=== PATIENT | male | born 1935 | race Caucasian/White ===

== ENCOUNTER → 2016-09-05 | Outpatient (REF) | payer MEDICARE, BC ==
[~2016-09-05] MED LIST: DARV100T; PRIN10TA
== END ==
LOC: M LAB REF 12:56
PROVIDERS: ATTEND Internal Medicine Pulmonary Disease
DX: J44.9 Chronic obstructive pulmonary disease, unspecified (principal)

== ENCOUNTER → 2017-01-14 | Outpatient (CLI) | payer MEDICARE, BC ==
--- NOTE | 2017-01-14 09:55 | REP ---
Clinical: Chronic obstructive pulmonary disease. Technique: PA and lateral. Comparison: 09/19/2015. Findings: Advanced COPD and emphysematous changes are again noted and stable. No acute consolidation, effusion, or pneumothorax. Mediastinum and cardiac silhouette are normal. Evidence for left shoulder arthroplasty. Surgical clips in the superior mediastinum are stable. Impression: Advanced COPD and emphysematous changes similar to prior examination. Signed by Samuel Fountain MD 01/14/2017 09:47 A
== END ==
LOC: M RAD 09:20
PROVIDERS: ATTEND Internal Medicine Pulmonary Disease
DX: J44.9 Chronic obstructive pulmonary disease, unspecified (principal)

== ENCOUNTER → 2017-07-11 | Outpatient (CLI) | payer MEDICARE, BC ==
--- NOTE | 2017-07-11 15:00 | REP ---
CT of the chest without IV contrast: Comparisons are the recent plain film study of 06/27/[address] of 01/22/2013. On the recent plain film study. A small nodular densities noted in the right mid lung. On the CT study today there are surgical clips in the right hilus and right paratracheal zone suggesting a right upper lobectomy. There are thickened interstitial markings posterolaterally in the left lower lobe which are confluent and in combination result in the nodular density seen on the plain film study. This could represent interstitial inflammation or scarring. It was not present on the comparison CT. No focal nodule or mass is identified on the superimposition of these coarsened interstitial markings results in a nodular like appearance on plain films. However, there is a spiculated 7 mm nodule laterally left upper lobe on image 41 as an interval change. No other lung nodules or masses are again. I suspect there are numerous tiny bulla throughout the lung delacruz bilaterally. There is no mediastinal adenopathy. No axillary adenopathy. The study is insensitive for hilar adenopathy. There is a left shoulder arthroplasty. There are no pleural effusions. In the upper abdomen there is no adrenal mass. The visualized portions of the liver, pancreas and spleen are unremarkable. Impression: No right lung nodule is identified. I suspect the patient has a right upper lobectomy. There are numerous coarsened interstitial markings in the right lower lobe compatible with fibrosis or inflammation, or combination. Superimposition of these markings results in a nodule like density on plain films. There is a new spiculated 7 mm nodule laterally left upper lobe on image 41. In a high risk patient CT is recommended as 6-12 months and again 18 24 months. Signed by Jaime Haas MD 07/11/2017 02:52 P
== END ==
LOC: M RAD 10:36
PROVIDERS: ATTEND Nurse Practitioner Adult Health
DX: J44.9 Chronic obstructive pulmonary disease, unspecified (principal); R91.1 Solitary pulmonary nodule

== ENCOUNTER → 2017-10-11 | Outpatient (CLI) | payer MEDICARE, BC | LOC: M RAD 12:14 | DX: J44.9 Chronic obstructive pulmonary disease, unspecified (principal) | CPT/HCPCS: 71250 ==

== ENCOUNTER → 2017-10-15 | Outpatient (CLI) | payer MEDICARE, BC | LOC: M PLARAD 12:35 | DX: R91.1 Solitary pulmonary nodule (principal) | CPT/HCPCS: 78815 ==

== ENCOUNTER → 2018-01-14 | Outpatient (CLI) | payer MEDICARE, BC | LOC: M RAD 10:17 | DX: R91.1 Solitary pulmonary nodule (principal); Z90.2 Acquired absence of lung [part of]; Z79.899 Other long term (current) drug therapy | CPT/HCPCS: 71250 ==

== ENCOUNTER → 2018-05-15 | Outpatient (CLI) | payer MEDICARE, BC | LOC: M RAD 11:12 | DX: R91.1 Solitary pulmonary nodule (principal) | CPT/HCPCS: 71250 ==

== ENCOUNTER → 2018-11-19 | Outpatient (CLI) | payer MEDICARE, BC ==
--- NOTE | 2018-11-19 17:07 | REP ---
REASON: Followup pulmonary nodules. COMPARISON: Numerable. All of which have been reviewed and the latest of which is dated 05/15/2018. There is no significant change in the appearance of the mediastinum or pulmonary noe. There is bilateral pulmonary arterial enlargement suggestive of pulmonary hypertension which should be correlated clinically. Numerable nonenlarged lymph nodes are present in the mediastinum and pulmonary noe but difficult to evaluate without intravenous contrast. There are no pleural or pericardial effusions. There is no significant change in the appearance of the imaged upper abdomen. There is no significant change in the appearance of the imaged osseous structures. Evaluation of the lung delacruz shows then to be hyperexpanded with scattered areas of parenchymal scarring seen as curvilinear densities are stable. 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 There are no new abnormal nodules, masses, or opacities. IMPRESSION:Chronic lung field changes as described above. Chronic waxing and waning atelectatic change in the right upper lobe with postoperative right hilar changes status quo. Electronically Signed by Leo Madison DO 11/19/2018 05:40 P
== END ==
LOC: M RAD 10:50
PROVIDERS: ATTEND Internal Medicine Pulmonary Disease
DX: R91.1 Solitary pulmonary nodule (principal); J98.11 Atelectasis

== ENCOUNTER 2019-01-06 14:32 | Inpatient (IN) | payer MEDICARE, BC ==
[~2019-01-06] VITALS: Ht 167.6 cm; Wt 39.3 kg
[2019-01-06] MEDS ORDERED: HYDR-3719 PO (14:51)
[2019-01-06] MEDS ORDERED: PRED10TA2 PO (14:51)
[2019-01-06] MEDS ORDERED: GABA-845 PO (14:51)
[2019-01-06] MEDS ORDERED: dexameTHASONE 20 MG/5 ML VIAL (J1100) IV ONE (15:15)
[2019-01-06] MEDS: IPRATROPIUM 0.5MG/ALBUTEROL 2.5MG INH SOL UD 3ML (DUONEB)(J7620) NEB PRN ×2 (15:30→16:31)
[2019-01-06 15:37] LABS: BASO % 0.1 % (0.0-1.0); EOS % 0.1 % (0.0-3.0); HEMATOCRIT 43.7 % (42.0-52.0); HEMOGLOBIN 13.7 g/dl (13.5-17.5); LYMPH # 0.7 10^3/uL (1.5-4.5); LYMPH % 4.4 % (24.0-44.0); MEAN CORPUSCULAR HEMOGLOBIN 30.5 pg (27.0-33.0); MEAN CORPUSCULAR HGB CONC 31.4 g/dl (32.0-36.5); MEAN CORPUSCULAR VOLUME 97.3 fl (80.0-96.0); MONO # 1.1 10^3/uL (0.0-0.8); MONO % 7.2 % (0.0-5.0); NEUTROPHILS # 13.8 10^3/uL (1.8-7.7); NEUTROPHILS % 87.8 % (36.0-66.0); PLATELET COUNT, AUTOMATED 219 10^3/uL (150-450); RED BLOOD COUNT 4.49 10^6/uL (4.30-6.10); WHITE BLOOD COUNT 15.7 10^3/uL (4.0-10.0)
[2019-01-06 16:11] LABS: ABG BASE EXCESS 1.5 (-2.0-2.0); ABG HCO3 27.1 MEQ/L (22.0-26.0); ABG O2 SATURATION 93.8 % (95.0-99.0); ABG PARTIAL PRESSURE CO2 46.3 mmHg (35.0-45.0); ABG PARTIAL PRESSURE O2 72.8 mmHg (75.0-100.0); ABG STANDARD HCO3 25.7 MEQ/L (22.0-26.0); ABG TOTAL CO2 28.5 MEQ/L (23.0-31.0); ABG pH (ARTERIAL) 7.385 UNITS (7.350-7.450)
[2019-01-06 16:12] LABS: BLOOD UREA NITROGEN 63 MG/DL (7-18); CALCIUM LEVEL 8.8 MG/DL (8.8-10.2); CARBON DIOXIDE LEVEL 31 MEQ/L (21-32); CHLORIDE LEVEL 106 MEQ/L (98-107); CPK CREATINE PHOSPHOKINASE 28 U/L (39-308); CREATININE FOR GFR 1.93 MG/DL (0.70-1.30); GLOMERULAR FILTRATION RATE 35.5 (>35); GLUCOSE, FASTING 104 MG/DL (70-100); MB/CK RELATIVE INDEX 3.93 (< OR =4); NT-PRO BNP 2305 PG/ML (<450); POTASSIUM SERUM 5.5 MEQ/L (3.5-5.1); SODIUM LEVEL 141 MEQ/L (136-145); TROPONIN I < 0.02 NG/ML (< 0.10)
--- NOTE | 2019-01-06 16:16 | REP ---
HISTORY: Dyspnea. Cough. COMPARISON: 06/27/2017. The technique utilized in obtaining the radiograph has magnified the cardiac silhouette and accentuated the interstitial markings. Once again, the lung delacruz are hyperexpanded with fibrotic change particularly in the lung bases, however, a new patchy opacity is suspected in the left lower lobe superimposed upon chronic change. The heart is not enlarged and the osseous structures are stable. IMPRESSION: New abnormal left lower lobe patchy opacity consistent with pneumonia. Electronically Signed by Leo Madison DO 01/06/2019 04:17 P
[2019-01-06] MEDS ORDERED: cefTRIAXone SOD 2 GM in D5W MINI-BAG PLUS 50 ML IV ONE (16:30)
[2019-01-06] MEDS ORDERED: AZITHROMYCIN INJ 500 MG, VIAL MATE ADAPTER 1 EACH in D5W 250 ML IV ONE (16:30)
[2019-01-06] MEDS ORDERED: MILK87.5 PO (16:37)
[2019-01-06] MEDS ORDERED: IPRATROPIUM 0.5MG/ALBUTEROL 2.5MG INH SOL UD 3ML (DUONEB)(J7620) NEB PRN (17:45)
--- NOTE | 2019-01-06 17:54 | HPEPDOC ---
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 Patient stated that he has had increased cough, and sputum production. He had a CT for surveillance of his pulmonary nodule completed through his enrollment manager. It was found that the patient had pneumonia. The patient states that he was placed on antibiotics at that time and prednisone. He noted that he did not feel better after he completed the course of antibiotics. He was placed on additional prednisone. However, he continued to get short of breath with increased cough and shortness of breath. He called his primary care provider who instructed him to come to the ER. The patient presented to the ER with his daughter who stated that the patient has been getting worse over the past two weeks and they had noticed that he was more weak then normal. The patient states that he would not like to stay in the hospital but admits that he is not feeling well. He states that he has had yellow sputum. He denies any fevers or chills. He received a chest x-ray in the ER which demonstrated a left lower lobe infiltrate consistent with pneumonia. Additionally, he had an elevated white blood cell count and tachycardia. The hospitalist service was consulted and the patient was admitted PAST MEDICAL HISTORY: 1. Adenocarcinoma of the lung Stage 1A [id number] 2. Hypertension 3. Chronic Obstructive Pulmonary Disease 4. Tobacco Abuse PAST SURGICAL HISTORY: 1. Multiple shoulder surgeries 2. Right Upper Lobectomy and mediastinal node dissection SOCIAL HISTORY: Patient is a former smoker. He denies Iv drug use. He denies recent sick contacts or travel FAMILY HISTORY: Denies family history of lung cancer or lung disease ALLERGIES: Please see below. REVIEW OF SYSTEMS: CONSTITUTIONAL: Denies fevers, chills, nightsweats, unintentional weightloss or weightgain HEENT: Admits to cough with increased sputum production. Denies dysphagia CARDIOVASCULAR: Denies chest pain, palpitations, or feelings of the heart racing RESPIRATORY: Admits to shortness of breath at rest. Admits to occasional wheezi ng. Denies hemoptysis GASTROINTESTINAL: Admits to constipation. Denies diarrhea. Denies abdominal p ain. Denies nausea or vomiting GENITOURINARY: Denies dysuria or increased frequency SKIN: Denies any rashes or lesions MUSCULOSKELETAL: Admits to chronic left shoulder pain NEUROLOGICAL: Admits to neuropathic pain from shingles PSYCHIATRIC: Denies depression or anxiety ENDOCRINE: Denies heat intolerance or cold intolerance HEMATOLOGIC/LYMPHATIC: Denies easy bruising or bleeding HOME MEDICATIONS: Please see below. PHYSICAL EXAMINATION: VITAL SIGNS: Temperature 99.4, pulse 113, respiratory rate 20, blood pressure 116/68, pulse oximetry 94% on 2L NC GENERAL APPEARANCE: Patient is a frail appearing white male. He is awake, alert, and oriented. He is lying comfortably in bed in no acute distress. HEENT: Atraumatic normocephalic. Sclera are mildly icteric. Trachea is midline. Mucuous membranes are slightly dry. CARDIOVASCULAR: Normal S1, S2. Distant heart sounds. Tachycardic. Regular rhythm. No clicks, rubs, or murmurs LUNGS: Diminished breath sound on the right. Rhoncorous breath sounds throughout. No wheezing. No crackles. ABDOMEN: Soft, nondistended, nontender to palpation in all 4 quadrants. No rebound tenderness or guarding. Positive bowel sounds EXTREMITIES: No edema. Full and equal pulses in bilateral upper and lower extremities NEUROLOGICAL: No focal neurological deficit PSYCHIATRIC: Mood and affect appear appropriate LABORATORY DATA: See below. IMAGING: HISTORY: Dyspnea. Cough. COMPARISON: 06/27/2017. The technique utilized in obtaining the radiograph has magnified the cardiac silhouette and accentuated the interstitial markings. Once again, the lung delacruz are hyperexpanded with fibrotic change particularly in the lung bases, however, a new patchy opacity is suspected in the left lower lobe superimposed upon chronic change. The heart is not enlarged and the osseous structures are stable. IMPRESSION: New abnormal left lower lobe patchy opacity consistent with pneumonia. Electronically Signed by Leo Madison DO 01/06/2019 04:17 P MICROBIOLOGY: Please see below. ASSESSMENT: Patient is an 83 year old male with a past medical history of adenocarcinoma of the lung s/p right upper lobectomy in 2008, COPD, and HTN who presented to the [facility] ER for worsening shortness of breath and cough. Patient was recently diagnosed with CAP two weeks ago and placed on oral antibiotics. He continued to have increased sputum and shortness of breath and subsequently presented to the ER where he was found to be tachycardic with an elevated white blood cell count and evidence of pneumonia on chest x-ray PLAN: 1. Community Acquired Pneumonia w/ underlying COPD -Patient was found to have left lower lobe pneumonia on chest x-ray -He is currently afebrile but has an elevated white blood cell count and is tachycardic. -IV ceftriaxone and Doxycycline -Will start Solumedrol; s/p Dexamethasone in ER -Procalcitonin pending -Duonebs 2. Constipation -Miralax and Colace 3. DVT prophylaxis -Heparin SQ Vital Signs Vital Signs Date Time Temp Pulse Resp B/P (MAP) Pulse Ox O2 Delivery O2 Flow Rate FiO2 01/06/19 16:30 107 22 120/75 (90) 94 Nasal Cannula 2.0 01/06/19 14:33 99.4 Laboratory Data Labs 24H Laboratory Tests 2 01/06/19 15:21: Immature Granulocyte % (Auto) 0.4, White Blood Count 15.7H, Red Blood Count 4.49, Hemoglobin 13.7, Hematocrit 43.7, Mean Corpuscular Volume 97.3H, Mean Corpuscular Hemoglobin 30.5, Mean Corpuscular Hemoglobin Concent 31.4L, Red Cell Distribution Width 15.2H, Platelet Count 219, Neutrophils (%) (Auto) 87.8H, Lymphocytes (%) (Auto) 4.4L, Monocytes (%) (Auto) 7.2H, Eosinophils (%) (Auto) 0.1, Basophils (%) (Auto) 0.1, Neutrophils # (Auto) 13.8H, Lymphocytes # (Auto) 0.7L, Monocytes # (Auto) 1.1H, Eosinophils # (Auto) 0.0, Basophils # (Auto) 0.0, Nucleated Red Blood Cells % (auto) 0.0, Blood Gas Bicarbonate Standard 25.7, Arterial Blood pH 7.385, Arterial Blood Partial Pressure CO2 46.3H, Arterial Blood Partial Pressure O2 72.8L, Arterial Blood Total CO2 28.5, Arterial Blood H CO3 27.1H, Arterial Blood Base Excess 1.5, Arterial Blood Oxygen Saturation 93.8L, Anion Gap 4L, Glomerular Filtration Rate 35.5, Lactic Acid Level 1.9, Blood Urea Nitrogen 63H, Creatinine 1.93H, Sodium Level 141, Potassium Level 5.5H, Chloride Level 106, Carbon Dioxide Level 31, Calcium Level 8.8, Total Creatine Kinase 28L, Creatine Kinase MB 1.0, Creatine Kinase MB Relative Index 3.93, Troponin I < 0.02, FI-Bms-L-Type Natriuretic Peptide 2305H CBC/BMP Laboratory Tests 01/06/19 15:21 Red Blood Count 4.49, Mean Corpuscular Volume 97.3 H, Mean Corpuscular Hemoglobin 30.5, Mean Corpuscular Hemoglobin Concent 31.4 L, Red Cell Distribution Width 15.2 H, Neutrophils (%) (Auto) 87.8 H, Lymphocytes (%) (Auto) 4.4 L, Monocytes (%) (Auto) 7.2 H, Eosinophils (%) (Auto) 0.1, Basophils (%) (Auto) 0.1, Neutrophils # (Auto) 13.8 H, Lymphocytes # (Auto) 0.7 L, Monocytes # (Auto) 1.1 H, Eosinophils # (Auto) 0.0, Basophils # (Auto) 0.0, Calcium Level 8.8, Total Creatine Kinase 28 L Microbiology Microbiology 01/06/19 Blood Culture, Received Pending 01/06/19 Blood Culture, Received Pending Home Medications Scheduled Gabapentin (Gabapentin) 400 Mg Capsule, 400 MG PO TID Hydrocodone/Acetaminophen (Hydrocodone-Acetamin 10-325 mg) 1 Each Tablet, 1 TAB PO Q6H Milk Thistle Seed Extract (Milk Thistle Extract) 87.5 Mg Capsule, 87.5 MG PO MARQUIS LY Prednisone (Prednisone) 10 Mg Tablet, 10 MG PO ASDIRECTED TAPER DOWN FROM 40MG DAILY X 4 DAYS, 30MG X 4 DAYS, 20MG X 4 DAYS, THEN 10MG X 4 DAYS. PATIENT IS UNAWARE IF HE IS CURRENTLY TAKING 20MG DAILY OR 10MG DAILY NOW. Allergies Coded Allergies: No Known Allergies (Unverified , 01/06/19) A-FIB/CHADSVASC A-FIB History Current/History of A-Fib/PAF?: No GME ATTESTATION GME ATTESTATION My faculty preceptor for this patient encounter was physically present during the encounter and was fully available. All aspects of the patient interview, examination, medical decision making process, and medical care plan development were reviewed and approved by the faculty preceptor. The faculty preceptor is aware and concurs with the plan as stated in the body of this note and will attest to such by his/her cosignature. ATTENDING NOTE I, Ana Bond, have both independently examined this patient as well as reviewed the documentation. I have discussed in detail with the resident the findings and plan of treatment as documented by the resident. I agree with their findings and treatment plan. I will continue to follow the patient and offer further guidance to the patients care as necessary during this hospital stay. RAFI TENA DO January 06, 2019 17:54 ANA BOND MD January 06, 2019 18:46
[2019-01-06] MEDS ORDERED: DOXYCYCLINE HYCLATE 100 MG in D5W MINI-BAG PLUS 100 ML IV ONE (18:00)
[2019-01-06] MEDS ORDERED: NS 1,000 ML IV ONE (18:00)
--- NOTE | 2019-01-06 19:47 | ECGEPIP ---
Stationary ECG Study [facility] - ED Test Date: 2019-01-06 Pat Name: ROSALES SARAVIA Department: Room: - Gender: M Heel Compressor: TC : 1935 Requested By: Mekhi Tello Order Number: [id number] Reading MD: Rosales aG Measurements Intervals [place] Rate: 104 P: 84 HI: 136 QRS: 184 QRSD: 122 T: 66 QT: 317 QTc: 418 Interpretive Statements SINUS TACHYCARDIA RIGHT BUNDLE BRANCH BLOCK LEFT POSTERIOR FASCICULAR BLOCK Rate and axis changed from tracing done 01-18-2012 Electronically Signed On 01-06-2019 19:46:49 EDT by Rosales Ga
[2019-01-06] MEDS: IPRATROPIUM 0.5MG/ALBUTEROL 2.5MG INH SOL UD 3ML (DUONEB)(J7620) NEB SCH (21:01)
[2019-01-06] MEDS: MOM 30ML SUSPENSION UDC PO PRN (21:21)
[2019-01-06] MEDS: HEPARIN SOD (PORCINE) 5000 UNITS/ML VIAL SC SCH (21:22)
[2019-01-06] MEDS: SENOKOT S TAB PO SCH (21:22)
[2019-01-06] MEDS: GABAPENTIN 400 MG CAP PO SCH (21:22)
[2019-01-06 22:00] VITALS: BP 131/72
[2019-01-06] MEDS: methylPREDNISolone INJ 40 MG/1 ML VIAL (J2920) IV SCH (23:55)
[2019-01-07] MEDS: IPRATROPIUM 0.5MG/ALBUTEROL 2.5MG INH SOL UD 3ML (DUONEB)(J7620) NEB SCH ×4 (02:58→21:04)
[2019-01-07 06:00] VITALS: BP 141/78
[2019-01-07 06:33] LABS: HEMATOCRIT 38.3 % (42.0-52.0); MEAN CORPUSCULAR HEMOGLOBIN 30.7 pg (27.0-33.0); MEAN CORPUSCULAR HGB CONC 31.3 g/dl (32.0-36.5); PLATELET COUNT, AUTOMATED 191 10^3/uL (150-450); RED BLOOD COUNT 3.91 10^6/uL (4.30-6.10); WHITE BLOOD COUNT 11.6 10^3/uL (4.0-10.0)
[2019-01-07 06:52] LABS: CALCIUM LEVEL 8.8 MG/DL (8.8-10.2); CREATININE FOR GFR 1.41 MG/DL (0.70-1.30); POTASSIUM SERUM 4.6 MEQ/L (3.5-5.1)
[2019-01-07] MEDS: methylPREDNISolone INJ 40 MG/1 ML VIAL (J2920) IV SCH ×2 (08:06→21:09)
[2019-01-07] MEDS: DOXYCYCLINE HYCLATE 100 MG in D5W MINI-BAG PLUS 100 ML IV SCH ×2 (08:06→21:10)
[2019-01-07] MEDS: HEPARIN SOD (PORCINE) 5000 UNITS/ML VIAL SC SCH ×2 (08:06→21:09)
[2019-01-07] MEDS: SENOKOT S TAB PO SCH ×2 (08:07→21:09)
[2019-01-07] MEDS: GABAPENTIN 400 MG CAP PO SCH ×3 (08:07→21:09)
[2019-01-07] MEDS: NORCO, ANEXSIA 5/325MG TABLET (HYDROcodone/ACETAMINOPHEN) PO PRN ×2 (08:08→16:00)
--- NOTE | 2019-01-07 12:33 | IPNPDOC ---
Date Seen The patient was seen on 01/07/19. Progress Note SUBJECTIVE: Patient was seen and examined. He currently complains of constipation. He states that his cough is improving as well as his shortness of breath. No adverse events have been reported overnight OBJECTIVE PHYSICAL EXAMINATION: VITAL SIGNS: Please see below. GENERAL: Awake, alert, and oriented. Appears in no acute distress. Lying comfortably in bed. cachetic appearing HEENT: Atrumatic, normocephalic. Eyes are nonicteric. Trachea is midline. Dentition is fair. Nasal cannula in place CARDIOVASCULAR: Normal S1, S2. Regular rate and rhythm. No clicks, rubs, or murmurs RESPIRATORY: Decreased breath sounds on right. No wheezes or crackles. Scattered rhonci ABDOMINAL: Soft, nondistended, Nontender to palpation of all 4 quadrants. No rebound tenderness or guarding. Positive bowel sounds throughout EXTREMITIES: No edema. Full and equal pulses in bilateral upper and lower extremities NEUROLOGICAL: No focal neurological deficits noted PSYCHOLOGICAL: Mood and affect appear appropriate LABORATORY DATA, IMAGING STUDIES, MICROBIOLOGY: Please see below. DVT prophylaxis ordered?: YES ASSESSMENT AND PLAN: Patient is an 83 year old male with a past medical history of adenocarcinoma of the lung s/p right upper lobectomy in 2008, COPD, and HTN who presented to the [facility] ER for worsening shortness of breath and cough. Patient was recently diagnosed with CAP two weeks ago and placed on oral antibiotics. He continued to have increased sputum and shortness of breath and subsequently presented to the ER where he was found to be tachycardic with an elevated white blood cell count and evidence of pneumonia on chest x-ray PLAN: 1. Community Acquired Pneumonia w/ underlying COPD -Patient was found to have left lower lobe pneumonia on chest x-ray -He has remained afebrile. He is no longer tachycardic after IV hydration. He has had improvement in BUN and Cr -IV ceftriaxone and Doxycycline -Solumedrol tapered down to 40mg Q12H -Procalcitonin pending -Randi 2. Constipation -Miralax and Senna 3. DVT prophylaxis -Heparin SQ DISPOSITION: Likely discharge tomorrow pending PT evaluation A-FIB/CHADSVASC A-FIB History Current/History of A-Fib/PAF?: No VS, I&O, 24H, Fishbone Vital Signs/I&O Vital Signs Date Time Temp Pulse Resp B/P (MAP) Pulse Ox O2 Delivery O2 Flow Rate FiO2 01/07/19 08:38 20 01/07/19 08:00 2.0 01/07/19 06:00 96.3 97 141/78 (99) 95 01/06/19 20:00 Nasal Cannula I&O- Last 24 Hours up to 6 AM0 01/07/19 06:00 Intake Total 1495 ml Output Total 400 ml Balance 1095 ml Laboratory Data 24H LABS Laboratory Tests 2 01/06/19 15:21: Immature Granulocyte % (Auto) 0.4, White Blood Count 15.7H, Red Blood Count 4.49, Hemoglobin 13.7, Hematocrit 43.7, Mean Corpuscular Volume 97.3H, Mean Corpuscular Hemoglobin 30.5, Mean Corpuscular Hemoglobin Concent 31.4L, Red Cell Distribution Width 15.2H, Platelet Count 219, Neutrophils (%) (Auto) 87.8H, Lymphocytes (%) (Auto) 4.4L, Monocytes (%) (Auto) 7.2H, Eosinophils (%) (Auto) 0.1, Basophils (%) (Auto) 0.1, Neutrophils # (Auto) 13.8H, Lymphocytes # (Auto) 0.7L, Monocytes # (Auto) 1.1H, Eosinophils # (Auto) 0.0, Basophils # (Auto) 0.0, Nucleated Red Blood Cells % (auto) 0.0, Blood Gas Bicarbonate Standard 25.7, Arterial Blood pH 7.385, Arterial Blood Partial Pressure CO2 46.3H, Arterial Blood Partial Pressure O2 72.8L, Arterial Blood Total CO2 28.5, Arterial Blood HCO3 27.1H, Arterial Blood Base Excess 1.5, Arterial Blood Oxygen Saturation 93.8L, Anion Gap 4L, Glomerular Filtration Rate 35.5, Lactic Acid Level 1.9, Blood Urea Nitrogen 63H, Creatinine 1.93H, Sodium Level 141, Potassium Level 5.5H, Chloride Level 106, Carbon Dioxide Level 31, Calcium Level 8.8, Total Cr eatine Kinase 28L, Creatine Kinase MB 1.0, Creatine Kinase MB Relative Index 3.93, Troponin I < 0.02, LL-Bqc-H-Type Natriuretic Peptide 2305H 01/07/19 05:38: Nucleated Red Blood Cells % (auto) 0.0, Anion Gap 5L, Glomerular Filtration Rate 51.0, Blood Urea Nitrogen 55H, Creatinine 1.41H, Sodium Level 143, Potassium Level 4.6, Chloride Level 107, Carbon Dioxide Level 31, Calcium Level 8.8 CBC/BMP Laboratory Tests 01/06/19 15:21 Red Blood Count 4.49, Mean Corpuscular Volume 97.3 H, Mean Corpuscular Hemoglobin 30.5, Mean Corpuscular Hemoglobin Concent 31.4 L, Red Cell Distribution Width 15.2 H, Neutrophils (%) (Auto) 87.8 H, Lymphocytes (%) (Auto) 4.4 L, Monocytes (%) (Auto) 7.2 H, Eosinophils (%) (Auto) 0.1, Basophils (%) (Auto) 0.1, Neutrophils # (Auto) 13.8 H, Lymphocytes # (Auto) 0.7 L, Monocytes # (Auto) 1.1 H, Eosinophils # (Auto) 0.0, Basophils # (Auto) 0.0, Calcium Level 8.8, Total Creatine Kinase 28 L 01/07/19 05:38 Red Blood Count 3.91 L, Mean Corpuscular Volume 98.0 H, Mean Corpuscular Hemoglobin 30.7, Mean Corpuscular Hemoglobin Concent 31.3 L, Red Cell Distribution Width 15.2 H, Calcium Level 8.8 Microbiology Microbiology 01/06/19 Blood Culture, Received Pending 01/06/19 Blood Culture, Received Pending GME ATTESTATION GME ATTESTATION My faculty preceptor for this patient encounter was physically present during the encounter and was fully available. All aspects of the patient interview, examination, medical decision making process, and medical care plan development were reviewed and approved by the faculty preceptor. The faculty preceptor is aware and concurs with the plan as stated in the body of this note and will attest to such by his/her cosignature. ATTENDING NOTE I, Ana Bustillos, have both independently examined this patient as well as reviewed the documentation. I have discussed in detail with the resident the findings and plan of treatment as documented by the resident. I agree with their findings and treatment plan. I will continue to follow the patient and offer further guidance to the patients care as necessary during this hospital stay. RAFI TENA DO January 07, 2019 12:33 ANA BUSTILLOS MD January 07, 2019 14:34
[2019-01-07 14:00] VITALS: BP 138/76
[2019-01-07] MEDS: MOM 30ML SUSPENSION UDC PO PRN (15:59)
[2019-01-07] MEDS ORDERED: cefTRIAXone SOD 1 GM in D5W MINI-BAG PLUS 50 ML IV SCH (17:00)
[2019-01-07] MEDS: LACTULOSE 20 GM/30 ML SYRUP UD PO PRN (18:46)
[2019-01-07 22:00] VITALS: BP 132/79
[2019-01-08] MEDS: LACTULOSE 20 GM/30 ML SYRUP UD PO PRN (02:08)
[2019-01-08] MEDS: NORCO, ANEXSIA 5/325MG TABLET (HYDROcodone/ACETAMINOPHEN) PO PRN (02:09)
[2019-01-08] MEDS: IPRATROPIUM 0.5MG/ALBUTEROL 2.5MG INH SOL UD 3ML (DUONEB)(J7620) NEB SCH ×2 (02:28→07:23)
[2019-01-08 06:00] VITALS: BP 136/69
[2019-01-08 06:45] LABS: HEMATOCRIT 36.9 % (42.0-52.0); HEMOGLOBIN 11.7 g/dl (13.5-17.5); MEAN CORPUSCULAR HEMOGLOBIN 30.2 pg (27.0-33.0); MEAN CORPUSCULAR HGB CONC 31.7 g/dl (32.0-36.5); MEAN CORPUSCULAR VOLUME 95.1 fl (80.0-96.0); PLATELET COUNT, AUTOMATED 223 10^3/uL (150-450); RED BLOOD COUNT 3.88 10^6/uL (4.30-6.10); WHITE BLOOD COUNT 18.4 10^3/uL (4.0-10.0)
[2019-01-08 07:12] LABS: CALCIUM LEVEL 9.1 MG/DL (8.8-10.2); CREATININE FOR GFR 1.45 MG/DL (0.70-1.30); GLOMERULAR FILTRATION RATE 49.4 (>35); POTASSIUM SERUM 4.4 MEQ/L (3.5-5.1)
[2019-01-08 08:18] VITALS: BP 134/78
[2019-01-08] MEDS: GABAPENTIN 400 MG CAP PO SCH (09:18)
[2019-01-08] MEDS: HEPARIN SOD (PORCINE) 5000 UNITS/ML VIAL SC SCH (09:18)
[2019-01-08] MEDS: SENOKOT S TAB PO SCH (09:18)
[2019-01-08] MEDS: DOXYCYCLINE HYCLATE 100 MG in D5W MINI-BAG PLUS 100 ML IV SCH (09:19)
[2019-01-08] MEDS: methylPREDNISolone INJ 40 MG/1 ML VIAL (J2920) IV SCH (09:38)
[2019-01-08] MEDS ORDERED: DOXY-350 PO (09:41)
[2019-01-08] MEDS ORDERED: PRED10TA2 PO (09:41)
[2019-01-08] MEDS ORDERED: CEFD300CAP PO (09:41)
--- NOTE | 2019-01-08 17:27 | DS.PDOC ---
Discharge Summary General Date of Admission January 06, 2019 at 17:17 Date of Discharge 01/08/19 Attending Physician: ANA BOND MD Discharge Summary PROCEDURES PERFORMED DURING STAY: [None]. ADMITTING DIAGNOSES: 1. Community Acquired Pneumonia 2. COPD 3. Constipation DISCHARGE DIAGNOSES: 1. Community Acquired Pneumonia 2. COPD 3. Constipation COMPLICATIONS/CHIEF COMPLAINT: LLL Pneumonia. 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 Patient stated that he had increased cough, and sputum production. He had a CT for surveillance of his pulmonary nodule completed through his shipping and receiving clerk. It was found that the patient had pne umonia. The patient was placed on antibiotics at that time and prednisone. He noted that he did not feel better after he completed the course of antibiotics. He was placed on additional prednisone. However, he continued to get short of breath with increased cough and shortness of breath. He called his primary care provider who instructed him to come to the ER. The patient presented to the ER with his daughter who stated that the patient has been getting worse over the past two weeks and they had noticed that he was more weak then normal. The patient stated that he would not like to stay in the hospital but admitted that he was not feeling well. He stated that he has had yellow sputum. He denies any fevers or chills. He received a chest x-ray in the ER which demonstrated a left lower lobe infiltrate consistent with pneumonia. Additionally, he had an elevated white blood cell count and tachycardia. The hospitalist service was consulted and the patient was admitted HOSPITAL COURSE: Once admitted the patient received IV antibiotics and steroids. He continued to improve. He did complain of constipation and was placd on a bowel regimen. The patient had stated he was feeling better and close to his baseline. He was discharged on Cefdinir, Doxycycline, and prednisone and instructed to follow-up with his PCP as well as pulmonary medicine DISCHARGE MEDICATIONS: Please see below. ALLERGIES: Please see below. PHYSICAL EXAMINATION ON DISCHARGE: VITAL SIGNS: Please see below. GENERAL: Awake, alert, and oriented. Appears in no acute distress. Lying comfortably in bed. cachetic appearing HEENT: Atrumatic, normocephalic. Eyes are nonicteric. Trachea is midline. Dentition is fair. Nasal cannula in place CARDIOVASCULAR: Normal S1, S2. Regular rate and rhythm. No clicks, rubs, or m urmurs RESPIRATORY: Decreased breath sounds on right. No wheezes or crackles. Improved aeration from previous exam ABDOMINAL: Soft, nondistended, Nontender to palpation of all 4 quadrants. No rebound tenderness or guarding. Positive bowel sounds throughout EXTREMITIES: No edema. Full and equal pulses in bilateral upper and lower extremities NEUROLOGICAL: No focal neurological deficits noted PSYCHOLOGICAL: Mood and affect appear appropriate LABORATORY DATA: Please see below. IMAGING: HISTORY: Dyspnea. Cough. COMPARISON: 06/27/2017. The technique utilized in obtaining the radiograph has magnified the cardiac silhouette and accentuated the interstitial markings. Once again, the lung delacruz are hyperexpanded with fibrotic change particularly in the lung bases, however, a new patchy opacity is suspected in the left lower lobe superimposed upon chronic change. The heart is not enlarged and the osseous structures are stable. IMPRESSION: New abnormal left lower lobe patchy opacity consistent with pneumonia. Electronically Signed by Leo Madison DO 01/06/2019 04:17 P PROGNOSIS: GOOD ACTIVITY: [As tolerated]. DIET: tolerated DISCHARGE PLAN: Patient is to be discharged home on Cefdinir, Doxycycline, and Prednisone. He is to complete the full course of his antibiotics and steroids. He is to follow-up with his PCP. He is to follow-up with his Orthopedic Cast Specialist for repeat CT imaging of his chest. Remain compliant with treatments plan and medications and return to the ER if you experience any problems. DISPOSITION: 01 Home, Self-Care. DISCHARGE CONDITION: [Stable]. TIME SPENT ON DISCHARGE: Greater than 40 minutes. Vital Signs/I&Os Vital Signs Date Time Temp Pulse Resp B/P (MAP) Pulse Ox O2 Delivery O2 Flow Rate FiO2 01/08/19 11:45 91 01/08/19 09:50 1.0 01/08/19 08:18 97.9 92 14 134/78 (96) 01/06/19 20:00 Nasal Cannula I&O- Last 24 Hours up to 6 AM 01/08/19 06:00 Intake Total 990 ml Output Total 1150 ml Balance -160 ml Laboratory Data Labs 24H Laboratory Tests 2 01/08/19 06:03: Nucleated Red Blood Cells % (auto) 0.0, Anion Gap 6L, Glomerular Filtration Rate 49.4, Blood Urea Nitrogen 60H, Creatinine 1.45H, Sodium Level 144, Potassium Level 4.4, Chloride Level 108H, Carbon Dioxide Level 30, Calcium Level 9.1 CBC/BMP Laboratory Tests 01/08/19 06:03 Red Blood Count 3.88 L, Mean Corpuscular Volume 95.1, Mean Corpuscular Hemoglobin 30.2, Mean Corpuscular Hemoglobin Concent 31.7 L, Red Cell Distribution Width 15.3 H, Calcium Level 9.1 Microbiology Microbiology 01/06/19 Blood Culture - Preliminary, Resulted No Growth after 48 hours. All Specime... 01/06/19 Blood Culture - Preliminary, Resulted No Growth after 48 hours. All Specime... 01/07/19 Gram Stain - Final, Resulted 01/07/19 Sputum Culture, Resulted Pending Discharge Medications Scheduled Cefdinir (Cefdinir) 300 Mg Capsule, 300 MG PO BID Doxycycline Monohydrate (Doxycycline) 100 Mg Capsule, 100 MG PO BID Gabapentin (Gabapentin) 400 Mg Capsule, 400 MG PO TID, (Reported) Hydrocodone/Acetaminophen (Hydrocodone-Acetamin 10-325 mg) 1 Each Tablet, 1 TAB PO Q6H, (Reported) Milk Thistle Seed Extract (Milk Thistle Extract) 87.5 Mg Capsule, 87.5 MG PO D AILY, (Reported) Prednisone (Prednisone) 10 Mg Tablet, 10 MG PO TAPER Take 4 tabs daily x 3 days, then 3 tabs daily x 3 days, then 2 tabs daily x 3 days, then 1 tab daily x 3 days and stop Allergies Coded Allergies: No Known Allergies (Unverified , 01/06/19) GME ATTESTATION GME ATTESTATION My faculty preceptor for this patient encounter was physically present during the encounter and was fully available. All aspects of the patient interview, examination, medical decision making process, and medical care plan development were reviewed and approved by the faculty preceptor. The faculty preceptor is aware and concurs with the plan as stated in the body of this note and will attest to such by his/her cosignature. ATTENDING NOTE I, Ana Bond, have both independently examined this patient as well as reviewed the documentation. I have discussed in detail with the resident the findings and plan of treatment as documented by the resident. I agree with their findings and treatment plan. I will continue to follow the patient and offer further guidance to the patients care as necessary during this hospital stay. RAFI TENA DO January 08, 2019 17:27 ANA BOND MD January 08, 2019 18:12
== END 2019-01-08 12:35 | disposition home or self-care (01) | DRG 195 ==
LOC: M ED 14:32 → M ED INP 17:17 → M MS5PR 20:47
PROVIDERS: ADMIT Internal Medicine; ATTEND Internal Medicine
DX: J18.9 Pneumonia, unspecified organism (principal); J44.9 Chronic obstructive pulmonary disease, unspecified; K59.00 Constipation, unspecified; Z85.118 Personal history of other malignant neoplasm of bronchus and lung; R91.1 Solitary pulmonary nodule; Z79.899 Other long term (current) drug therapy

== ENCOUNTER 2019-01-10 22:24 | Inpatient (IN) | payer MEDICARE, BC ==
[~2019-01-10] VITALS: Ht 167.6 cm; Wt 40.0 kg
[~2019-01-10 22:24] MED LIST changes: +CEFD300CAP PO; +DOXY-350 PO; +GABA-845 PO; +HYDR-3719 PO; +MILK87.5 PO; +PRED10TA2 PO
[2019-01-10 22:52] LABS: BASO % 0.1 % (0.0-1.0); HEMATOCRIT 44.9 % (42.0-52.0); HEMOGLOBIN 14.7 g/dl (13.5-17.5); LYMPH # 0.5 10^3/uL (1.5-4.5); LYMPH % 2.8 % (24.0-44.0); MEAN CORPUSCULAR HEMOGLOBIN 30.9 pg (27.0-33.0); MEAN CORPUSCULAR HGB CONC 32.7 g/dl (32.0-36.5); MEAN CORPUSCULAR VOLUME 94.5 fl (80.0-96.0); MONO # 0.3 10^3/uL (0.0-0.8); MONO % 1.4 % (0.0-5.0); NEUTROPHILS # 17.6 10^3/uL (1.8-7.7); NEUTROPHILS % 95.1 % (36.0-66.0); PLATELET COUNT, AUTOMATED 296 10^3/uL (150-450); RED BLOOD COUNT 4.75 10^6/uL (4.30-6.10); WHITE BLOOD COUNT 18.5 10^3/uL (4.0-10.0)
[2019-01-10 22:59] LABS: VENOUS BASE EXCESS 4.4 (-2.0-2.0); VENOUS HCO3 30.2 MEQ/L (23.0-27.0); VENOUS O2 SATURATION 85.7 % (60.0-80.0); VENOUS PARTIAL PRESSURE CO2 48.9 mmHg (38.0-50.0); VENOUS PARTIAL PRESSURE O2 54.9 mmHg (30.0-50.0); VENOUS PH 7.408 UNITS (7.330-7.430); VENOUS STANDARD HCO3 28.1 MEQ/L; VENOUS TOTAL CO2 31.7 MEQ/L (24.0-28.0)
[2019-01-10] MEDS ORDERED: NS 1,000 ML IV ONE (23:00)
[2019-01-10] MEDS ORDERED: DOXY100T16 PO (23:11)
[2019-01-10] MEDS ORDERED: PRED10TA2 PO (23:11)
[2019-01-10] MEDS ORDERED: CEFD1CAP8 PO (23:11)
[2019-01-10 23:23] LABS: ALBUMIN 2.6 GM/DL (3.2-5.2); ALT/SGPT 27 U/L (12-78); BILIRUBIN,DIRECT 0.4 MG/DL (0.0-0.2); BILIRUBIN,TOTAL 1.1 MG/DL (0.2-1.0); BLOOD UREA NITROGEN 63 MG/DL (7-18); CALCIUM LEVEL 8.5 MG/DL (8.8-10.2); CARBON DIOXIDE LEVEL 30 MEQ/L (21-32); CHLORIDE LEVEL 106 MEQ/L (98-107); CK-MB VALUE MASS < 1.0 NG/ML (<3.6); CPK CREATINE PHOSPHOKINASE 19 U/L (39-308); CREATININE FOR GFR 1.61 MG/DL (0.70-1.30); GLOMERULAR FILTRATION RATE 43.7 (>35); GLUCOSE, FASTING 114 MG/DL (70-100); MB/CK RELATIVE INDEX 5.26 (< OR =4); POTASSIUM SERUM 4.9 MEQ/L (3.5-5.1); SODIUM LEVEL 146 MEQ/L (136-145); TROPONIN I < 0.02 NG/ML (< 0.10)
[2019-01-10 23:24] LABS: FREE THYROXINE INDEX 1.7 % (1.4-3.8); THYROID STIMULATING HORMONE 1.79 uIU/ML (0.358-3.740); THYROXINE (T4) 4.6 UG/DL (4.5-12.0)
[2019-01-11] MEDS ORDERED: NS 500 ML IV ONE (00:15)
[2019-01-11] MEDS ORDERED: ACETAMINOPHEN 500 MG TAB PO ONE (00:30)
[2019-01-11] MEDS ORDERED: MAALOX 30 ML SUSP *UDC PO PRN (00:30)
[2019-01-11] MEDS ORDERED: ACETAMINOPHEN TAB 650MG DOSE (2X325MG) PO PRN (00:30)
[2019-01-11] MEDS ORDERED: D5W/0.45% SODIUM CHLORIDE 1,000 ML IV SCH (01:00)
--- NOTE | 2019-01-11 01:10 | HPEPDOC ---
General Date of Admission Chief Complaint The patient is a 83-year-old male admitted with a reason for visit of AMS. Source: Family, RN/MD, Old records History of Present Illness Mr. Phillips is an 83 years old cachectic man who was recently admitted for pneumonia and discharged home on 01/08 with antibiotic and prednisone. He was brought back to Er for AMS. Pt is unable to provide any info. mentions that pt really did not do well since discharge, but today after getting out of bed, he went to recliner and slept all day; he did not take anything orally except morning meds. She reports sough with clearing sputum; denies SOB, fever or chills. In the ER, pt was somnolent. Vitals and basic labs were unremarkable. BUN and Cr slightly up from a few days ago. Leucocytosis is unchanged 18K- likely due to steroid use. VBG appears fine. CXR shows improving LLL infiltrates. Head CT pending. Home Medications Scheduled Cefdinir (Cefdinir) 300 Mg Capsule, 300 MG PO BID, (Reported) Doxycycline Monohydrate (Doxycycline Monohydrate) 100 Mg Tablet, 100 MG PO BID, (Reported) Gabapentin (Gabapentin) 400 Mg Capsule, 400 MG PO TID, (Reported) Hydrocodone/Acetaminophen (Hydrocodone-Acetamin 10-325 mg) 1 Each Tablet, 1 TAB PO Q6H, (Reported) Milk Thistle Seed Extract (Milk Thistle Extract) 87.5 Mg Capsule, 87.5 MG PO DAILY, (Reported) Prednisone (Prednisone) 10 Mg Tablet, 10 MG PO TAPER, (Reported) STARTED 01/08/19 FOR 12 DAYS. TAKE 10 MG QID X3 DAYS, THEN 10 MG TID X3 DAYS, THEN 10 MG BID X3 DAYS, THEN 10 MG QD X3 DAYS. Allergies Coded Allergies: No Known Allergies (Unverified , 01/06/19) Past Medical History Medical History PAST MEDICAL HISTORY: 1. Adenocarcinoma of the lung Stage 1A T1N0M0 2. Hypertension 3. Chronic Obstructive Pulmonary Disease 4. Tobacco Abuse 5. Chronic dislocated left shoulder 6. Severe Protein-Calorie Malnutrition (Cachexia) PAST SURGICAL HISTORY: 1. Multiple shoulder surgeries 2. Right Upper Lobectomy and mediastinal node dissection SOCIAL HISTORY: Patient is a former smoker. He denies Iv drug use. He denies recent sick contacts or travel FAMILY HISTORY: Denies family history of lung cancer or lung disease A-FIB/CHADSVASC A-FIB History Current/History of A-Fib/PAF?: No Review of Systems Constitutional: Reports: Lethargy; Denies: Chills, Fever Eyes: Denies: Pain ENT: Denies: Head Aches Pulmonary: Reports: Cough Gastrointestinal: Denies: Nausea, Vomiting Musculoskeletal: Reports: Arm Pain (chronic due to shoulder dislocation) Neurological: Reports: Weakness Other systems Pt unable to provide info due to AMS; limited info obtained from . Physical Examination General Exam: Positive: Other (lethargic, arousable; following simple commands; not in distress; cachexia) Eye Exam: Positive: PERRLA ENT Exam: Positive: Atraumatic, Other ENT (mucous membrane dry) Neck Exam: Positive: Supple; Negative: JVD Chest Exam: Positive: Clear to auscultation, Normal air movement Heart Exam: Positive: Rate Normal, Regular Rhythm Abdomen Exam: Positive: Normal bowel sounds, Soft; Negative: Tenderness Extremity Exam: Negative: Edema Skin Exam: Positive: Other skin issue (dry); Negative: Rash Psych Exam: Positive: Other (somnolent) Vital Signs Vital Signs Date Time Temp Pulse Resp B/P (MAP) Pulse Ox O2 Delivery O2 Flow Rate FiO2 01/11/19 00:00 102 20 168/91 (116) 92 Nasal Cannula 2.0 01/10/19 22:45 98.8 Laboratory Data Labs 24H Laboratory Tests 2 01/10/19 22:38: Bedside Glucose (Misc Panel) 113H 01/10/19 22:40: Immature Granulocyte % (Auto) 0.6, White Blood Count 18.5H, Red Blood Count 4.75, Hemoglobin 14.7, Hematocrit 44.9, Mean Corpuscular Volume 94.5, Mean Corpuscular Hemoglobin 30.9, Mean Corpuscular Hemoglobin Concent 32.7, Red Cell Distribution Width 15.1H, Platelet Count 296, Neutrophils (%) (Auto) 95.1H, Lymphocytes (%) (Auto) 2.8L, Monocytes (%) (Auto) 1.4, Eosinophils (%) (Auto) 0.0, Basophils (%) (Auto) 0.1, Neutrophils # (Auto) 17.6H, Lymphocytes # (Auto) 0.5L, Monocytes # (Auto) 0.3, Eosinophils # (Auto) 0.0, Basophils # (Auto) 0.0, Nucleated Red Blood Cells % (auto) 0.0, Blood Gas Bicarbonate Standard 28.1, Venous Blood pH 7.408, Venous Blood Partial Pressure CO2 48.9, Venous Blood Partial Pressure O2 54.9H, Venous Blood Total Carbon Dioxide 31.7H, Venous Blood HCO3 30.2H, Venous Blood Oxygen Saturation 85.7H, Venous Blood Base Excess 4.4H, Anion Gap 10, Glomerular Filtration Rate 43.7, Lactic Acid Level 2.2*H, Calcium Level 8.5L, Aspartate Amino Transf (AST/SGOT) 13, Alanine Aminotransferase (ALT/SGPT) 27, Alkaline Phosphatase 80, Total Bilirubin 1.1H, Direct Bilirubin 0.4H, Total Creatine Kinase 19L, Creatine Kinase MB < 1.0, Creatine Kinase MB Relative Index 5.26H, Troponin I < 0.02, Total Protein 6.0L, Albumin 2.6L, Albumin/Globulin Ratio 0.76L, Thyroid Stimulating Hormone (TSH) 1.790, Free Thyroxine Index 1.7, Thyroxine (T4) 4.6, Triiodothyronine (T3) Uptake 37 CBC/BMP Laboratory Tests 01/10/19 22:40 Red Blood Count 4.75, Mean Corpuscular Volume 94.5, Mean Corpuscular Hemoglobin 30.9, Mean Corpuscular Hemoglobin Concent 32.7, Red Cell Distribution Width 15.1 H, Neutrophils (%) (Auto) 95.1 H, Lymphocytes (%) (Auto) 2.8 L, Monocytes (%) (Auto) 1.4, Eosinophils (%) (Auto) 0.0, Basophils (%) (Auto) 0.1, Neutrophils # (Auto) 17.6 H, Lymphocytes # (Auto) 0.5 L, Monocytes # (Auto) 0.3, Eosinophils # (Auto) 0.0, Basophils # (Auto) 0.0 Microbiology Microbiology 01/10/19 Blood Culture, Received Pending Assessment/Plan Dehydration, Poor Oral Intake, Failure to Thrive, Severe Protein Calorie Malnutrition, Recent admission for Pneumonia - Keep on observation - D5 1/2NS at 100 cc/hr; repeat labs in the morning - D/C antibiotic and steroid for now, for possible source of stress. Pt has taken them for five days already. - Discuss goal of care when pt is more alert - Nutritional supplement and consult prn Plan / VTE VTE Prophylaxis Ordered?: No VTE Exclusion Mechanical Proph: Low Risk for VTE VTE Exclusion Pharmacological: At Low Risk for VTE KARISSA CARLOS MD January 11, 2019 01:10
[2019-01-11 01:30] VITALS: BP 194/88
--- NOTE | 2019-01-11 02:10 | REPVR ---
EXAM: CT Head Without Contrast EXAM DATE/TIME: 01/11/2019 1:21 AM CLINICAL HISTORY: 83 years old, male; Signs and symptoms; Altered mental status/memory loss; Confusion or disorientation; Additional info: AMS TECHNIQUE: Imaging protocol: Axial computed tomography images of the head/brain without contrast. Radiation optimization: All CT scans at this facility use at least one of these dose optimization techniques: automated exposure control; mA and/or kV adjustment per patient size (includes targeted exams where dose is matched to clinical indication); or iterative reconstruction. COMPARISON: No relevant prior studies available. FINDINGS: Brain: No hemorrhage. Mild hypodensities in the periventricular white matter which are consistent with chronic small vessel ischemic disease. No edema. Cortical gary-white matter differentiation is preserved. Ventricles: Normal. No ventriculomegaly. Bones/joints: Unremarkable. No acute fracture. Sinuses: Visualized sinuses are unremarkable. No acute sinusitis. Mastoid air cells: Visualized mastoid air cells are unremarkable. No mastoid effusion. Soft tissues: Unremarkable. Vasculature: There is atherosclerotic calcification of the cerebral arteries. IMPRESSION: 1. No acute findings. 2. Mild hypodensities in the periventricular white matter which are consistent with chronic small vessel ischemic disease. Electronically signed by: Garfield Martinez On 01/11/2019 02:09:43 AM
[2019-01-11 03:40] LABS: ALBUMIN 2.3 GM/DL (3.2-5.2); BILIRUBIN,TOTAL 0.9 MG/DL (0.2-1.0); CREATININE FOR GFR 1.37 MG/DL (0.70-1.30); GLOMERULAR FILTRATION RATE 52.7 (>35); POTASSIUM SERUM 4.7 MEQ/L (3.5-5.1); TOTAL PROTEIN 5.5 GM/DL (6.4-8.2)
[2019-01-11 06:00] VITALS: BP 180/80
--- NOTE | 2019-01-11 08:01 | ECGEPIP ---
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
[2019-01-11] MEDS ORDERED: PILL CRUSHER/CUTTER 1 EACH XX PRN (08:30)
[2019-01-11] MEDS ORDERED: traMADol 50 MG TAB PO SCH (09:00)
[2019-01-11] MEDS: ACETAMINOPHEN 500 MG TAB PO SCH ×3 (09:05→20:05)
[2019-01-11] MEDS: GABAPENTIN 100 MG CAP PO SCH ×3 (09:06→20:06)
[2019-01-11] MEDS: LIDOCAINE 5% (LIDODERM) PATCH TD SCH (09:06)
--- NOTE | 2019-01-11 10:06 | REP ---
Portable chest x-ray: Single view. History: Dyspnea. Comparison study: January 06, 2019. Findings: EKG monitoring electrodes overlie the chest. Heart is not enlarged. The lungs are hyperinflated. Interstitial fibrosis pattern is seen bilaterally. There are surgical clips adjacent the mediastinum post thoracotomy on the right. The infiltrate seen in the left base on January 06, 2019 has improved. No new infiltrate is seen. Electronically Signed by Emir Block MD 01/11/2019 07:48 A
[2019-01-11] MEDS: PERCOCET 5MG/325MG TAB PO PRN (13:48)
[2019-01-11 14:00] VITALS: BP 170/90
--- NOTE | 2019-01-11 14:32 | IPNPDOC ---
Subjective Date Seen The patient was seen on 01/11/19. Subjective Chief Complaint/HPI Complains of severe left shoulder pain this morning. Says does not have any appetite, he does not want to get up says he is very tired and weak. No fever or chills, no cough or SOB , has severe pain in the left shoulder , left arm and left neck. Objective Physical Examination General Exam: Positive: Alert, No Acute Distress, Other (lethargic, arousable; following simple commands; not in distress; cachexia) Eye Exam: Positive: PERRLA ENT Exam: Positive: Atraumatic, Other ENT (mucous membrane dry) Neck Exam: Positive: Supple; Negative: JVD Chest Exam: Positive: Clear to auscultation, Normal air movement Heart Exam: Positive: Rate Normal, Regular Rhythm Abdomen Exam: Positive: Normal bowel sounds, Soft; Negative: Tenderness Extremity Exam: Negative: Edema Skin Exam: Positive: Other skin issue (dry); Negative: Rash Psych Exam: Positive: Other (somnolent) Assessment /Plan Assessment 83 year old male with PMH of Adenocarcinoma of the lung Stage 1A T1N0M0, Hypertension , Chronic Obstructive Pulmonary Disease , Tobacco Abuse Chronic dislocated left shoulder, Severe Protein-Calorie Malnutrition (Cachexia)recently admitted for pneumonia and discharged home on 01/08 with antibiotic and prednisone. He was brought back to ED for AMS. Pt is unable to provide any info. mentions that pt really did not do well since discharge, but today after getting out of bed, he went to recliner and slept all day; he did not take anything orally except morning meds. She reports sough with clearing sputum; denies SOB, fever or chills. He has not been talking much which is unusual. In the ER, pt was somnolent. Vitals and basic labs were unremarkable. BUN and Cr slightly up from a few days ago. Leucocytosis is unchanged 18K- likely due to steroid use. VBG appears fine. CXR shows improving LLL infiltrates. CT head did not show any acute events. Failure to thrive All labs and radiology reviewed. No specific etiology of his lethargy could be found most probably just age and slow recovery from his recent hospitalization will ask PT to evaluate discussed about advance directives with pateint he says "I dont Know" I again discussed this with and daughter. They think he had DNR paperwork and HCP paperwork from before asked to bring them in. If they do not find it we will do a new MOLST form. Severe shoulder pain will give tramadol, tylenol and lidoderm patch COPD will continue with the steroid taper. Hypertension BP uncontrolled probably due to pain will give amlodipine JOCE with hypernatremia due to poor oral intake on IVF overnight . 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 Plan/VTE VTE Prophylaxis Ordered?: Yes VS, I&O, 24H, Fishbone Vital Signs/I&O Vital Signs Date Time Temp Pulse Resp B/P (MAP) Pulse Ox O2 Delivery O2 Flow Rate FiO2 01/11/19 09:06 18 01/11/19 08:00 2.0 01/11/19 06:00 99.3 107 180/80 (113) 90 01/11/19 02:08 Nasal Cannula I&O- Last 24 Hours up to 6 AM 01/11/19 06:00 Intake Total 1000 ml Output Total 240 ml Balance 760 ml Laboratory Data 24H LABS Laboratory Tests 2 01/10/19 22:38: Bedside Glucose (Misc Panel) 113H 01/10/19 22:40: Immature Granulocyte % (Auto) 0.6, White Blood Count 18.5H, Red Blood Count 4.75, Hemoglobin 14.7, Hematocrit 44.9, Mean Corpuscular Volume 94.5, Mean Corpuscular Hemoglobin 30.9, Mean Corpuscular Hemoglobin Concent 32.7, Red Cell Distribution Width 15.1H, Platelet Count 296, Neutrophils (%) (Auto) 95.1H, Lymphocytes (%) (Auto) 2.8L, Monocytes (%) (Auto) 1.4, Eosinophils (%) (Auto) 0.0, Basophils (%) (Auto) 0.1, Neutrophils # (Auto) 17.6H, Lymphocytes # (Auto) 0.5L, Monocytes # (Auto) 0.3, Eosinophils # (Auto) 0.0, Basophils # (Auto) 0.0, Nucleated Red Blood Cells % (auto) 0.0, Blood Gas Bicarbonate Standard 28.1, Venous Blood pH 7.408, Venous Blood Partial Pressure CO2 48.9, Venous Blood Partial Pressure O2 54.9H, Venous Blood Total Carbon Dioxide 31.7H, Venous Blood HCO3 30.2H, Venous Blood Oxygen Saturation 85.7H, Venous Blood Base Excess 4.4H, Anion Gap 10, Glomerular Filtration Rate 43.7, Lactic Acid Level 2.2*H, Calcium Level 8.5L, Aspartate Amino Transf (AST/SGOT) 13, Alanine Aminotransferase (ALT/SGPT) 27, Alkaline Phosphatase 80, Total Bilirubin 1.1H, Direct Bilirubin 0.4H, Total Creatine Kinase 19L, Creatine Kinase MB < 1.0, Creatine Kinase MB Relative Index 5.26H, Troponin I < 0.02, Total Protein 6.0L, Albumin 2.6L, Albumin/Globulin Ratio 0.76L, Thyroid Stimulating Hormone (TSH) 1.790, Free Thy roxine Index 1.7, Thyroxine (T4) 4.6, Triiodothyronine (T3) Uptake 37 01/11/19 03:10: Anion Gap 8, Glomerular Filtration Rate 52.7, Calcium Level 8.0L, Aspartate Amino Transf (AST/SGOT) 16, Alanine Aminotransferase (ALT/SGPT) 26, Alkaline Phosphatase 67, Total Bilirubin 0.9, Total Protein 5.5L, Albumin 2.3L, Albumin/Globulin Ratio 0.72L, Lactic Acid Followup at 4 Hours 2.1*H, Blood Urea Nitrogen 61H, Creatinine 1.37H, Sodium Level 146H, Potassium Level 4.7, Chloride Level 111H, Carbon Dioxide Level 27 CBC/BMP Laboratory Tests 01/10/19 22:40 Red Blood Count 4.75, Mean Corpuscular Volume 94.5, Mean Corpuscular Hemoglobin 30.9, Mean Corpuscular Hemoglobin Concent 32.7, Red Cell Distribution Width 15.1 H, Neutrophils (%) (Auto) 95.1 H, Lymphocytes (%) (Auto) 2.8 L, Monocytes (%) (Auto) 1.4, Eosinophils (%) (Auto) 0.0, Basophils (%) (Auto) 0.1, Neutrophils # (Auto) 17.6 H, Lymphocytes # (Auto) 0.5 L, Monocytes # (Auto) 0.3, Eosinophils # (Auto) 0.0, Basophils # (Auto) 0.0 01/11/19 03:10 Calcium Level 8.0 L, Aspartate Amino Transf (AST/SGOT) 16, Alanine Aminotransferase (ALT/SGPT) 26, Alkaline Phosphatase 67, Total Bilirubin 0.9, Total Protein 5.5 L, Albumin 2.3 L Microbiology Microbiology 01/10/19 Blood Culture, Received Pending EMILY CALIX MD January 11, 2019 13:52
[2019-01-11] MEDS: traMADol 50 MG TAB PO SCH ×2 (15:35→20:05)
[2019-01-11] MEDS: amLODIPine 5 MG TAB PO SCH (15:36)
[2019-01-11] MEDS: predniSONE 20 MG TAB PO SCH (15:36)
[2019-01-11] MEDS: ONDANSETRON 4MG/2ML VIAL (J2405) IV PRN (16:32)
[2019-01-11] MEDS: **NOTE PATIENT COMMENT** MISC XX SCH (20:06)
[2019-01-11 22:00] VITALS: BP 158/82
[2019-01-12 06:00] VITALS: BP 150/80
[2019-01-12 06:51] LABS: BASO % 0.1 % (0.0-1.0); HEMATOCRIT 38.9 % (42.0-52.0); HEMOGLOBIN 12.3 g/dl (13.5-17.5); LYMPH # 0.8 10^3/uL (1.5-4.5); LYMPH % 3.8 % (24.0-44.0); MEAN CORPUSCULAR HEMOGLOBIN 30.7 pg (27.0-33.0); MEAN CORPUSCULAR HGB CONC 31.6 g/dl (32.0-36.5); MONO # 0.5 10^3/uL (0.0-0.8); MONO % 2.6 % (0.0-5.0); NEUTROPHILS # 18.5 10^3/uL (1.8-7.7); NEUTROPHILS % 92.8 % (36.0-66.0); PLATELET COUNT, AUTOMATED 278 10^3/uL (150-450); RED BLOOD COUNT 4.01 10^6/uL (4.30-6.10)
[2019-01-12 06:54] LABS: CALCIUM LEVEL 8.3 MG/DL (8.8-10.2); CREATININE FOR GFR 1.42 MG/DL (0.70-1.30); GLOMERULAR FILTRATION RATE 50.6 (>35); POTASSIUM SERUM 5.2 MEQ/L (3.5-5.1)
[2019-01-12] MEDS: ONDANSETRON 4MG/2ML VIAL (J2405) IV PRN (06:58)
[2019-01-12] MEDS: PERCOCET 5MG/325MG TAB PO PRN (06:58)
[2019-01-12] MEDS: GABAPENTIN 100 MG CAP PO SCH ×6 (08:23→21:21)
[2019-01-12] MEDS: LIDOCAINE 5% (LIDODERM) PATCH TD SCH (08:23)
[2019-01-12] MEDS: amLODIPine 5 MG TAB PO SCH (08:24)
[2019-01-12] MEDS: ACETAMINOPHEN 500 MG TAB PO SCH ×4 (08:24→20:39)
[2019-01-12] MEDS: traMADol 50 MG TAB PO SCH (08:25)
[2019-01-12] MEDS: predniSONE 20 MG TAB PO SCH (08:25)
[2019-01-12] MEDS ORDERED: ONDANSETRON 4 MG ORAL DISINTEGRATING TAB (Q0162 PER 1MG) PO SCH (09:00)
--- NOTE | 2019-01-12 09:41 | IPNPDOC ---
Subjective Date Seen The patient was seen on 01/12/19. Subjective Chief Complaint/HPI Says his shoulder pain is a little better. Says does not have any appetite. He is trying to drink his coffee from the breakfast tray. Having some nausea and has some dry heaves. Says does not have any trouble swallowing. Very poor oral intake. Objective Physical Examination General Exam: Positive: Alert, No Acute Distress, Other (lethargic, arousable; following simple commands; not in distress; cachexia) Eye Exam: Positive: PERRLA ENT Exam: Positive: Atraumatic, Other ENT (mucous membrane dry) Neck Exam: Positive: Supple; Negative: JVD Chest Exam: Positive: Clear to auscultation, Normal air movement Heart Exam: Positive: Rate Normal, Regular Rhythm Abdomen Exam: Positive: Normal bowel sounds, Soft; Negative: Tenderness Extremity Exam: Positive: Tenderness (shoulder); Negative: Edema Skin Exam: Positive: Other skin issue (dry); Negative: Rash Psych Exam: Positive: Other (somnolent) Assessment /Plan Assessment 83 year old male with PMH of Adenocarcinoma of the lung Stage 1A T1N0M0, Hypertension , Chronic Obstructive Pulmonary Disease , Tobacco Abuse Chronic dislocated left shoulder, Severe Protein-Calorie Malnutrition (Cachexia)recently admitted for pneumonia and discharged home on 01/08 with antibiotic and prednisone. He was brought back to ED for AMS. Pt is unable to provide any info. mentions that pt really did not do well since discharge, but today after getting out of bed, he went to recliner and slept all day; he did not take anything orally except morning meds. She reports sough with clearing sputum; denies SOB, fever or chills. He has not been talking much which is unusual. In the ER, pt was somnolent. Vitals and basic labs were unremarkable. BUN and Cr slightly up from a few days ago. Leucocytosis is unchanged 18K- likely due to steroid use. VBG appears fine. CXR shows improving LLL infiltrates. CT head did not show any acute events. Failure to thrive All labs and radiology reviewed. No specific etiology of his lethargy could be found most probably just age and slow recovery from his recent hospitalization Though severe pain can be a major factor causing poor appetite, nausea and poor oral intake. Calorie count. will ask PT to evaluate discussed about advance directives with pateint he says "I dont Know" I again discussed this with and daughter. They think he had DNR paperwork and HCP paperwork from before asked to bring them in. If they do not find it we will do a new MOLST form. Hypernatremia and hyperkalemia will order 200 cc water q6 hours calorie count. due to poor oral intake and dehydration will check BMP in the pm if more hypernatremic will start IVF. Leucocytosis due to demargination probably due to steroids, pain. No signs of infection seen. Blood cultures negative. Severe shoulder pain will give tramadol, tylenol and lidoderm patch, percocet prn will add zofran COPD will continue with the steroid taper. Hypertension BP uncontrolled probably due to pain will give amlodipine JOCE with hypernatremia due to poor oral intake encourage oral intake. 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 Plan/VTE VTE Prophylaxis Ordered?: Yes VS, I&O, 24H, Fishbone Vital Signs/I&O Vital Signs Date Time Temp Pulse Resp B/P (MAP) Pulse Ox O2 Delivery O2 Flow Rate FiO2 01/12/19 08:25 18 01/12/19 08:24 90 150/80 01/12/19 06:00 99.3 97 1.0 01/11/19 02:08 Nasal Cannula I&O- Last 24 Hours up to 6 AM 01/12/19 06:00 Intake Total 540 ml Output Total 400 ml Balance 140 ml Laboratory Data 24H LABS Laboratory Tests 2 01/12/19 06:20: Lactic Acid Level 0.8 01/12/19 06:38: Immature Granulocyte % (Auto) 0.7, White Blood Count 20.0H, Red Blood Count 4.01L, Hemoglobin 12.3#L, Hematocrit 38.9L, Mean Corpuscular Volume 97.0H, Mean Corpuscular Hemoglobin 30.7, Mean Corpuscular Hemoglobin Concent 31.6L, Red Cell Distribution Width 14.9H, Platelet Count 278, Neutrophils (%) (Auto) 92.8H, Lymphocytes (%) (Auto) 3.8L, Monocytes (%) (Auto) 2.6, Eosinophils (%) (Auto) 0.0, Basophils (%) (Auto) 0.1, Neutrophils # (Auto) 18.5H, Lymphocytes # (Auto) 0.8L, Monocytes # (Auto) 0.5, Eosinophils # (Auto) 0.0, Basophils # (Auto) 0.0, Nucleated Red Blood Cells % (auto) 0.0, Anion Gap 7L, Glomerular Filtration Rate 50.6, Blood Urea Nitrogen 62H, Creatinine 1.42H, Sodium Level 149H, Potassium Level 5.2H, Chloride Level 113H, Carbon Dioxide Level 29, Calcium Level 8.3L CBC/BMP Laboratory Tests 01/12/19 06:38 Red Blood Count 4.01 L, Mean Corpuscular Volume 97.0 H, Mean Corpuscular Hemoglobin 30.7, Mean Corpuscular Hemoglobin Concent 31.6 L, Red Cell Distribution Width 14.9 H, Neutrophils (%) (Auto) 92.8 H, Lymphocytes (%) (Auto) 3.8 L, Monocytes (%) (Auto) 2.6, Eosinophils (%) (Auto) 0.0, Basophils (%) (Auto) 0.1, Neutrophils # (Auto) 18.5 H, Lymphocytes # (Auto) 0.8 L, Monocytes # (Auto) 0.5, Eosinophils # (Auto) 0.0, Basophils # (Auto) 0.0, Calcium Level 8.3 L Microbiology Microbiology 01/10/19 Blood Culture - Preliminary, Resulted No growth after 24 hours . All specim... EMILY CALIX MD January 12, 2019 09:41
[2019-01-12] MEDS: ANEXSIA, NORCO 7.5MG/325MG TABLET(HYDROCODONE/APAP) PO SCH ×3 (13:00→20:38)
[2019-01-12 14:00] VITALS: BP 133/78
[2019-01-12] MEDS: ONDANSETRON 4MG/2ML VIAL (J2405) IV SCH ×2 (15:08→20:39)
[2019-01-12 16:20] LABS: CALCIUM LEVEL 8.2 MG/DL (8.8-10.2); CREATININE FOR GFR 1.33 MG/DL (0.70-1.30); GLOMERULAR FILTRATION RATE 54.5 (>35); POTASSIUM SERUM 5.1 MEQ/L (3.5-5.1)
[2019-01-12] MEDS: **NOTE PATIENT COMMENT** MISC XX SCH (21:00)
[2019-01-12 22:00] VITALS: BP 146/80
[2019-01-13] MEDS: ANEXSIA, NORCO 7.5MG/325MG TABLET(HYDROCODONE/APAP) PO SCH ×5 (02:08→22:04)
[2019-01-13] MEDS: ONDANSETRON 4MG/2ML VIAL (J2405) IV SCH ×4 (02:08→21:00)
[2019-01-13 06:00] VITALS: BP 140/80
[2019-01-13 06:15] LABS: BASO % 0.1 % (0.0-1.0); HEMATOCRIT 38.9 % (42.0-52.0); LYMPH # 0.9 10^3/uL (1.5-4.5); LYMPH % 3.9 % (24.0-44.0); MEAN CORPUSCULAR HEMOGLOBIN 30.1 pg (27.0-33.0); MEAN CORPUSCULAR HGB CONC 30.8 g/dl (32.0-36.5); MEAN CORPUSCULAR VOLUME 97.5 fl (80.0-96.0); MONO # 0.7 10^3/uL (0.0-0.8); MONO % 3.2 % (0.0-5.0); NEUTROPHILS # 21.3 10^3/uL (1.8-7.7); NEUTROPHILS % 92.3 % (36.0-66.0); PLATELET COUNT, AUTOMATED 300 10^3/uL (150-450); RED BLOOD COUNT 3.99 10^6/uL (4.30-6.10)
[2019-01-13 06:36] LABS: CALCIUM LEVEL 8.4 MG/DL (8.8-10.2); CREATININE FOR GFR 1.28 MG/DL (0.70-1.30); POTASSIUM SERUM 4.8 MEQ/L (3.5-5.1)
--- NOTE | 2019-01-13 08:04 | IPNPDOC ---
Subjective Date Seen The patient was seen on 01/13/19. Subjective Chief Complaint/HPI Continues to have persistent nausea, poor oral intake. Shoulder pain is better controlled today. Unable to get out of bed. Try to drink some liquids. patient has agreed to feeding tube . Objective Physical Examination General Exam: Positive: Alert, No Acute Distress, Other (lethargic, arousable; following simple commands; not in distress; cachexia) Eye Exam: Positive: PERRLA ENT Exam: Positive: Atraumatic, Other ENT (mucous membrane dry) Neck Exam: Positive: Supple; Negative: JVD Chest Exam: Positive: Clear to auscultation, Normal air movement Heart Exam: Positive: Rate Normal, Regular Rhythm Abdomen Exam: Positive: Normal bowel sounds, Soft; Negative: Tenderness Extremity Exam: Positive: Tenderness (shoulder); Negative: Edema Skin Exam: Positive: Other skin issue (dry); Negative: Rash Psych Exam: Positive: Other (somnolent) Assessment /Plan Assessment 83 year old male with PMH of Adenocarcinoma of the lung Stage 1A T1N0M0, Hypertension , Chronic Obstructive Pulmonary Disease , Tobacco Abuse Chronic dislocated left shoulder, Severe Protein-Calorie Malnutrition (Cachexia)recently admitted for pneumonia and discharged home on 01/08 with antib iotic and prednisone. He was brought back to ED for AMS. Pt is unable to provide any info. mentions that pt really did not do well since discharge, but today after getting out of bed, he went to recliner and slept all day; he did not take anything orally except morning meds. She reports sough with clearing sputum; denies SOB, fever or chills. He has not been talking much which is unusual. In the ER, pt was somnolent. Vitals and basic labs were unremarkable. BUN and Cr slightly up from a few days ago. Leucocytosis is unchanged 18K- likely due to steroid use. VBG appears fine. CXR shows improving LLL infiltrates. CT head did not show any acute events. Persitent nausea will get a CT abdomen pelvis with contrast compazine and zofran. pantoprazole and sucralfate. Failure to thrive due to poor oral intake and possible recurrence of lung cancer. No specific etiology for his new lethargy could be found most probably just age and slow recovery from his recent hospitalization Underlying recurrence of the lung cancer cannot be ruled out. Severe pain can be a major factor causing poor appetite, nausea and poor oral intake. Calorie count. will ask PT to evaluate patient has agreed to a feeding tube. Will consult surgery. discussed about advance directives with patient he says "I dont Know" I again discussed this with and daughter. They think he had DNR paperwork and HCP paperwork from before asked to bring them in. If they do not find it we will do a new MOLST form. Hypernatremia will order 200 cc water q6 hours calorie count. due to poor oral intake and dehydration Leucocytosis persisting. due to demargination probably due to steroids, pain. No signs of infection seen. Blood cultures negative. Severe shoulder pain will give hydrocodone, tylenol and lidoderm patch will add zofran COPD and interstitial fibrosis will continue with the steroid taper. Hypertension BP uncontrolled probably due to pain will give amlodipine JOCE with hypernatremia due to poor oral intake encourage oral intake. 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 had right upper lobe lobectomy in 2008 has spiculated lung nodule on the left upper lobe. PET was negative for any hypermetabolic uptake in october 2017. though it is growing in size so may be malignant however patient did not want any biopsy done. Plan/VTE VTE Prophylaxis Ordered?: Yes VS, I&O, 24H, Fishbone Vital Signs/I&O Vital Signs Date Time Temp Pulse Resp B/P (MAP) Pulse Ox O2 Delivery O2 Flow Rate FiO2 01/13/19 06:00 98.9 102 18 140/80 (100) 91 1.0 01/11/19 02:08 Nasal Cannula I&O- Last 24 Hours up to 6 AM 01/13/19 06:00 Intake Total 410 ml Output Total 825 ml Balance -415 ml Laboratory Data 24H LABS Laboratory Tests 2 01/12/19 15:46: Anion Gap 4L, Glomerular Filtration Rate 54.5, Blood Urea Nitrogen 60H, Creatinine 1.33H, Sodium Level 145, Potassium Level 5.1, Chloride Level 111H, Carbon Dioxide Level 30, Calcium Level 8.2L 01/13/19 05:23: Anion Gap 5L, Glomerular Filtration Rate 57.0, Blood Urea Nitrogen 54H, C reatinine 1.28, Sodium Level 147H, Potassium Level 4.8, Chloride Level 113H, Carbon Dioxide Level 29, Calcium Level 8.4L, Immature Granulocyte % (Auto) 0.5, White Blood Count 23.0H, Red Blood Count 3.99L, Hemoglobin 12.0L, Hematocrit 38.9L, Mean Corpuscular Volume 97.5H, Mean Corpuscular Hemoglobin 30.1, Mean Corpuscular Hemoglobin Concent 30.8L, Red Cell Distribution Width 14.7H, Platelet Count 300, Neutrophils (%) (Auto) 92.3H, Lymphocytes (%) (Auto) 3.9L, Monocytes (%) (Auto) 3.2, Eosinophils (%) (Auto) 0.0, Basophils (%) (Auto) 0.1, Neutrophils # (Auto) 21.3H, Lymphocytes # (Auto) 0.9L, Monocytes # (Auto) 0.7, Eosinophils # (Auto) 0.0, Basophils # (Auto) 0.0, Nucleated Red Blood Cells % (auto) 0.0 CBC/BMP Laboratory Tests 01/12/19 15:46 Calcium Level 8.2 L 01/13/19 05:23 Calcium Level 8.4 L, Red Blood Count 3.99 L, Mean Corpuscular Volume 97.5 H, Mean Corpuscular Hemoglobin 30.1, Mean Corpuscular Hemoglobin Concent 30.8 L, Red Cell Distribution Width 14.7 H, Neutrophils (%) (Auto) 92.3 H, Lymphocytes (%) (Auto) 3.9 L, Monocytes (%) (Auto) 3.2, Eosinophils (%) (Auto) 0.0, Basophils (%) (Auto) 0.1, Neutrophils # (Auto) 21.3 H, Lymphocytes # (Auto) 0.9 L, Monocytes # (Auto) 0.7, Eosinophils # (Auto) 0.0, Basophils # (Auto) 0.0 Microbiology Microbiology 01/10/19 Blood Culture - Preliminary, Resulted No Growth after 48 hours. All Specime... EMILY CALIX MD January 13, 2019 08:04
[2019-01-13] MEDS: GABAPENTIN 100 MG CAP PO SCH ×3 (08:24→21:00)
[2019-01-13] MEDS: amLODIPine 5 MG TAB PO SCH (08:24)
[2019-01-13] MEDS: ACETAMINOPHEN 500 MG TAB PO SCH ×3 (08:24→21:00)
[2019-01-13] MEDS: predniSONE 20 MG TAB PO SCH (08:24)
[2019-01-13] MEDS: LIDOCAINE 5% (LIDODERM) PATCH TD SCH (08:24)
[2019-01-13] MEDS: SUCRALFATE 1 GM TAB PO SCH ×3 (09:00→21:00)
[2019-01-13] MEDS ORDERED: PROCHLORPERAZINE 10 MG/2 ML VIAL (J0780) IV PRN (11:00)
[2019-01-13] MEDS ORDERED: ISOVUE-370 76% 100ML VIAL (Q9967) As Ordered ONE (11:19)
[2019-01-13] MEDS: ONDANSETRON 4MG/2ML VIAL (J2405) IV PRN (13:14)
[2019-01-13] MEDS: PANTOPRAZOLE 40MG INJ (PROTONIX) (C9113) IV SCH (13:15)
[2019-01-13 14:00] VITALS: BP 144/76
--- NOTE | 2019-01-13 16:25 | REP ---
CT abdomen and pelvis with IV but without oral contrast: History: Persistent nausea and vomiting. Abdominal pain. No comparison CT abdomen. Comparison PET-CT imaging October 15, 2017. CT contrast dose: 75 ml of intravenous Isovue 370. Findings: Preliminary digital roller varnisher radiograph shows a normal bowel gas pattern. There is patchy consolidation in the right lower lobe and left lower lobe new from the October 15, 2017 study. There is advanced COPD with emphysematous changes particularly in the right lower lobe. No pleural effusion is seen. No liver mass lesion is observed. No adrenal masses observed on either side. The pancreas is unremarkable. The patient is extremely thin. There is a small quantity of right upper quadrant ascites. The gallbladder is unremarkable however. There is moderate formed stool in the rectum. Small and large bowel loops are normal in caliber. No evidence of free intraperitoneal air. No mass or adenopathy seen in the abdomen. Prostate calcifications are noted. Urinary bladder is intact. No abdominal wall defect is appreciated. Kidneys enhance symmetrically and morphologically intact. Impression: Formed stool mildly dilates the rectum. There is a small quantity of ascites in the right upper quadrant. There is a focal consolidation in the right lower lobe and possibly left lower lobe which may be an area of pneumonia. Otherwise negative abdomen and pelvis. Electronically Signed by Emir Block MD 01/13/2019 05:30 P
[2019-01-13] MEDS: **NOTE PATIENT COMMENT** MISC XX SCH (21:00)
[2019-01-13 22:00] VITALS: BP 140/78
[2019-01-14] MEDS: ONDANSETRON 4MG/2ML VIAL (J2405) IV SCH ×4 (03:00→21:19)
[2019-01-14] MEDS ORDERED: ANEXSIA, NORCO 7.5MG/325MG TABLET(HYDROCODONE/APAP) PO ONE (04:30)
[2019-01-14 06:00] VITALS: BP 138/80
[2019-01-14 06:39] LABS: BASO % 0.1 % (0.0-1.0); EOS % 0.1 % (0.0-3.0); HEMATOCRIT 37.2 % (42.0-52.0); HEMOGLOBIN 11.5 g/dl (13.5-17.5); LYMPH # 0.9 10^3/uL (1.5-4.5); LYMPH % 5.1 % (24.0-44.0); MEAN CORPUSCULAR HEMOGLOBIN 29.8 pg (27.0-33.0); MEAN CORPUSCULAR HGB CONC 30.9 g/dl (32.0-36.5); MEAN CORPUSCULAR VOLUME 96.4 fl (80.0-96.0); MONO # 0.8 10^3/uL (0.0-0.8); MONO % 4.4 % (0.0-5.0); NEUTROPHILS # 15.7 10^3/uL (1.8-7.7); NEUTROPHILS % 89.8 % (36.0-66.0); PLATELET COUNT, AUTOMATED 261 10^3/uL (150-450); RED BLOOD COUNT 3.86 10^6/uL (4.30-6.10); WHITE BLOOD COUNT 17.4 10^3/uL (4.0-10.0)
[2019-01-14 07:07] LABS: CALCIUM LEVEL 8.6 MG/DL (8.8-10.2); CREATININE FOR GFR 1.27 MG/DL (0.70-1.30); GLOMERULAR FILTRATION RATE 57.5 (>35); POTASSIUM SERUM 4.5 MEQ/L (3.5-5.1)
[2019-01-14] MEDS: LIDOCAINE 5% (LIDODERM) PATCH TD SCH (09:00)
[2019-01-14] MEDS: GABAPENTIN 100 MG CAP PO SCH ×3 (09:00→21:19)
[2019-01-14] MEDS: SUCRALFATE 1 GM TAB PO SCH ×3 (09:00→21:19)
[2019-01-14] MEDS: amLODIPine 5 MG TAB PO SCH (09:00)
[2019-01-14] MEDS: ACETAMINOPHEN 500 MG TAB PO SCH ×3 (09:08→21:19)
[2019-01-14] MEDS: ANEXSIA, NORCO 7.5MG/325MG TABLET(HYDROCODONE/APAP) PO SCH (09:09)
[2019-01-14] MEDS: predniSONE 10 MG TAB PO SCH (09:09)
--- NOTE | 2019-01-14 10:56 | IPNPDOC ---
Subjective Date Seen The patient was seen on 01/14/19. Subjective Chief Complaint/HPI Says the nausea is better today. He has been taking some oral fluids and has been asking for it. Though has not wanted any solid food yet. Shoulder pain remains unchanged. Any movement gives severe pain. will consult with ortho to see what could give him some relief. Will try a sling. Planned for Feeding tube placement this week, Seen by gastro. Has not had a bowel movement since coming to the hospital. Objective Physical Examination General Exam: Positive: Alert, Cooperative, Moderate Distress (due to severe shoulder pain), Other (cachexia) Eye Exam: Positive: PERRLA ENT Exam: Positive: Atraumatic, Other ENT (mucous membrane dry) Neck Exam: Positive: Supple; Negative: JVD Chest Exam: Positive: Clear to auscultation, Normal air movement Heart Exam: Positive: Rate Normal, Regular Rhythm Abdomen Exam: Positive: Normal bowel sounds, Soft; Negative: Tenderness Extremity Exam: Positive: Tenderness (shoulder); Negative: Edema Skin Exam: Negative: Rash Psych Exam: Positive: Memory Intact, Oriented x 3 Assessment /Plan Assessment 83 year old male with PMH of Adenocarcinoma of the lung Stage 1A T1N0M0, Hypertension , Chronic Obstructive Pulmonary Disease , Tobacco Abuse Chronic dislocated left shoulder, Severe Protein-Calorie Malnutrition (Cachexi a)recently admitted for pneumonia and discharged home on 01/08 with antibiotic and prednisone. He was brought back to ED for AMS. Pt is unable to provide any info. mentions that pt really did not do well since discharge, but today after getting out of bed, he went to recliner and slept all day; he did not take anything orally except morning meds. She reports sough with clearing sputum; denies SOB, fever or chills. He has not been talking much which is unusual. In the ER, pt was somnolent. Vitals and basic labs were unremarkable. BUN and Cr slightly up from a few days ago. Leucocytosis is unchanged 18K- likely due to steroid use. VBG appears fine. CXR shows improving LLL infiltrates. CT head did not show any acute events. Persistent nausea a little better. CT abdomen pelvis with contrast reviewed. compazine and zofran. pantoprazole and sucralfate. Failure to thrive due to poor oral intake and possible recurrence of lung cancer. No specific etiology for his new lethargy could be found most probably just age and slow recovery from his recent hospitalization Underlying recurrence of the lung cancer cannot be ruled out. Severe pain can be a major factor causing poor appetite, nausea and poor oral intake. Calorie count. will ask PT to evaluate patient has agreed to a feeding tube. Will consult surgery. discussed about advance directives with patient he says "I dont Know" I again discussed this with and daughter. They think he had DNR paperwork and HCP paperwork from before asked to bring them in. If they do not find it we will do a new MOLST form. Hypernatremia 200 cc water q6 hours calorie count. due to poor oral intake and dehydration Leucocytosis improving due to demargination probably due to steroids, pain. No signs of infection seen. Blood cultures negative. Severe shoulder pain will give hydrocodone, tylenol and flector patch consult ortho Advanced COPD with emphysematous changes and interstitial fibrosis continue with the steroid taper. Hypertension BP uncontrolled probably due to pain will give amlodipine JOCE with hypernatremia improving due to poor oral intake encourage oral intake. 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 History of adenocarcinoma of right lung thought to be in remission. had right upper lobe lobectomy in 2009 has spiculated lung nodule on the left upper lobe. PET was negative for any h ypermetabolic uptake in october 2017. though it is growing in size so may be malignant however patient did not want any biopsy done. Plan/VTE VTE Prophylaxis Ordered?: Yes VS, I&O, 24H, Fishbone Vital Signs/I&O Vital Signs Date Time Temp Pulse Resp B/P (MAP) Pulse Ox O2 Delivery O2 Flow Rate FiO2 01/14/19 09:39 18 01/14/19 09:00 98 138/80 01/14/19 07:45 2.0 01/14/19 06:00 98.2 92 01/11/19 02:08 Nasal Cannula I&O- Last 24 Hours up to 6 AM 01/14/19 06:00 Intake Total 370 ml Output Total 700 ml Balance -330 ml Laboratory Data 24H LABS Laboratory Tests 2 01/14/19 05:47: Immature Granulocyte % (Auto) 0.5, White Blood Count 17.4H, Red Blood Count 3.86L, Hemoglobin 11.5L, Hematocrit 37.2L, Mean Corpuscular Volume 96.4H, Mean Corpuscular Hemoglobin 29.8, Mean Corpuscular Hemoglobin Concent 30.9L, Red Cell Distribution Width 14.8H, Platelet Count 261, Neutrophils (%) (Auto) 89.8H, Lymphocytes (%) (Auto) 5.1L, Monocytes (%) (Auto) 4.4, Eosinophils (%) (Auto) 0.1, Basophils (%) (Auto) 0.1, Neutrophils # (Auto) 15.7H, Lymphocytes # (Auto) 0.9L, Monocytes # (Auto) 0.8, Eosinophils # (Auto) 0.0, Basophils # (Auto) 0.0, Nucleated Red Blood Cells % (auto) 0.0, Anion Gap 5L, Glomerular Filtration Rate 57.5, Blood Urea Nitrogen 46H, Creatinine 1.27, Sodium Level 147H, Potassium Level 4.5, Chloride Level 111H, Carbon Dioxide Level 31, Calcium Level 8.6L CBC/BMP Laboratory Tests 01/14/19 05:47 Red Blood Count 3.86 L, Mean Corpuscular Volume 96.4 H, Mean Corpuscular Hemoglobin 29.8, Mean Corpuscular Hemoglobin Concent 30.9 L, Red Cell Distributi on Width 14.8 H, Neutrophils (%) (Auto) 89.8 H, Lymphocytes (%) (Auto) 5.1 L, Monocytes (%) (Auto) 4.4, Eosinophils (%) (Auto) 0.1, Basophils (%) (Auto) 0.1, Neutrophils # (Auto) 15.7 H, Lymphocytes # (Auto) 0.9 L, Monocytes # (Auto) 0.8, Eosinophils # (Auto) 0.0, Basophils # (Auto) 0.0, Calcium Level 8.6 L Microbiology Microbiology 01/10/19 Blood Culture - Preliminary, Resulted No Growth after 72 hours. All specime... EMILY CALIX MD January 14, 2019 10:56
[2019-01-14] MEDS: DICLOFENAC EPOLAMINE 1.3 % PATCH TOP SCH ×2 (12:00→21:19)
[2019-01-14] MEDS: PANTOPRAZOLE 40MG INJ (PROTONIX) (C9113) IV SCH (12:00)
[2019-01-14] MEDS: ANEXSIA, NORCO 7.5MG/325MG TABLET(HYDROCODONE/APAP) PO PRN ×2 (12:01→17:36)
[2019-01-14 14:00] VITALS: BP 138/85
[2019-01-14] MEDS ORDERED: FLEET ENEMA PR ONE (18:00)
[2019-01-14 22:00] VITALS: BP 118/64
[2019-01-15] MEDS: ONDANSETRON 4MG/2ML VIAL (J2405) IV SCH ×4 (02:28→21:32)
[2019-01-15] MEDS: ANEXSIA, NORCO 7.5MG/325MG TABLET(HYDROCODONE/APAP) PO PRN ×3 (02:40→21:32)
[2019-01-15 06:00] VITALS: BP 152/82
[2019-01-15 06:27] LABS: BASO % 0.1 % (0.0-1.0); HEMATOCRIT 36.5 % (42.0-52.0); HEMOGLOBIN 11.3 g/dl (13.5-17.5); LYMPH % 5.3 % (24.0-44.0); MEAN CORPUSCULAR HEMOGLOBIN 30.9 pg (27.0-33.0); MEAN CORPUSCULAR VOLUME 99.7 fl (80.0-96.0); MONO # 0.8 10^3/uL (0.0-0.8); MONO % 4.3 % (0.0-5.0); NEUTROPHILS # 16.6 10^3/uL (1.8-7.7); NEUTROPHILS % 89.8 % (36.0-66.0); PLATELET COUNT, AUTOMATED 256 10^3/uL (150-450); RED BLOOD COUNT 3.66 10^6/uL (4.30-6.10); WHITE BLOOD COUNT 18.5 10^3/uL (4.0-10.0)
[2019-01-15 06:51] LABS: CALCIUM LEVEL 8.4 MG/DL (8.8-10.2); CREATININE FOR GFR 1.56 MG/DL (0.70-1.30); GLOMERULAR FILTRATION RATE 45.4 (>35)
--- NOTE | 2019-01-15 08:08 | IPNPDOC ---
Subjective Date Seen The patient was seen on 01/15/19. Subjective Chief Complaint/HPI continues to be in severe pain in the left shoulder. His nausea has improved. As per daughter at bedside his is drinking for fluids from yesterday and he has ordered a sandwich for breakfast. This is a definite improvement. Has not had any bowel movements yet . will continue with bowel regimen.No fever or chills, no chest pain no increased SOB. He does have some conducted sounds from the throat. Objective Physical Examination General Exam: Positive: Alert, Cooperative, Moderate Distress (due to severe shoulder pain), Other (cachexia) Eye Exam: Positive: PERRLA ENT Exam: Positive: Atraumatic, Other ENT (mucous membrane dry) Neck Exam: Positive: Supple; Negative: JVD Chest Exam: Positive: Clear to auscultation, Normal air movement Heart Exam: Positive: Rate Normal, Regular Rhythm Abdomen Exam: Positive: Normal bowel sounds, Soft; Negative: Tenderness Extremity Exam: Positive: Tenderness (shoulder); Negative: Edema Skin Exam: Negative: Rash Psych Exam: Positive: Memory Intact, Oriented x 3 Assessment /Plan Assessment 83 year old male with PMH of Adenocarcinoma of the lung Stage 1A T1N0M0, Hypertension , Chronic Obstructive Pulmonary Disease , Tobacco Abuse Chronic dislocated left shoulder, Severe Protein-Calorie Malnutrition (Cachexia)recently admitted for pneumonia and discharged home on 01/08 with antibiotic and prednisone. He was brought back to ED for AMS. Pt is unable to provide any info. mentions that pt really did not do well since discharge, but today after getting out of bed, he went to recliner and slept all day; he did not take anything orally except morning meds. She reports sough with clearing sputum; denies SOB, fever or chills. He has not been talking much which is unusual. In the ER, pt was somnolent. Vitals and basic labs were unremarkable. BUN and Cr slightly up from a few days ago. Leucocytosis is unchanged 18K- likely due to steroid use. VBG appears fine. CXR shows improving LLL infiltrates. CT head did not show any acute events. Persistent nausea a little better. CT abdomen pelvis with contrast reviewed. compazine and zofran. pantoprazole and sucralfate. Failure to thrive due to poor oral intake and possible recurrence of lung cancer. No specific etiology for his new lethargy could be found most probably just age and slow recovery from his recent hospitalization Underlying recurrence of the lung cancer cannot be ruled out. Severe pain can be a major factor causing poor appetite, nausea and poor oral intake. Calorie count. will ask PT to evaluate patient has agreed to a feeding tube. Will consult surgery. discussed about advance directives with patient he says "I dont Know" I again discussed this with and daughter. They think he had DNR paperwork and HCP paperwork from before asked to bring them in. If they do not find it we will do a new MOLST form. Hypernatremia 200 cc water q6 hours calorie count. due to poor oral intake and dehydration will start IVF fluid. Leucocytosis improving due to demargination probably due to steroids, pain. No signs of infection seen. Blood cultures negative. 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 continue with the steroid taper. Hypertension BP uncontrolled probably due to pain will give amlodipine JOCE with hypernatremia improving due to poor oral intake encourage oral intake. start IVF. 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 History of adenocarcinoma of right lung thought to be in remission. had right upper lobe lobectomy in 2008 has spiculated lung nodule on the left upper lobe. PET was negative for any hypermetabolic uptake in october 2017. though it is growing in size so may be malignant however patient did not want any biopsy done. Plan/VTE VTE Prophylaxis Ordered?: Yes VS, I&O, 24H, Fishbone Vital Signs/I&O Vital Signs Date Time Temp Pulse Resp B/P (MAP) Pulse Ox O2 Delivery O2 Flow Rate FiO2 01/15/19 06:00 97.9 95 20 152/82 (105) 93 1.0 01/11/19 02:08 Nasal Cannula I&O- Last 24 Hours up to 6 AM 01/15/19 06:00 Intake Total 400 ml Output Total 325 ml Balance 75 ml Laboratory Data 24H LABS Laboratory Tests 2 01/15/19 05:34: Immature Granulocyte % (Auto) 0.5, White Blood Count 18.5H, Red Blood Count 3.66L, Hemoglobin 11.3L, Hematocrit 36.5L, Mean Corpuscular Volume 99.7H, Mean Corpuscular Hemoglobin 30.9, Mean Corpuscular Hemoglobin Concent 31.0L, Red Cell Distribution Width 14.7H, Platelet Count 256, Neutrophils (%) (Auto) 89.8H, Lym phocytes (%) (Auto) 5.3L, Monocytes (%) (Auto) 4.3, Eosinophils (%) (Auto) 0.0, Basophils (%) (Auto) 0.1, Neutrophils # (Auto) 16.6H, Lymphocytes # (Auto) 1.0L, Monocytes # (Auto) 0.8, Eosinophils # (Auto) 0.0, Basophils # (Auto) 0.0, Nucleated Red Blood Cells % (auto) 0.0, Anion Gap 3L, Glomerular Filtration Rate 45.4, Blood Urea Nitrogen 51H, Creatinine 1.56H, Sodium Level 148H, Potassium Level 5.0, Chloride Level 112H, Carbon Dioxide Level 33H, Calcium Level 8.4L CBC/BMP Laboratory Tests 01/15/19 05:34 Red Blood Count 3.66 L, Mean Corpuscular Volume 99.7 H, Mean Corpuscular Hemoglobin 30.9, Mean Corpuscular Hemoglobin Concent 31.0 L, Red Cell Distribution Width 14.7 H, Neutrophils (%) (Auto) 89.8 H, Lymphocytes (%) (Auto) 5.3 L, Monocytes (%) (Auto) 4.3, Eosinophils (%) (Auto) 0.0, Basophils (%) (Auto) 0.1, Neutrophils # (Auto) 16.6 H, Lymphocytes # (Auto) 1.0 L, Monocytes # (Auto) 0.8, Eosinophils # (Auto) 0.0, Basophils # (Auto) 0.0, Calcium Level 8.4 L Microbiology Microbiology 01/10/19 Blood Culture - Preliminary, Resulted No Growth after 72 hours. All specime... EMILY CALIX MD January 15, 2019 08:08
[2019-01-15] MEDS: GABAPENTIN 100 MG CAP PO SCH ×3 (08:48→21:30)
[2019-01-15] MEDS: DICLOFENAC EPOLAMINE 1.3 % PATCH TOP SCH ×2 (08:48→21:32)
[2019-01-15] MEDS: predniSONE 10 MG TAB PO SCH (08:48)
[2019-01-15] MEDS: amLODIPine 5 MG TAB PO SCH (08:48)
[2019-01-15] MEDS: ACETAMINOPHEN 500 MG TAB PO SCH ×3 (08:48→21:31)
[2019-01-15] MEDS: SUCRALFATE 1 GM TAB PO SCH ×3 (08:49→21:30)
[2019-01-15] MEDS: PANTOPRAZOLE 40MG INJ (PROTONIX) (C9113) IV SCH (11:31)
--- NOTE | 2019-01-15 11:33 | REP ---
LEFT SHOULDER, FOUR VIEWS: HISTORY: None provided. The patient is status post left shoulder arthroplasty. There is no acute fracture or dislocation. There is marked narrowing of acromioclavicular joint space with associated osteophyte formation. IMPRESSION: The patient is status post left shoulder arthroplasty. Electronically Signed by Robbin Batista MD 01/15/2019 11:36 A
[2019-01-15 14:00] VITALS: BP 133/71
--- NOTE | 2019-01-15 18:41 | HPE ---
DATE OF ADMISSION: 01/15/2019 CHIEF COMPLAINT: Painful left shoulder. HISTORY OF PRESENT ILLNESS: This is an 83-year-old man who presents to the hospital with lethargy, weakness and failure to thrive. He has also had a recent pneumonia that was treated with antibiotics. Now, he complains about at least a four-year history of left shoulder pain. He is here with his and daughter. They state that he has had at least four shoulder operations. They state that he has had a chronic left shoulder dislocation. He had a shoulder replacement done by Dr. Duran in [place]. This was a number of years ago. Now, he feels like there is pain and weakness of the left shoulder. The pain is diffuse even going so far as to say that there is even pain with light touching of the shoulder and the hand. He feels like the right side is normal. There is no constitutional symptoms or redness or drainage about the shoulder. PAST MEDICAL HISTORY: Includes respiratory distress, hypoxia, left lower lobe pneumonia, prerenal azotemia, and lethargy as well as failure to thrive. MEDICATIONS: Include acetaminophen, Mylanta, amlodipine, diclofenac, gabapentin, [place], milk of magnesia, ondansetron, pantoprazole, prednisone, prochlorperazine, sucralfate. ALLERGIES: No known drug allergies. PAST SURGICAL HISTORY: Biopsy of lung, lobectomy of lung, lymphatic biopsy, mediastinoscopy. SOCIAL HISTORY: He is here with his and daughter. PHYSICAL EXAMINATION: VITAL SIGNS: Blood pressure 133/71, pulse rate 90, respiratory rate 16, 92% on one liter nasal prong. He is alert. He converses appropriately. He is extremely malnourished and cachectic. The muscles around to both his upper extremities and shoulders are extremely wasted away. There is almost no deltoid muscle bulk. Active forward elevation or external rotation of his left shoulder is essentially nil. On the right side, 120 degrees forward elevation, 30 degrees external rotation. There is diffuse tenderness around the left shoulder. There is no obvious redness or warmth. He has normal sensation throughout the hand and a good radial pulse on that side. Radiographs were taken of the left shoulder from today 01/15/2019. There is PA, internal, lateral and external rotation views as well as scapular Y and an attempted axillary lateral view. On these somewhat limited views, there is a reverse total shoulder arthroplasty in situ. The components look in normal position. There is no obvious fracture or loosening. The glenosphere appears normal. On the humeral cup side, this appears normally situated underneath the glenosphere. There is no obvious large amount of notching or polyethylene wear that I can appreciate. The shoulder does look reduced. The muscles of the shoulder on this x-ray are extremely atrophied. ASSESSMENT AND PLAN: This is an 83-year-old man with painful left reverse total shoulder arthroplasty who is extremely cachectic and malnourished. I think the best course of action for him would be to try to treat his pain nonsurgically. This is especially given the fact that he has already had four shoulder operations as well as a reverse total shoulder that looks well-seated. If one were to consider doing a revision, he would have to be much better nourished and a better surgical candidate. The only other investigation to consider would be a CT scan to ensure the components are indeed well-fixed and free of loosening or instability. His priority should be on his medical management and pain management at this point. If they desire outpatient opinion on revision of his reverse total shoulder then I have given them my card and advised them to follow up in the office. Otherwise, I will not follow while in the hospital.
[2019-01-15 22:00] VITALS: BP 137/83
[2019-01-16] VITALS (8 sets, daily range): BP systolic 129–166; BP diastolic 68–84
[2019-01-16] MEDS: ONDANSETRON 4MG/2ML VIAL (J2405) IV SCH ×4 (03:27→20:09)
[2019-01-16 06:31] LABS: BASO % 0.1 % (0.0-1.0); EOS % 0.1 % (0.0-3.0); HEMATOCRIT 38.9 % (42.0-52.0); HEMOGLOBIN 11.8 g/dl (13.5-17.5); LYMPH % 5.5 % (24.0-44.0); MEAN CORPUSCULAR HEMOGLOBIN 30.6 pg (27.0-33.0); MEAN CORPUSCULAR HGB CONC 30.3 g/dl (32.0-36.5); MEAN CORPUSCULAR VOLUME 100.8 fl (80.0-96.0); MONO # 0.7 10^3/uL (0.0-0.8); MONO % 3.7 % (0.0-5.0); NEUTROPHILS # 16.4 10^3/uL (1.8-7.7); PLATELET COUNT, AUTOMATED 271 10^3/uL (150-450); RED BLOOD COUNT 3.86 10^6/uL (4.30-6.10); WHITE BLOOD COUNT 18.3 10^3/uL (4.0-10.0)
[2019-01-16 06:49] LABS: CALCIUM LEVEL 9.2 MG/DL (8.8-10.2); CREATININE FOR GFR 1.34 MG/DL (0.70-1.30); GLOMERULAR FILTRATION RATE 54.1 (>35); POTASSIUM SERUM 4.6 MEQ/L (3.5-5.1)
--- NOTE | 2019-01-16 07:21 | CR.PDOC ---
General Surgery Consultation Date of Consultation 01/15/19 History and Physical CONSULT REPORT FOR: Daniella Patel MD (hospitalist service) REASON FOR CONSULTATION: For feeding gastrostomy tube placement HISTORY OF PRESENT ILLNESS: Patient is an 83-year-old male admitted for failure to thrive, significant weight loss, not being able to tolerate much oral intake for which he is being considered for placement of a gastrostomy feeding tube. He has not been eating well for unknown period of time due to multiple problems including severe dis comfort from his shoulder. He is able to swallow fine and no ducumented episodes of aspiration, coughing with swallowing. Family who is at the bedside with him and reports intermittent episodes of swallowing. He has lost weight secondary to his condition and family is concerned this will continue and cause him to get sicker. He has no previous abdominal surgeries. No reports of previous upper endoscopies or history of peptic ulcer disease. Medical History PAST MEDICAL HISTORY: 1. Adenocarcinoma of the lung Stage 1A T1N0M0 2. Hypertension 3. Chronic Obstructive Pulmonary Disease 4. Tobacco Abuse 5. Chronic dislocated left shoulder 6. Severe Protein-Calorie Malnutrition (Cachexia) PAST SURGICAL HISTORY: 1. Multiple shoulder surgeries 2. Right Upper Lobectomy and mediastinal node dissection SOCIAL HISTORY: Patient is a former smoker. He denies Iv drug use. He denies recent sick contacts or travel FAMILY HISTORY: Denies family history of lung cancer or lung disease ALLERGIES: Please see below. HOME MEDICATIONS: Please see below. REVIEW OF SYSTEMS: Full ROS not able to do, d/t patient cooperation, pain status. PHYSICAL EXAMINATION: VITALS SIGNS: Please see below. GENERAL APPEARANCE:appears chronically ill, emaciated, very thin and gaunt. SKIN: warm and dry. HEENT: dry lips, no deformities, irregularities, pale palpebral conjunctivae. NECK: thin, long neck no obvious masses. LUNGS: Clear to auscultation bilaterally. No wheezing appreciated. HEART: No chest wall abnormalities. Regular rate and rhythm with no murmurs appreciated. ABDOMEN: Abdomen is flat, soft, nondistended. no hernias, nontender on palpation. EXTREMITIES: patient with severe discomfort over left shoulder, not able to move it. no extremity edema ANCILLARIES: LABORATORY DATA: Please see below. IMAGING STUDIES: IMPRESSION AND PLAN: Failure to thrive severe protein calorie malnutrition BMI 14.2 I spoke to patient and family about the request to have a feeding tube placed on him. I spoke to the patient if he is aware of what it does and if he wishes to have on placed and he agreed to it. I explained to them the details of performing this procedure with the aid of upper endoscopy to locate the proper placement of the feeding tube and to look for any obvious contraindication to placing one. I went in details about the risks of the procedure including immediate and delayed bowel (colon) injury, loosing the gastrostomy int he intermediate period, infection around gastrostomy site, leakage. Plan to put gastrostomy feeding tube via endoscopy on 01/16/2019.. Vital Signs Vital Signs Date Time Temp Pulse Resp B/P (MAP) Pulse Ox O2 Delivery O2 Flow Rate FiO2 01/15/19 08:48 95 152/82 01/15/19 08:00 1.0 01/15/19 06:00 97.9 20 93 01/11/19 02:08 Nasal Cannula I&Os I&O- Last 24 Hours up to 6 AM 01/15/19 06:00 Intake Total 400 ml Output Total 325 ml Balance 75 ml Laboratory Data Labs 24H Laboratory Tests 2 01/15/19 05:34: Immature Granulocyte % (Auto) 0.5, White Blood Count 18.5H, Red Blood Count 3.66L, Hemoglobin 11.3L, Hematocrit 36.5L, Mean Corpuscular Volume 99.7H, Mean Corpuscular Hemoglobin 30.9, Mean Corpuscular Hemoglobin Concent 31.0L, Red Cell Distribution Width 14.7H, Platelet Count 256, Neutrophils (%) (Auto) 89.8H, Lymphocytes (%) (Auto) 5.3L, Monocytes (%) (Auto) 4.3, Eosinophils (%) (Auto) 0.0, Basophils (%) (Auto) 0.1, Neutrophils # (Auto) 16.6H, Lymphocytes # (Auto) 1.0L, Monocytes # (Auto) 0.8, Eosinophils # (Auto) 0.0, Basophils # (Auto) 0.0, Nucleated Red Blood Cells % (auto) 0.0, Anion Gap 3L, Glomerular Filtration Rate 45.4, Blood Urea Nitrogen 51H, Creatinine 1.56H, Sodium Level 148H, Potassium Level 5.0, Chloride Level 112H, Carbon Dioxide Level 33H, Calcium Level 8.4L CBC/BMP Laboratory Tests 01/15/19 05:34 Red Blood Count 3.66 L, Mean Corpuscular Volume 99.7 H, Mean Corpuscular Hemoglobin 30.9, Mean Corpuscular Hemoglobin Concent 31.0 L, Red Cell Distribution Width 14.7 H, Neutrophils (%) (Auto) 89.8 H, Lymphocytes (%) (Auto) 5.3 L, Monocytes (%) (Auto) 4.3, Eosinophils (%) (Auto) 0.0, Basophils (%) (Auto) 0.1, Neutrophils # (Auto) 16.6 H, Lymphocytes # (Auto) 1.0 L, Monocytes # (Auto) 0.8, Eosinophils # (Auto) 0.0, Basophils # (Auto) 0.0, Calcium Level 8.4 L Microbiology Microbiology 01/10/19 Blood Culture - Preliminary, Resulted No Growth after 72 hours. All specime... Home Medications Scheduled Cefdinir (Cefdinir) 300 Mg Capsule, 300 MG PO BID, (Reported) Doxycycline Monohydrate (Doxycycline Monohydrate) 100 Mg Tablet, 100 MG PO BID, (Reported) Gabapentin (Gabapentin) 400 Mg Capsule, 400 MG PO TID, (Reported) Hydrocodone/Acetaminophen (Hydrocodone-Acetamin 10-325 mg) 1 Each Tablet, 1 TAB PO Q6H, (Reported) Milk Thistle Seed Extract (Milk Thistle Extract) 87.5 Mg Capsule, 87.5 MG PO DAILY, (Reported) Prednisone (Prednisone) 10 Mg Tablet, 10 MG PO TAPER, (Reported) STARTED 01/08/19 FOR 12 DAYS. TAKE 10 MG QID X3 DAYS, THEN 10 MG TID X3 DAYS, THEN 10 MG BID X3 DAYS, THEN 10 MG QD X3 DAYS. Allergies Coded Allergies: No Known Allergies (Unverified , 01/06/19) MENDOZA KENYON MD January 15, 2019 12:58
[2019-01-16] MEDS: ACETAMINOPHEN 500 MG TAB PO SCH ×3 (08:12→20:10)
[2019-01-16] MEDS: DICLOFENAC EPOLAMINE 1.3 % PATCH TOP SCH ×2 (08:12→20:09)
[2019-01-16] MEDS: predniSONE 10 MG TAB PO SCH (08:12)
[2019-01-16] MEDS: SUCRALFATE 1 GM TAB PO SCH ×3 (08:13→20:09)
[2019-01-16] MEDS: amLODIPine 5 MG TAB PO SCH (08:13)
[2019-01-16] MEDS: GABAPENTIN 100 MG CAP PO SCH ×3 (08:13→20:09)
[2019-01-16] MEDS ORDERED: MIDAZOLAM INJ 2 MG/2 ML VIAL (J2250) As Ordered ONE (08:55)
[2019-01-16] MEDS ORDERED: ROCURONIUM BROMIDE 50 MG/5 ML VIAL As Ordered ONE (08:55)
[2019-01-16] MEDS ORDERED: dexameTHASONE 4 MG/ML 1ML VIAL (J1100) As Ordered ONE (08:55)
[2019-01-16] MEDS ORDERED: ONDANSETRON 4MG/2ML VIAL (J2405) As Ordered ONE (08:55)
[2019-01-16] MEDS ORDERED: NEOSTIGMINE 10 MG/10 ML VIAL (J2710) As Ordered ONE (08:55)
[2019-01-16] MEDS ORDERED: LIDOCAINE 2% INJ 100 MG/5 ML SDV (FOR ANES.) As Ordered ONE (08:55)
[2019-01-16] MEDS ORDERED: fentaNYL 100 MCG/2 ML INJECTION (J3010) As Ordered ONE (08:55)
[2019-01-16] MEDS ORDERED: PROPOFOL 200 MG/20 ML VIAL As Ordered ONE (08:55)
[2019-01-16] MEDS ORDERED: GLYCOPYRROLATE INJ 0.2 MG/ML 2 ML VIAL As Ordered ONE (08:55)
[2019-01-16] MEDS: PANTOPRAZOLE 40MG INJ (PROTONIX) (C9113) IV SCH (11:36)
[2019-01-16] MEDS: D5W/0.9% SODIUM CHLORIDE 1,000 ML IV SCH (12:45)
--- NOTE | 2019-01-16 15:49 | IPNPDOC ---
Subjective Date Seen The patient was seen on 01/16/19. Subjective Chief Complaint/HPI Shoulder pain seems to be better controlled. He is scheduled for a PEG tube today. No nausea or vomiting. Has not had a bowel movement yet. Objective Physical Examination General Exam: Positive: Alert, Cooperative, Moderate Distress (due to severe shoulder pain), Other (cachexia) Eye Exam: Positive: PERRLA ENT Exam: Positive: Atraumatic, Other ENT (mucous membrane dry) Neck Exam: Positive: Supple; Negative: JVD Chest Exam: Positive: Clear to auscultation, Normal air movement Heart Exam: Positive: Rate Normal, Regular Rhythm Abdomen Exam: Positive: Normal bowel sounds, Soft; Negative: Tenderness Extremity Exam: Positive: Tenderness (shoulder); Negative: Edema Skin Exam: Negative: Rash Psych Exam: Positive: Memory Intact, Oriented x 3 Assessment /Plan Assessment 83 year old male with PMH of Adenocarcinoma of the lung Stage 1A T1N0M0, Hypertension , Chronic Obstructive Pulmonary Disease , Tobacco Abuse Chronic dislocated left shoulder, Severe Protein-Calorie Malnutrition (Cachexia)recently admitted for pneumonia and discharged home on 01/08 with a ntibiotic and prednisone. He was brought back to ED for AMS. Pt is unable to provide any info. mentions that pt really did not do well since discharge, but today after getting out of bed, he went to recliner and slept all day; he did not take anything orally except morning meds. She reports sough with clearing sputum; denies SOB, fever or chills. He has not been talking much which is unusual. In the ER, pt was somnolent. Vitals and basic labs were unremarkable. BUN and Cr slightly up from a few days ago. Leucocytosis is unchanged 18K- likely due to steroid use. VBG appears fine. CXR shows improving LLL infiltrates. CT head did not show any acute events. Persistent nausea Now better. CT abdomen pelvis with contrast reviewed. compazine and zofran. pantoprazole and sucralfate. Failure to thrive due to poor oral intake and possible recurrence of lung cancer. No specific etiology for his new lethargy could be found most probably just age and slow recovery from his recent hospitalization Underlying recurrence of the lung cancer cannot be ruled out. Severe pain with chronic use of narcotics can be a major factor causing poor appetite, nausea and poor oral intake. Planned for PEG tube placement Hypernatremia 200 cc water q6 hours calorie count. due to poor oral intake and dehydration will start IVF fluid. Leucocytosis improving due to demargination probably due to steroids, pain. No signs of infection seen. Blood cultures negative. 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 continue with the steroid taper. Hypertension BP uncontrolled probably due to pain will give amlodipine JOCE with hypernatremia improving due to poor oral intake encourage oral intake. start IVF. 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 History of adenocarcinoma of right lung thought to be in remission. had right upper lobe lobectomy in 2008 has spiculated lung nodule on the left upper lobe. PET was negative for any hypermetabolic uptake in october 2017. though it is growing in size so may be malignant however patient did not want any biopsy done. 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 Plan/VTE VTE Prophylaxis Ordered?: Yes VS, I&O, 24H, Fishbone Vital Signs/I&O Vital Signs Date Time Temp Pulse Resp B/P (MAP) Pulse Ox O2 Delivery O2 Flow Rate FiO2 01/16/19 14:45 99.1 98 16 131/68 (89) 90 2.0 01/11/19 02:08 Nasal Cannula I&O- Last 24 Hours up to 6 AM 01/16/19 06:00 Intake Total 600 ml Output Total 650 ml Balance -50 ml Laboratory Data 24H LABS Laboratory Tests 2 01/16/19 05:40: Immature Granulocyte % (Auto) 0.6, White Blood Count 18.3H, Red Blood Count 3.86L, Hemoglobin 11.8L, Hematocrit 38.9L, Mean Corpuscular Volume 100.8H, Mean Corpuscular Hemoglobin 30.6, Mean Corpuscular Hemoglobin Concent 30.3L, Red Cell Distribution Width 14.8H, Platelet Count 271, Neutrophils (%) (Auto) 90.0H, Lymphocytes (%) (Auto) 5.5L, Monocytes (%) (Auto) 3.7, Eosinophils (%) (Auto) 0.1, Basophils (%) (Auto) 0.1, Neutrophils # (Auto) 16.4H, Lymphocytes # (Auto) 1.0L, Monocytes # (Auto) 0.7, Eosinophils # (Auto) 0.0, Basophils # (Auto) 0.0, Nucleated Red Blood Cells % (auto) 0.0, Anion Gap 5L, Glomerular Filtration Rate 54.1, Blood Urea Nitrogen 39H, Creatinine 1.34H, Sodium Level 147H, Potassium Level 4.6, Chloride Level 111H, Carbon Dioxide Level 31, Calcium Level 9.2 CBC/BMP Laboratory Tests 01/16/19 05:40 Red Blood Count 3.86 L, Mean Corpuscular Volume 100.8 H, Mean Corpuscular Hemoglobin 30.6, Mean Corpuscular Hemoglobin Concent 30.3 L, Red Cell Distribut ion Width 14.8 H, Neutrophils (%) (Auto) 90.0 H, Lymphocytes (%) (Auto) 5.5 L, Monocytes (%) (Auto) 3.7, Eosinophils (%) (Auto) 0.1, Basophils (%) (Auto) 0.1, Neutrophils # (Auto) 16.4 H, Lymphocytes # (Auto) 1.0 L, Monocytes # (Auto) 0.7, Eosinophils # (Auto) 0.0, Basophils # (Auto) 0.0, Calcium Level 9.2 Microbiology Microbiology 01/10/19 Blood Culture - Final, Complete NO GROWTH AFTER 5 DAYS EMILY CALIX MD January 16, 2019 15:49
[2019-01-16] MEDS ORDERED: UNASYN 1.5 GM VIAL As Ordered ONE (15:52)
--- NOTE | 2019-01-16 17:08 | ROOR ---
Patient Name: Rosales Phillips Procedure Date: 01/16/2019 4:32 PM Date of : 1935 Age: 83 Room: [facility] Gender: Male Note Status: Finalized Procedure: Upper GI endoscopy Indications: Place PEG because patient is unable to eat, Place PEG to improve nutrition in patient with prolonged severe illness Providers: Flavio Silva MD Referring MD: 2. Inpatient 2. Inpatient Requesting Provider: Medicines: Monitored Anesthesia Care Complications: No immediate complications. Procedure: Pre-Anesthesia Assessment: - Prior to the procedure, a History and Physical was performed, and patient medications and allergies were reviewed. The patient is competent. The risks and benefits of the procedure and the sedation options and risks were discussed with the patient. All questions were answered and informed consent was obtained. Patient identification and proposed procedure were verified by the physician, the nurse and the fuller brush man in the endoscopy suite. Mental Status Examination: alert and oriented. Airway Examination: normal oropharyngeal airway and neck mobility. Respiratory Examination: clear to auscultation. CV Examination: normal. Prophylactic Antibiotics: The patient requires prophylactic antibiotics for planned PEG placement. The patient received antibiotic therapy today, before the procedure started. Prior Anticoagulants: The patient has taken no previous anticoagulant or antiplatelet agents. ASA Grade Assessment: III - A patient with severe systemic disease. After reviewing the risks and benefits, the patient was deemed in satisfactory condition to undergo the procedure. The anesthesia plan was to use monitored anesthesia care (MAC). Immediately prior to administration of medications, the patient was re-assessed for adequacy to receive sedatives. The heart rate, respiratory rate, oxygen saturations, blood pressure, adequacy of pulmonary ventilation, and response to care were monitored throughout the procedure. The physical status of the patient was re-assessed after the procedure. The Endoscope was introduced through the mouth, and advanced to the second part of duodenum. The upper GI endoscopy was accomplished without difficulty. The patient tolerated the procedure well. Findings: The examined esophagus was normal. No gross lesions were noted in the entire examined stomach. Two non-bleeding cratered duodenal ulcers with no stigmata of bleeding were found in the first portion of the duodenum. The largest lesion was 20 mm in largest dimension. The patient was placed in the supine position for PEG placement. The stomach was insufflated to appose gastric and abdominal valente. A site was located in the body of the stomach with excellent transillumination for placement. The abdominal wall was marked and prepped in a sterile manner. The area was anesthetized with 2 mL of 0.5% lidocaine. The trocar needle was introduced through the abdominal wall and into the stomach under direct endoscopic view. A snare was introduced through the endoscope and opened in the gastric lumen. The guide wire was passed through the trocar and into the open snare. The snare was closed around the guide wire. The endoscope and snare were removed, pulling the wire out through the mouth. A skin incision was made at the site of needle insertion. The externally removable 20 Fr [place] gastrostomy tube was lubricated. The G-tube was passed over the guide wire through the mouth, and into the stomach. The trocar needle was removed, and the gastrostomy tube was pulled out from the stomach through the skin. The guide wire was removed, and the external bumper attached to the gastrostomy tube. The feeding tube was then cut to an appropriate length. The final position of the gastrostomy tube was confirmed by relook endoscopy, and skin marking noted to be 2.5 cm at the external bumper. The final tension and compression of the abdominal wall by the PEG tube and external bumper were checked and revealed that the bumper was loose and lightly touching the skin. The feeding tube was capped, and the tube site was cleaned and dressed. Impression: - Normal esophagus. - No gross lesions in the stomach. - Multiple non-bleeding duodenal ulcers with no stigmata of bleeding. - An externally removable PEG placement was successfully completed. - No specimens collected. Recommendation: - Please follow the post-PEG recommendations including: change dressing on top of bumper daily and may use PEG tomorrow for feedings. Flavio Silva MD Flavio Silva MD 01/16/2019 5:07:40 PM Electronically signed by Flavio Silva MD Number of Addenda: 0 Note Initiated On: 01/16/2019 4:32 PM Estimated Blood Loss: Estimated blood loss was minimal.
[2019-01-16] MEDS: ANEXSIA, NORCO 7.5MG/325MG TABLET(HYDROCODONE/APAP) PO PRN (20:10)
[2019-01-17] MEDS: ONDANSETRON 4MG/2ML VIAL (J2405) IV SCH ×2 (03:52→08:09)
[2019-01-17] MEDS: ANEXSIA, NORCO 7.5MG/325MG TABLET(HYDROCODONE/APAP) PO PRN ×3 (03:52→20:04)
[2019-01-17] MEDS: D5W/0.9% SODIUM CHLORIDE 1,000 ML IV SCH (05:11)
[2019-01-17 06:00] VITALS: BP 126/71
[2019-01-17 06:54] LABS: BASO % 0.1 % (0.0-1.0); EOS % 0.2 % (0.0-3.0); HEMATOCRIT 35.6 % (42.0-52.0); HEMOGLOBIN 10.8 g/dl (13.5-17.5); LYMPH # 0.8 10^3/uL (1.5-4.5); LYMPH % 5.4 % (24.0-44.0); MEAN CORPUSCULAR HEMOGLOBIN 30.7 pg (27.0-33.0); MEAN CORPUSCULAR HGB CONC 30.3 g/dl (32.0-36.5); MEAN CORPUSCULAR VOLUME 101.1 fl (80.0-96.0); MONO # 0.7 10^3/uL (0.0-0.8); MONO % 4.5 % (0.0-5.0); NEUTROPHILS # 13.5 10^3/uL (1.8-7.7); NEUTROPHILS % 89.3 % (36.0-66.0); PLATELET COUNT, AUTOMATED 252 10^3/uL (150-450); RED BLOOD COUNT 3.52 10^6/uL (4.30-6.10); WHITE BLOOD COUNT 15.1 10^3/uL (4.0-10.0)
[2019-01-17 07:09] LABS: BLOOD UREA NITROGEN 28 MG/DL (7-18); CALCIUM LEVEL 8.3 MG/DL (8.8-10.2); CARBON DIOXIDE LEVEL 31 MEQ/L (21-32); CHLORIDE LEVEL 115 MEQ/L (98-107); CREATININE FOR GFR 1.12 MG/DL (0.70-1.30); GLOMERULAR FILTRATION RATE > 60.0 (>35); GLUCOSE, FASTING 128 MG/DL (70-100); POTASSIUM SERUM 4.3 MEQ/L (3.5-5.1); SODIUM LEVEL 148 MEQ/L (136-145)
[2019-01-17] MEDS: SUCRALFATE 1 GM TAB PO SCH ×3 (08:10→20:03)
[2019-01-17] MEDS: GABAPENTIN 100 MG CAP PO SCH ×3 (08:10→20:03)
[2019-01-17] MEDS: predniSONE 5 MG TAB PO SCH (08:10)
[2019-01-17] MEDS: ACETAMINOPHEN 500 MG TAB PO SCH ×3 (08:10→20:04)
[2019-01-17] MEDS: amLODIPine 5 MG TAB PO SCH (08:11)
[2019-01-17] MEDS: DICLOFENAC EPOLAMINE 1.3 % PATCH TOP SCH ×2 (08:11→20:03)
[2019-01-17 10:00] VITALS: BP 131/65
--- NOTE | 2019-01-17 10:26 | IPNPDOC ---
Subjective Date Seen The patient was seen on 01/17/19. Subjective Chief Complaint/HPI Seen this am at bedside. He is still somnolent from the sedation last night that he got during the peg tube placement. His pain seems to be better controlled. No fever or chills, no sob , no nausea or vomiting. Will start using the PEG tube today. Objective Physical Examination General Exam: Positive: Alert, Cooperative, Moderate Distress (due to severe shoulder pain), Other (cachexia) Eye Exam: Positive: PERRLA ENT Exam: Positive: Atraumatic, Other ENT (mucous membrane dry) Neck Exam: Positive: Supple; Negative: JVD Chest Exam: Positive: Clear to auscultation, Normal air movement Heart Exam: Positive: Rate Normal, Regular Rhythm Abdomen Exam: Positive: Normal bowel sounds, Soft; Negative: Tenderness Extremity Exam: Positive: Tenderness (shoulder); Negative: Edema Skin Exam: Negative: Rash Psych Exam: Positive: Memory Intact, Oriented x 3 Assessment /Plan Assessment 83 year old male with PMH of 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 He was brought back to ED for AMS. Pt is unable to provide any info. mentions that pt really did not do well since discharge, but today after getting out of bed, he went to recliner and slept all day; he did not take anything orally except morning meds. She reports sough with clearing sputum; denies SOB, fever or chills. He has not been talking much which is unusual. In the ER, pt was somnolent. Vitals and basic labs were unremarkable. BUN and Cr slightly up from a few days ago. Leucocytosis is unchanged 18K- likely due to steroid use. VBG appears fine. CXR shows improving LLL infiltrates. CT head did not show any acute events. Persistent nausea Now better. CT abdomen pelvis with contrast reviewed. compazine and zofran. pantoprazole and sucralfate. Failure to thrive due to poor oral intake and possible recurrence of lung cancer. No specific etiology for his new lethargy could be found most probably just age and slow recovery from his recent hospitalization Underlying recurrence of the lung cancer cannot be ruled out. Severe pain with chronic use of narcotics can be a major factor causing poor appetite, nausea and poor oral intake. PEG tube placed on 01/16/19 Peptic ulcer disease EGD showed Normal esophagus. No gross lesions in the stomach. Multiple non- bleeding duodenal ulcers with no stigmata of bleeding. will continue with pantoprazole and sucralfate. Hypernatremia encourage oral intake. will also start free water through the PEG tube. Leucocytosis improving due to demargination probably due to steroids, pain. No signs of infection seen. Blood cultures negative. 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 continue with the steroid taper. Hypertension BP uncontrolled probably due to pain will give amlodipine JOCE with hypernatremia improved with IVF. due to poor oral intake encourage oral intake. 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 had right upper lobe lobectomy in 2008 has spiculated lung nodule on the left upper lobe. PET was negative for any hypermetabolic uptake in october 2017. though it is growing in size so may be malignant however patient did not want any biopsy done. 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 Plan/VTE VTE Prophylaxis Ordered?: Yes VS, I&O, 24H, Fishbone Vital Signs/I&O Vital Signs Date Time Temp Pulse Resp B/P (MAP) Pulse Ox O2 Delivery O2 Flow Rate FiO2 01/17/19 08:11 68 126/71 01/17/19 06:00 99.1 18 92 2.0 01/11/19 02:08 Nasal Cannula I&O- Last 24 Hours up to 6 AM 01/17/19 06:00 Intake Total 290 ml Output Total 850 ml Balance -560 ml Laboratory Data 24H LABS Laboratory Tests 2 01/17/19 06:10: Immature Granulocyte % (Auto) 0.5, White Blood Count 15.1H, Red Blood Count 3.52L, Hemoglobin 10.8L, Hematocrit 35.6L, Mean Corpuscular Volume 101.1H, Mean Corpuscular Hemoglobin 30.7, Mean Corpuscular Hemoglobin Concent 30.3L, Red Cell Distribution Width 14.8H, Platelet Count 252, Neutrophils (%) (Auto) 89.3H, Lymphocytes (%) (Auto) 5.4L, Monocytes (%) (Auto) 4.5, Eosinophils (%) (Auto) 0.2, Basophils (%) (Auto) 0.1, Neutrophils # (Auto) 13.5H, Lymphocytes # (Auto) 0.8L, Monocytes # (Auto) 0.7, Eosinophils # (Auto) 0.0, Basophils # (Auto) 0.0, Nucleated Red Blood Cells % (auto) 0.0, Anion Gap 2L, Glomerular Filtration Rate > 60.0, Blood Urea Nitrogen 28H, Creatinine 1.12, Sodium Level 148H, Potassium Level 4.3, Chloride Level 115H, Carbon Dioxide Level 31, Calcium Level 8.3L CBC/BMP Laboratory Tests 01/17/19 06:10 Red Blood Count 3.52 L, Mean Corpuscular Volume 101.1 H, Mean Corpuscular Hemoglobin 30.7, Mean Corpuscular Hemoglobin Concent 30.3 L, Red Cell Distribution Width 14.8 H, Neutrophils (%) (Auto) 89.3 H, Lymphocytes (%) (Auto) 5.4 L, Monocytes (%) (Auto) 4.5, Eosinophils (%) (Auto) 0.2, Basophils (%) (Auto) 0.1, Neutrophils # (Auto) 13.5 H, Lymphocytes # (Auto) 0.8 L, Monocytes # (Auto) 0.7, Eosinophils # (Auto) 0.0, Basophils # (Auto) 0.0, Calcium Level 8.3 L Microbiology Microbiology 01/10/19 Blood Culture - Final, Complete NO GROWTH AFTER 5 DAYS EMILY CALIX MD January 17, 2019 10:22
[2019-01-17] MEDS: PANTOPRAZOLE 40MG INJ (PROTONIX) (C9113) IV SCH (11:48)
[2019-01-17] MEDS ORDERED: SODIUM CHLORIDE HYPERTONIC 3% 15ML NEB SOL INH PRN (12:30)
[2019-01-17] MEDS ORDERED: ALBUTEROL SULFATE 2.5 MG/0.5 ML INH NEB SOLN NEB PRN (12:30)
[2019-01-17 14:00] VITALS: BP 115/64
[2019-01-17] MEDS: PANTOPRAZOLE 40MG TAB (PROTONIX) PO SCH ×2 (15:16→20:03)
[2019-01-17 22:00] VITALS: BP 131/77
[2019-01-18] MEDS: ANEXSIA, NORCO 7.5MG/325MG TABLET(HYDROCODONE/APAP) PO PRN ×2 (05:01→13:27)
[2019-01-18 06:00] VITALS: BP 120/72
[2019-01-18 06:15] LABS: BASO % 0.1 % (0.0-1.0); EOS % 0.2 % (0.0-3.0); HEMATOCRIT 38.9 % (42.0-52.0); HEMOGLOBIN 11.8 g/dl (13.5-17.5); LYMPH # 0.9 10^3/uL (1.5-4.5); MEAN CORPUSCULAR HEMOGLOBIN 30.6 pg (27.0-33.0); MEAN CORPUSCULAR HGB CONC 30.3 g/dl (32.0-36.5); MEAN CORPUSCULAR VOLUME 100.8 fl (80.0-96.0); MONO # 0.7 10^3/uL (0.0-0.8); MONO % 4.7 % (0.0-5.0); NEUTROPHILS # 13.9 10^3/uL (1.8-7.7); NEUTROPHILS % 88.6 % (36.0-66.0); PLATELET COUNT, AUTOMATED 233 10^3/uL (150-450); RED BLOOD COUNT 3.86 10^6/uL (4.30-6.10); WHITE BLOOD COUNT 15.7 10^3/uL (4.0-10.0)
[2019-01-18 06:29] LABS: BLOOD UREA NITROGEN 23 MG/DL (7-18); CALCIUM LEVEL 8.4 MG/DL (8.8-10.2); CARBON DIOXIDE LEVEL 30 MEQ/L (21-32); CHLORIDE LEVEL 111 MEQ/L (98-107); CREATININE FOR GFR 0.98 MG/DL (0.70-1.30); GLOMERULAR FILTRATION RATE > 60.0 (>35); GLUCOSE, FASTING 76 MG/DL (70-100); POTASSIUM SERUM 4.3 MEQ/L (3.5-5.1); SODIUM LEVEL 145 MEQ/L (136-145)
[2019-01-18] MEDS: SUCRALFATE 1 GM TAB PO SCH ×3 (08:58→20:49)
[2019-01-18] MEDS: ACETAMINOPHEN 500 MG TAB PO SCH ×3 (08:58→20:50)
[2019-01-18] MEDS: PANTOPRAZOLE 40MG TAB (PROTONIX) PO SCH ×2 (08:58→20:51)
[2019-01-18] MEDS: DICLOFENAC EPOLAMINE 1.3 % PATCH TOP SCH ×2 (08:58→20:49)
[2019-01-18] MEDS: predniSONE 5 MG TAB PO SCH (08:58)
[2019-01-18] MEDS: GABAPENTIN 100 MG CAP PO SCH ×3 (08:58→20:51)
[2019-01-18] MEDS: amLODIPine 5 MG TAB PO SCH (08:59)
[2019-01-18] MEDS ORDERED: FLEET ENEMA PR PRN (09:30)
[2019-01-18] MEDS: MIRALAX *UNIT DOSE* 17GM PACKET PO SCH (09:30)
--- NOTE | 2019-01-18 09:41 | IPNPDOC ---
Subjective Date Seen The patient was seen on 01/18/19. Subjective Chief Complaint/HPI Patient complaining of constipation . Has not had a bowel movement since admission. He is more awake today and trying to eat orally. PEG tube was flushed with water yesterday and is working well. Patient also had some episodes of coughing with production of greenish sputum. Patient remains on oxygen requiring about 1 liter though he is not on oxygen at home. Shoulder pain seems to be a little better controlled. Objective Physical Examination General Exam: Positive: Alert, Cooperative, Moderate Distress (due to severe shoulder pain), Other (cachexia) Eye Exam: Positive: PERRLA ENT Exam: Positive: Atraumatic, Other ENT (mucous membrane dry) Neck Exam: Positive: Supple; Negative: JVD Chest Exam: Positive: Clear to auscultation, Normal air movement Heart Exam: Positive: Rate Normal, Regular Rhythm Abdomen Exam: Positive: Normal bowel sounds, Soft; Negative: Tenderness Extremity Exam: Positive: Tenderness (shoulder); Negative: Edema Skin Exam: Negative: Rash Psych Exam: Positive: Memory Intact, Oriented x 3 Assessment /Plan Assessment 83 year old male with PMH of Adenocarcinoma of the lung Stage 1A T1N0M0, Hypertension , Chronic Obstructive Pulmonary Disease , Tobacco Abuse Chronic dislocated left shoulder, Severe Protein-Calorie Malnutrition (Cachexia)recently admitted for pneumonia and discharged home on 01/08 with antibiotic and prednisone. He was brought back to ED for AMS. Pt is unable to provide any info. mentions that pt really did not do well since discharge, but today after getting out of bed, he went to recliner and slept all day; he did not take anything orally except morning meds. She reports sough with clearing sputum; denies SOB, fever or chills. He has not been talking much which is unusual. In the ER, pt was somnolent. Vitals and basic labs were unremarkable. BUN and Cr slightly up from a few days ago. Leucocytosis is unchanged 18K- likely due to steroid use. VBG appears fine. CXR shows improving LLL infiltrates. CT head did not show any acute events. Persistent nausea Now better. CT abdomen pelvis with contrast reviewed. compazine and zofran. pantoprazole and sucralfate. Failure to thrive Multifactorial due to poor oral intake due to pain , advanced COPD, being and possible recurrence of lung cancer. No specific etiology for his new lethargy could be found most probably just age and slow recovery from his recent hospitalization Underlying recurrence of the lung cancer cannot be ruled out. Severe pain with chronic use of narcotics can be a major factor causing poor appetite, nausea and poor oral intake. PEG tube placed on 01/16/19 Peptic ulcer disease EGD showed Normal esophagus. No gross lesions in the stomach. Multiple non- bleeding duodenal ulcers with no stigmata of bleeding. will continue with pantoprazole and sucralfate. Hypernatremia resolved. Leucocytosis improving due to demargination probably due to steroids, pain. No signs of infection seen. Blood cultures negative. Severe shoulder pain will give hydrocodone, tylenol and flector patch Ortho consult appreciated. 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 will probably need oxygen on discharge. will give albuterol with hypertonic saline nebs. continue with the steroid taper. Hypertension BP uncontrolled probably due to pain will give amlodipine JOCE with hypernatremia improved with IVF. due to poor oral intake encourage oral intake continue PEG tube feeding and free water. 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 will start jevity by continuous pump. PEG tube placed. Will start on Jevity by continuous pump as per Dietary recommendations History of adenocarcinoma of right lung thought to be in remission. had right upper lobe lobectomy in 2008 has spiculated lung nodule on the left upper lobe. PET was negative for any hypermetabolic uptake in october 2017. though it is growing in size so may be malignant however patient did not want any biopsy done. 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 Plan/VTE VTE Prophylaxis Ordered?: Yes VS, I&O, 24H, Fishbone Vital Signs/I&O Vital Signs Date Time Temp Pulse Resp B/P (MAP) Pulse Ox O2 Delivery O2 Flow Rate FiO2 01/18/19 06:00 98.3 92 20 120/72 (88) 92 2.0 I&O- Last 24 Hours up to 6 AM 01/18/19 06:00 Intake Total 280 ml Output Total 425 ml Balance -145 ml Laboratory Data 24H LABS Laboratory Tests 2 01/18/19 06:00: Immature Granulocyte % (Auto) 0.4, White Blood Count 15.7H, Red Blood Count 3.86L, Hemoglobin 11.8L, Hematocrit 38.9L, Mean Corpuscular Volume 100.8H, Mean Corpuscular Hemoglobin 30.6, Mean Corpuscular Hemoglobin Concent 30.3L, Red Cell Distribution Width 14.6H, Platelet Count 233, Neutrophils (%) (Auto) 88.6H, Lymphocytes (%) (Auto) 6.0L, Monocytes (%) (Auto) 4.7, Eosinophils (%) (Auto) 0.2, Basophils (%) (Auto) 0.1, Neutrophils # (Auto) 13.9H, Lymphocytes # (Auto) 0.9L, Monocytes # (Auto) 0.7, Eosinophils # (Auto) 0.0, Basophils # (Auto) 0.0, Nucleated Red Blood Cells % (auto) 0.0, Anion Gap 4L, Glomerular Filtration Rate > 60.0, Blood Urea Nitrogen 23H, Creatinine 0.98, Sodium Level 145, Potassium Level 4.3, Chloride Level 111H, Carbon Dioxide Level 30, Calcium Level 8.4L CBC/BMP Laboratory Tests 01/18/19 06:00 Red Blood Count 3.86 L, Mean Corpuscular Volume 100.8 H, Mean Corpuscular Hemoglobin 30.6, Mean Corpuscular Hemoglobin Concent 30.3 L, Red Cell Distribution Width 14.6 H, Neutrophils (%) (Auto) 88.6 H, Lymphocytes (%) (Auto) 6.0 L, Monocytes (%) (Auto) 4.7, Eosinophils (%) (Auto) 0.2, Basophils (%) (Auto) 0.1, Neutrophils # (Auto) 13.9 H, Lymphocytes # (Auto) 0.9 L, Monocytes # (Auto) 0.7, Eosinophils # (Auto) 0.0, Basophils # (Auto) 0.0, Calcium Level 8.4 L Microbiology Microbiology 01/10/19 Blood Culture - Final, Complete NO GROWTH AFTER 5 DAYS EMILY CALIX MD January 18, 2019 09:41
[2019-01-18 14:00] VITALS: BP 121/71
[2019-01-18] MEDS: SENOKOT S TAB PO SCH (20:49)
[2019-01-18 22:00] VITALS: BP 108/70
[2019-01-19] MEDS: ANEXSIA, NORCO 7.5MG/325MG TABLET(HYDROCODONE/APAP) PO PRN ×3 (01:10→18:59)
[2019-01-19 06:00] VITALS: BP 112/68
[2019-01-19 06:07] LABS: EOS % 0.3 % (0.0-3.0); HEMATOCRIT 34.6 % (42.0-52.0); HEMOGLOBIN 10.7 g/dl (13.5-17.5); LYMPH # 0.9 10^3/uL (1.5-4.5); LYMPH % 6.3 % (24.0-44.0); MEAN CORPUSCULAR HEMOGLOBIN 30.2 pg (27.0-33.0); MEAN CORPUSCULAR HGB CONC 30.9 g/dl (32.0-36.5); MEAN CORPUSCULAR VOLUME 97.7 fl (80.0-96.0); MONO # 0.7 10^3/uL (0.0-0.8); MONO % 4.5 % (0.0-5.0); NEUTROPHILS # 13.2 10^3/uL (1.8-7.7); NEUTROPHILS % 88.4 % (36.0-66.0); PLATELET COUNT, AUTOMATED 291 10^3/uL (150-450); RED BLOOD COUNT 3.54 10^6/uL (4.30-6.10); WHITE BLOOD COUNT 14.9 10^3/uL (4.0-10.0)
[2019-01-19 06:33] LABS: BLOOD UREA NITROGEN 30 MG/DL (7-18); CALCIUM LEVEL 8.3 MG/DL (8.8-10.2); CARBON DIOXIDE LEVEL 28 MEQ/L (21-32); CHLORIDE LEVEL 110 MEQ/L (98-107); CREATININE FOR GFR 1.18 MG/DL (0.70-1.30); GLOMERULAR FILTRATION RATE > 60.0 (>35); GLUCOSE, FASTING 128 MG/DL (70-100); POTASSIUM SERUM 4.4 MEQ/L (3.5-5.1); SODIUM LEVEL 142 MEQ/L (136-145)
[2019-01-19] MEDS: MOM 30ML SUSPENSION UDC PO PRN (08:48)
[2019-01-19] MEDS: PANTOPRAZOLE 40MG TAB (PROTONIX) PO SCH ×2 (08:48→20:43)
[2019-01-19] MEDS: amLODIPine 5 MG TAB PO SCH (08:48)
[2019-01-19] MEDS: MIRALAX *UNIT DOSE* 17GM PACKET PO SCH (08:48)
[2019-01-19] MEDS: GABAPENTIN 100 MG CAP PO SCH ×3 (08:48→20:42)
[2019-01-19] MEDS: SUCRALFATE 1 GM TAB PO SCH ×3 (08:49→20:43)
[2019-01-19] MEDS: ACETAMINOPHEN 500 MG TAB PO SCH ×3 (08:49→20:43)
[2019-01-19] MEDS: predniSONE 5 MG TAB PO SCH (08:49)
[2019-01-19] MEDS: DICLOFENAC EPOLAMINE 1.3 % PATCH TOP SCH ×2 (08:50→20:42)
--- NOTE | 2019-01-19 13:39 | IPNPDOC ---
Date Seen The patient was seen on 01/19/19. Progress Note subjective 83 Y male, has COPD, Lung cancer admitted for altered mental status no events overnight Objective Physical Examination General Exam: with minimal response lying in the bed and complains left shoulder pain, cachexia Eye Exam: Positive: PERRLA ENT Exam: Positive: Atraumatic, Other ENT (mucous membrane dry) Neck Exam: Positive: Supple; Negative: JVD Chest Exam: Positive: Clear to auscultation, Normal air movement Heart Exam: Positive: Rate Normal, Regular Rhythm Abdomen Exam: Positive: Normal bowel sounds, Soft; Negative: Tenderness Extremity Exam: Positive: Tenderness (shoulder); Negative: Edema Skin Exam: Negative: Rash Psych Exam: no acute psychosis Review of systems not available due to Altered mental status Assessment /Plan Assessment 83 year old male with PMH of Adenocarcinoma of the lung Stage 1A T1N0M0, Hypertension , Chronic Obstructive Pulmonary Disease , Tobacco Abuse Chronic dislocated left shoulder, Severe Protein-Calorie Malnutrition (Cachexia)recently admitted for pneumonia and discharged home on 01/08 with antibiotic and prednisone. He was brought back to ED for AMS. Pt is unable to provide any info. mentions that pt really did not do well since discharge, but today after getting out of bed, he went to recliner and slept all day; he did not take anything orally except morning meds. She reports sough with clearing sputum; denies SOB, fever or chills. He has not been talking much which is unusual. In the ER, pt was somnolent. Vitals and basic labs were unremarkable. BUN and Cr slightly up from a few days ago. Leucocytosis is unchanged 18K- likely due to steroid use. VBG appears fine. CXR shows improving LLL infiltrates. CT head did not show any acute events. 1. Failure to thrive, Multifactorial due to poor oral intake due to pain , advanced COPD, being and possible recurrence of lung cancer. now it is on TF via PEG tube 01/16/19 2. severe left shoulder pain, consulted with ortho and recommended pain control 3.otics can be a major factor causing poor appetite, nausea and poor oral intake. 4. Peptic ulcer disease EGD showed Normal esophagus. No gross lesions in the stomach. Multiple non- bleeding duodenal ulcers with no stigmata of bleeding. will continue with pantoprazole and sucralfate. 5. 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 will probably need oxygen on discharge. 6. Severe protein calorie malnutrition, on TF 7. His prognosis is guarded and he is DNR, currently he is medically stable and is planning for discharge either home or longterm. A-FIB/CHADSVASC A-FIB History Current/History of A-Fib/PAF?: No Current Oral Anticoagulant The: No VS, I&O, 24H, Fishbone Vital Signs/I&O Vital Signs Date Time Temp Pulse Resp B/P (MAP) Pulse Ox O2 Delivery O2 Flow Rate FiO2 01/19/19 13:02 18 01/19/19 10:30 86 96 01/19/19 08:48 112/68 01/19/19 07:46 1.0 01/19/19 06:00 98.5 I&O- Last 24 Hours up to 6 AM 01/19/19 06:00 Intake Total 360 ml Output Total 350 ml Balance 10 ml Laboratory Data 24H LABS Laboratory Tests 2 01/19/19 05:29: Immature Granulocyte % (Auto) 0.5, White Blood Count 14.9H, Red Blood Count 3.54L, Hemoglobin 10.7L, Hematocrit 34.6L, Mean Corpuscular Volume 97.7H, Mean Corpuscular Hemoglobin 30.2, Mean Corpuscular Hemoglobin Concent 30.9L, Red Cell Distribution Width 14.7H, Platelet Count 291, Neutrophils (%) (Auto) 88.4H, Lymphocytes (%) (Auto) 6.3L, Monocytes (%) (Auto) 4.5, Eosinophils (%) (Auto) 0.3, Basophils (%) (Auto) 0.0, Neutrophils # (Auto) 13.2H, Lymphocytes # (Auto) 0.9L, Monocytes # (Auto) 0.7, Eosinophils # (Auto) 0.0, Basophils # (Auto) 0.0, Nucleated Red Blood Cells % (auto) 0.0, Anion Gap 4L, Glomerular Filtration Rate > 60.0, Blood Urea Nitrogen 30H, Creatinine 1.18, Sodium Level 142, Potassium Level 4.4, Chloride Level 110H, Carbon Dioxide Level 28, Calcium Level 8.3L CBC/BMP Laboratory Tests 01/19/19 05:29 Red Blood Count 3.54 L, Mean Corpuscular Volume 97.7 H, Mean Corpuscular Hemoglobin 30.2, Mean Corpuscular Hemoglobin Concent 30.9 L, Red Cell Distribution Width 14.7 H, Neutrophils (%) (Auto) 88.4 H, Lymphocytes (%) (Auto) 6.3 L, Monocytes (%) (Auto) 4.5, Eosinophils (%) (Auto) 0.3, Basophils (%) (Auto) 0.0, Neutrophils # (Auto) 13.2 H, Lymphocytes # (Auto) 0.9 L, Monocytes # (Auto) 0.7, Eosinophils # (Auto) 0.0, Basophils # (Auto) 0.0, Calcium Level 8.3 L Microbiology Microbiology 01/10/19 Blood Culture - Final, Complete NO GROWTH AFTER 5 DAYS KATHY BRASWELL MD January 19, 2019 13:39
[2019-01-19 14:00] VITALS: BP 120/80
[2019-01-19] MEDS: SENOKOT S TAB PO SCH (20:43)
[2019-01-19 22:00] VITALS: BP 117/67
[2019-01-20 06:00] VITALS: BP 120/67
[2019-01-20] MEDS: ANEXSIA, NORCO 7.5MG/325MG TABLET(HYDROCODONE/APAP) PO PRN ×3 (07:58→23:59)
[2019-01-20] MEDS: MOM 30ML SUSPENSION UDC PO PRN (07:58)
[2019-01-20] MEDS: predniSONE 5 MG TAB PO SCH (07:59)
[2019-01-20] MEDS: ACETAMINOPHEN 500 MG TAB PO SCH ×3 (07:59→21:04)
[2019-01-20] MEDS: GABAPENTIN 100 MG CAP PO SCH ×3 (07:59→21:04)
[2019-01-20] MEDS: PANTOPRAZOLE 40MG TAB (PROTONIX) PO SCH ×2 (08:00→21:04)
[2019-01-20] MEDS: SUCRALFATE 1 GM TAB PO SCH ×3 (08:00→21:04)
[2019-01-20] MEDS: DICLOFENAC EPOLAMINE 1.3 % PATCH TOP SCH ×2 (08:00→21:03)
[2019-01-20] MEDS: MIRALAX *UNIT DOSE* 17GM PACKET PO SCH (08:00)
[2019-01-20] MEDS: amLODIPine 5 MG TAB PO SCH (08:00)
--- NOTE | 2019-01-20 10:26 | IPNPDOC ---
Date Seen The patient was seen on 01/20/19. Progress Note subjective 83 Y male, has COPD, Lung cancer admitted for altered mental status no events overnight he is more awake this AM Objective Physical Examination General Exam: AA Ox3, cachexia, sitting in the bed and eat his breakfast Eye Exam: Positive: PERRLA ENT Exam: Positive: Atraumatic Neck Exam: Positive: Supple; Negative: JVD Chest Exam: Positive: diminished breath sound Heart Exam: Positive: Rate Normal, Regular Rhythm Abdomen Exam: Positive: Normal bowel sounds, Soft; Negative: Tenderness Extremity Exam: Positive: Tenderness (shoulder); Negative: Edema Skin Exam: Negative: Rash Psych Exam: no acute psychosis Review of systems no fever no chills no chest pain no abdominal pain no diarrhea pain in left shoulder Assessment /Plan Assessment 83 year old male with PMH of Adenocarcinoma of the lung Stage 1A T1N0M0, Hypertension , Chronic Obstructive Pulmonary Disease , Tobacco Abuse Chronic dislocated left shoulder, Severe Protein-Calorie Malnutrition (Cachex ia)recently admitted for pneumonia and discharged home on 01/08 with antibiotic and prednisone. He was brought back to ED for AMS. Pt is unable to provide any info. mentions that pt really did not do well since discharge, but today after getting out of bed, he went to recliner and slept all day; he did not take anything orally except morning meds. She reports sough with clearing sputum; denies SOB, fever or chills. He has not been talking much which is unusual. In the ER, pt was somnolent. Vitals and basic labs were unremarkable. BUN and Cr slightly up from a few days ago. Leucocytosis is unchanged 18K- likely due to steroid use. VBG appears fine. CXR shows improving LLL infiltrates. CT head did not show any acute events. 1. Failure to thrive, Multifactorial due to poor oral intake and advanced COPD, possible recurrence of lung cancer. now it is on TF via PEG tube 01/16/19 2. severe left shoulder pain, consulted with ortho and recommended pain control 3. Peptic ulcer disease EGD showed Normal esophagus. No gross lesions in the stomach. Multiple non- bleeding duodenal ulcers with no stigmata of bleeding. will continue with pantoprazole and sucralfate. 4. 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 will evaluate for home oxygen need on discharge. 5. Severe protein calorie malnutrition, on TF 6. His prognosis is guarded and he is DNR/DNI 7. He requires positioning of body in ways not feasible with ordinary bed in order to alleviate pain and requires the head of bed to be elevated more than 30 degrees most of time due to need for Tube feeding and avoiding aspiration. A-FIB/CHADSVASC A-FIB History Current/History of A-Fib/PAF?: No Current Oral Anticoagulant The: No VS, I&O, 24H, Fishbone Vital Signs/I&O Vital Signs Date Time Temp Pulse Resp B/P (MAP) Pulse Ox O2 Delivery O2 Flow Rate FiO2 01/20/19 08:28 18 01/20/19 08:00 79 120/67 01/20/19 07:49 1.0 01/20/19 06:00 97.6 97 I&O- Last 24 Hours up to 6 AM 01/20/19 06:00 Intake Total 1560 ml Output Total 650 ml Balance 910 ml Laboratory Data Microbiology Microbiology 01/10/19 Blood Culture - Final, Complete NO GROWTH AFTER 5 DAYS KATHY BRASWELL MD January 20, 2019 10:26
[2019-01-20 14:00] VITALS: BP 111/65
[2019-01-20] MEDS: SENOKOT S TAB PO SCH (21:04)
[2019-01-20 22:00] VITALS: BP 106/63
[2019-01-21 06:00] VITALS: BP_SYST 110; BP_DIAS 110; BP_DIAS 63
[2019-01-21] MEDS: ANEXSIA, NORCO 7.5MG/325MG TABLET(HYDROCODONE/APAP) PO PRN ×2 (07:06→14:37)
[2019-01-21] MEDS: SUCRALFATE 1 GM TAB PO SCH (08:57)
[2019-01-21] MEDS: ACETAMINOPHEN 500 MG TAB PO SCH (08:58)
[2019-01-21] MEDS: PANTOPRAZOLE 40MG TAB (PROTONIX) PO SCH (08:59)
[2019-01-21 09:00] VITALS: BP 110/63
[2019-01-21] MEDS: GABAPENTIN 100 MG CAP PO SCH (09:00)
[2019-01-21] MEDS: predniSONE 5 MG TAB PO SCH (09:00)
[2019-01-21] MEDS ORDERED: LACTULOSE 20 GM/30 ML SYRUP UD PO SCH (09:00)
[2019-01-21] MEDS: MIRALAX *UNIT DOSE* 17GM PACKET PO SCH (09:00)
[2019-01-21] MEDS: amLODIPine 5 MG TAB PO SCH (09:00)
[2019-01-21] MEDS: DICLOFENAC EPOLAMINE 1.3 % PATCH TOP SCH (09:01)
--- NOTE | 2019-01-21 10:34 | IPNPDOC ---
Date Seen The patient was seen on 01/21/19. Progress Note subjective 83 Y male, has COPD, Lung cancer admitted for altered mental status no events overnight Physical Examination General Exam: AA Ox3, cachexia Eye Exam: Positive: PERRLA ENT Exam: Positive: Atraumatic Neck Exam: Positive: Supple; Negative: JVD Chest Exam: Positive: diminished breath sound Heart Exam: Positive: Rate Normal, Regular Rhythm Abdomen Exam: Positive: Normal bowel sounds, Soft; Negative: Tenderness Extremity Exam: Positive: Tenderness (shoulder); Negative: Edema Skin Exam: Negative: Rash Psych Exam: no acute psychosis Review of systems no fever no chills no chest pain no abdominal pain no diarrhea pain in left shoulder Assessment /Plan Assessment 83 year old male with PMH of Adenocarcinoma of the lung Stage 1A T1N0M0, Hypertension , Chronic Obstructive Pulmonary Disease , Tobacco Abuse Chronic dislocated left shoulder, Severe Protein-Calorie Malnutrition (Cachexia)recently admitted for pneumonia and discharged home on 01/08 with antibiotic and prednisone. He was brought back to ED for AMS. Pt is unable to provide any info. mentions that pt really did not do well since discharge, but today after getting out of bed, he went to recliner and slept all day; he did not take anything orally except morning meds. She reports sough with clearing sputum; denies SOB, fever or chills. He has not been talking much which is unusual. In the ER, pt was somnolent. Vitals and basic labs were unremarkable. BUN and Cr slightly up from a few days ago. Leucocytosis is unchanged 18K- likely due to steroid use. VBG appears fine. CXR shows improving LLL infiltrates. CT head did not show any acute events. 1. Failure to thrive, Multifactorial due to poor oral intake and advanced COPD, possible recurrence of lung cancer. will continue TF via PEG tube since 01/16/19 2. severe left shoulder pain, consulted with ortho and recommended pain control 3. Peptic ulcer disease EGD showed Normal esophagus. No gross lesions in the stomach. Multiple non- bleeding duodenal ulcers with no stigmata of bleeding. will continue with pantoprazole and sucralfate. 4. 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 will evaluate for home oxygen need on discharge. 5. Severe protein calorie malnutrition, on TF 6. His prognosis is guarded and he is DNR/DNI 7. He needs hospital bed since he requires positioning of his body in ways with ordinary bed in order to alleviate pain and requires the head of bed to be elevated more than 30 degrees most of time due to need for Tube feeding and avoiding aspiration. he requires frequent changes in his body position and or has an immediate need for an chagne in body position. 8. He needs transport chair because a he has a mobility limitation that significantly impairs his ability to participate in one or more mobility- related activities of daily living b his mobility limitation can not be sufficiently resolved by the use of appropriate fitted cane or walker c his home provides adequate access between rooms,maneuvering space and surfaces for use of manual wheelchair that is provided d use of a manual wheelchair will significantly improve his ability to participate in MRADLs and he will use it on regular basis in the home e He has not expressed an unwillingness to use the manual wheelchair that is provided in the home f he has a caregiver who is available , wiling, and able to provide assistance with wheelchair. A-FIB/CHADSVASC A-FIB History Current/History of A-Fib/PAF?: No Current Oral Anticoagulant The: No VS, I&O, 24H, Fishbone Vital Signs/I&O Vital Signs Date Time Temp Pulse Resp B/P (MAP) Pulse Ox O2 Delivery O2 Flow Rate FiO2 01/21/19 09:00 83 110/63 01/21/19 07:59 16 01/21/19 06:00 97.9 93 1.0 I&O- Last 24 Hours up to 6 AM 01/21/19 06:00 Intake Total 1680 ml Output Total 550 ml Balance 1130 ml KATHY BRASWELL MD January 21, 2019 10:34
[2019-01-21] MEDS ORDERED: MOM30SS2 PO (12:24)
[2019-01-21] MEDS ORDERED: SUCR1TA PO (12:24)
[2019-01-21] MEDS ORDERED: PANT40TA3 PO (12:24)
[2019-01-21] MEDS ORDERED: DICL13PA TOP (12:24)
[2019-01-21] MEDS ORDERED: AMLO5TAB6 PO (12:24)
[2019-01-21 14:46] VITALS: BP 110/63
--- NOTE | 2019-01-21 14:56 | DS.PDOC ---
Discharge Summary General Date of Admission January 13, 2019 at 15:02 Date of Discharge January 21, 2019 Primary Care Physician: Jose Schmitz [facility] Attending Physician: KATHY BRASWELL MD Specialist/Consultants Involve: MENDOZA KENYON MD Specialist/Consultants Involve Dr Eleazar Haywood, misael Discharge Summary PROCEDURES PERFORMED DURING STAY: PEG placement 01/16/19 ADMITTING DIAGNOSES: 1. AMS/metabolic encephalopathy 2. COPD 3. Left shoulder pain 4. severe malnutrition DISCHARGE DIAGNOSES: Severe malnutrition, s/p PEG placement for TF severe left shoulder pain Chronic respiratory failure, need home O2@2L COMPLICATIONS/CHIEF COMPLAINT: Lethargy, Failure To Thrive. HISTORY OF PRESENT ILLNESS: Mr. Phillips is an 83 years old cachectic man who was recently admitted for pneumonia and discharged home on 01/08 with antibiotic and prednisone. He was brought back to Er for AMS. Pt is unable to provide any info. mentions that pt really did not do well since discharge, but today after getting out of bed, he went to recliner and slept all day; he did not take anything orally except morning meds. She reports sough with clearing sputum; denies SOB, fever or chills. In the ER, pt was somnolent. Vitals and basic labs were unremarkable. BUN and Cr slightly up from a few days ago. Leucocytosis is unchanged 18K- likely due to steroid use. VBG appears fine. CXR shows improving LLL infiltrates. Head CT not significant. HOSPITAL COURSE: after admission, he was consulted with ortho service for his severe left shoulder pain, and dr Haywood recommended pain management considering his general poor conditions and multiple shoulder surgeries in the past. due to severe malnutrition and not able to tolerate oral diet, GI was consulted and PEG was inserted on 01/16 and TF was started since then. Due to poor prognosis and family decided to take him home. Hospital bed and transport chair was arranged due to his poor mobility. 2L Home O2 was arrange too for his respiratory failure due to COPD. DISCHARGE MEDICATIONS: Please see below. ALLERGIES: Please see below. PHYSICAL EXAMINATION ON DISCHARGE: VITAL SIGNS: Please see below. GENERAL: AA Ox3, cachetic HEENT: atraumatic NECK: no JVD CARDIOVASCULAR EXAMINATION: S1S2 regular RESPIRATORY EXAMINATION: diminished breath sound, no wheezing ABDOMINAL EXAMINATION:soft, BS positive nontender; PEG tube in place EXTREMITIES: no edema SKIN: no rash NEUROLOGICAL EXAMINATION: non focal PSYCHIATRIC EXAMINATION: no acute psychosis LABORATORY DATA: Please see below. PROGNOSIS: Guarded ACTIVITY: as tolerated DIET: TF via PEG DISPOSITION: home ITEMS TO FOLLOWUP ON ON OUTPATIENT: PCP as needed DISCHARGE CONDITION: stable TIME SPENT ON DISCHARGE: Greater than 50 minutes. Vital Signs/I&Os Vital Signs Date Time Temp Pulse Resp B/P (MAP) Pulse Ox O2 Delivery O2 Flow Rate FiO2 01/21/19 14:37 16 01/21/19 11:00 83 01/21/19 09:00 83 110/63 01/21/19 06:00 97.9 1.0 I&O- Last 24 Hours up to 6 AM 01/21/19 06:00 Intake Total 1680 ml Output Total 550 ml Balance 1130 ml Discharge Medications Scheduled Amlodipine Besylate (Amlodipine Besylate) 5 Mg Tablet, 5 MG PO DAILY Diclofenac Epolamine (Flector) 1.3% Patch, 1 PATCH TOP Q12H Gabapentin (Gabapentin) 400 Mg Capsule, 400 MG PO TID, (Reported) Hydrocodone/Acetaminophen (Hydrocodone-Acetamin 10-325 mg) 1 Each Tablet, 1 TAB PO Q6H, (Reported) Milk Thistle Seed Extract (Milk Thistle Extract) 87.5 Mg Capsule, 87.5 MG PO DAILY, (Reported) Pantoprazole Sodium (Pantoprazole Sodium) 40 Mg Tablet.dr, 40 MG PO DAILY Sucralfate (Sucralfate) 1 Gm Tablet, 1 GM PO TID Scheduled PRN Magnesium Hydroxide (Milk of Magnesia) 400 Mg/5 Ml Oral.susp, 30 ML PO DAILY PRN for CONSTIPATION Allergies Coded Allergies: No Known Allergies (Unverified , 01/06/19) KATHY BRASWELL MD January 21, 2019 14:56
== END 2019-01-21 15:15 | disposition home or self-care (01) | DRG 640 ==
LOC: M ED 22:24 → M ED INP 01-11 00:23 → M MS5PR 01-11 02:20 → OBSVTOIN 01-13 15:02 → M MS5PR 01-16 13:55
PROVIDERS: ADMIT Internal Medicine; ATTEND Hospitalist
PROC: 0DH64UZ Insertion of Feeding Device into Stomach, Percutaneous Endoscopic Approach (ICD-10-PCS; principal; 2019-01-16 13:45)
DX: R62.7 Adult failure to thrive (principal); E43 Unspecified severe protein-calorie malnutrition; E87.0 Hyperosmolality and hypernatremia; N17.9 Acute kidney failure, unspecified; J96.10 Chronic respiratory failure, unspecified whether with hypoxia or hypercapnia; E87.2 Acidosis; M25.512 Pain in left shoulder; Z79.899 Other long term (current) drug therapy; Z87.891 Personal history of nicotine dependence; E86.0 Dehydration; I10 Essential (primary) hypertension; Z79.52 Long term (current) use of systemic steroids; Z85.118 Personal history of other malignant neoplasm of bronchus and lung; M24.412 Recurrent dislocation, left shoulder; Z66 Do not resuscitate

== ENCOUNTER → 2019-01-28 | Outpatient (REF) | payer MEDICARE, BC ==
[~2019-01-28] MED LIST changes: +AMLO5TAB6 PO; +CEFD1CAP8 PO; +DICL13PA TD; +DICL13PA TOP; +DOXY100T16 PO; +GABA-845 GT; -GABA-845 PO; +MILKSUS3 GT; +MOM30SS2 PO; +PANT-23 PO; +PANT40TA3 PO; +SUCR1TA PO; +SUCR1TAB56 GT
[2019-01-28 19:06] LABS: BASO % 0.2 % (0.0-1.0); EOS % 0.3 % (0.0-3.0); HEMATOCRIT 31.6 % (42.0-52.0); HEMOGLOBIN 9.7 g/dl (13.5-17.5); LYMPH # 0.8 10^3/uL (1.5-4.5); LYMPH % 7.7 % (24.0-44.0); MEAN CORPUSCULAR HGB CONC 30.7 g/dl (32.0-36.5); MEAN CORPUSCULAR VOLUME 97.8 fl (80.0-96.0); MONO # 0.9 10^3/uL (0.0-0.8); MONO % 7.9 % (0.0-5.0); NEUTROPHILS % 83.7 % (36.0-66.0); PLATELET COUNT, AUTOMATED 467 10^3/uL (150-450); RED BLOOD COUNT 3.23 10^6/uL (4.30-6.10); WHITE BLOOD COUNT 10.8 10^3/uL (4.0-10.0)
[2019-01-28 19:27] LABS: ALBUMIN 1.6 GM/DL (3.2-5.2); ALT/SGPT 16 U/L (12-78); BILIRUBIN,TOTAL 0.2 MG/DL (0.2-1.0); BLOOD UREA NITROGEN 26 MG/DL (7-18); CALCIUM LEVEL 7.6 MG/DL (8.8-10.2); CARBON DIOXIDE LEVEL 39 MEQ/L (21-32); CHLORIDE LEVEL 99 MEQ/L (98-107); CREATININE FOR GFR 0.99 MG/DL (0.70-1.30); GLOMERULAR FILTRATION RATE > 60.0 (>35); GLUCOSE, FASTING 117 MG/DL (70-100); POTASSIUM SERUM 5.3 MEQ/L (3.5-5.1); SODIUM LEVEL 143 MEQ/L (136-145); TOTAL PROTEIN 4.9 GM/DL (6.4-8.2)
== END ==
LOC: M SHH 16:49
PROVIDERS: ATTEND Nurse Practitioner Family
DX: I10 Essential (primary) hypertension (principal)

== ENCOUNTER 2019-02-04 09:19 | Inpatient (IN) | payer MEDICARE, BC ==
[~2019-02-04] VITALS: Ht 172.7 cm; Wt 46.3 kg
[~2019-02-04 09:19] MED LIST changes: -DICL13PA TD; -MILKSUS3 GT; -PANT-23 PO; -SUCR1TAB56 GT
[2019-02-04 10:12] LABS: ABG BASE EXCESS 3.6 (-2.0-2.0); ABG HCO3 27.6 MEQ/L (22.0-26.0); ABG O2 SATURATION 94.9 % (95.0-99.0); ABG PARTIAL PRESSURE CO2 39.3 mmHg (35.0-45.0); ABG PARTIAL PRESSURE O2 73.2 mmHg (75.0-100.0); ABG STANDARD HCO3 27.7 MEQ/L (22.0-26.0); ABG TOTAL CO2 28.8 MEQ/L (23.0-31.0); ABG pH (ARTERIAL) 7.464 UNITS (7.350-7.450)
--- NOTE | 2019-02-04 10:15 | REP ---
Chest one-view HISTORY: Cough Comparison: 01/10/2019 An increase in interstitial markings is present in the lungs consistent with chronic interstitial fibrosis. Patchy density is present in the right upper lobe and bilateral lower lobes consistent with bilateral infiltrates. Small bilateral pleural effusions are present. The heart is normal in size. The pulmonary vasculature is normal in appearance. The patient is status post left shoulder arthroplasty. Impression: 1. Chronic interstitial fibrosis. 2. Right upper lobe and bilateral lower lobe infiltrates. 3. Small bilateral pleural effusions. Electronically Signed by Robbin Batista MD 02/04/2019 10:07 A
[2019-02-04] MEDS ORDERED: cefTRIAXone SOD 2 GM in D5W MINI-BAG PLUS 50 ML IV ONE (10:30)
[2019-02-04] MEDS ORDERED: methylPREDNISolone INJ 125 MG/2 ML VIAL (J2930) IV ONE (10:30)
[2019-02-04 10:47] LABS: BASO % 0.3 % (0.0-1.0); EOS % 0.2 % (0.0-3.0); HEMATOCRIT 33.1 % (42.0-52.0); HEMOGLOBIN 10.4 g/dl (13.5-17.5); LYMPH # 0.6 10^3/uL (1.5-4.5); LYMPH % 4.9 % (24.0-44.0); MEAN CORPUSCULAR HEMOGLOBIN 30.5 pg (27.0-33.0); MEAN CORPUSCULAR HGB CONC 31.4 g/dl (32.0-36.5); MEAN CORPUSCULAR VOLUME 97.1 fl (80.0-96.0); MONO # 1.1 10^3/uL (0.0-0.8); MONO % 8.6 % (0.0-5.0); NEUTROPHILS # 11.1 10^3/uL (1.8-7.7); NEUTROPHILS % 85.4 % (36.0-66.0); PLATELET COUNT, AUTOMATED 447 10^3/uL (150-450); RED BLOOD COUNT 3.41 10^6/uL (4.30-6.10)
[2019-02-04] MEDS: IPRATROPIUM 0.5MG/ALBUTEROL 2.5MG INH SOL UD 3ML (DUONEB)(J7620) NEB SCH ×4 (10:52→21:13)
[2019-02-04 10:53] LABS: INR 0.96; PROTHROMBIN TIME 12.9 SECONDS (12.1-14.4)
[2019-02-04] MEDS ORDERED: SUCR1TAB56 GT (11:04)
[2019-02-04] MEDS ORDERED: DICL13PA TD (11:04)
[2019-02-04] MEDS ORDERED: PANT-23 PO (11:04)
[2019-02-04] MEDS ORDERED: MILKSUS3 GT (11:04)
[2019-02-04 11:20] LABS: ALBUMIN 1.8 GM/DL (3.2-5.2); ALT/SGPT 19 U/L (12-78); BILIRUBIN,DIRECT 0.1 MG/DL (0.0-0.2); BILIRUBIN,TOTAL 0.3 MG/DL (0.2-1.0); BLOOD UREA NITROGEN 20 MG/DL (7-18); CALCIUM LEVEL 8.6 MG/DL (8.8-10.2); CARBON DIOXIDE LEVEL 31 MEQ/L (21-32); CHLORIDE LEVEL 101 MEQ/L (98-107); CPK CREATINE PHOSPHOKINASE 31 U/L (39-308); CREATININE FOR GFR 0.81 MG/DL (0.70-1.30); GLOMERULAR FILTRATION RATE > 60.0 (>35); GLUCOSE, FASTING 93 MG/DL (70-100); MB/CK RELATIVE INDEX 3.87 (< OR =4); NT-PRO BNP 1297 PG/ML (<450); POTASSIUM SERUM 4.5 MEQ/L (3.5-5.1); SODIUM LEVEL 137 MEQ/L (136-145); TOTAL PROTEIN 6.1 GM/DL (6.4-8.2); TROPONIN I < 0.02 NG/ML (< 0.10)
[2019-02-04] MEDS ORDERED: NORCO, ANEXSIA 5/325MG TABLET (HYDROcodone/ACETAMINOPHEN) PO ONE (12:30)
[2019-02-04] MEDS ORDERED: NS 1,000 ML IV ONE (14:45)
[2019-02-04] MEDS ORDERED: DOXYCYCLINE HYCLATE 100 MG in D5W MINI-BAG PLUS 100 ML IV ONE (15:00)
[2019-02-04] MEDS ORDERED: MOM 30ML SUSPENSION UDC PO PRN (15:00)
[2019-02-04] MEDS ORDERED: VANCOMYCIN HCL 1,000 MG, VIAL MATE ADAPTER 1 EACH in D5W 250 ML IV ONE (15:30)
[2019-02-04] MEDS: methylPREDNISolone INJ 125 MG/2 ML VIAL (J2930) IV SCH (17:57)
[2019-02-04] MEDS: PIPERACILLIN/TAZOBACTAM SOD 3.375 GM in D5W MINI-BAG PLUS 50 ML IV SCH ×2 (17:57→22:13)
[2019-02-04 18:50] LABS: APPEARANCE, URINE CLEAR (CLEAR); BACTERIA, URINE AUTO NEGATIVE (NEGATIVE); BILIRUBIN, URINE AUTO NEGATIVE (NEGATIVE); BLOOD, URINE BLOOD NEGATIVE (NEGATIVE); COLOR, URINE YELLOW (YELLOW); GLUCOSE, URINE (UA) AUTO NEGATIVE (NEGATIVE); KETONE, URINE AUTO NEGATIVE (NEGATIVE); LEUKOCYTE ESTERASE, URINE AUTO NEGATIVE (NEGATIVE); NITRITE, URINE AUTO NEGATIVE (NEGATIVE); PROTEIN, URINE AUTO NEGATIVE (NEGATIVE); RBC, URINE AUTO 1 /HPF (0-3); SQUAMOUS EPITHELIAL CELL UR AU 0 /HPF (0-6); UROBILINOGEN, URINE AUTO 0.2 mg/dL (0.0-2.0); WBC, URINE AUTO 1 /HPF (0-3)
[2019-02-04] MEDS: NS 1,000 ML IV SCH (19:25)
--- NOTE | 2019-02-04 20:04 | ECGEPIP ---
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
[2019-02-04] MEDS: DOXYCYCLINE HYCLATE 100 MG in D5W MINI-BAG PLUS 100 ML IV SCH (20:17)
[2019-02-04] MEDS: SYMBICORT 160/4.5MCG INHALER 6GM INH SCH (21:00)
--- NOTE | 2019-02-04 21:33 | HPEPDOC ---
General Date of Admission Feb 04, 2019 at 14:48 Date of Service: Feb 04, 2019 Chief Complaint The patient is a 83-year-old male admitted with a reason for visit of Hypoxia, Pneumoina,Respiratory Distress. History of Present Illness 83 yo M with a past medical history of lung cancer? s/p lung resection in 2008 (not clear what type of lung cancer it was) and L shoulder surgery, presented to the ED for weakness, cough, and shortness of breath. Of note, the patient was hospitalized until recently, and discharged after he was treated for pneumonia. At that point, the patient was found to be extremely malnurished. Therefore, he had the PEG tube placement and enteral feeding was provided. He is still able to swallow food, but the patient completely lost an appetite. He does not want to eat and keeps losing weight. Currently, the patient endorses physical weakness, cough with sputum production. In the ED, the patient had CXR, showing multi- lobar pneumonia. He received ceftriaxone and is admitted for further medical management. Home Medications Scheduled Diclofenac Epolamine (Flector) 1.3% Patch, 1 PATCH TD Q12H, (Reported) APPLIED TO LEFT SHOULDER Pantoprazole Sodium (Pantoprazole Sodium) 40 Mg Tablet.dr, 40 MG PO DAILY, (Reported) Sucralfate (Sucralfate) 1 Gm Tablet, 1 GM GT TID, (Reported) Scheduled PRN Gabapentin (Gabapentin) 400 Mg Capsule, 400 MG GT TID PRN for PAIN, (Reported) Hydrocodone/Acetaminophen (Hydrocodone-Acetamin 10-325 mg) 1 Each Tablet, 1 TAB PO Q6H PRN for PAIN, (Reported) Magnesium Hydroxide (Milk of Magnesia) 400 Mg/5 Ml Oral.susp, 30 ML GT DAILY PRN for CONSTIPATION, (Reported) Allergies Coded Allergies: No Known Allergies (Unverified , 01/06/19) Past Medical History Medical History lung cancer Surgical History Lung cancer surgery, L shoulder surgery Family History Patient is not aware of any family history Social History * Smoker: former Smoker Alcohol: Denies Drugs: denies see above A-FIB/CHADSVASC A-FIB History Current/History of A-Fib/PAF?: No Review of Systems Constitutional: Reports: Malaise, Fatigue, Weight Loss Eyes: Denies: Pain, Vision change, Conjunctivae inflammation, Eyelid inflammation, Redness, Other ENT: Denies: Head Aches, Ear Pain, Dysphagia, Sinus Congestion, Post Nasal Drip, Sore Throat, Epistaxis, Other Symptoms Skin: Denies: Rash, Lesions, Jaundice, Bruising, Itching, Dry, Breakdown, Nail Changes, Other Pulmonary: Reports: Dyspnea, Cough Cardiovascular: Denies: Chest Pain, Palpitations, Orthopnea, Paroxysmal Noc. Dyspnea, Edema, Lt Headedness, Other Symptoms Gastrointestinal: Denies: Nausea, Vomiting, Abdominal Pain, Diarrhea, Constipation, Melena, Hematochezia, Other Symptoms Genitourinary: Denies: Dysuria, Frequency, Incontinence, Hematuria, Retention, Other Symptoms Hematologic: Denies: Bruising, Bleeding Excessively, Petecchia, Purpura, Enlarged Lymph Nodes, Other Hematologic Endocrine: Denies: Polydipsia, Polyphagia, Polyuria, Heat Intolerance, Cold Intolerance, Other Endocrine Sx Musculoskeletal: Reports: Shoulder Pain Neurological: Denies: Weakness, Numbness, Incoordination, Change in speech, Confusion, Seizures, Other Symptoms Psych: Denies: Mood Normal, Anxiety, Depression, Memory Issues, Thoughts of Self Harm, Anger, Thoughts of Harming Other, Other Psych Physical Examination General Exam: Positive: Other (cachectic) Eye Exam: Positive: Conjunctiva & lids normal ENT Exam: Positive: Atraumatic Neck Exam: Positive: Supple Chest Exam: Positive: Other (diffuse crackles) Heart Exam: Positive: Rate Normal Telemetry: Positive: No significant arrhythmia Abdomen Exam: Positive: Normal bowel sounds Extremity Exam: Positive: Other (no edema) Skin Exam: Positive: Nl turgor and temperature Psych Exam: Positive: Mood NL Vital Signs Vital Signs Date Time Temp Pulse Resp B/P (MAP) Pulse Ox O2 Delivery O2 Flow Rate FiO2 02/04/19 18:49 77 96 02/04/19 18:45 113/64 (80) 02/04/19 13:10 20 02/04/19 12:40 10.0 02/04/19 09:46 98.6 02/04/19 09:22 Nasal Cannula Laboratory Data Labs 24H Laboratory Tests 2 02/04/19 09:44: Blood Gas Bicarbonate Standard 27.7H, Arterial Blood pH 7.464H, Arterial Blood Partial Pressure CO2 39.3, Arterial Blood Partial Pressure O2 73.2L, Arterial Blood Total CO2 28.8, Arterial Blood HCO3 27.6H, Arterial Blood Base Excess 3.6H, Arterial Blood Oxygen Saturation 94.9L 02/04/19 10:35: Immature Granulocyte % (Auto) 0.6, White Blood Count 13.0H, Red Blood Count 3.41L, Hemoglobin 10.4L, Hematocrit 33.1L, Mean Corpuscular Volume 97.1H, Mean Corpuscular Hemoglobin 30.5, Mean Corpuscular Hemoglobin Concent 31.4L, Red Cell Distribution Width 14.6H, Platelet Count 447, Neutrophils (%) (Auto) 85.4H, Lymphocytes (%) (Auto) 4.9L, Monocytes (%) (Auto) 8.6H, Eosinophils (%) (Auto) 0.2, Basophils (%) (Auto) 0.3, Neutrophils # (Auto) 11.1H, Lymphocytes # (Auto) 0.6L, Monocytes # (Auto) 1.1H, Eosinophils # (Auto) 0.0, Basophils # (Auto) 0.0, Nucleated Red Blood Cells % (auto) 0.0, Prothrombin Time 12.9, Prothromb Time International Ratio 0.96, Anion Gap 5L, Glomerular Filtration Rate > 60.0, Calcium Level 8.6L, Aspartate Amino Transf (AST/SGOT) 15, Alanine Aminotransferase (ALT/SGPT) 19, Alkaline Phosphatase 74, Total Bilirubin 0.3, Direct Bilirubin 0.1, Total Creatine Kinase 31L, Creatine Kinase MB 1.0, Creatine Kinase MB Relative Index 3.87, Troponin I < 0.02, SP-Rqr-D-Type Natriuretic Peptide 1297H, Total Protein 6.1L, Albumin 1.8L, Albumin/Globulin Ratio 0.42L, Thyroid Stimulating Hormone (TSH) 7.670H 02/04/19 18:29: Urine Appearance CLEAR, Urine Color YELLOW, Urine pH 7.0, Urine Specific [place] 1.010, Urine Protein NEGATIVE, Urine Glucose (UA) NEGATIVE, Urine Ketones NEGATIVE, Urine Urobilinogen 0.2, Urine Bilirubin NEGATIVE, Urine Leukocyte Esterase NEGATIVE, Urine Blood NEGATIVE, Urine Nitrite NEGATIVE, Urine WBC (Auto) 1, Urine RBC (Auto) 1, Urine Hyaline Casts (Auto) 0, Urine Bacteria (Auto) NEGATIVE, Urine Squamous Epithelial Cells 0, Urine Sperm (Auto) CBC/BMP Laboratory Tests 02/04/19 10:35 Red Blood Count 3.41 L, Mean Corpuscular Volume 97.1 H, Mean Corpuscular Hemoglobin 30.5, Mean Corpuscular Hemoglobin Concent 31.4 L, Red Cell Distribution Width 14.6 H, Neutrophils (%) (Auto) 85.4 H, Lymphocytes (%) (Auto) 4.9 L, Monocytes (%) (Auto) 8.6 H, Eosinophils (%) (Auto) 0.2, Basophils (%) (Auto) 0.3, Neutrophils # (Auto) 11.1 H, Lymphocytes # (Auto) 0.6 L, Monocytes # (Auto) 1.1 H, Eosinophils # (Auto) 0.0, Basophils # (Auto) 0.0 Microbiology Microbiology 02/04/19 Blood Culture, Received Pending 02/04/19 Blood Culture, Received Pending 02/04/19 Respiratory Virus Panel (PCR) ([place]) - Final, Complete Problems (1) Pneumonia Status: Acute Problem Text: # Hospital acquired pneumonia and sepsis - The patient had tachycardia, tachypneia, and leukocytosis with CXR evidenced pneumonia. He meets the criteria for sepsis. - She was hospitalized and discharged a few weeks ago, and currently, he has pneumonia. Will treat him for hospital acquired pneumonia with vancomycin and zosyn. - Follow blood culture, urine legionella, urine strep ag, and sputum culture. - Will give a bolus of NS and continue NS hydration. - The patient has had recurrent pneumonia, at least x3 over the last 1 year. After his pneumonia is successfully treated, he will need repeat CT chest to r/o malignancy, given extensive history of smoking. # Cachexia and severe protein calorie malnutrition - The patient is very thin with poor appetite. The etiology for this is not clear. - Follow CT chest after pneumonia is treated as mentioned above. - Continue enteral feeding. - Will send fT4 and am cortisol level to r/o clinical hypothyroidism and adrenal insufficiency. If these are within normal limit, will try megace. - The patient is 83 year old, weak, not clear if he could tolerate c-scope, but this needs to be considered to r/o colon cancer. Will also send PSA. # COPD exacerbation 2/2 pneumonia - Continue symbicort, duoneb ATC, and solumedrol. - Continue O2 support as tolerated. Plan / VTE VTE Prophylaxis Ordered?: Yes (lovenox 30 mg daily) FELICE JACKSON MD Feb 04, 2019 21:33
[2019-02-04] MEDS: PANTOPRAZOLE 40MG INJ (PROTONIX) (C9113) IV SCH (22:13)
[2019-02-05] VITALS (17 sets, daily range): BP systolic 109–127; BP diastolic 56–65; O2SAT 86–98
[2019-02-05] MEDS: methylPREDNISolone INJ 125 MG/2 ML VIAL (J2930) IV SCH ×4 (01:20→23:42)
[2019-02-05] MEDS: IPRATROPIUM 0.5MG/ALBUTEROL 2.5MG INH SOL UD 3ML (DUONEB)(J7620) NEB SCH ×4 (02:20→20:00)
[2019-02-05] MEDS: VANCOMYCIN HCL 750 MG, VIAL MATE ADAPTER 1 EACH in D5W 250 ML IV SCH ×2 (04:16→16:39)
[2019-02-05] MEDS: ACETAMINOPHEN TAB 650MG DOSE (2X325MG) PO PRN ×2 (04:51→10:25)
[2019-02-05 05:18] LABS: HEMATOCRIT 25.5 % (42.0-52.0); MEAN CORPUSCULAR HEMOGLOBIN 29.6 pg (27.0-33.0); MEAN CORPUSCULAR HGB CONC 31.4 g/dl (32.0-36.5); MEAN CORPUSCULAR VOLUME 94.4 fl (80.0-96.0); PLATELET COUNT, AUTOMATED 450 10^3/uL (150-450)
[2019-02-05 05:47] LABS: ALBUMIN 1.5 GM/DL (3.2-5.2); ALT/SGPT 18 U/L (12-78); BILIRUBIN,TOTAL 0.3 MG/DL (0.2-1.0); BLOOD UREA NITROGEN 18 MG/DL (7-18); CALCIUM LEVEL 7.7 MG/DL (8.8-10.2); CARBON DIOXIDE LEVEL 28 MEQ/L (21-32); CHLORIDE LEVEL 105 MEQ/L (98-107); CREATININE FOR GFR 0.77 MG/DL (0.70-1.30); GLOMERULAR FILTRATION RATE > 60.0 (>35); GLUCOSE, FASTING 193 MG/DL (70-100); MAGNESIUM LEVEL 2.4 MG/DL (1.8-2.4); POTASSIUM SERUM 4.3 MEQ/L (3.5-5.1); SODIUM LEVEL 138 MEQ/L (136-145); TOTAL PROTEIN 5.2 GM/DL (6.4-8.2)
[2019-02-05 05:54] LABS: FREE T4 0.96 NG/DL (0.76-1.46); PERCENT SATURATION 12.5 % (19.7-50.0)
[2019-02-05] MEDS: PIPERACILLIN/TAZOBACTAM SOD 3.375 GM in D5W MINI-BAG PLUS 50 ML IV SCH ×4 (06:15→23:42)
[2019-02-05] MEDS ORDERED: DEXTROSE 50% 50 ML SYRINGE IV PRN (07:45)
[2019-02-05] MEDS ORDERED: GLUCOSE 4 GM CHEW TABLET PO PRN (07:45)
[2019-02-05] MEDS ORDERED: GLUCAGON FOR INJ 1 MG VIAL (J1610) SC PRN (07:45)
[2019-02-05] MEDS: SYMBICORT 160/4.5MCG INHALER 6GM INH SCH ×2 (08:06→19:41)
[2019-02-05] MEDS: PANTOPRAZOLE 40MG INJ (PROTONIX) (C9113) IV SCH ×2 (08:36→20:59)
[2019-02-05] MEDS: ENOXAPARIN 30 MG/0.3 ML SYR (J1650) SC SCH (08:37)
[2019-02-05] MEDS: DOXYCYCLINE HYCLATE 100 MG in D5W MINI-BAG PLUS 100 ML IV SCH ×2 (08:37→19:09)
[2019-02-05] MEDS: HumaLOG INSULIN (NovoLOG) PER UNIT SC SCH ×3 (08:37→17:56)
[2019-02-05 09:26] LABS: FOLATE 11.1 NG/ML (>5.4)
[2019-02-05] MEDS: NS 1,000 ML IV SCH ×3 (12:50→23:42)
--- NOTE | 2019-02-05 18:02 | IPNPDOC ---
Subjective Date Seen The patient was seen on 02/05/19. Subjective Chief Complaint/HPI The patient's breathing has improved. He still complaints of L shoulder pain. Denies a fever, chills, nausea, vomiting, or diarrhea. General: Reports: Fatigue, Malaise Constitutional: Denies: Chills, Fever, Malaise, Night Sweats, Weakness, Fatigue, Weight Loss, Lethargy, Other Eyes: Denies: Pain, Vision change, Conjunctivae inflammation, Eyelid inflammation, Redness, Other ENT: Denies: Head Aches, Ear Pain, Dysphagia, Sinus Congestion, Post Nasal Drip, Sore Throat, Epistaxis, Other Symptoms Skin: Denies: Rash, Lesions, Jaundice, Bruising, Itching, Dry, Breakdown, Nail Changes, Other Pulmonary: Reports: Dyspnea Cardiovascular: Denies: Chest Pain, Palpitations, Orthopnea, Paroxysmal Noc. Dyspnea, Edema, Lt Headedness, Other Symptoms Gastrointestinal: Denies: Nausea, Vomiting, Abdominal Pain, Diarrhea, Constipation, Melena, Hematochezia, Other Symptoms Genitourinary: Denies: Dysuria, Frequency, Incontinence, Hematuria, Retention, Other Symptoms Hematologic: Denies: Bruising, Bleeding Excessively, Petecchia, Purpura, Enlarged Lymph Nodes, Other Hematologic Endocrine: Denies: Polydipsia, Polyphagia, Polyuria, Heat Intolerance, Cold Intolerance, Other Endocrine Sx Musculoskeletal: Denies: Neck Pain, Back Pain, Shoulder Pain, Arm Pain, Hand Pain, Leg Pain, Foot Pain, Joint Pain, Muscle Pain, Spasms, Other Symptoms Neurological: Denies: Weakness, Numbness, Incoordination, Change in speech, Confusion, Seizures, Other Symptoms Psych: Denies: Mood Normal, Anxiety, Depression, Memory Issues, Thoughts of Self Harm, Anger, Thoughts of Harming Other, Other Psych Objective Physical Examination General Exam: Positive: Other (cachectic) Eye Exam: Positive: Conjunctiva & lids normal ENT Exam: Positive: Atraumatic Neck Exam: Positive: Supple Chest Exam: Positive: Other (diffuse crackles) Heart Exam: Positive: Rate Normal Telemetry: Positive: No significant arrhythmia Abdomen Exam: Positive: Normal bowel sounds Extremity Exam: Positive: Other (no edema) Skin Exam: Positive: Nl turgor and temperature Psych Exam: Positive: Mood NL Assessment /Plan Problems (1) Pneumonia Status: Acute Problem Text: # Hospital acquired pneumonia and sepsis - Continue vancomycin and zosyn, as well as doxycycline. - Follow blood culture, urine legionella, urine strep ag, and sputum culture. - Continue NS hydration. - The patient has had recurrent pneumonia, at least x3 over the last 1 year. After his pneumonia is successfully treated, he will need repeat CT chest to r/o malignancy, given extensive history of smoking. # Cachexia and severe protein calorie malnutrition - The patient is very thin with poor appetite. The etiology for this is not clear. - Follow CT chest after pneumonia is treated as mentioned above. - Continue enteral feeding. - fT4 and AM cortisol level wnl. - The patient is 83 year old, weak, not clear if he could tolerate c-scope, but this needs to be considered to r/o colon cancer. - PSA is 3, technically within normal limit. Recommend outpatient routine follow up with primary care physician for this. # COPD exacerbation 2/2 pneumonia - Continue symbicort, duoneb ATC, and solumedrol. Will taper down solumedrol. - Continue O2 support as tolerated. # L shoulder pain s/p multiple surgery - Cont. pain medication. Plan/VTE VTE Prophylaxis Ordered?: Yes (lovenox 30 mg daily) VS, I&O, 24H, Fishbone Vital Signs/I&O Vital Signs Date Time Temp Pulse Resp B/P (MAP) Pulse Ox O2 Delivery O2 Flow Rate FiO2 02/05/19 16:10 2.0 02/05/19 16:00 95 Nasal Cannula 02/05/19 16:00 98.8 80 22 113/59 (77) 02/05/19 01:20 28 I&O- Last 24 Hours up to 6 AM 02/05/19 06:00 Intake Total 2955 ml Output Total 560 ml Balance 2395 ml Laboratory Data 24H LABS Laboratory Tests 2 02/04/19 18:29: Urine Appearance CLEAR, Urine Color YELLOW, Urine pH 7.0, Urine Specific [place] 1.010, Urine Protein NEGATIVE, Urine Glucose (UA) NEGATIVE, Urine Ketones NEGATIVE, Urine Urobilinogen 0.2, Urine Bilirubin NEGATIVE, Urine Leukocyte Esterase NEGATIVE, Urine Blood NEGATIVE, Urine Nitrite NEGATIVE, Urine WBC (Auto) 1, Urine RBC (Auto) 1, Urine Hyaline Casts (Auto) 0, Urine Bacteria (Auto) NEGATIVE, Urine Squamous Epithelial Cells 0, Urine Sperm (Auto) 6/5/19 21:21: Lactic Acid Followup at 4 Hours 1.7 02/05/19 04:32: Nucleated Red Blood Cells % (auto) 0.0, Anion Gap 5L, Glomerular Filtration Rate > 60.0, Blood Urea Nitrogen 18, Creatinine 0.77, Sodium Level 138, Potassium Level 4.3, Chloride Level 105, Carbon Dioxide Level 28, Calcium Level 7.7L, Aspartate Amino Transf (AST/SGOT) 17, Alanine Aminotransferase (ALT/SGPT) 18, Alkaline Phosphatase 61, Total Bilirubin 0.3, Total Protein 5.2L, Albumin 1.5L, Magnesium Level 2.4, Iron Level 18L, Total Iron Binding Capacity 144L, Transferrin % Saturation 12.5L, Ferritin 411H, Albumin/Globulin Ratio 0.41L, Prostate Specific Antigen Screen 3.05, Vitamin B12 Level 411, Folate 11.1, Free Thyroxine 0.96, Cortisol AM Sample 37.0H 02/05/19 11:29: Bedside Glucose (Misc Panel) 194H 02/05/19 14:52: Vancomycin Level Trough 16.7 02/05/19 17:22: Bedside Glucose (Misc Panel) 225H CBC/BMP Laboratory Tests 02/05/19 04:32 Red Blood Count 2.70 L, Mean Corpuscular Volume 94.4, Mean Corpuscular Hemoglobin 29.6, Mean Corpuscular Hemoglobin Concent 31.4 L, Red Cell Distribution Width 14.5, Calcium Level 7.7 L, Aspartate Amino Transf (AST/SGOT) 17, Alanine Aminotransferase (ALT/SGPT) 18, Alkaline Phosphatase 61, Total Bilirubin 0.3, Total Protein 5.2 L, Albumin 1.5 L Microbiology Microbiology 02/04/19 Blood Culture - Preliminary, Resulted No growth after 24 hours . All specim... 02/04/19 Blood Culture - Preliminary, Resulted No growth after 24 hours . All specim... 02/05/19 Gram Stain, Received Pending 02/05/19 Sputum Culture, Received Pending 02/05/19 MRSA Screen, Received Pending 02/04/19 Respiratory Virus Panel (PCR) ([place]) - Final, Complete FELICE JACKSON MD Feb 05, 2019 18:02
[2019-02-05] MEDS: NORCO, ANEXSIA 5/325MG TABLET (HYDROcodone/ACETAMINOPHEN) PO PRN (18:34)
[2019-02-06] VITALS (25 sets, daily range): BP systolic 112–139; BP diastolic 59–71; O2SAT 86–95
[2019-02-06] MEDS: IPRATROPIUM 0.5MG/ALBUTEROL 2.5MG INH SOL UD 3ML (DUONEB)(J7620) NEB SCH ×4 (01:01→20:00)
[2019-02-06] MEDS: VANCOMYCIN HCL 750 MG, VIAL MATE ADAPTER 1 EACH in D5W 250 ML IV SCH ×2 (03:46→15:58)
[2019-02-06] MEDS: NORCO, ANEXSIA 5/325MG TABLET (HYDROcodone/ACETAMINOPHEN) PO PRN ×4 (03:47→22:05)
[2019-02-06] MEDS: PIPERACILLIN/TAZOBACTAM SOD 3.375 GM in D5W MINI-BAG PLUS 50 ML IV SCH ×4 (05:22→23:26)
[2019-02-06] MEDS: DOXYCYCLINE HYCLATE 100 MG in D5W MINI-BAG PLUS 100 ML IV SCH ×2 (06:37→18:26)
[2019-02-06] MEDS: SYMBICORT 160/4.5MCG INHALER 6GM INH SCH ×2 (07:44→20:32)
[2019-02-06] MEDS: methylPREDNISolone INJ 125 MG/2 ML VIAL (J2930) IV SCH ×2 (07:50→22:03)
[2019-02-06] MEDS: ENOXAPARIN 30 MG/0.3 ML SYR (J1650) SC SCH (07:50)
[2019-02-06] MEDS: PANTOPRAZOLE 40MG INJ (PROTONIX) (C9113) IV SCH ×2 (07:50→22:03)
[2019-02-06] MEDS: HumaLOG INSULIN (NovoLOG) PER UNIT SC SCH ×3 (07:51→17:02)
[2019-02-06] MEDS: ACETAMINOPHEN TAB 650MG DOSE (2X325MG) PO PRN (07:51)
[2019-02-06] MEDS: NS 1,000 ML IV SCH ×2 (07:52→12:00)
[2019-02-06 08:19] LABS: HEMATOCRIT 26.9 % (42.0-52.0); HEMOGLOBIN 8.9 g/dl (13.5-17.5); MEAN CORPUSCULAR HEMOGLOBIN 31.1 pg (27.0-33.0); MEAN CORPUSCULAR HGB CONC 33.1 g/dl (32.0-36.5); MEAN CORPUSCULAR VOLUME 94.1 fl (80.0-96.0); PLATELET COUNT, AUTOMATED 499 10^3/uL (150-450); RED BLOOD COUNT 2.86 10^6/uL (4.30-6.10); WHITE BLOOD COUNT 14.8 10^3/uL (4.0-10.0)
[2019-02-06 08:49] LABS: ALBUMIN 1.7 GM/DL (3.2-5.2); ALT/SGPT 17 U/L (12-78); BILIRUBIN,TOTAL 0.2 MG/DL (0.2-1.0); BLOOD UREA NITROGEN 22 MG/DL (7-18); CALCIUM LEVEL 7.8 MG/DL (8.8-10.2); CARBON DIOXIDE LEVEL 28 MEQ/L (21-32); CHLORIDE LEVEL 104 MEQ/L (98-107); CREATININE FOR GFR 0.89 MG/DL (0.70-1.30); GLOMERULAR FILTRATION RATE > 60.0 (>35); GLUCOSE, FASTING 231 MG/DL (70-100); POTASSIUM SERUM 3.5 MEQ/L (3.5-5.1); SODIUM LEVEL 139 MEQ/L (136-145); TOTAL PROTEIN 5.4 GM/DL (6.4-8.2)
--- NOTE | 2019-02-06 22:03 | IPNPDOC ---
Subjective Date Seen The patient was seen on 02/06/19. Subjective Chief Complaint/HPI The patient is still very weak physically. He does not have appetite. Breathing slightly improved. No fevers, chills, nausea, vomiting or diarrhea. General: Reports: Fatigue, Malaise Constitutional: Reports: Weakness Eyes: Denies: Pain, Vision change, Conjunctivae inflammation, Eyelid inflammation, Redness, Other ENT: Denies: Head Aches, Ear Pain, Dysphagia, Sinus Congestion, Post Nasal Drip, Sore Throat, Epistaxis, Other Symptoms Skin: Denies: Rash, Lesions, Jaundice, Bruising, Itching, Dry, Breakdown, Nail Changes, Other Pulmonary: Reports: Dyspnea Cardiovascular: Denies: Chest Pain, Palpitations, Orthopnea, Paroxysmal Noc. Dyspnea, Edema, Lt Headedness, Other Symptoms Gastrointestinal: Denies: Nausea, Vomiting, Abdominal Pain, Diarrhea, Constipation, Melena, Hematochezia, Other Symptoms Genitourinary: Denies: Dysuria, Frequency, Incontinence, Hematuria, Retention, Other Symptoms Hematologic: Denies: Bruising, Bleeding Excessively, Petecchia, Purpura, Enlarged Lymph Nodes, Other Hematologic Endocrine: Denies: Polydipsia, Polyphagia, Polyuria, Heat Intolerance, Cold Intolerance, Other Endocrine Sx Musculoskeletal: Reports: Other Symptoms (L shoulder pain) Neurological: Denies: Weakness, Numbness, Incoordination, Change in speech, Confusion, Seizures, Other Symptoms Psych: Denies: Mood Normal, Anxiety, Depression, Memory Issues, Thoughts of Self Harm, Anger, Thoughts of Harming Other, Other Psych Objective Physical Examination General Exam: Positive: Other (cachectic) Eye Exam: Positive: Conjunctiva & lids normal ENT Exam: Positive: Atraumatic Neck Exam: Positive: Supple Chest Exam: Positive: Other (diffuse crackles) Heart Exam: Positive: Rate Normal Telemetry: Positive: No significant arrhythmia Abdomen Exam: Positive: Normal bowel sounds Extremity Exam: Positive: Other (no edema) Skin Exam: Positive: Nl turgor and temperature Psych Exam: Positive: Mood NL Assessment /Plan Problems (1) Pneumonia Status: Acute Problem Text: # Hospital acquired pneumonia and sepsis - Culture shows no growth over 48 hours. Will stop vancomycin. Continue zosyn and doxycycline. - Follow blood culture, urine legionella, urine strep ag. - IV hydration discontinued. - The patient has had recurrent pneumonia, at least x3 over the last 1 year. After his pneumonia is successfully treated, he will need repeat CT chest to r/o malignancy, given extensive history of smoking. # Cachexia and severe protein calorie malnutrition - The patient is very thin with poor appetite. The etiology for this is not clear. - Follow CT chest after pneumonia is treated as mentioned above. - Continue enteral feeding. - fT4 and AM cortisol level wnl. - The patient is 83 year old, weak, not clear if he could tolerate c-scope, but this needs to be considered to r/o colon cancer. - PSA is 3, technically within normal limit. Recommend outpatient routine follow up with primary care physician for this. # COPD exacerbation 2/2 pneumonia - Continue symbicort, duoneb ATC, and solumedrol. Will taper down solumedrol, today 40 BID. - Continue O2 support as tolerated. # L shoulder pain s/p multiple surgery - Cont. pain medication. - Will have shoulder DX to r/o fracture. Plan/VTE VTE Prophylaxis Ordered?: Yes (lovenox 30 mg daily) VS, I&O, [facility]H, [facility] Vital Signs/I&O Vital Signs Date Time Temp Pulse Resp B/P (MAP) Pulse Ox O2 Delivery O2 Flow Rate FiO2 02/06/19 20:00 0.5 02/06/19 20:00 97.6 86 20 132/70 (90) 92 02/06/19 17:00 Nasal Cannula 02/05/19 01:20 28 I&O- Last 24 Hours up to 6 AM 02/06/19 06:00 Intake Total 4040 ml Output Total 400 ml Balance 3640 ml Laboratory Data 24H LABS Laboratory Tests 2 02/06/19 06:51: Bedside Glucose (Misc Panel) 273H 02/06/19 08:05: Nucleated Red Blood Cells % (auto) 0.0, Anion Gap 7L, Glomerular Filtration Rate > 60.0, Blood Urea Nitrogen 22H, Creatinine 0.89, Sodium Level 139, Potassium Level 3.5, Chloride Level 104, Carbon Dioxide Level 28, Calcium Level 7.8L, Aspartate Amino Transf (AST/SGOT) 15, Alanine Aminotransferase (ALT/SGPT) 17, Alkaline Phosphatase 67, Total Bilirubin 0.2, Total Protein 5.4L, Albumin 1.7L, Albumin/Globulin Ratio 0.46L 02/06/19 11:48: Bedside Glucose (Misc Panel) 138H 02/06/19 16:55: Bedside Glucose (Misc Panel) 177H CBC/BMP Laboratory Tests 02/06/19 08:05 Red Blood Count 2.86 L, Mean Corpuscular Volume 94.1, Mean Corpuscular Hemoglobin 31.1, Mean Corpuscular Hemoglobin Concent 33.1, Red Cell Distribution Width 14.6 H, Calcium Level 7.8 L, Aspartate Amino Transf (AST/SGOT) 15, Alanine Aminotransferase (ALT/SGPT) 17, Alkaline Phosphatase 67, Total Bilirubin 0.2, Total Protein 5.4 L, Albumin 1.7 L Microbiology Microbiology 02/04/19 Blood Culture - Preliminary, Resulted No Growth after 48 hours. All Specime... 02/04/19 Blood Culture - Preliminary, Resulted No Growth after 48 hours. All Specime... 02/05/19 Gram Stain - Final, Complete 02/05/19 Sputum Culture - Final, Complete 02/05/19 MRSA Screen - Final, Complete 02/04/19 Respiratory Virus Panel (PCR) ([place]) - Final, Complete FELICE JACKSON MD Feb 06, 2019 22:03
[2019-02-07] VITALS (23 sets, daily range): BP systolic 115–143; BP diastolic 56–75; O2SAT 87–98
[2019-02-07] MEDS: IPRATROPIUM 0.5MG/ALBUTEROL 2.5MG INH SOL UD 3ML (DUONEB)(J7620) NEB SCH ×4 (01:48→20:00)
[2019-02-07] MEDS: PIPERACILLIN/TAZOBACTAM SOD 3.375 GM in D5W MINI-BAG PLUS 50 ML IV SCH ×4 (05:30→22:27)
[2019-02-07] MEDS: NORCO, ANEXSIA 5/325MG TABLET (HYDROcodone/ACETAMINOPHEN) PO PRN ×4 (05:38→22:28)
[2019-02-07 05:47] LABS: HEMATOCRIT 26.6 % (42.0-52.0); HEMOGLOBIN 8.3 g/dl (13.5-17.5); MEAN CORPUSCULAR HEMOGLOBIN 28.7 pg (27.0-33.0); MEAN CORPUSCULAR HGB CONC 31.2 g/dl (32.0-36.5); PLATELET COUNT, AUTOMATED 545 10^3/uL (150-450); RED BLOOD COUNT 2.89 10^6/uL (4.30-6.10)
[2019-02-07 06:11] LABS: ALBUMIN 1.7 GM/DL (3.2-5.2); ALT/SGPT 17 U/L (12-78); BILIRUBIN,TOTAL 0.2 MG/DL (0.2-1.0); BLOOD UREA NITROGEN 23 MG/DL (7-18); CALCIUM LEVEL 7.8 MG/DL (8.8-10.2); CARBON DIOXIDE LEVEL 27 MEQ/L (21-32); CHLORIDE LEVEL 104 MEQ/L (98-107); CREATININE FOR GFR 0.82 MG/DL (0.70-1.30); GLOMERULAR FILTRATION RATE > 60.0 (>35); GLUCOSE, FASTING 157 MG/DL (70-100); POTASSIUM SERUM 3.6 MEQ/L (3.5-5.1); SODIUM LEVEL 139 MEQ/L (136-145); TOTAL PROTEIN 5.4 GM/DL (6.4-8.2)
[2019-02-07] MEDS: DOXYCYCLINE HYCLATE 100 MG in D5W MINI-BAG PLUS 100 ML IV SCH ×2 (06:49→21:00)
--- NOTE | 2019-02-07 07:11 | REP ---
HISTORY: Severe pain. COMPARISON: 01/15/2019 Only a single AP portable view is obtained. The single portable AP view of the shoulder does not show significant change in the appearance of the prosthesis although difficult to evaluate on this single AP portable view. There is no significant change in the appearance of the osseous structures. There is no evidence of an acute fracture. IMPRESSION: Negative limited single portable examination of the left shoulder as described above. Electronically Signed by Leo Madison DO 02/09/2019 12:56 P
[2019-02-07] MEDS: HumaLOG INSULIN (NovoLOG) PER UNIT SC SCH ×3 (07:30→17:30)
[2019-02-07] MEDS: SYMBICORT 160/4.5MCG INHALER 6GM INH SCH ×2 (09:00→20:13)
[2019-02-07] MEDS: LACTOBACILLUS ACIDOPHILUS CAP (BACID) PO SCH ×3 (09:00→22:26)
[2019-02-07] MEDS: PANTOPRAZOLE 40MG INJ (PROTONIX) (C9113) IV SCH ×2 (11:35→22:26)
[2019-02-07] MEDS: methylPREDNISolone INJ 125 MG/2 ML VIAL (J2930) IV SCH ×2 (11:36→22:26)
[2019-02-07] MEDS: ENOXAPARIN 30 MG/0.3 ML SYR (J1650) SC SCH (11:36)
--- NOTE | 2019-02-07 13:12 | IPNPDOC ---
Subjective Date Seen The patient was seen on 02/07/19. Subjective Chief Complaint/HPI The patient feels that breathing is the same today. Feeling tired. Same L shoulder pain. He had two episodes of loose stool. No fevers, chills, nausea, vomiting. General: Reports: Fatigue, Malaise; Denies: ROS Unobtainable, Chills, Night Sweats, Normal Appetite, Other Symptoms Constitutional: Reports: Malaise; Denies: Chills, Fever, Night Sweats, Weakness, Fatigue, Weight Loss, Lethargy, Other Eyes: Denies: Pain, Vision change, Conjunctivae inflammation, Eyelid inflammati on, Redness, Other ENT: Denies: Head Aches, Ear Pain, Dysphagia, Sinus Congestion, Post Nasal Drip, Sore Throat, Epistaxis, Other Symptoms Skin: Denies: Rash, Lesions, Jaundice, Bruising, Itching, Dry, Breakdown, Nail Changes, Other Pulmonary: Reports: Dyspnea Cardiovascular: Denies: Chest Pain, Palpitations, Orthopnea, Paroxysmal Noc. Dyspnea, Edema, Lt Headedness, Other Symptoms Gastrointestinal: Reports: Diarrhea Genitourinary: Denies: Dysuria, Frequency, Incontinence, Hematuria, Retention, Other Symptoms Hematologic: Denies: Bruising, Bleeding Excessively, Petecchia, Purpura, Enlarged Lymph Nodes, Other Hematologic Endocrine: Denies: Polydipsia, Polyphagia, Polyuria, Heat Intolerance, Cold Intolerance, Other Endocrine Sx Musculoskeletal: Denies: Neck Pain, Back Pain, Shoulder Pain, Arm Pain, Hand Pain, Leg Pain, Foot Pain, Joint Pain, Muscle Pain, Spasms, Other Symptoms Neurological: Denies: Weakness, Numbness, Incoordination, Change in speech, Confusion, Seizures, Other Symptoms Psych: Denies: Mood Normal, Anxiety, Depression, Memory Issues, Thoughts of Self Harm, Anger, Thoughts of Harming Other, Other Psych Objective Physical Examination General Exam: Positive: Other (cachectic) Eye Exam: Positive: Conjunctiva & lids normal ENT Exam: Positive: Atraumatic Neck Exam: Positive: Supple Chest Exam: Positive: Other (diffuse crackles) Heart Exam: Positive: Rate Normal Telemetry: Positive: No significant arrhythmia Abdomen Exam: Positive: Normal bowel sounds Extremity Exam: Positive: Other (no edema) Skin Exam: Positive: Nl turgor and temperature Psych Exam: Positive: Mood NL Assessment /Plan Problems (1) Pneumonia Status: Acute Problem Text: # Hospital acquired pneumonia and sepsis - Culture shows no growth over 48 hours. Vancomycin was stopped. Continue zosyn and doxycycline. - Follow blood culture, urine legionella, urine strep ag. - IV hydration discontinued. - The patient has had recurrent pneumonia, at least x3 over the last 1 year. After his pneumonia is successfully treated, he will need repeat CT chest to r/o malignancy, given extensive history of smoking. # Diarrhea - Not concerned for c diff. Closely monitor diarrhea. - Adding probiotics. # Cachexia and severe protein calorie malnutrition - The patient is very thin with poor appetite. The etiology for this is not clear. - Follow CT chest after pneumonia is treated as mentioned above. - Continue enteral feeding. - fT4 and AM cortisol level wnl. - The patient is 83 year old, weak, not clear if he could tolerate c-scope, but this needs to be considered to r/o colon cancer. - PSA is 3, technically within normal limit. Recommend outpatient routine follow up with primary care physician for this. # COPD exacerbation 2/2 pneumonia - Continue symbicort, duoneb ATC, and solumedrol. The patient's breathing is not improving today, will continue 40 BID. - Continue O2 support as tolerated. # L shoulder pain s/p multiple surgery - Cont. pain medication. - Shoulder DX shows no evidence of fracutre or acute pathology. Plan/VTE VTE Prophylaxis Ordered?: Yes (lovenox 30 mg daily) VS, I&O, 24H, Fishbone Vital Signs/I&O Vital Signs Date Time Temp Pulse Resp B/P (MAP) Pulse Ox O2 Delivery O2 Flow Rate FiO2 02/07/19 11:37 96.7 77 18 143/75 (97) 95 2.0 02/07/19 11:37 28 02/07/19 05:00 Nasal Cannula I&O- Last 24 Hours up to 6 AM 02/07/19 06:00 Intake Total 3181 ml Output Total 675 ml Balance 2506 ml Laboratory Data 24H LABS Laboratory Tests 2 02/06/19 16:55: Bedside Glucose (Misc Panel) 177H 02/07/19 05:07: Nucleated Red Blood Cells % (auto) 0.0, Anion Gap 8, Glomerular Filtration Rate > 60.0, Blood Urea Nitrogen 23H, Creatinine 0.82, Sodium Level 139, Potassium Level 3.6, Chloride Level 104, Carbon Dioxide Level 27, Calcium Level 7.8L, Aspartate Amino Transf (AST/SGOT) 12, Alanine Aminotransferase (ALT/SGPT) 17, Alkaline Phosphatase 64, Total Bilirubin 0.2, Total Protein 5.4L, Albumin 1.7L, Albumin/Globulin Ratio 0.46L 02/07/19 12:13: Bedside Glucose (Misc Panel) 139H CBC/BMP Laboratory Tests 02/07/19 05:07 Red Blood Count 2.89 L, Mean Corpuscular Volume 92.0, Mean Corpuscular Hemoglobin 28.7, Mean Corpuscular Hemoglobin Concent 31.2 L, Red Cell Distribution Width 14.5, Calcium Level 7.8 L, Aspartate Amino Transf (AST/SGOT) 12, Alanine Aminotransferase (ALT/SGPT) 17, Alkaline Phosphatase 64, Total Bilirubin 0.2, Total Protein 5.4 L, Albumin 1.7 L Microbiology Microbiology 02/04/19 Blood Culture - Preliminary, Resulted No Growth after 72 hours. All specime... 02/04/19 Blood Culture - Preliminary, Resulted No Growth after 72 hours. All specime... 02/05/19 Gram Stain - Final, Complete 02/05/19 Sputum Culture - Final, Complete 02/05/19 MRSA Screen - Final, Complete 02/04/19 Respiratory Virus Panel (PCR) ([place]) - Final, Complete FELICE JACKSON MD Feb 07, 2019 13:12
[2019-02-07 14:40] LABS: BODY FLUID CULTURE Not Indicated (.); LEGIONELLA ANTIGEN URINE Negative (Negative); ORGANISM ID Not indicated. (.); SPECIMEN SOURCE Urine (.); URINE STREP PNEUMONIAE ANTIGEN Negative (Negative)
[2019-02-07] MEDS: NS 1,000 ML IV SCH (17:17)
[2019-02-08] VITALS (25 sets, daily range): BP systolic 116–150; BP diastolic 59–70; O2SAT 92–98
[2019-02-08] MEDS: IPRATROPIUM 0.5MG/ALBUTEROL 2.5MG INH SOL UD 3ML (DUONEB)(J7620) NEB SCH ×4 (01:33→20:00)
[2019-02-08] MEDS: NORCO, ANEXSIA 5/325MG TABLET (HYDROcodone/ACETAMINOPHEN) PO PRN ×2 (03:09→07:31)
[2019-02-08] MEDS: PIPERACILLIN/TAZOBACTAM SOD 3.375 GM in D5W MINI-BAG PLUS 50 ML IV SCH ×4 (04:58→22:39)
[2019-02-08 05:17] LABS: HEMATOCRIT 27.6 % (42.0-52.0); HEMOGLOBIN 8.8 g/dl (13.5-17.5); MEAN CORPUSCULAR HEMOGLOBIN 29.9 pg (27.0-33.0); MEAN CORPUSCULAR HGB CONC 31.9 g/dl (32.0-36.5); MEAN CORPUSCULAR VOLUME 93.9 fl (80.0-96.0); PLATELET COUNT, AUTOMATED 514 10^3/uL (150-450); RED BLOOD COUNT 2.94 10^6/uL (4.30-6.10); WHITE BLOOD COUNT 13.9 10^3/uL (4.0-10.0)
[2019-02-08 05:40] LABS: ALBUMIN 1.6 GM/DL (3.2-5.2); ALT/SGPT 20 U/L (12-78); BILIRUBIN,TOTAL 0.3 MG/DL (0.2-1.0); BLOOD UREA NITROGEN 25 MG/DL (7-18); CALCIUM LEVEL 7.5 MG/DL (8.8-10.2); CARBON DIOXIDE LEVEL 29 MEQ/L (21-32); CHLORIDE LEVEL 102 MEQ/L (98-107); CREATININE FOR GFR 0.87 MG/DL (0.70-1.30); GLOMERULAR FILTRATION RATE > 60.0 (>35); GLUCOSE, FASTING 135 MG/DL (70-100); POTASSIUM SERUM 3.8 MEQ/L (3.5-5.1); SODIUM LEVEL 139 MEQ/L (136-145)
[2019-02-08] MEDS: DOXYCYCLINE HYCLATE 100 MG in D5W MINI-BAG PLUS 100 ML IV SCH ×2 (06:11→19:57)
[2019-02-08] MEDS ORDERED: ANEXSIA, NORCO 7.5MG/325MG TABLET(HYDROCODONE/APAP) PO PRN (08:00)
[2019-02-08] MEDS ORDERED: oxyCODONE 20 MG CR TAB PO SCH (09:00)
[2019-02-08] MEDS: LACTOBACILLUS ACIDOPHILUS CAP (BACID) PO SCH ×3 (09:05→22:40)
[2019-02-08] MEDS: ENOXAPARIN 30 MG/0.3 ML SYR (J1650) SC SCH (09:05)
[2019-02-08] MEDS: PANTOPRAZOLE 40MG INJ (PROTONIX) (C9113) IV SCH ×2 (09:05→22:40)
[2019-02-08] MEDS: methylPREDNISolone INJ 125 MG/2 ML VIAL (J2930) IV SCH ×2 (09:07→22:39)
[2019-02-08] MEDS: HumaLOG INSULIN (NovoLOG) PER UNIT SC SCH ×3 (09:07→18:18)
[2019-02-08] MEDS: SYMBICORT 160/4.5MCG INHALER 6GM INH SCH ×2 (09:23→20:14)
--- NOTE | 2019-02-08 12:14 | IPNPDOC ---
Subjective Date Seen The patient was seen on 02/08/19. Subjective Chief Complaint/HPI The patient feels weak. His L shoulder pain has worsened. Breathing has improved. He had diarrhea x2 yesterday, but not today. Denies a fever, chills, nausea, vomiting. No cough. General: Reports: Fatigue, Malaise Constitutional: Reports: Malaise Eyes: Denies: Pain, Vision change, Conjunctivae inflammation, Eyelid inflammation, Redness, Other ENT: Denies: Head Aches, Ear Pain, Dysphagia, Sinus Congestion, Post Nasal Drip, Sore Throat, Epistaxis, Other Symptoms Skin: Denies: Rash, Lesions, Jaundice, Bruising, Itching, Dry, Breakdown, Nail Changes, Other Pulmonary: Reports: Dyspnea Cardiovascular: Denies: Chest Pain, Palpitations, Orthopnea, Paroxysmal Noc. Dyspnea, Edema, Lt Headedness, Other Symptoms Gastrointestinal: Reports: Diarrhea Genitourinary: Denies: Dysuria, Frequency, Incontinence, Hematuria, Retention, Other Symptoms Hematologic: Denies: Bruising, Bleeding Excessively, Petecchia, Purpura, Enlarged Lymph Nodes, Other Hematologic Endocrine: Denies: Polydipsia, Polyphagia, Polyuria, Heat Intolerance, Cold Intolerance, Other Endocrine Sx Musculoskeletal: Denies: Neck Pain, Back Pain, Shoulder Pain, Arm Pain, Hand Pain, Leg Pain, Foot Pain, Joint Pain, Muscle Pain, Spasms, Other Symptoms Neurological: Denies: Weakness, Numbness, Incoordination, Change in speech, Confusion, Seizures, Other Symptoms Psych: Denies: Mood Normal, Anxiety, Depression, Memory Issues, Thoughts of Self Harm, Anger, Thoughts of Harming Other, Other Psych Objective Physical Examination General Exam: Positive: Other (cachectic) Eye Exam: Positive: Conjunctiva & lids normal ENT Exam: Positive: Atraumatic Neck Exam: Positive: Supple Chest Exam: Positive: Other (diffuse crackles) Heart Exam: Positive: Rate Normal Telemetry: Positive: No significant arrhythmia Abdomen Exam: Positive: Normal bowel sounds Extremity Exam: Positive: Other (no edema) Skin Exam: Positive: Nl turgor and temperature Psych Exam: Positive: Mood NL Assessment /Plan Problems (1) Pneumonia Status: Acute Problem Text: # Hospital acquired pneumonia and sepsis - Culture shows no growth over 72 hours. Vancomycin was stopped. Continue zosyn and doxycycline. Doxycycline will be continued for 5 days, and today is day 4. - IV hydration discontinued. - The patient has had recurrent pneumonia, at least x3 over the last 1 year. After his pneumonia is successfully treated, he will need repeat CT chest to r/o malignancy, given extensive history of smoking. # Diarrhea - Not concerned for c diff. Closely monitor diarrhea. - Adding probiotics. # Cachexia and severe protein calorie malnutrition - The patient is very thin with poor appetite. The etiology for this is not clear. - Follow CT chest after pneumonia is treated as mentioned above. - Continue enteral feeding. - Once steroid is stopped, he will need repeat cortisol testing. - The patient is 83 year old, weak, not clear if he could tolerate c-scope, but this needs to be considered to r/o colon cancer. - PSA is 3, technically within normal limit. Recommend outpatient routine follow up with primary care physician for this. - Dietary consult. # COPD exacerbation 2/2 pneumonia - Continue symbicort, duoneb ATC, and solumedrol. The patient's breathing is not improving today, will continue 40 BID. - Continue O2 support as tolerated. # L shoulder pain s/p multiple surgery - Cont. pain medication. In the process of optimizing his pain. Will contact orthopedics tomorrow, given worsening shoulder pain. - Shoulder DX shows no evidence of fracture or acute pathology. # Dysphagia? - The patient feels that his "muscle" inside the mouth is getting weaker. Will contact speech pathology. Plan/VTE VTE Prophylaxis Ordered?: Yes (lovenox 30 mg daily) VS, I&O, 24H, Fishbone Vital Signs/I&O Vital Signs Date Time Temp Pulse Resp B/P (MAP) Pulse Ox O2 Delivery O2 Flow Rate FiO2 02/08/19 11:33 97.5 82 18 133/63 (86) 96 1.0 02/08/19 09:06 28 02/08/19 05:00 Nasal Cannula I&O- Last 24 Hours up to 6 AM 02/08/19 06:00 Intake Total 1820 ml Output Total 675 ml Balance 1145 ml Laboratory Data 24H LABS Laboratory Tests 2 02/07/19 12:13: Bedside Glucose (Misc Panel) 139H 02/07/19 18:36: Bedside Glucose (Misc Panel) 124H 02/08/19 04:44: Nucleated Red Blood Cells % (auto) 0.0, Anion Gap 8, Glomerular Filtration Rate > 60.0, Blood Urea Nitrogen 25H, Creatinine 0.87, Sodium Level 139, Potassium Level 3.8, Chloride Level 102, Carbon Dioxide Level 29, Calcium Level 7.5L, Phosphorus Level 3.0, Aspartate Amino Transf (AST/SGOT) 13, Alanine Aminotransferase (ALT/SGPT) 20, Alkaline Phosphatase 59, Total Bilirubin 0.3, Total Protein 5.0L, Albumin 1.6L, Magnesium Level 2.0, Albumin/Globulin Ratio 0.47L CBC/BMP Laboratory Tests 02/08/19 04:44 Red Blood Count 2.94 L, Mean Corpuscular Volume 93.9, Mean Corpuscular Hemoglobin 29.9, Mean Corpuscular Hemoglobin Concent 31.9 L, Red Cell Distribution Width 14.6 H, Calcium Level 7.5 L, Phosphorus Level 3.0, Aspartate Amino Transf (AST/SGOT) 13, Alanine Aminotransferase (ALT/SGPT) 20, Alkaline Phosphatase 59, Total Bilirubin 0.3, Total Protein 5.0 L, Albumin 1.6 L Microbiology Microbiology 02/04/19 Blood Culture - Preliminary, Resulted No Growth after 72 hours. All specime... 02/04/19 Blood Culture - Preliminary, Resulted No Growth after 72 hours. All specime... 02/05/19 Gram Stain - Final, Complete 02/05/19 Sputum Culture - Final, Complete 02/05/19 MRSA Screen - Final, Complete 02/04/19 Respiratory Virus Panel (PCR) ([place]) - Final, Complete FELICE JACKSON MD Feb 08, 2019 12:14
[2019-02-08] MEDS ORDERED: SLF 3 ML SYR IV PRN (12:30)
[2019-02-08] MEDS: SLF 3 ML SYR IV SCH ×2 (14:00→22:40)
[2019-02-08] MEDS ORDERED: ACETAMINOPHEN TAB 650MG DOSE (2X325MG) PEG PRN (18:00)
[2019-02-08] MEDS ORDERED: MOM 30ML SUSPENSION UDC PEG PRN (18:00)
[2019-02-08] MEDS: ANEXSIA, NORCO 7.5MG/325MG TABLET(HYDROCODONE/APAP) PEG PRN (18:19)
[2019-02-08] MEDS: GABAPENTIN 400 MG CAP PEG SCH ×2 (18:20→22:40)
[2019-02-08] MEDS: DICLOFENAC EPOLAMINE 1.3 % PATCH TOP SCH (22:39)
[2019-02-09] VITALS (22 sets, daily range): BP systolic 140–160; BP diastolic 65–73; O2SAT 89–100
[2019-02-09] MEDS: HumaLOG INSULIN (NovoLOG) PER UNIT SC SCH ×4 (00:45→17:14)
[2019-02-09] MEDS: IPRATROPIUM 0.5MG/ALBUTEROL 2.5MG INH SOL UD 3ML (DUONEB)(J7620) NEB SCH ×4 (01:49→20:00)
[2019-02-09] MEDS: ANEXSIA, NORCO 7.5MG/325MG TABLET(HYDROCODONE/APAP) PEG PRN ×3 (04:29→14:42)
[2019-02-09] MEDS: PIPERACILLIN/TAZOBACTAM SOD 3.375 GM in D5W MINI-BAG PLUS 50 ML IV SCH (04:42)
[2019-02-09 05:07] LABS: HEMATOCRIT 28.1 % (42.0-52.0); HEMOGLOBIN 8.9 g/dl (13.5-17.5); MEAN CORPUSCULAR HEMOGLOBIN 29.1 pg (27.0-33.0); MEAN CORPUSCULAR HGB CONC 31.7 g/dl (32.0-36.5); MEAN CORPUSCULAR VOLUME 91.8 fl (80.0-96.0); PLATELET COUNT, AUTOMATED 544 10^3/uL (150-450); RED BLOOD COUNT 3.06 10^6/uL (4.30-6.10); WHITE BLOOD COUNT 14.4 10^3/uL (4.0-10.0)
[2019-02-09 05:34] LABS: ALBUMIN 1.6 GM/DL (3.2-5.2); ALT/SGPT 25 U/L (12-78); BILIRUBIN,TOTAL 0.4 MG/DL (0.2-1.0); BLOOD UREA NITROGEN 24 MG/DL (7-18); CALCIUM LEVEL 7.6 MG/DL (8.8-10.2); CARBON DIOXIDE LEVEL 30 MEQ/L (21-32); CHLORIDE LEVEL 104 MEQ/L (98-107); CREATININE FOR GFR 0.78 MG/DL (0.70-1.30); GLOMERULAR FILTRATION RATE > 60.0 (>35); GLUCOSE, FASTING 127 MG/DL (70-100); POTASSIUM SERUM 3.8 MEQ/L (3.5-5.1); SODIUM LEVEL 142 MEQ/L (136-145)
[2019-02-09] MEDS: DOXYCYCLINE HYCLATE 100 MG in D5W MINI-BAG PLUS 100 ML IV SCH (06:36)
[2019-02-09] MEDS: SLF 3 ML SYR IV SCH ×3 (06:37→20:53)
[2019-02-09] MEDS: SYMBICORT 160/4.5MCG INHALER 6GM INH SCH ×2 (07:35→20:22)
[2019-02-09] MEDS: GABAPENTIN 400 MG CAP PEG SCH ×3 (08:35→20:52)
[2019-02-09] MEDS: LACTOBACILLUS ACIDOPHILUS CAP (BACID) PO SCH ×3 (08:35→20:53)
[2019-02-09] MEDS: PANTOPRAZOLE 40MG INJ (PROTONIX) (C9113) IV SCH ×2 (08:35→20:52)
[2019-02-09] MEDS: LevoFLOXacin 500 MG TABLET PEG SCH (08:36)
[2019-02-09] MEDS: predniSONE 20 MG TAB PEG SCH (08:36)
[2019-02-09] MEDS: DICLOFENAC EPOLAMINE 1.3 % PATCH TOP SCH ×2 (08:36→20:52)
[2019-02-09] MEDS: ENOXAPARIN 30 MG/0.3 ML SYR (J1650) SC SCH (08:37)
--- NOTE | 2019-02-09 11:22 | IPNPDOC ---
Subjective Date Seen The patient was seen on 02/09/19. Subjective Chief Complaint/HPI The patient feels weak, but his breathing has improved. He breathes comfortably on 1 L O2. No diarrhea today. Severe shoulder pain, moderately managed by pain medication. No fevers or chills. General: Reports: Fatigue Constitutional: Reports: Malaise, Weakness Eyes: Denies: Pain, Vision change, Conjunctivae inflammation, Eyelid inflammation, Redness, Other ENT: Denies: Head Aches, Ear Pain, Dysphagia, Sinus Congestion, Post Nasal Drip, Sore Throat, Epistaxis, Other Symptoms Skin: Denies: Rash, Lesions, Jaundice, Bruising, Itching, Dry, Breakdown, Nail Changes, Other Pulmonary: Reports: Dyspnea, Cough Cardiovascular: Denies: Chest Pain, Palpitations, Orthopnea, Paroxysmal Noc. Dyspnea, Edema, Lt Headedness, Other Symptoms Gastrointestinal: Denies: Nausea, Vomiting, Abdominal Pain, Diarrhea, Constipation, Melena, Hematochezia, Other Symptoms Genitourinary: Denies: Dysuria, Frequency, Incontinence, Hematuria, Retention, Other Symptoms Hematologic: Denies: Bruising, Bleeding Excessively, Petecchia, Purpura, Enlarg ed Lymph Nodes, Other Hematologic Endocrine: Denies: Polydipsia, Polyphagia, Polyuria, Heat Intolerance, Cold Intolerance, Other Endocrine Sx Musculoskeletal: Reports: Other Symptoms (L shoulder pain) Neurological: Denies: Weakness, Numbness, Incoordination, Change in speech, Confusion, Seizures, Other Symptoms Psych: Denies: Mood Normal, Anxiety, Depression, Memory Issues, Thoughts of Self Harm, Anger, Thoughts of Harming Other, Other Psych Objective Physical Examination General Exam: Positive: Other (cachectic) Eye Exam: Positive: Conjunctiva & lids normal ENT Exam: Positive: Atraumatic Neck Exam: Positive: Supple Chest Exam: Positive: Other (diffuse crackles) Heart Exam: Positive: Rate Normal Telemetry: Positive: No significant arrhythmia Abdomen Exam: Positive: Normal bowel sounds Extremity Exam: Positive: Other (no edema) Skin Exam: Positive: Nl turgor and temperature Psych Exam: Positive: Mood NL Assessment /Plan Problems (1) Pneumonia Status: Acute Problem Text: # Hospital acquired pneumonia, acute respiratory failure on chronic respiratory failure, and sepsis - No growth on culture. Urine antigen testing all negative. Finished 5 day course of doxycycline. Will convert zosyn to levaquin to finish a 7 day course antibiotics. - He was on 2 L of home O2, but he is currently on 1 L breathing comfortably. - The patient has had recurrent pneumonia, at least x3 over the last 1 year. After his pneumonia is successfully treated, he will need repeat CT chest to r/o malignancy, given extensive history of smoking. # Diarrhea - Not concerned for c diff. Closely monitor diarrhea. - Adding probiotics. # Cachexia and severe protein calorie malnutrition - The patient is very thin with poor appetite. The etiology for this is not clear. - Continue enteral feeding. - Once steroid is stopped, he will need repeat cortisol testing. - The patient is 83 year old, weak, not clear if he could tolerate c-scope, but this needs to be considered to r/o colon cancer. - PSA is 3, technically within normal limit. Recommend outpatient routine follow up with primary care physician for this. - Dietary consult. # COPD exacerbation 2/2 pneumonia - Continue symbicort, duoneb ATC, and solumedrol. The patient's breathing is slowly improving. Will stop solumedrol and start prodnisone today. - Continue O2 support as tolerated. # L shoulder pain s/p multiple surgery - Cont. pain medication. In the process of optimizing his pain. - Orthopedic surgery will come and evaluate the patient today, given worsening shoulder pain. - Shoulder DX shows no evidence of fracture or acute pathology. # Dysphagia? - The patient feels that his "muscle" inside the mouth is getting weaker. - Follow speech pathology's recommendation. Plan/VTE VTE Prophylaxis Ordered?: Yes (lovenox 30 mg daily) VS, I&O, 24H, Fishbone Vital Signs/I&O Vital Signs Date Time Temp Pulse Resp B/P (MAP) Pulse Ox O2 Delivery O2 Flow Rate FiO2 02/09/19 10:00 97 Nasal Cannula 1.0 02/09/19 09:06 20 02/09/19 08:00 99.1 80 141/68 (92) 02/08/19 18:19 28 I&O- Last 24 Hours up to 6 AM 02/09/19 06:00 Intake Total 1900 ml Output Total 700 ml Balance 1200 ml Laboratory Data 24H LABS Laboratory Tests 2 02/08/19 12:54: Bedside Glucose (Misc Panel) 130H 02/08/19 17:56: Bedside Glucose (Misc Panel) 110 02/09/19 00:36: Bedside Glucose (Misc Panel) 134H 02/09/19 04:19: Nucleated Red Blood Cells % (auto) 0.0, Anion Gap 8, Glomerular Filtration Rate > 60.0, Blood Urea Nitrogen 24H, Creatinine 0.78, Sodium Level 142, Potassium Level 3.8, Chloride Level 104, Carbon Dioxide Level 30, Calcium Level 7.6L, Aspartate Amino Transf (AST/SGOT) 19, Alanine Aminotransferase (ALT/SGPT) 25, Alkaline Phosphatase 62, Total Bilirubin 0.4, Total Protein 5.0L, Albumin 1.6L, Albumin/Globulin Ratio 0.47L CBC/BMP Laboratory Tests 02/09/19 04:19 Red Blood Count 3.06 L, Mean Corpuscular Volume 91.8, Mean Corpuscular Hemoglobin 29.1, Mean Corpuscular Hemoglobin Concent 31.7 L, Red Cell Distribution Width 14.7 H, Calcium Level 7.6 L, Aspartate Amino Transf (AST/SGOT) 19, Alanine Aminotransferase (ALT/SGPT) 25, Alkaline Phosphatase 62, Total Bilirubin 0.4, Total Protein 5.0 L, Albumin 1.6 L Microbiology Microbiology 02/04/19 Blood Culture - Final, Complete NO GROWTH AFTER 5 DAYS 02/04/19 Blood Culture - Final, Complete NO GROWTH AFTER 5 DAYS 02/05/19 Gram Stain - Final, Complete 02/05/19 Sputum Culture - Final, Complete 02/05/19 MRSA Screen - Final, Complete 02/04/19 Respiratory Virus Panel (PCR) ([place]) - Final, Complete FELICE JACKSON MD Feb 09, 2019 11:22
[2019-02-10] VITALS (10 sets, daily range): BP systolic 135–162; BP diastolic 68–82; O2SAT 94–97
[2019-02-10] MEDS: ANEXSIA, NORCO 7.5MG/325MG TABLET(HYDROCODONE/APAP) PEG PRN ×3 (00:11→14:57)
[2019-02-10] MEDS: HumaLOG INSULIN (NovoLOG) PER UNIT SC SCH ×4 (00:19→17:46)
[2019-02-10] MEDS: IPRATROPIUM 0.5MG/ALBUTEROL 2.5MG INH SOL UD 3ML (DUONEB)(J7620) NEB SCH ×5 (02:00→20:00)
[2019-02-10] MEDS: SLF 3 ML SYR IV SCH ×3 (05:05→22:06)
[2019-02-10 05:51] LABS: HEMATOCRIT 28.3 % (42.0-52.0); MEAN CORPUSCULAR HEMOGLOBIN 29.4 pg (27.0-33.0); MEAN CORPUSCULAR HGB CONC 31.8 g/dl (32.0-36.5); MEAN CORPUSCULAR VOLUME 92.5 fl (80.0-96.0); PLATELET COUNT, AUTOMATED 527 10^3/uL (150-450); RED BLOOD COUNT 3.06 10^6/uL (4.30-6.10); WHITE BLOOD COUNT 15.1 10^3/uL (4.0-10.0)
[2019-02-10 06:09] LABS: ALBUMIN 1.7 GM/DL (3.2-5.2); ALT/SGPT 27 U/L (12-78); BILIRUBIN,TOTAL 0.3 MG/DL (0.2-1.0); BLOOD UREA NITROGEN 26 MG/DL (7-18); CARBON DIOXIDE LEVEL 35 MEQ/L (21-32); CHLORIDE LEVEL 103 MEQ/L (98-107); CREATININE FOR GFR 0.68 MG/DL (0.70-1.30); GLOMERULAR FILTRATION RATE > 60.0 (>35); GLUCOSE, FASTING 99 MG/DL (70-100); POTASSIUM SERUM 3.8 MEQ/L (3.5-5.1); SODIUM LEVEL 139 MEQ/L (136-145); TOTAL PROTEIN 4.9 GM/DL (6.4-8.2)
[2019-02-10] MEDS: SYMBICORT 160/4.5MCG INHALER 6GM INH SCH ×2 (07:27→19:47)
[2019-02-10 07:41] LABS: C REACTIVE PROTEIN QUANTITATIV 0.44 MG/DL (0.00-0.30)
[2019-02-10 08:09] LABS: ERYTHROCYTE SEDIMENTATION RATE 27 mm/hr (0-20)
[2019-02-10] MEDS: GABAPENTIN 400 MG CAP PEG SCH ×3 (08:23→20:23)
[2019-02-10] MEDS: PANTOPRAZOLE 40MG INJ (PROTONIX) (C9113) IV SCH ×2 (08:23→20:23)
[2019-02-10] MEDS: LACTOBACILLUS ACIDOPHILUS CAP (BACID) PO SCH ×3 (08:23→20:23)
[2019-02-10] MEDS: predniSONE 20 MG TAB PEG SCH (08:23)
[2019-02-10] MEDS: LevoFLOXacin 500 MG TABLET PEG SCH (08:24)
[2019-02-10] MEDS: DICLOFENAC EPOLAMINE 1.3 % PATCH TOP SCH ×2 (08:24→21:53)
[2019-02-10] MEDS: ENOXAPARIN 30 MG/0.3 ML SYR (J1650) SC SCH (08:24)
--- NOTE | 2019-02-10 11:52 | REP ---
TISSUE ULTRASOUND LEFT ELBOW: HISTORY: Left elbow swelling. FINDINGS: Scanning over the dorsal aspect of the elbow around the olecranon fossa shows the olecranon bursal fluid collection which is small measuring 2.3 x 0.3 x 1.7 cm in overall dimension. No other abnormal fluid collection is seen. Soft tissue edema is seen in the dorsal aspect of the proximal forearm soft tissues as well. No other fluid collection. IMPRESSION: Findings consistent with a small olecranon bursal fluid collection. Soft tissue edema. Electronically Signed by Emir Block MD 02/10/2019 09:03 P
[2019-02-10] MEDS ORDERED: OXYMETAZOLINE NASAL SPRAY (AFRIN) PRN (12:00)
--- NOTE | 2019-02-10 14:53 | IPNPDOC ---
Date Seen The patient was seen on 02/10/19. Progress Note SUBJECTIVE: Patient is an 83-year-old male with acute on chronic respiratory failure secondary to pneumonia. Patient is evaluated at bedside this morning. He is accompanied by his and daughter. Family have concerns that patient may be discharged to soon. Patient remains weak. He is not eating that much by mouth and currently has a feeding tube in place. Family are concerned that he is not getting enough nutrition, specifically protein. Upon follow-up questioning, patient cannot recall an inciting event that led him to stop eating. He states that "all I can do is try." He was most recently in [facility] (07/2019) for his son's wedding and just prior to his hospitalization he was driving. Family notes that there has been a steady decline in weight and health over the years. OBJECTIVE PHYSICAL EXAMINATION: VITAL SIGNS: Please see below. GENERAL: Cachetic elderly male, appears to be in quite a bit of discomfort, alert and conversant, answers questions appropriately. HEENT: Atraumatic, normocephalic, PERRL, EOMI, oral mucosa appears pink and moist, nasal septum appears midline, nares are patent, nasal cannula in place. CARDIOVASCULAR: Regular rate and rhythm, normal S1 and S2, no murmur, rub, click. RESPIRATORY: Clear to auscultation bilaterally, no audible wheezes, crackles, or rhonchi. ABDOMINAL: Flat, soft, non-tender, non-distended. EXTREMITIES: +2 pitting edema noted around the ankles bilaterally, edema noted around the left elbow, exquisite pain noted around the left shoulder and left upper extremity. NEUROLOGICAL: CN II-XII grossly intact. PSYCHOLOGICAL: Pained. LABORATORY DATA, IMAGING STUDIES, MICROBIOLOGY: Please see below. DVT prophylaxis ordered?: Lovenox 30mg SQ daily. ASSESSMENT AND PLAN: This is an 83-year-old male with acute on chronic respiratory failure secondary to pneumonia. PROBLEMS: 1. 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 Severe protein-calorie malnutrition Unclear etiology for why patient has poor oral intake Protein level has remained consistently low Speech therapy recommends fiberoptic endoscopic swallow evaluation Dietary recommends Jevity 1.5 @ 55mLs/hr with 150mL free water flushes Q6H; total calories 1980, total protein 84, total free water flushes 1603 Start Megace 400mg PO daily Obtaining hemoglobin A1c 2. Leukocytosis 2/2 to steroid use Continue to monitor VS stable, afebrile 3. Left shoulder pain, left sided olecranon bursal fluid collection Left sided shoulder x-ray, one view on 02/06/2019: Negative limited single portable examination of the left shoulder. Left elbow ultrasound on 02/10/2019: Findings consistent with a small olecranon bursal fluid collection. Soft tissue edema. ESR, CRP are both elevated Pain management consulted C/W Diclofenac patch, [place], Tylenol, Gabapentin Treatment for bursitis is NSAIDs; however, patient has a history of duodenal ulcers 4. History of RUL lung cancer, 2009 Moderately differentiated adenocarcinoma S/P lobectomy No radiation therapy DISPOSITION: Pending clinical improvement. Pain management and orthopedics consulted. I saw and evaluated the patient. I agree with the findings and plan of care as documented in the resident's note VS, I&O, 24H, Fishbone Vital Signs/I&O Vital Signs Date Time Temp Pulse Resp B/P (MAP) Pulse Ox O2 Delivery O2 Flow Rate FiO2 02/10/19 10:53 18 2.0 02/10/19 10:00 98.8 85 135/82 (99) 90 02/10/19 04:00 Nasal Cannula 02/08/19 18:19 28 I&O- Last 24 Hours up to 6 AM 02/10/19 06:00 Intake Total 780 ml Output Total 900 ml Balance -120 ml Laboratory Data 24H LABS Laboratory Tests 2 02/09/19 17:09: Bedside Glucose (Misc Panel) 138H 02/10/19 00:08: Bedside Glucose (Misc Panel) 151H 02/10/19 04:47: Nucleated Red Blood Cells % (auto) 0.0, Erythrocyte Sedimentation Rate 27H, Anion Gap 1L, Glomerular Filtration Rate > 60.0, Blood Urea Nitrogen 26H, Creatinine 0.68L, Sodium Level 139, Potassium Level 3.8, Chloride Level 103, Carbon Dioxide Level 35H, Calcium Level 8.0L, Aspartate Amino Transf (AST/SGOT) 11, Alanine Aminotransferase (ALT/SGPT) 27, Alkaline Phosphatase 59, Total Bilirubin 0.3, Total Protein 4.9L, Albumin 1.7L, C-Reactive Protein, Quantitative 0.44H, Albumin/Globulin Ratio 0.53L 02/10/19 05:31: Bedside Glucose (Misc Panel) 116H 02/10/19 11:46: Bedside Glucose (Misc Panel) 130H CBC/BMP Laboratory Tests 02/10/19 04:47 Red Blood Count 3.06 L, Mean Corpuscular Volume 92.5, Mean Corpuscular Hemoglobin 29.4, Mean Corpuscular Hemoglobin Concent 31.8 L, Red Cell Distribution Width 14.7 H, Calcium Level 8.0 L, Aspartate Amino Transf (AST/SGOT) 11, Alanine Aminotransferase (ALT/SGPT) 27, Alkaline Phosphatase 59, Total Bilirubin 0.3, Total Protein 4.9 L, Albumin 1.7 L Microbiology Microbiology 02/04/19 Blood Culture - Final, Complete NO GROWTH AFTER 5 DAYS 02/04/19 Blood Culture - Final, Complete NO GROWTH AFTER 5 DAYS 02/05/19 Gram Stain - Final, Complete 02/05/19 Sputum Culture - Final, Complete 02/05/19 MRSA Screen - Final, Complete 02/04/19 Respiratory Virus Panel (PCR) ([place]) - Final, Complete SUDHEER WATERS DO Feb 10, 2019 14:53 DMITRY BAÑUELOS MD Feb 14, 2019 16:37
[2019-02-10] MEDS: MEGESTROL SUSP 400 MG/10 ML UDC PO SCH (14:56)
[2019-02-10 17:34] LABS: HEMOGLOBIN A1c 6.5 %
[2019-02-11] MEDS: HumaLOG INSULIN (NovoLOG) PER UNIT SC SCH ×4 (00:33→17:39)
[2019-02-11 02:00] VITALS: BP 134/74
[2019-02-11] MEDS: IPRATROPIUM 0.5MG/ALBUTEROL 2.5MG INH SOL UD 3ML (DUONEB)(J7620) NEB SCH ×5 (02:00→20:00)
[2019-02-11] MEDS: ANEXSIA, NORCO 7.5MG/325MG TABLET(HYDROCODONE/APAP) PEG PRN ×3 (03:36→18:34)
[2019-02-11 06:00] VITALS: BP 140/68
[2019-02-11 06:05] LABS: HEMATOCRIT 30.6 % (42.0-52.0); HEMOGLOBIN 9.8 g/dl (13.5-17.5); MEAN CORPUSCULAR HEMOGLOBIN 30.2 pg (27.0-33.0); MEAN CORPUSCULAR VOLUME 94.4 fl (80.0-96.0); PLATELET COUNT, AUTOMATED 495 10^3/uL (150-450); RED BLOOD COUNT 3.24 10^6/uL (4.30-6.10); WHITE BLOOD COUNT 16.7 10^3/uL (4.0-10.0)
[2019-02-11] MEDS: SLF 3 ML SYR IV SCH ×3 (06:12→22:01)
[2019-02-11 06:35] LABS: BLOOD UREA NITROGEN 24 MG/DL (7-18); CALCIUM LEVEL 7.7 MG/DL (8.8-10.2); CARBON DIOXIDE LEVEL 32 MEQ/L (21-32); CHLORIDE LEVEL 102 MEQ/L (98-107); CREATININE FOR GFR 0.68 MG/DL (0.70-1.30); GLOMERULAR FILTRATION RATE > 60.0 (>35); GLUCOSE, FASTING 121 MG/DL (70-100); SODIUM LEVEL 137 MEQ/L (136-145)
[2019-02-11] MEDS: SYMBICORT 160/4.5MCG INHALER 6GM INH SCH ×2 (07:30→19:40)
--- NOTE | 2019-02-11 09:23 | CR ---
DATE OF CONSULTATION: 02/10/2019 REFERRING PROVIDER: Dr. Brigid Mix. CHIEF COMPLAINT: Left shoulder pain. HISTORY OF PRESENT ILLNESS: 83-year-old male patient with a history of left shoulder pain. Patient is describes the pain as aching, tender with a pain score that ranges from 3 to 7/10 over the left shoulder. Presently, he is using hydrocodone 7.5/325 one to two tablets every 4 hours as needed for pain. Patient says that this regimen of medication is working, although he is interested in any type of intervention that can also help. Patient was hospitalized secondary to a pneumonia. Patient reports that the pain gets worse when he tries to move the arm. He has history of surgeries over the left shoulder. CURRENT MEDICATIONS INCLUDE: - prednisone - Levaquin - insulin - Flector patch - hydrocodone 7.5/325 - magnesium - acetaminophen - gabapentin 400 mg tablet, three tablets per day - Lovenox - glucose - albuterol inhaler PAST MEDICAL HISTORY INCLUDES: Lung carcinoma. History of protein loss cachexia. History of chronic obstructive pulmonary disease (COPD). History of respiratory failure. Pneumonia. Leukocytosis secondary to use of steroids. PAST SURGICAL HISTORY INCLUDES: Left shoulder surgery. Lung cancer surgery. SOCIAL HISTORY: Patient reports being a former smoker. Denies use of alcohol or illegal substances. ALLERGIES: No known drug allergies. REVIEW OF SYSTEMS: CONSTITUTIONAL: Weight loss, fatigue. EYES: Denies vision changes. ENT: Denies ear pain or dysphagia. SKIN: Denies any lesions. PULMONARY: Reports some dyspnea. CARDIOVASCULAR: Denies chest pain. GASTROINTESTINAL: Denies abdominal pain. GENITOURINARY: Denies dysuria or incontinence. HEMATOLOGICAL: Denies easy bruising. MUSCULOSKELETAL: Reports left shoulder pain. PHYSICAL EXAMINATION: Patient is alert. He is seen in his bed. He is cachectic. He has difficulties moving the left upper extremity. Significant loss of adipose tissue. There is hyperpathia over the posterior aspect of the shoulder. The patient has a Flector patch in the infraspinatus muscle and below. There is tenderness in the supraspinatus muscle over the left side. There is presence of trigger points over the left shoulder with bands of tissue. There is restriction of movement. Presently heart rate is 85, blood pressure 135/82, respiratory rate 24, saturation is 90. White blood cell count is 15.1, hemoglobin 9.0, platelet count 527. On 02/04/2019 percent neutrophils were 85. There was a shift to the left. ASSESSMENT: Left shoulder pain. Left shoulder degeneration. Myalgia. Myofascial pain syndrome. Pneumonia. Chronic use of steroids. Increasing white blood cell count. PLAN: I discussed alternatives with Mr. Phillips. He is happy at the moment with the medication that he is using. So we will keep the same medication regimen. The Flector patch, I would advise to put it higher covering the supraspinatus muscle. I discussed this with the nurse in charge on the floor. I may consider doing some trigger point injections on the patient on Saturday. I am not in the hospital tomorrow. I would like to discuss the case with the primary care provider on . Patient is on chronic steroids so if I do the trigger points, I should use a lower dose of steroids or not using steroids at all. Also I want to check his white blood cell count and the possible etiologies of the prior shift to the left and if there is a concern at the moment. Patient may also be a candidate for radiofrequency but this will be in the future, not now. So the patient is going to think about doing these trigger point injection on Saturday. He will discuss it with his family. I will discuss this with the primary care on and if they want to move forward, we will do that on Saturday in which case, the patient needs to be nothing by mouth night. Thank you for the consult. We will follow as indicated above. GRISEL
[2019-02-11 10:00] VITALS: BP 153/81
[2019-02-11] MEDS: MEGESTROL SUSP 400 MG/10 ML UDC PO SCH (10:22)
[2019-02-11] MEDS: PANTOPRAZOLE 40MG INJ (PROTONIX) (C9113) IV SCH ×2 (10:23→22:00)
[2019-02-11] MEDS: predniSONE 20 MG TAB PEG SCH (10:24)
[2019-02-11] MEDS: LACTOBACILLUS ACIDOPHILUS CAP (BACID) PO SCH ×3 (10:24→22:00)
[2019-02-11] MEDS: LevoFLOXacin 500 MG TABLET PEG SCH (10:24)
[2019-02-11] MEDS: GABAPENTIN 400 MG CAP PEG SCH ×3 (10:24→22:00)
[2019-02-11] MEDS: ENOXAPARIN 30 MG/0.3 ML SYR (J1650) SC SCH (10:25)
[2019-02-11] MEDS: DICLOFENAC EPOLAMINE 1.3 % PATCH TOP SCH ×4 (12:42→22:01)
[2019-02-11 14:00] VITALS: BP 117/74
--- NOTE | 2019-02-11 16:18 | IPNPDOC ---
Date Seen The patient was seen on 02/11/19. Progress Note SUBJECTIVE: Patient is an 83-year-old male with acute on chronic respiratory failure secondary to pneumonia. Patient is evaluated at bedside this morning. He is laying in bed reading a book. He continues to admit to shortness of breath and is currently wearing nasal cannula. He does not wear oxygen at home. He remains weak. He denies chest pain, fevers, night sweats, chills. He states that he has an appetite, but has been told that he is not allowed to eat. OBJECTIVE PHYSICAL EXAMINATION: VITAL SIGNS: Please see below. GENERAL: Cachetic elderly male, alert and conversant, answers questions appropriately, no acute distress. HEENT: Atraumatic, normocephalic, PERRL, EOMI, oral mucosa appears pink and moist, dentures appears ill-fitting, nasal septum appears midline, nares are patent, nasal cannula in place. CARDIOVASCULAR: Regular rate and rhythm, normal S1 and S2, no murmur, rub, click. RESPIRATORY: Clear to auscultation bilaterally, no audible wheezes, crackles, or rhonchi. ABDOMINAL: Flat, soft, non-tender, non-distended, feeding tube in place in midl ine abdomen with site that is clean, dry, intact. EXTREMITIES: +2 pitting edema noted around the ankles bilaterally, edema noted around the left elbow, exquisite pain noted around the left shoulder and left upper extremity. NEUROLOGICAL: CN II-XII grossly intact. PSYCHOLOGICAL: Mood and affect appropriate. LABORATORY DATA, IMAGING STUDIES, MICROBIOLOGY: Please see below. DVT prophylaxis ordered?: Lovenox 30mg SQ daily. ASSESSMENT AND PLAN: This is an 83-year-old male with acute on chronic respiratory failure secondary to pneumonia. PROBLEMS: 1. 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 Severe protein-calorie malnutrition Unclear etiology for why patient has poor oral intake Protein level has remained consistently low FEES on 02/10/2019: poor swallow strength, pharyngeal/vellecular/pyriform sinus stasis, significant sticky mucus in the pharynx --> thin liquids, O2 humidity, saline nasal spray, no solids at this time Dietary recommends Jevity 1.5 @ 55mLs/hr with 150mL free water flushes Q6H; total calories 1980, total protein 84, total free water flushes 1603 C/W Megace 400mg PO daily Hemoglobin A1c 6.5% 2. Leukocytosis 2/2 to steroid use Continue to monitor VS stable, afebrile 3. Left shoulder pain, left sided olecranon bursal fluid collection Left sided shoulder x-ray, one view on 02/06/2019: Negative limited single portable examination of the left shoulder. Left elbow ultrasound on 02/10/2019: Findings consistent with a small olecranon bursal fluid collection. Soft tissue edema. ESR, CRP are both elevated Pain management consulted with recommendations: place Diclofenac patch over supraspinatus muscle, trigger point injections, out-patient radiofrequency --> patient will need to be NPO at midnight for trigger point injections on Saturday C/W Diclofenac patch, [place], Tylenol, Gabapentin Treatment for bursitis is NSAIDs; however, patient has a history of duodenal ulcers Start Diclofenac patch to left elbow Ordered procalcitonin 4. History of RUL lung cancer, 2009 Moderately differentiated adenocarcinoma S/P lobectomy No radiation therapy 5. Peripheral edema Unclear etiology at this time Patient has significantly low albumin which can be contributing to third spacing due to low oncotic pressure Obtaining echocardiogram to rule out heart failure Obtaining CXR to evaluate for volume overload Obtaining updated BNP; elevated on 02/04/2019 at 1297 DISPOSITION: Pending clinical improvement. I saw and evaluated the patient. I agree with the findings and plan of care as documented in the resident's note VS, I&O, 24H, Fishbone Vital Signs/I&O Vital Signs Date Time Temp Pulse Resp B/P (MAP) Pulse Ox O2 Delivery O2 Flow Rate FiO2 02/11/19 14:00 98.3 90 17 117/74 (88) 92 2.0 02/10/19 04:00 Nasal Cannula 02/08/19 18:19 28 I&O- Last 24 Hours up to 6 AM 02/11/19 06:00 Intake Total 120 ml Output Total 1050 ml Balance -930 ml Laboratory Data 24H LABS Laboratory Tests 2 02/10/19 17:16: Bedside Glucose (Misc Panel) 129H 02/11/19 00:09: Bedside Glucose (Misc Panel) 148H 02/11/19 05:43: Nucleated Red Blood Cells % (auto) 0.0, Anion Gap 3L, Glomerular Filtration Rate > 60.0, Blood Urea Nitrogen 24H, Creatinine 0.68L, Sodium Level 137, Potassium Level 4.0, Chloride Level 102, Carbon Dioxide Level 32, Calcium Level 7.7L 02/11/19 06:06: Bedside Glucose (Misc Panel) 122H 02/11/19 11:30: Bedside Glucose (Misc Panel) 117H CBC/BMP Laboratory Tests 02/11/19 05:43 Red Blood Count 3.24 L, Mean Corpuscular Volume 94.4, Mean Corpuscular Hemoglobin 30.2, Mean Corpuscular Hemoglobin Concent 32.0, Red Cell Distribution Width 14.9 H, Calcium Level 7.7 L Microbiology Microbiology 02/04/19 Blood Culture - Final, Complete NO GROWTH AFTER 5 DAYS 02/04/19 Blood Culture - Final, Complete NO GROWTH AFTER 5 DAYS 02/05/19 Gram Stain - Final, Complete 02/05/19 Sputum Culture - Final, Complete 02/05/19 MRSA Screen - Final, Complete 02/04/19 Respiratory Virus Panel (PCR) ([place]) - Final, Complete SUDHEER WATERS DO Feb 11, 2019 16:18 DMITRY BAÑUELOS MD Feb 14, 2019 16:41
--- NOTE | 2019-02-11 17:11 | REP ---
Chest one-view HISTORY: Hypoxia Comparison: 02/04/2019 An increase in interstitial markings is present in the lungs consistent with chronic interstitial fibrosis. Patchy density is present in the right upper and bilateral lower lobes consistent with infiltrates that a decreased compared to the previous study. Small bilateral pleural effusions are present unchanged compared to the previous study. The heart is normal in size. The pulmonary vasculature is normal in appearance. Impression: 1. Chronic interstitial fibrosis. 2. Right upper lobe and bilateral lower lobe infiltrates decreased compared to the previous study. 3. Small bilateral pleural effusions unchanged compared to the previous study. Electronically Signed by Robbin Batista MD 02/11/2019 05:03 P
[2019-02-11 18:00] VITALS: BP 173/69
[2019-02-11 22:00] VITALS: BP 130/70
[2019-02-12] MEDS: HumaLOG INSULIN (NovoLOG) PER UNIT SC SCH ×4 (00:26→17:27)
[2019-02-12 02:00] VITALS: BP 120/68
[2019-02-12] MEDS: IPRATROPIUM 0.5MG/ALBUTEROL 2.5MG INH SOL UD 3ML (DUONEB)(J7620) NEB SCH ×4 (02:00→19:45)
[2019-02-12] MEDS: ANEXSIA, NORCO 7.5MG/325MG TABLET(HYDROCODONE/APAP) PEG PRN ×3 (04:23→17:42)
[2019-02-12 06:00] VITALS: BP 139/72
[2019-02-12 06:18] LABS: HEMATOCRIT 30.7 % (42.0-52.0); HEMOGLOBIN 9.7 g/dl (13.5-17.5); MEAN CORPUSCULAR HEMOGLOBIN 29.4 pg (27.0-33.0); MEAN CORPUSCULAR HGB CONC 31.6 g/dl (32.0-36.5); PLATELET COUNT, AUTOMATED 514 10^3/uL (150-450); WHITE BLOOD COUNT 16.5 10^3/uL (4.0-10.0)
[2019-02-12] MEDS: SLF 3 ML SYR IV SCH ×3 (06:34→21:41)
[2019-02-12 06:42] LABS: BLOOD UREA NITROGEN 24 MG/DL (7-18); CALCIUM LEVEL 8.1 MG/DL (8.8-10.2); CARBON DIOXIDE LEVEL 32 MEQ/L (21-32); CHLORIDE LEVEL 101 MEQ/L (98-107); CREATININE FOR GFR 0.86 MG/DL (0.70-1.30); GLOMERULAR FILTRATION RATE > 60.0 (>35); GLUCOSE, FASTING 100 MG/DL (70-100); POTASSIUM SERUM 4.4 MEQ/L (3.5-5.1); SODIUM LEVEL 138 MEQ/L (136-145)
[2019-02-12] MEDS: SYMBICORT 160/4.5MCG INHALER 6GM INH SCH ×2 (07:29→19:46)
[2019-02-12] MEDS: ENOXAPARIN 30 MG/0.3 ML SYR (J1650) SC SCH (07:56)
[2019-02-12] MEDS: PANTOPRAZOLE 40MG INJ (PROTONIX) (C9113) IV SCH ×2 (07:56→21:40)
[2019-02-12] MEDS: GABAPENTIN 400 MG CAP PEG SCH ×3 (07:56→21:40)
[2019-02-12] MEDS: LACTOBACILLUS ACIDOPHILUS CAP (BACID) PO SCH ×3 (07:56→21:38)
[2019-02-12] MEDS: MEGESTROL SUSP 400 MG/10 ML UDC PO SCH (07:56)
[2019-02-12] MEDS: predniSONE 20 MG TAB PEG SCH (07:57)
[2019-02-12] MEDS: LevoFLOXacin 500 MG TABLET PEG SCH (07:57)
[2019-02-12] MEDS: DICLOFENAC EPOLAMINE 1.3 % PATCH TOP SCH ×4 (07:58→21:41)
[2019-02-12 10:00] VITALS: BP 133/78
--- NOTE | 2019-02-12 10:20 | IPNPDOC ---
Date Seen The patient was seen on 02/12/19. Progress Note SUBJECTIVE: Patient is an 83-year-old male with acute on chronic respiratory failure secondary to pneumonia. Patient is evaluated at bedside this morning. He is laying in bed in the recumbent position. He continues to report shortness of breath and left shoulder pain. He is unaware of his left elbow due to shoulder pain overwhelming shoulder pain. He does report an appetite. He denies fevers, night sweats, chills. No chest pain. OBJECTIVE PHYSICAL EXAMINATION: VITAL SIGNS: Please see below. GENERAL: Cachetic elderly male, alert and conversant, answers questions appropriately, no acute distress. HEENT: Atraumatic, normocephalic, PERRL, EOMI, oral mucosa appears pink and moist, dentures appears ill-fitting, nasal septum appears midline, nares are patent, nasal cannula in place. CARDIOVASCULAR: Regular rate and rhythm, normal S1 and S2, no murmur, rub, click . RESPIRATORY: Clear to auscultation bilaterally, no audible wheezes, crackles, or rhonchi. ABDOMINAL: Flat, soft, non-tender, non-distended, feeding tube in place in midline abdomen with site that is clean, dry, intact. EXTREMITIES: +2 pitting edema noted around the ankles bilaterally, edema noted around the left elbow, exquisite pain noted around the left shoulder and left upper extremity. NEUROLOGICAL: CN II-XII grossly intact. PSYCHOLOGICAL: Mood and affect appropriate. LABORATORY DATA, IMAGING STUDIES, MICROBIOLOGY: Please see below. DVT prophylaxis ordered?: Lovenox 30mg SQ daily. ASSESSMENT AND PLAN: This is an 83-year-old male with acute on chronic respiratory failure secondary to pneumonia. PROBLEMS: 1. 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 S/P Ceftriaxone IV x1 dose, Vancomycin IV x3 days, Zosyn IV x5 days, Doxycycline IV x5 days Urine antigen studies have been negative MRSA, sputum gram stain and culture, respiratory panel negative S/P Methylprednisolone IV C/W Levofloxacin 500mg PO daily until 02/16/2019 C/W Duoneb's scheduled, Symbicort C/W Prednisone 30mg PO daily C/W continuous pulse oximetry C/W oxygen therapy orders OT, PT --> rehabilitation only PFS --> once medically cleared, recommend short-term rehabilitation Ordered echocardiogram Incentive spirometry has been ordered 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 Severe protein-calorie malnutrition Unclear etiology for why patient has poor oral intake Protein level has remained consistently low FEES on 02/10/2019: poor swallow strength, pharyngeal/vellecular/pyriform sinus stasis, significant sticky mucus in the pharynx --> thin liquids, O2 humidity, saline nasal spray, no solids at this time Dietary recommends Jevity 1.5 @ 55mLs/hr with 150mL free water flushes Q6H; total calories 1980, total protein 84, total free water flushes 1603 C/W Megace 400mg PO daily Hemoglobin A1c 6.5% 2. Leukocytosis 2/2 to steroid use Continue to monitor, stable for the time-being VS stable, afebrile 3. Left shoulder pain, left sided olecranon bursal fluid collection Left sided shoulder x-ray, one view on 02/06/2019: Negative limited single portable examination of the left shoulder. Left elbow ultrasound on 02/10/2019: Findings consistent with a small olecranon bursal fluid collection. Soft tissue edema. ESR, CRP are both elevated Pain management consulted with recommendations: place Diclofenac patch over supraspinatus muscle, trigger point injections, out-patient radiofrequency --> patient will need to be NPO at midnight for trigger point injections on Saturday C/W Diclofenac patch, [place], Tylenol, Gabapentin Treatment for bursitis is NSAIDs; however, patient has a history of duodenal ulcers Start Diclofenac patch to left elbow Ordered procalcitonin NPO for trigger point injection with pain management on 02/13/2019 4. History of RUL lung cancer, 2009 Moderately differentiated adenocarcinoma S/P lobectomy No radiation therapy 5. Peripheral edema Unclear etiology at this time Patient has significantly low albumin which can be contributing to third spacing due to low oncotic pressure Obtaining echocardiogram to rule out heart failure Obtaining CXR to evaluate for volume overload, appears improved from priors Obtaining updated BNP; elevated on 02/04/2019 at 1297; remains elevated, but improved DISPOSITION: Pending clinical improvement. Trigger point injection tomorrow with pain management. NPO for procedure. I saw and evaluated the patient. I agree with the findings and plan of care as documented in the resident's note VS, I&O, 24H, Fishbone Vital Signs/I&O Vital Signs Date Time Temp Pulse Resp B/P (MAP) Pulse Ox O2 Delivery O2 Flow Rate FiO2 02/12/19 07:58 18 1.0 02/12/19 06:00 98.9 85 139/72 (94) 95 02/10/19 04:00 Nasal Cannula 02/08/19 18:19 28 I&O- Last 24 Hours up to 6 AM 02/12/19 06:00 Intake Total 2060 ml Output Total 1440 ml Balance 620 ml Laboratory Data 24H LABS Laboratory Tests 2 02/11/19 11:30: Bedside Glucose (Misc Panel) 117H 02/11/19 16:51: CB-Low-P-Type Natriuretic Peptide 1033H 02/11/19 17:20: Bedside Glucose (Misc Panel) 153H 02/12/19 00:04: Bedside Glucose (Misc Panel) 166H 02/12/19 05:56: Nucleated Red Blood Cells % (auto) 0.0, Anion Gap 5L, Glomerular Filtration Rate > 60.0, Blood Urea Nitrogen 24H, Creatinine 0.86, Sodium Level 138, Potassium Level 4.4, Chloride Level 101, Carbon Dioxide Level 32, Calcium Level 8.1L 02/12/19 06:11: Bedside Glucose (Misc Panel) 128H CBC/BMP Laboratory Tests 02/12/19 05:56 Red Blood Count 3.30 L, Mean Corpuscular Volume 93.0, Mean Corpuscular Hemoglobin 29.4, Mean Corpuscular Hemoglobin Concent 31.6 L, Red Cell Distribution Width 15.2 H, Calcium Level 8.1 L Microbiology Microbiology 02/04/19 Blood Culture - Final, Complete NO GROWTH AFTER 5 DAYS 02/04/19 Blood Culture - Final, Complete NO GROWTH AFTER 5 DAYS 02/05/19 Gram Stain - Final, Complete 02/05/19 Sputum Culture - Final, Complete 02/05/19 MRSA Screen - Final, Complete 02/04/19 Respiratory Virus Panel (PCR) ([place]) - Final, Complete SUDHEER WATERS DO Feb 12, 2019 10:20 DMITRY BAÑUELOS MD Feb 14, 2019 16:45
[2019-02-12] MEDS ORDERED: FUROSEMIDE 20 MG/2 ML VIAL (J1940) IV ONE (11:30)
[2019-02-12 14:00] VITALS: BP 120/62
[2019-02-12 22:00] VITALS: BP_SYST 119; BP_SYST 135; BP_DIAS 54; BP_DIAS 57
[2019-02-13] MEDS: ANEXSIA, NORCO 7.5MG/325MG TABLET(HYDROCODONE/APAP) PEG PRN ×3 (00:11→23:51)
[2019-02-13] MEDS: IPRATROPIUM 0.5MG/ALBUTEROL 2.5MG INH SOL UD 3ML (DUONEB)(J7620) NEB SCH ×4 (01:44→20:00)
[2019-02-13 02:00] VITALS: BP 115/56
[2019-02-13 06:00] VITALS: BP 112/56
[2019-02-13] MEDS: HumaLOG INSULIN (NovoLOG) PER UNIT SC SCH ×4 (06:00→17:21)
[2019-02-13] MEDS: SLF 3 ML SYR IV SCH ×3 (06:00→21:45)
[2019-02-13 06:01] LABS: HEMATOCRIT 30.3 % (42.0-52.0); HEMOGLOBIN 9.7 g/dl (13.5-17.5); MEAN CORPUSCULAR HEMOGLOBIN 30.6 pg (27.0-33.0); MEAN CORPUSCULAR VOLUME 95.6 fl (80.0-96.0); PLATELET COUNT, AUTOMATED 467 10^3/uL (150-450); RED BLOOD COUNT 3.17 10^6/uL (4.30-6.10); WHITE BLOOD COUNT 15.9 10^3/uL (4.0-10.0)
[2019-02-13 06:27] LABS: BLOOD UREA NITROGEN 25 MG/DL (7-18); CALCIUM LEVEL 8.2 MG/DL (8.8-10.2); CARBON DIOXIDE LEVEL 35 MEQ/L (21-32); CHLORIDE LEVEL 100 MEQ/L (98-107); CREATININE FOR GFR 0.85 MG/DL (0.70-1.30); GLOMERULAR FILTRATION RATE > 60.0 (>35); GLUCOSE, FASTING 86 MG/DL (70-100); SODIUM LEVEL 139 MEQ/L (136-145)
[2019-02-13] MEDS: SYMBICORT 160/4.5MCG INHALER 6GM INH SCH ×2 (07:14→20:14)
[2019-02-13] MEDS: DICLOFENAC EPOLAMINE 1.3 % PATCH TOP SCH ×3 (09:00→21:40)
[2019-02-13] MEDS ORDERED: BUPIVACAINE HCL 0.25% 10 ML VIAL As Ordered ONE (09:56)
[2019-02-13] MEDS ORDERED: TRIAMCINOLONE ACETONIDE SUSP 40 MG/ML VIAL (J3301) As Ordered ONE (09:56)
[2019-02-13] MEDS ORDERED: BUPIVACAINE HCL 0.25% 30 ML VIAL As Ordered ONE (09:56)
[2019-02-13] MEDS: LACTOBACILLUS ACIDOPHILUS CAP (BACID) PO SCH ×3 (11:55→21:44)
[2019-02-13] MEDS: predniSONE 10 MG TAB PEG SCH (11:55)
[2019-02-13] MEDS: GABAPENTIN 400 MG CAP PEG SCH ×3 (11:56→21:44)
[2019-02-13] MEDS: ENOXAPARIN 30 MG/0.3 ML SYR (J1650) SC SCH (11:56)
[2019-02-13] MEDS: MEGESTROL SUSP 400 MG/10 ML UDC PO SCH (11:56)
[2019-02-13] MEDS: LevoFLOXacin 500 MG TABLET PEG SCH (11:56)
[2019-02-13] MEDS: PANTOPRAZOLE 40MG INJ (PROTONIX) (C9113) IV SCH ×2 (11:57→21:41)
[2019-02-13] MEDS ORDERED: VARIBAR NECTAR 40% w/v 240ML SUSP BTL As Ordered ONE (12:05)
[2019-02-13] MEDS ORDERED: E-Z-PAQUE 96% w/w SUSP 176GM BTL As Ordered ONE (12:05)
[2019-02-13] MEDS ORDERED: VARIBAR PUDDING 40% w/v 230ML TUBE As Ordered ONE (12:05)
[2019-02-13 14:00] VITALS: BP 166/90
--- NOTE | 2019-02-13 14:49 | NUR ---
Pt seen this date for Modified Barium Swallow Study to determine safe level of diet consistency. Pt persists with pneumonia. Observed severe pharyngeal phase dysphagia as characterized by: mild aspiration of thin liquids and increase residue of nectar thick liquids. Liquid wash ineffective. Epiglottis did not invert. Did not persist with thicker liquid d/t likely increase build up in the pharynx. Recommend: NPO. Dysphagia therapy to improve lateral pharyngeal wall contraction and hylolaryngeal elevation. Please continue with thorough oral care at minimum 3x a day. Addendum: 02/13/19 at 1452 by MYLENE CALDERÓN MANFRED Amended: Links added.
--- NOTE | 2019-02-13 15:59 | IPNPDOC ---
Date Seen The patient was seen on 02/13/19. Progress Note SUBJECTIVE: Patient is an 83-year-old male with acute on chronic respiratory failure secondary to pneumonia. Patient is evaluated at bedside this afternoon. He has undergone a trigger point injection into his left shoulder this morning with pain management. He says that his shoulder pain is better. Patient then underwent a modified barium cookie swallow. Upon evaluation he is laying in the recumbent position in hospital bed. He feels tired. He continues to admit to shortness of breath without associated chest pain. Denies fever, night sweats, chills. He does not think he has too much swelling on his legs. OBJECTIVE PHYSICAL EXAMINATION: VITAL SIGNS: Please see below. GENERAL: Cachetic elderly male, alert and conversant, answers questions appropriately, no acute distress, but does appear tired. HEENT: Atraumatic, normocephalic, PERRL, EOMI, oral mucosa appears pink and moist, dentures appears ill-fitting, nasal septum appears midline, nares are patent, nasal cannula in place, full nicholas. CARDIOVASCULAR: Regular rate and rhythm, normal S1 and S2, no murmur, rub, click. RESPIRATORY: Clear to auscultation bilaterally, no audible wheezes, crackles, or rhonchi. ABDOMINAL: Flat, soft, non-tender, non-distended, feeding tube in place in midline abdomen with site that is clean, dry, intact. EXTREMITIES: +2 pitting edema noted around the ankles bilaterally, edema noted around the left elbow, no clubbing, no cyanosis. NEUROLOGICAL: CN II-XII grossly intact. PSYCHOLOGICAL: Mood and affect appropriate, appears tired. LABORATORY DATA, IMAGING STUDIES, MICROBIOLOGY: Please see below. DVT prophylaxis ordered?: Lovenox 30mg SQ daily. ASSESSMENT AND PLAN: This is an 83-year-old male with acute on chronic respiratory failure secondary to pneumonia. PROBLEMS: 1. 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 S/P Ceftriaxone IV x1 dose, Vancomycin IV x3 days, Zosyn IV x5 days, Doxycycline IV x5 days Urine antigen studies have been negative MRSA, sputum gram stain and culture, respiratory panel negative S/P Methylprednisolone IV C/W Levofloxacin 500mg PO daily until 02/16/2019 C/W Duoneb's scheduled, Symbicort C/W Prednisone 30mg PO daily C/W continuous pulse oximetry C/W oxygen therapy orders; remains on nasal cannula; remains hypoxic; is not oxygen dependent at home OT, PT --> rehabilitation only PFS --> once medically cleared, recommend short-term rehabilitation Echocardiogram completed; gave patient Lasix 20mg IV x1 dose; urine output on 02/12/2019 was 1.525L Incentive spirometry has been ordered 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 Severe protein-calorie malnutrition Unclear etiology for why patient has poor oral intake Protein level has remained consistently low FEES on 02/10/2019: poor swallow strength, pharyngeal/vellecular/pyriform sinus stasis, significant sticky mucus in the pharynx --> thin liquids, O2 humidity, saline nasal spray, no solids at this time Dietary recommends Jevity 1.5 @ 55mLs/hr with 150mL free water flushes Q6H; total calories 1980, total protein 84, total free water flushes 1603 SSI Q6H with adjustment to scale made due to hypoglycemia; FSBS Q6H D/C'd Megace Modified barium cookie swallow on 02/13/2019; speech therapy recommends strict NPO Hemoglobin A1c 6.5% 2. Leukocytosis 2/2 to steroid use Improving Continue to monitor, stable for the time-being VS stable, afebrile 3. Left shoulder pain, left sided olecranon bursal fluid collection Left sided shoulder x-ray, one view on 02/06/2019: Negative limited single portable examination of the left shoulder. Left elbow ultrasound on 02/10/2019: Findings consistent with a small olecranon bursal fluid collection. Soft tissue edema. ESR, CRP are both elevated Pain management consulted with recommendations: place Diclofenac patch over supraspinatus muscle, trigger point injections, out-patient radiofrequency --> patient will need to be NPO at midnight for trigger point injections on Saturday C/W Diclofenac patch, [place], Tylenol, Gabapentin Treatment for bursitis is NSAIDs; however, patient has a history of duodenal ulcers C/W Diclofenac patch to left elbow Ordered procalcitonin which is unremarkable S/P trigger point injection into left shoulder with pain management 4. History of RUL lung cancer, 2009 Moderately differentiated adenocarcinoma S/P lobectomy No radiation therapy 5. Peripheral edema Unclear etiology at this time Patient has significantly low albumin which can be contributing to third spacing due to low oncotic pressure Obtaining echocardiogram to rule out heart failure Obtaining CXR to evaluate for volume overload, appears improved from priors Obtaining updated BNP; elevated on 02/04/2019 at 1297; remains elevated, but improved DISPOSITION: Pending clinical improvement. I saw and evaluated the patient. I agree with the findings and plan of care as documented in the resident's note VS, I&O, 24H, Fishbone Vital Signs/I&O Vital Signs Date Time Temp Pulse Resp B/P (MAP) Pulse Ox O2 Delivery O2 Flow Rate FiO2 02/13/19 14:00 97.9 88 19 166/90 (115) 95 4.0 02/10/19 04:00 Nasal Cannula 02/08/19 18:19 28 I&O- Last 24 Hours up to 6 AM 02/13/19 05:59 Intake Total 2450 ml Output Total 1500 ml Balance 950 ml Laboratory Data 24H LABS Laboratory Tests 2 02/12/19 17:11: Bedside Glucose (Misc Panel) 146H 02/12/19 23:53: Bedside Glucose (Misc Panel) 148H 02/13/19 05:42: Nucleated Red Blood Cells % (auto) 0.0, Anion Gap 4L, Glomerular Filtration Rate > 60.0, Blood Urea Nitrogen 25H, Creatinine 0.85, Sodium Level 139, Potassium [place] 4.0, Chloride Level 100, Carbon Dioxide Level 35H, Calcium Level 8.2L 02/13/19 11:22: Bedside Glucose (Misc Panel) 59L CBC/BMP Laboratory Tests 02/13/19 05:42 Red Blood Count 3.17 L, Mean Corpuscular Volume 95.6, Mean Corpuscular Hemoglobin 30.6, Mean Corpuscular Hemoglobin Concent 32.0, Red Cell Distribution Width 15.5 H, Calcium Level 8.2 L Microbiology Microbiology 02/04/19 Blood Culture - Final, Complete NO GROWTH AFTER 5 DAYS 02/04/19 Blood Culture - Final, Complete NO GROWTH AFTER 5 DAYS 02/05/19 Gram Stain - Final, Complete 02/05/19 Sputum Culture - Final, Complete 02/05/19 MRSA Screen - Final, Complete 02/04/19 Respiratory Virus Panel (PCR) ([place]) - Final, Complete SUDHEER WATERS DO Feb 13, 2019 15:59 DMITRY BAÑUELOS MD Feb 14, 2019 16:49
--- NOTE | 2019-02-13 19:28 | REP ---
COOKIE SWALLOW The procedure was performed under the direct supervision of Dr. Harris. The procedure was performed with Diane Kaba from speech pathology present. 5 ml aliquots of nectar and thin consistency barium was administered. With thin consistency barium there is aspiration. The epiglottis does not appear to invert during the swallowing function. The detailed report of this examination will be provided by speech pathology. 0.6 minutes of fluoroscopy time was utilized for this procedure. Reviewed by ELLY Pryor 02/13/2019 03:49 P Electronically Signed by Jaime Harris MD 02/13/2019 07:19 P
[2019-02-13 22:00] VITALS: BP 137/73
[2019-02-14] MEDS: HumaLOG INSULIN (NovoLOG) PER UNIT SC SCH ×5 (00:08→23:50)
[2019-02-14] MEDS: IPRATROPIUM 0.5MG/ALBUTEROL 2.5MG INH SOL UD 3ML (DUONEB)(J7620) NEB SCH ×4 (02:00→20:00)
[2019-02-14 06:03] LABS: HEMATOCRIT 28.2 % (42.0-52.0); MEAN CORPUSCULAR HEMOGLOBIN 29.4 pg (27.0-33.0); MEAN CORPUSCULAR HGB CONC 31.9 g/dl (32.0-36.5); MEAN CORPUSCULAR VOLUME 92.2 fl (80.0-96.0); PLATELET COUNT, AUTOMATED 470 10^3/uL (150-450); RED BLOOD COUNT 3.06 10^6/uL (4.30-6.10); WHITE BLOOD COUNT 14.4 10^3/uL (4.0-10.0)
[2019-02-14] MEDS: ANEXSIA, NORCO 7.5MG/325MG TABLET(HYDROCODONE/APAP) PEG PRN ×3 (06:23→23:14)
[2019-02-14] MEDS: SLF 3 ML SYR IV SCH ×3 (06:24→20:49)
[2019-02-14 06:36] LABS: BLOOD UREA NITROGEN 27 MG/DL (7-18); CALCIUM LEVEL 7.7 MG/DL (8.8-10.2); CARBON DIOXIDE LEVEL 35 MEQ/L (21-32); CHLORIDE LEVEL 101 MEQ/L (98-107); GLOMERULAR FILTRATION RATE > 60.0 (>35); GLUCOSE, FASTING 117 MG/DL (70-100); POTASSIUM SERUM 4.5 MEQ/L (3.5-5.1); SODIUM LEVEL 138 MEQ/L (136-145)
--- NOTE | 2019-02-14 06:44 | ECHO ---
DATE OF SERVICE: 02/11/2019 AGE: 83 REFERRING PROVIDER: Dr. Brigid Mix PATIENT LOCATION: Room 4214 REASON FOR THE ECHOCARDIOGRAM: Shortness of breath. 2D MEASUREMENTS: IVS: 0.7 cm LV: 3.8 cm LVPW: 0.7 cm and 1 cm DOPPLER MEASUREMENTS: Peak velocity across the aortic valve: 1.1 m/s Peak velocity across the LVOT: 0.44 m/s Mitral E: 0.50 Mitral A: 0.59 with a ratio of 0.9 Maximum tricuspid valve velocity: 3.5 m.s 2D COMMENTS: 1. Normal left ventricular size, wall thickness, and normal global left ventricular systolic function. The estimated left ventricular systolic ejection fraction is 60-65%. 2. The left atrium and the right atrium appeared to be normal in size. Normal right ventricle. 3. The atrial septum appeared to be normal without evidence of defect or shunt. 4. Normal aortic root. 5. No pericardial effusion seen. 6. Mildly calcified aortic valve with normal leaflet excursion. No mitral valve, tricuspid valve. The pulmonic valve and proximal pulmonary artery branches were not well visualized. 7. The inferior vena cava was not visualized. Doppler, it detects trace mitral regurgitation and moderate tricuspid regurgitation. The calculated pulmonary artery systolic pressure varies between 40-50 mmHg. Abnormal relaxation pattern was noted across the mitral valve leaflets as well as the mitral valve annulus consistent with features of grade 1 left ventricular diastolic dysfunction. IMPRESSION: 1. Normal global left ventricular systolic function. There are some features of left ventricular diastolic dysfunction, abnormal relaxation. 2. Aortic valve sclerosis without stenosis or aortic radiation. 3. Isolated trace mitral regurgitation. 4. Moderate tricuspid regurgitation with moderate pulmonary hypertension.
[2019-02-14] MEDS: SYMBICORT 160/4.5MCG INHALER 6GM INH SCH ×2 (07:13→20:24)
[2019-02-14 09:00] VITALS: O2SAT 97
[2019-02-14] MEDS ORDERED: MIRALAX *UNIT DOSE* 17GM PACKET PO SCH (09:00)
[2019-02-14] MEDS: ENOXAPARIN 30 MG/0.3 ML SYR (J1650) SC SCH (09:34)
[2019-02-14] MEDS: PANTOPRAZOLE 40MG INJ (PROTONIX) (C9113) IV SCH ×2 (09:34→20:49)
[2019-02-14] MEDS: predniSONE 10 MG TAB PEG SCH (09:35)
[2019-02-14] MEDS: LACTOBACILLUS ACIDOPHILUS CAP (BACID) PO SCH ×3 (09:35→20:49)
[2019-02-14] MEDS: DICLOFENAC EPOLAMINE 1.3 % PATCH TOP SCH ×3 (09:35→20:54)
[2019-02-14] MEDS: GABAPENTIN 400 MG CAP PEG SCH ×3 (09:35→20:49)
[2019-02-14] MEDS: LevoFLOXacin 500 MG TABLET PEG SCH (09:35)
--- NOTE | 2019-02-14 11:42 | IPNPDOC ---
Date Seen The patient was seen on 02/14/19. Progress Note SUBJECTIVE: Patient is an 83-year-old male with acute on chronic respiratory failure. Patient is evaluated at bedside this morning. He is sitting up in a chair at bedside. He continues to express shortness of breath. He feels as though it is difficult to get air in. He is only minimally coughing and it is not productive. He denies fevers, night sweats, chills. His shoulder pain is still present, but better. He states that the pain he feels the most is down his left arm. He continues to feel weak, but is making efforts to get out of bed to chair and following the instructions left by PT and OT. OBJECTIVE PHYSICAL EXAMINATION: VITAL SIGNS: Please see below. GENERAL: Cachetic elderly male, alert and conversant, answers questions appropriately, sitting up in a chair at bedside, no acute distress. HEENT: Atraumatic, normocephalic, PERRL, EOMI, oral mucosa appears pink and moist, dentures appears ill-fitting, nasal septum appears midline, nares are patent, nasal cannula in place, full nicholas. CARDIOVASCULAR: Regular rate and rhythm, normal S1 and S2, no murmur, rub, click. RESPIRATORY: Clear to auscultation bilaterally, diminished breath sounds throughout, no audible wheezes, crackles, or rhonchi, speech is unlabored, breathing appears unlabored, speaks in full sentences. ABDOMINAL: Flat, soft, non-tender, non-distended, feeding tube in place in midl ine abdomen with site that is clean, dry, intact. EXTREMITIES: +3 pitting edema noted around the ankles bilaterally, edema noted around the left elbow, no clubbing, no cyanosis. NEUROLOGICAL: CN II-XII grossly intact. PSYCHOLOGICAL: Mood and affect appropriate, appears tired. LABORATORY DATA, IMAGING STUDIES, MICROBIOLOGY: Please see below. ECHOCARDIOGRAM: Normal global left ventricular systolic function. There are some features of left ventricular diastolic dysfunction (grade I), abnormal relaxation. Aortic valve sclerosis without stenosis or aortic radiation. Isolated trace mitral regurgitation. Moderate tricuspid regurgitation with moderate pulmonary hypertension. LVEF 60-65% DVT prophylaxis ordered?: Lovenox 30mg SQ daily. ASSESSMENT AND PLAN: This is an 83-year-old male with acute on chronic respiratory failure. PROBLEMS: 1. Acute on chronic respiratory failure, multifactorial Remains on oxygen; not home O2 dependent Differential: pneumonia, CHF (with pleural effusions), atelectasis, hypoalbuminemia (resulting in low oncotic pressure and third-spacing) S/P Ceftriaxone IV x1 dose, Vancomycin IV x3 days, Zosyn IV x5 days, Doxycycline IV x5 days; Methylprednisolone ABG on 02/04/2019: respiratory alkalosis with non-gapped metabolic acidosis C/W Levofloxacin 500mg PO daily until 02/16/2019 Urine antigen studies have been negative MRSA, sputum gram stain and culture, respiratory panel negative C/W Duoneb's scheduled, Symbicort C/W Prednisone 30mg PO daily C/W continuous pulse oximetry OT, PT --> rehabilitation only PFS --> once medically cleared, recommend short-term rehabilitation Echocardiogram as resulted above Trial of Furosemide 20mg IV BIB; augmented by Albumin infusion in order to facilitate diuresis and improve oncotic pressure Incentive spirometry has been ordered and has been encouraged 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 Recommend: NPO; dysphagia therapy to improve lateral pharyngeal wall contraction and hylolaryngeal elevation; continue with thorough oral care at minimum 3x a day 2. Severe protein-calorie malnutrition Unclear etiology for why patient has poor oral intake Protein level has remained consistently low; Albumin transfusion ordered FEES on 02/10/2019: poor swallow strength, pharyngeal/vellecular/pyriform sinus stasis, significant sticky mucus in the pharynx --> thin liquids, O2 humidity, saline nasal spray, no solids at this time Dietary recommends Jevity 1.5 @ 55mLs/hr with 150mL free water flushes Q6H; total calories 1980, total protein 84, total free water flushes 1603 SSI Q6H with adjustment to scale made due to hypoglycemia; FSBS Q6H D/C'd Megace Modified barium cookie swallow on 02/13/2019; speech therapy recommends strict NPO; please see recommendations in #1 Hemoglobin A1c 6.5% Started Colace, MiraLax for constipation 2. Leukocytosis 2/2 to steroid use Improving Continue to monitor, stable for the time-being VS stable, afebrile 3. Left shoulder pain, left sided olecranon bursal fluid collection S/P left shoulder trigger point injection Left sided shoulder x-ray, one view on 02/06/2019: Negative limited single portable examination of the left shoulder. Left elbow ultrasound on 02/10/2019: Findings consistent with a small olecranon bursal fluid collection. Soft tissue edema. ESR, CRP are both elevated Pain management consulted with recommendations: place Diclofenac patch over supraspinatus muscle, trigger point injections, out-patient radiofrequency C/W Diclofenac patch (left shoulder, left elbow), [place], Tylenol, Gabapentin Treatment for bursitis is NSAIDs; however, patient has a history of duodenal ulcers Ordered procalcitonin which is unremarkable 4. History of RUL lung cancer, 2009 Moderately differentiated adenocarcinoma S/P lobectomy No radiation therapy 5. Peripheral edema, weakness Unclear etiology at this time Patient has significantly low albumin which can be contributing to third spacing due to low oncotic pressure; ordered Albumin infusion Echocardiogram as resulted above; repeat BNP remains elevated, but improved; starting Furosemide 20mg IV BID CXR reveals improving pneumonia, chronic interstitial fibrosis Encourage OOB with meals, OOB to chair BID DISPOSITION: Pending clinical improvement. I saw and evaluated the patient. I agree with the findings and plan of care as documented in the resident's note VS, I&O, 24H, Fishbone Vital Signs/I&O Vital Signs Date Time Temp Pulse Resp B/P (MAP) Pulse Ox O2 Delivery O2 Flow Rate FiO2 02/14/19 09:00 97 Nasal Cannula 2.0 02/14/19 06:53 18 02/14/19 06:00 98.5 85 02/13/19 22:00 137/73 (94) 02/08/19 18:19 28 I&O- Last 24 Hours up to 6 AM 02/14/19 06:00 Intake Total 600 ml Output Total 1025 ml Balance -425 ml Laboratory Data 24H LABS Laboratory Tests 2 02/13/19 11:22: Bedside Glucose (Misc Panel) 59L 02/13/19 17:00: Bedside Glucose (Misc Panel) 132H 02/14/19 00:02: Bedside Glucose (Misc Panel) 171H 02/14/19 05:32: Nucleated Red Blood Cells % (auto) 0.0, Anion Gap 2L, Glomerular Filtration Rate > 60.0, Blood Urea Nitrogen 27H, Creatinine 0.70, Sodium Level 138, Potassium Level 4.5, Chloride Level 101, Carbon Dioxide Level 35H, Calcium Level 7.7L 02/14/19 06:09: Bedside Glucose (Misc Panel) 140H CBC/BMP Laboratory Tests 02/14/19 05:32 Red Blood Count 3.06 L, Mean Corpuscular Volume 92.2, Mean Corpuscular Hemoglobin 29.4, Mean Corpuscular Hemoglobin Concent 31.9 L, Red Cell Distribution Width 15.9 H, Calcium Level 7.7 L Microbiology Microbiology 02/04/19 Blood Culture - Final, Complete NO GROWTH AFTER 5 DAYS 02/04/19 Blood Culture - Final, Complete NO GROWTH AFTER 5 DAYS 02/05/19 Gram Stain - Final, Complete 02/05/19 Sputum Culture - Final, Complete 02/05/19 MRSA Screen - Final, Complete 02/04/19 Respiratory Virus Panel (PCR) ([place]) - Final, Complete SUDHEER WATERS DO Feb 14, 2019 11:42 DMITRY BAÑUELOS MD Feb 14, 2019 16:56
[2019-02-14 14:00] VITALS: BP 125/59
[2019-02-14] MEDS ORDERED: MIRALAX *UNIT DOSE* 17GM PACKET PO PRN (15:15)
[2019-02-14] MEDS: FUROSEMIDE 20 MG/2 ML VIAL (J1940) IV SCH (18:52)
[2019-02-14] MEDS ORDERED: DOCUSATE SODIUM 100 MG CAP PO SCH (21:00)
[2019-02-14 22:00] VITALS: BP 138/66; O2SAT 97
[2019-02-15] MEDS: IPRATROPIUM 0.5MG/ALBUTEROL 2.5MG INH SOL UD 3ML (DUONEB)(J7620) NEB SCH ×4 (02:00→19:49)
[2019-02-15] MEDS: ANEXSIA, NORCO 7.5MG/325MG TABLET(HYDROCODONE/APAP) PEG PRN ×3 (03:37→16:00)
[2019-02-15 06:00] VITALS: BP 136/66
[2019-02-15 06:37] LABS: HEMATOCRIT 30.7 % (42.0-52.0); HEMOGLOBIN 9.6 g/dl (13.5-17.5); MEAN CORPUSCULAR HEMOGLOBIN 30.5 pg (27.0-33.0); MEAN CORPUSCULAR HGB CONC 31.3 g/dl (32.0-36.5); MEAN CORPUSCULAR VOLUME 97.5 fl (80.0-96.0); PLATELET COUNT, AUTOMATED 434 10^3/uL (150-450); RED BLOOD COUNT 3.15 10^6/uL (4.30-6.10); WHITE BLOOD COUNT 17.4 10^3/uL (4.0-10.0)
[2019-02-15] MEDS: SLF 3 ML SYR IV SCH ×3 (06:44→20:17)
[2019-02-15] MEDS: HumaLOG INSULIN (NovoLOG) PER UNIT SC SCH ×3 (06:44→17:12)
[2019-02-15 06:56] LABS: BLOOD UREA NITROGEN 26 MG/DL (7-18); CALCIUM LEVEL 8.3 MG/DL (8.8-10.2); CARBON DIOXIDE LEVEL 38 MEQ/L (21-32); CHLORIDE LEVEL 99 MEQ/L (98-107); CREATININE FOR GFR 0.79 MG/DL (0.70-1.30); GLOMERULAR FILTRATION RATE > 60.0 (>35); GLUCOSE, FASTING 142 MG/DL (70-100); POTASSIUM SERUM 3.9 MEQ/L (3.5-5.1); SODIUM LEVEL 139 MEQ/L (136-145)
[2019-02-15] MEDS: SYMBICORT 160/4.5MCG INHALER 6GM INH SCH ×2 (07:29→19:48)
[2019-02-15 09:00] VITALS: O2SAT 97
[2019-02-15] MEDS: LevoFLOXacin 500 MG TABLET PEG SCH (09:11)
[2019-02-15] MEDS: ENOXAPARIN 30 MG/0.3 ML SYR (J1650) SC SCH (09:11)
[2019-02-15] MEDS: GABAPENTIN 400 MG CAP PEG SCH ×3 (09:11→20:16)
[2019-02-15] MEDS: LACTOBACILLUS ACIDOPHILUS CAP (BACID) PO SCH ×3 (09:11→20:16)
[2019-02-15] MEDS: DICLOFENAC EPOLAMINE 1.3 % PATCH TOP SCH ×4 (09:12→20:17)
[2019-02-15] MEDS: FUROSEMIDE 20 MG/2 ML VIAL (J1940) IV SCH ×2 (09:12→15:59)
[2019-02-15] MEDS: PANTOPRAZOLE 40MG INJ (PROTONIX) (C9113) IV SCH ×2 (09:12→20:16)
[2019-02-15] MEDS: predniSONE 10 MG TAB PEG SCH (09:13)
[2019-02-15 14:00] VITALS: BP 135/69
--- NOTE | 2019-02-15 16:09 | IPNPDOC ---
Date Seen The patient was seen on 02/15/19. Progress Note SUBJECTIVE: Patient told me that he feels about the same. He notices that he is urinating quite a bit, he still feels weak especially in his legs shoulder pain has improved since his injection in the pain clinic otherwise patient denies chest pain, nausea, vomiting, fevers, chills OBJECTIVE PHYSICAL EXAMINATION: VITAL SIGNS: Please see below. GENERAL: Pleasant cachectic frail elderly man sitting up in bed awake alert oriented speaking in complete sentences no acute distress accompanied by his HEENT: Moist mucous membranes no elevation in CVP CARDIOVASCULAR: S1 S2 regular no additional heart sounds appreciated. RESPIRATORY: Clear to auscultation bilaterally. Diminished effort ABDOMINAL: Bowel sounds present abdomen scaphoid with feeding tube in place EXTREMITIES: No clubbing cyanosis or edema, cachectic and wasted NEUROLOGICAL: Spontaneously moves all 4 extremities cranial 2 through 12 grossly intact no gross focal deficits appreciated PSYCHOLOGICAL: Appropriate LABORATORY DATA, MICROBIOLOGY: Please see below. IMAGING STUDIES: 02/11 chest x-ray:1. Chronic interstitial fibrosis. 2. Right upper lobe and bilateral lower lobe infiltrates decreased compared to the previous study. 3. Small bilateral pleural effusions unchanged compared to the previous study. ASSESSMENT AND PLAN: This is a 83-year-old man with resolving aspiration pneumonia. PROBLEMS: 1. Resolving aspiration pneumonia: As per patient's therapy he is to be nothing by mouth for the time being he does have right upper lobe and bilateral lower lobe infiltrates. He has severe Protein calorie malnutrition and is continued on tube feeds. He is continued on levofloxacin I suspect that his respiratory infection is resolving at this time we'll continue to wean his oxygen as tolerated he did present with acute hypoxic respiratory failure. There may be an element of congestive heart failure atelectasis and low albumin contributing to his persistent hypoxia. We'll attempt to wean his O2 has been treated aggressively with diuresis albumin transfusions encourage incentive spirometry and continue with steroids and antibiotics given his history of obstructive disease. We have encouraged him to be out of bed as much as possible. Given his history of lobectomy for lung cancer as well as weakness he has very little reserve. He is continued on DuoNeb and Symbicort 2. Severe protein calorie malnutrition: He is currently unable to eat as he has been aspirating I suspect this may be why he is had severe weight loss. Cer tainly could also be secondary to chronic pain as she was fixated on his left shoulder pain pain clinic, greatly appreciated he does appear to be improved at this time. Continue with tube feeds. 3. Leukocytosis: Possibly reactive, possibly secondary to his resolving infection. 4. Constipation: Secondary to narcotics use history provided with a bowel regimen. 5. Shoulder pain: Continue with diclofenac patch as well as O'Brien pain consult help greatly appreciated, he appears more comfortable following an ejection DVT prophylaxis: Lovenox DISPOSITION: Rehabilitation placement. VS, I&O, 24H, Fishbone Vital Signs/I&O Vital Signs Date Time Temp Pulse Resp B/P (MAP) Pulse Ox O2 Delivery O2 Flow Rate FiO2 02/15/19 16:00 18 02/15/19 09:00 97 Nasal Cannula 2.0 02/15/19 06:00 97.2 83 136/66 (89) I&O- Last 24 Hours up to 6 AM 02/15/19 06:00 Intake Total 780 ml Output Total 2175 ml Balance -1395 ml Laboratory Data 24H LABS Laboratory Tests 2 02/14/19 16:44: Bedside Glucose (Misc Panel) 156H 02/14/19 23:40: Bedside Glucose (Misc Panel) 162H 02/15/19 06:06: Nucleated Red Blood Cells % (auto) 0.0, Anion Gap 2L, Glomerular Filtration Rate > 60.0, Blood Urea Nitrogen 26H, Creatinine 0.79, Sodium Level 139, Potassium Level 3.9, Chloride Level 99, Carbon Dioxide Level 38H, Calcium Level 8.3L 02/15/19 06:09: Bedside Glucose (Misc Panel) 148H 02/15/19 11:53: Bedside Glucose (Misc Panel) 139H CBC/BMP Laboratory Tests 02/15/19 06:06 Red Blood Count 3.15 L, Mean Corpuscular Volume 97.5 H, Mean Corpuscular Hemoglobin 30.5, Mean Corpuscular Hemoglobin Concent 31.3 L, Red Cell Distribution Width 16.3 H, Calcium Level 8.3 L Microbiology Microbiology 02/05/19 Gram Stain - Final, Complete 02/05/19 Sputum Culture - Final, Complete 02/05/19 MRSA Screen - Final, Complete DMITRY BAÑUELOS MD Feb 15, 2019 16:09
[2019-02-15 22:00] VITALS: BP 147/75
[2019-02-16] MEDS: HumaLOG INSULIN (NovoLOG) PER UNIT SC SCH ×3 (00:58→12:32)
[2019-02-16] MEDS: ANEXSIA, NORCO 7.5MG/325MG TABLET(HYDROCODONE/APAP) PEG PRN ×2 (01:11→12:33)
[2019-02-16] MEDS: IPRATROPIUM 0.5MG/ALBUTEROL 2.5MG INH SOL UD 3ML (DUONEB)(J7620) NEB SCH ×3 (02:02→13:53)
[2019-02-16] MEDS: SLF 3 ML SYR IV SCH ×2 (05:25→12:32)
[2019-02-16 06:00] VITALS: BP 145/71
[2019-02-16 06:24] LABS: HEMATOCRIT 32.6 % (42.0-52.0); HEMOGLOBIN 10.1 g/dl (13.5-17.5); MEAN CORPUSCULAR HEMOGLOBIN 30.1 pg (27.0-33.0); PLATELET COUNT, AUTOMATED 396 10^3/uL (150-450); RED BLOOD COUNT 3.36 10^6/uL (4.30-6.10); WHITE BLOOD COUNT 15.6 10^3/uL (4.0-10.0)
[2019-02-16 06:40] LABS: BLOOD UREA NITROGEN 27 MG/DL (7-18); CALCIUM LEVEL 8.3 MG/DL (8.8-10.2); CARBON DIOXIDE LEVEL 37 MEQ/L (21-32); CHLORIDE LEVEL 97 MEQ/L (98-107); CREATININE FOR GFR 0.88 MG/DL (0.70-1.30); GLOMERULAR FILTRATION RATE > 60.0 (>35); GLUCOSE, FASTING 125 MG/DL (70-100); POTASSIUM SERUM 3.5 MEQ/L (3.5-5.1); SODIUM LEVEL 138 MEQ/L (136-145)
[2019-02-16] MEDS: LACTOBACILLUS ACIDOPHILUS CAP (BACID) PO SCH (08:04)
[2019-02-16] MEDS: GABAPENTIN 400 MG CAP PEG SCH (08:04)
[2019-02-16] MEDS: PANTOPRAZOLE 40MG INJ (PROTONIX) (C9113) IV SCH (08:05)
[2019-02-16] MEDS: DICLOFENAC EPOLAMINE 1.3 % PATCH TOP SCH ×2 (08:05→08:07)
[2019-02-16] MEDS: ENOXAPARIN 30 MG/0.3 ML SYR (J1650) SC SCH (08:05)
[2019-02-16] MEDS: FUROSEMIDE 20 MG/2 ML VIAL (J1940) IV SCH (08:05)
[2019-02-16] MEDS: SYMBICORT 160/4.5MCG INHALER 6GM INH SCH (08:15)
[2019-02-16 09:00] VITALS: O2SAT 96
[2019-02-16] MEDS ORDERED: predniSONE 10 MG TAB PEG SCH (09:00)
[2019-02-16] MEDS ORDERED: GLUC4GMTAB PO (12:57)
[2019-02-16] MEDS ORDERED: ACET1TAB55 PEG (12:57)
[2019-02-16] MEDS ORDERED: MOM30SS2 PEG (12:57)
[2019-02-16] MEDS ORDERED: DICL13PA TOP (12:57)
[2019-02-16] MEDS ORDERED: IPRA0.00 NEB (12:57)
[2019-02-16] MEDS ORDERED: PRED10TA2 PEG (12:57)
[2019-02-16] MEDS ORDERED: INSUHUMDS SC (12:57)
[2019-02-16] MEDS ORDERED: SLF3ML IV ×2 (12:57)
[2019-02-16] MEDS ORDERED: HYDR-4514 PEG (12:57)
[2019-02-16] MEDS ORDERED: GABA-845 PEG (12:57)
[2019-02-16] MEDS ORDERED: LOVE1INJ2 SC (12:57)
[2019-02-16] MEDS ORDERED: [UNRECOGNIZED DRUG - OTHER] IV (12:57)
[2019-02-16] MEDS ORDERED: GLUC1INJ21 SC (12:57)
[2019-02-16] MEDS ORDERED: PROT40IN4 IV (12:57)
[2019-02-16] MEDS ORDERED: RISATAB3 PO (12:57)
[2019-02-16] MEDS ORDERED: PEG1POW PO (12:57)
[2019-02-16] MEDS ORDERED: SYMB16INH INH (12:57)
--- NOTE | 2019-02-16 19:20 | DS.PDOC ---
Discharge Summary General Date of Admission Feb 04, 2019 at 14:48 Date of Discharge 02/16/2019 Attending Physician: DMITRY BAÑUELOS MD Specialist/Consultants Involve: Jonny Cartwright MD Specialist/Consultants Involve Primary care provider: [facility] Discharge Summary PROCEDURES PERFORMED DURING STAY: 1. Trigger point injection, left shoulder 2. Echocardiogram - Normal global left ventricular systolic function. There are some features of left ventricular diastolic dysfunction, abnormal relaxation. Aortic valve sclerosis without stenosis or aortic radiation. Isolated trace mitral regurgitation. Moderate tricuspid regurgitation with moderate pulmonary hypertension. ADMITTING DIAGNOSES: 1. Hospital acquired pneumonia and sepsis 2. Cachexia and severe protein calorie malnutrition 3. COPD exacerbation secondary to pneumonia DISCHARGE DIAGNOSES: 1. Aspiration pneumonia 2. Severe protein-calorie malnutrition 3. Neutrophilic leukocytosis 4. Left shoulder pain 5. History of lung adenocarcinoma s/p lobectomy 6. Peripheral edema COMPLICATIONS/CHIEF COMPLAINT: Hypoxia, Pneumoina,Respiratory Distress. HISTORY OF PRESENT ILLNESS: Mr. Phillips is an 83-year-old male with a past medical history of lung cancer? s/p lung resection in 2008 (not clear what type of lung cancer it was) and L shoulder surgery, presented to the ED for weakness, cough, and shortness of breath. Of note, the patient was hospitalized until recently, and discharged after he was treated for pneumonia. At that point, the patient was found to be extremely malnurished. Therefore, he had the PEG tube placement and enteral feeding was provided. He is still able to swallow food, but the patient completely lost an appetite. He does not want to eat and keeps losing weight. Currently, the patient endorses physical weakness, cough with sputum production. In the ED, the patient had CXR, showing multi-lobar pneumonia. He received ceftriaxone and is admitted for further medical management. HOSPITAL COURSE: Patient was admitted for further medical management. He was started on Vancomycin and Zosyn for underlying pneumonia. Doxycycline was also started. Transitioned to oral Levaquin and completed course during hospitalization. No antibiotics at time of discharge. Blood cultures, urine legionella, urine strep antigen, and sputum cultures were obtained which all resulted as negative. Patient was provided with NS for hydration which was eventually discontinued. Imaging was obtained as resulted below. For patient's cachexia and protein-calorie malnutrition his tube feedings were continued. Dietary consult was also ordered and changes to tube feeds made based on recommendations. Megace was started to stimulate appetite; however, due to patient's NPO status based on FEES and barium swallow evaluation it was discontinued. A free T4 and cortisol level were obtained and were within normal limits. PT and OT were ordered and both recommended continued rehabilitation upon discharge. Supportive treatments were continued for underlying COPD, including SoluMedrol which was tapered and transitioned to oral Prednisone. Patient is to complete course Prednisone at the senior care. Patient admitted to left shoulder pain and was evaluated by pain management who performed a left shoulder trigger point injection. This improved patient's pain. Continued with Diclofenac patches to the left shoulder and left elbow. No oral NSAIDs were given due to history of duodenal ulcers. Developed diarrhea, so probiotics were started. Speech therapy was ordered due to dysphagia. Extensive work-up ensued, including swallow evaluation and FEES test. Aspiration noted Recommendations included NPO and continued speech therapy. It is strongly advised that patient continue speech therapy training upon discharge. Patient demonstrated significant peripheral edema and in conjunction with respiratory failure, an echocardiogram was obtained as resulted above. A trial of IV Lasix was ordered as well as two infusions of Albumin given that patient's albumin level was significantly low in order to facilitate possible excessive fluid removal in the hopes to aid improvement in respiratory status. Incentive spirometry was also added. Patient's respiratory status improved and oxygen was weaned to 0.5L at time of discharge to senior care. Lower extremities remained edematous. Lasix was discontinued at time of discharge. Patient did appear clinically improve throughout hospitalization and was stable at time of discharge to senior care for further rehabilitative services. DISCHARGE MEDICATIONS: Please see below. ALLERGIES: Please see below. PHYSICAL EXAMINATION ON DISCHARGE: VITAL SIGNS: Please see below. GENERAL: Cachetic elderly male, alert and conversant, answers questions appropriately, sitting up in hospital bed, no acute distress. HEENT: Atraumatic, normocephalic, PERRL, EOMI, oral mucosa appears pink and moist, dentures appears ill-fitting, nasal septum appears midline, nares are patent, nasal cannula in place, full nicholas. CARDIOVASCULAR: Regular rate and rhythm, normal S1 and S2, no murmur, rub, click. RESPIRATORY: Clear to auscultation bilaterally, diminished breath sounds throughout, coarse breath sounds throughout, no audible wheezes, crackles, or rhonchi, speech is unlabored, breathing appears unlabored, speaks in full sentences. ABDOMINAL: Flat, soft, non-tender, non-distended, feeding tube in place in midline abdomen with site that is clean, dry, intact. EXTREMITIES: +3 pitting edema noted around the ankles bilaterally, edema noted around the left elbow, Diclofenac patches noted on left elbow and left shoulder, no clubbing, no cyanosis, multiple ecchymoses noted on upper extremities, limbs are thin appearing and cachetic NEUROLOGICAL: CN II-XII grossly intact. PSYCHOLOGICAL: Mood and affect appropriate, appears tired. LABORATORY DATA: Please see below. IMAGIN. Portable chest x-ray - Chronic interstitial fibrosis. Right upper lobe and bilateral lower lobe infiltrates. Small bilateral pleural effusions. 2. Left shoulder x-ray, 1 view - Negative limited single portable examination of the left shoulder as described above. 3. Tissue ultrasound, left elbow - Findings consistent with a small olecranon bursal fluid collection. Soft tissue edema. 4. Portable chest x-ray - Chronic interstitial fibrosis. Right upper lobe and bilateral lower lobe infiltrates decreased compared to the previous study. Small bilateral pleural effusions unchanged compared to the previous study. 5. Cookie swallow - 5 ml aliquots of nectar and thin consistency barium was administered. With thin consistency barium there is aspiration. The epiglottis does not appear to invert during the swallowing function. PROGNOSIS: Stable. ACTIVITY: As tolerated; PT/OT/ST. DIET: Tube feeding; NPO DISCHARGE PLAN: Problem: Managing health at home Goal: Improve health & wellness Instructions: Follow DC Instruction DISPOSITION: [facility], [facility] Keep Home. DISCHARGE INSTRUCTIONS: 1. [facility] in 7-10 days 2. Take all medications as prescribed 3. Continue with PT/OT/ST 4. Please continue ST's recommendations - dysphagia therapy to improve lateral pharyngeal wall contraction and hylolaryngeal elevation. Please continue with thorough oral care at minimum 3x a day 5. Return to the nearest Emergency Department should your symptoms worsen or persist ITEMS TO FOLLOWUP ON ON OUTPATIENT: 1. Pneumonia 2. Cachexia and severe protein-calorie malnutrition 3. Respiratory status DISCHARGE CONDITION: Stable. TIME SPENT ON DISCHARGE: Greater than 30 minutes. Vital Signs/I&Os Vital Signs Date Time Temp Pulse Resp B/P (MAP) Pulse Ox O2 Delivery O2 Flow Rate FiO2 02/16/19 13:03 17 96 0.5 02/16/19 09:00 Nasal Cannula 02/16/19 06:00 96.0 86 145/71 (95) I&O- Last 24 Hours up to 6 AM 02/16/19 06:00 Intake Total 2000 ml Output Total 1200 ml Balance 800 ml Laboratory Data Labs 24H Laboratory Tests 2 02/15/19 23:45: Bedside Glucose (Misc Panel) 152H 02/16/19 05:30: Bedside Glucose (Misc Panel) 120H 02/16/19 05:48: Nucleated Red Blood Cells % (auto) 0.0, Anion Gap 4L, Glomerular Filtration Rate > 60.0, Blood Urea Nitrogen 27H, Creatinine 0.88, Sodium Level 138, Potassium Level 3.5, Chloride Level 97L, Carbon Dioxide Level 37H, Calcium Level 8.3L 02/16/19 12:01: Bedside Glucose (Misc Panel) 133H CBC/BMP Laboratory Tests 02/16/19 05:48 Red Blood Count 3.36 L, Mean Corpuscular Volume 97.0 H, Mean Corpuscular Hemoglobin 30.1, Mean Corpuscular Hemoglobin Concent 31.0 L, Red Cell Distribution Width 16.5 H, Calcium Level 8.3 L FSBS Laboratory Tests Test 02/15/19 23:45 02/16/19 05:30 02/16/19 12:01 Range/Units Bedside Glucose (Misc Panel) 152 120 133 83-110 MG/DL Discharge Medications Scheduled Budesonide/Formoterol (Symbicort 160-4.5 Mcg Inhaler) 6 Gm Hfa.aer.ad, 2 PUFF INH BID Diclofenac Epolamine (Flector) 1.3% Patch, 1 PATCH TOP Q12H Diclofenac Epolamine (Flector) 1.3% Patch, 1 PATCH TOP Q12H Enoxaparin Sodium (Lovenox) 30 Mg/0.3 Ml Syringe, 30 MG SC DAILY Gabapentin (Gabapentin) 400 Mg Capsule, 400 MG PEG TID Insulin Human Lispro (Humalog) 100 Unit/1 Ml Vial, 0 UNITS SC Q6H Ipratropium/Albuterol Sulfate (Iprat-Albut 0.5-3(2.5) mg/3 ml) 3 Ml Ampul.neb, 3 ML NEB RQ6H L.acidoph/L.bulg/B.bif/S.therm (Angie-Bid Caplet) 1 Each Tablet, 1 EA PO TID Pantoprazole Sodium (Protonix IV) 40 Mg Vial, 40 MG IV BID Prednisone (Prednisone) 10 Mg Tablet, 10 MG PEG DAILY Saline Lock Flush (Normal Saline Flush) 3 Ml Syringe, 2 ML IV SLF Scheduled PRN Acetaminophen (Acetaminophen) 325 Mg Tablet, 650 MG PEG Q4HP PRN for PAIN OR FEVER Dextrose (Dextrose 50%-Water Syringe) 50 Ml Syringe, 25 ML IV ASDIRECTED PRN for SEE LABEL COMMENTS Dextrose (Glucose) 4 Gm Tab.chew, 0 GM PO ASDIRECTED PRN for SEE LABEL COMMENTS Glucagon,Human Recombinant (Glucagen) 1 Mg/1 Ml Vial, 1 MG SC ASDIRECTED PRN for SEE LABEL COMMENTS Hydrocodone/Acetaminophen (Hydrocodone-Acetamin 7.5-325) 1 Each Tablet, 2 TAB PEG Q4HP PRN for MODERATE/SEVERE PAIN (PS 5-10) Magnesium Hydroxide (Milk of Magnesia) 400 Mg/5 Ml Oral.susp, 30 ML PEG DAILYPRN PRN for CONSTIPATION Polyethylene Glycol 3350 (Polyethylene Glycol 3350) 17 Gm Powd.pack, 1 PKT PO DAILYPRN PRN for CONSTIPATION Saline Lock Flush (Normal Saline Flush) 3 Ml Syringe, 2 ML IV ASDIRECTED PRN for SEE LABEL COMMENTS Allergies Coded Allergies: No Known Allergies (Unverified , 01/06/19) SUDHEER WATERS DO Feb 16, 2019 19:20
== END 2019-02-16 14:30 | DRG 871 ==
LOC: M ED 09:19 → EDBD 09:19 → M ED INP 14:48 → M PCU 02-05 00:32 → M MSPAV 02-10 06:01 → UNDODISIN 02-10 11:55
PROVIDERS: ADMIT Internal Medicine; ATTEND Internal Medicine
DX: A41.9 Sepsis, unspecified organism (principal); J69.0 Pneumonitis due to inhalation of food and vomit; E43 Unspecified severe protein-calorie malnutrition; J96.20 Acute and chronic respiratory failure, unspecified whether with hypoxia or hypercapnia; R64 Cachexia; J44.1 Chronic obstructive pulmonary disease with (acute) exacerbation; I27.20 Pulmonary hypertension, unspecified; I08.3 Combined rheumatic disorders of mitral, aortic and tricuspid valves; Z85.118 Personal history of other malignant neoplasm of bronchus and lung; Z79.899 Other long term (current) drug therapy; Z79.4 Long term (current) use of insulin; D53.9 Nutritional anemia, unspecified; R19.7 Diarrhea, unspecified; M70.22 Olecranon bursitis, left elbow; Z87.891 Personal history of nicotine dependence; M79.10 Myalgia, unspecified site; Z79.52 Long term (current) use of systemic steroids

== ENCOUNTER → 2019-02-13 | Outpatient (CLI) | payer MEDICARE, BC ==
[~2019-02-13] MED LIST changes: +ACET1TAB55 PEG; +APAP325T4 GT; +CEFD250S26 GT; +DICL13PA TD; +DULC10SU2 PR; +ENEMENE PR; +GABA-845 PEG; +GLUC1CHW GT; +GLUC1INJ21 SC; +GLUC1KIT IM; +GLUC4GMTAB PO; +HYDR-4514 GT; +HYDR-4514 PEG; +INSUHUMDS SC; +IPRA0.00 INH; +IPRA0.00 NEB; +LIDO5TD TD; +LOVE1INJ2 SC; +MILKSUS3 GT; +MIRA3350 GT; +MOM30SS GT; +MOM30SS2 PEG; +MORP1SOL3 PEG; +PANT-23 PO; +PEG1POW PO; +PNEU0.5I2 INJ; +PRED10TA2 GT; +PRED10TA2 PEG; +PROT1TAB2 GT; +PROT40IN4 IV; +RISATAB3 GT; +RISATAB3 PO; +SLF3ML IV; +SUCR1TAB56 GT; +SYMB16INH INH; +TUBE5INJ ID; +[UNRECOGNIZED DRUG - OTHER] IV
--- NOTE | 2019-02-21 23:02 | ECWPNPC ---
PATIENT NAME: DILIP SARAVIA : 1935 GENDER: MALE VISIT DATE: 02/13/2019 DISCHARGE DATE: 1935 VISIT LOCKED DATE TIME: PHYSICIAN: EUGENIO ORTIZ MD RESOURCE: EUGENIO ORTIZ MD REASON FOR APPOINTMENT 1. INPATIENT ALLERGIES NO[ALLERGIES VERIFIED] ASSESSMENTS MYALGIA, OTHER SITE - M79.18 (PRIMARY) PROCEDURES PN TRIGGER POINT INJECTION WITH STEROIDS PRE PROCEDURE DIAGNOSIS 1. MYALGIA 2. PAIN AT LEFT SHOULDER AREA POST PROCEDURE DIAGNOSIS 1. MYALGIA 2. PAIN AT LEFT SHOULDER AREA PROCEDURE TRIGGER POINT INJECTION AT LEFT SHOULDER AREA SURGEON DR. EUGENIO ORTIZ DISTRICT SALES COORDINATOR NONE ANESTHESIA LOCAL PRE PROCEDURE NOTE THE PATIENT HAS A HISTORY OF CHRONIC PAIN AT THE LEFT SHOULDER AREA. I EVALUATE THE PATIENT AND REVIEWED THE CHART. THERE IS EVIDENCE OF BANDS OF TISSUE WITH RESTRICTION OF MOVEMENT AND PRESENCE OF TRIGGER POINT AT THE AFFECTED AREA. I WENT OVER THE RISKS, ALTERNATIVES, AND BENEFITS ASSOCIATED WITH THIS PROCEDURE. THE PATIENT WOULD LIKE TO PROCEED AND GIVE CONSENT TO PERFORMED THE PROCEDURE. THE PATIENT DENIES UNEXPLAINABLE WEIGHT LOSS, FEVER, CHILLS, OR NEW CHANGES IN URINARY OR BOWEL CONTROL DESCRIPTION OF PROCEDURE THE PATIENT WAS BROUGHT TO THE PROCEDURE ROOM AND PLACED IN THE SITTING POSITION. THE AREA WAS CLEANED WITH ALCOHOL. THE PROCEDURE WAS DONE USING ASEPTIC STERILE TECHNIQUE. I CHECKED LATERALITY AND THE LEVEL WHERE THE PROCEDURE WAS GOING TO BE PERFORMED WITH THE PATIENT AND THE SUPPORTING STAFF AT THE MOMENT OF THE TIME OUT IN THE PROCEDURE ROOM. USING A 25-GAUGE NEEDLE, TRIGGER POINTS WERE INJECTED AT THE LEFT SHOULDER AREA WITH A TOTAL OF 40 ML OF BUPIVACAINE 0.25% AND KENALOG 20 MG. THERE WAS NO EVIDENCE OF BLOOD, PARESTHESIA OR CEREBROSPINAL FLUID DURING THE PROCEDURE. THE PATIENT WAS SENT TO THE RECOVERY ROOM. THE PATIENT WAS MOVING THE EXTREMITIES AND DOING WELL. THERE WAS NO COMPLICATION DURING THE PROCEDURE POST PROCEDURE NOTE THE PATIENT WILL BE SEEN IN A FOLLOW UP IN THE NEXT FEW WEEKS. INSTRUCTIONS WERE GIVEN, QUESTIONS WERE ANSWERED, AND THE PATIENT EXPRESSED UNDERSTANDING AND AGREES WITH THE PLAN. I, FOX POLO, DOCUMENTED THE ABOVE INFORMATION ACTING A SCRIBE FOR DR. ORTIZ. I HAVE REVIEWED THE ABOVE DOCUMENT, WRITTEN BY FOX CHACONIBBrent AND I VERIFY THAT IT IS ACCURATE. PROCEDURE CODES 45441 INJ TRIGGER POINT 09/03 [facility] [place] DISPOSITION & COMMUNICATION FOLLOW UP 3 WEEKS ELECTRONICALLY SIGNED BY EUGENIO ORTIZ MD, MD ON 02/21/2019 AT 06:52 PM EDT DISCLAIMER : THIS IS A VISIT SUMMARY EXTRACTED FROM THE [employer] CHART. IT IS NOT A COPY OF THE [employer] PROGRESS NOTE. GRISEL
== END ==
LOC: M PAIN 09:00
PROVIDERS: ATTEND Anesthesiology
DX: M79.18 Myalgia, other site (principal)

== ENCOUNTER → 2019-02-17 | Outpatient (REF) ==
[~2019-02-17] MED LIST changes: -CEFD250S26 GT; -LIDO5TD TD; -MORP1SOL3 PEG
[2019-02-17 16:04] LABS: HEMATOCRIT 31.7 % (42.0-52.0); MEAN CORPUSCULAR HEMOGLOBIN 30.5 pg (27.0-33.0); MEAN CORPUSCULAR HGB CONC 31.5 g/dl (32.0-36.5); MEAN CORPUSCULAR VOLUME 96.6 fl (80.0-96.0); PLATELET COUNT, AUTOMATED 371 10^3/uL (150-450); RED BLOOD COUNT 3.28 10^6/uL (4.30-6.10); WHITE BLOOD COUNT 20.5 10^3/uL (4.0-10.0)
[2019-02-17 17:48] LABS: ERYTHROCYTE SEDIMENTATION RATE 28 mm/hr (0-20)
--- NOTE | 2019-02-17 18:14 | REP ---
Right wrist series: Four views. History: Wrist drop. Findings: Four views of the right wrist demonstrate severe osteoarthritis at the first carpal metacarpal articulation. Bones, joints and soft tissues are otherwise unremarkable. No bony destructive lesion is seen. 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 Electronically Signed by Emir Block MD 02/18/2019 07:56 A
== END ==
LOC: SKLAB2 14:37
PROVIDERS: ATTEND Internal Medicine
DX: M21.339 Wrist drop, unspecified wrist (principal)

== ENCOUNTER 2019-02-18 14:08 | Inpatient (IN) | payer MEDICARE, BC ==
[~2019-02-18] VITALS: Ht 165.1 cm; Wt 36.8 kg
[~2019-02-18 14:08] MED LIST changes: -APAP325T4 GT; -DULC10SU2 PR; -ENEMENE PR; -GLUC1CHW GT; -GLUC1KIT IM; -HYDR-4514 GT; -IPRA0.00 INH; -MIRA3350 GT; -MOM30SS GT; -PNEU0.5I2 INJ; -PRED10TA2 GT; -PROT1TAB2 GT; -RISATAB3 GT; -TUBE5INJ ID
[2019-02-18] MEDS ORDERED: PNEU0.5I2 INJ (14:30)
[2019-02-18] MEDS ORDERED: TUBE5INJ ID (14:30)
[2019-02-18] MEDS ORDERED: APAP325T4 GT (14:30)
[2019-02-18] MEDS ORDERED: IPRA0.00 INH (14:30)
[2019-02-18] MEDS ORDERED: MOM30SS GT (14:38)
[2019-02-18] MEDS ORDERED: DULC10SU2 PR (14:38)
[2019-02-18] MEDS ORDERED: GABA-845 GT (14:39)
[2019-02-18] MEDS ORDERED: HYDR-4514 GT (14:39)
[2019-02-18] MEDS ORDERED: GLUC1KIT IM (14:39)
[2019-02-18] MEDS ORDERED: PROT1TAB2 GT (14:39)
[2019-02-18] MEDS ORDERED: RISATAB3 GT (14:39)
[2019-02-18] MEDS ORDERED: DICL13PA TD (14:39)
[2019-02-18] MEDS ORDERED: SYMB16INH INH (14:39)
[2019-02-18] MEDS ORDERED: MIRA3350 GT (14:39)
[2019-02-18] MEDS ORDERED: PRED10TA2 GT (14:39)
[2019-02-18] MEDS ORDERED: GLUC1CHW GT (14:39)
[2019-02-18] MEDS ORDERED: ENEMENE PR (14:39)
[2019-02-18] MEDS ORDERED: NS 500 ML IV ONE (15:15)
[2019-02-18 15:23] LABS: BASO % 0.1 % (0.0-1.0); HEMATOCRIT 30.6 % (42.0-52.0); HEMOGLOBIN 9.6 g/dl (13.5-17.5); LYMPH # 0.5 10^3/uL (1.5-4.5); LYMPH % 2.4 % (24.0-44.0); MEAN CORPUSCULAR HEMOGLOBIN 29.7 pg (27.0-33.0); MEAN CORPUSCULAR HGB CONC 31.4 g/dl (32.0-36.5); MEAN CORPUSCULAR VOLUME 94.7 fl (80.0-96.0); MONO # 0.4 10^3/uL (0.0-0.8); MONO % 1.7 % (0.0-5.0); NEUTROPHILS % 94.8 % (36.0-66.0); PLATELET COUNT, AUTOMATED 357 10^3/uL (150-450); RED BLOOD COUNT 3.23 10^6/uL (4.30-6.10); WHITE BLOOD COUNT 22.2 10^3/uL (4.0-10.0)
[2019-02-18 15:33] LABS: VENOUS BASE EXCESS 4.9 (-2.0-2.0); VENOUS HCO3 30.9 MEQ/L (23.0-27.0); VENOUS O2 SATURATION 85.4 % (60.0-80.0); VENOUS PARTIAL PRESSURE CO2 52.4 mmHg (38.0-50.0); VENOUS PARTIAL PRESSURE O2 53.1 mmHg (30.0-50.0); VENOUS PH 7.388 UNITS (7.330-7.430); VENOUS STANDARD HCO3 28.7 MEQ/L; VENOUS TOTAL CO2 32.5 MEQ/L (24.0-28.0)
[2019-02-18 15:44] LABS: ALBUMIN 2.4 GM/DL (3.2-5.2); ALT/SGPT 31 U/L (12-78); BILIRUBIN,DIRECT 0.2 MG/DL (0.0-0.2); BILIRUBIN,TOTAL 0.6 MG/DL (0.2-1.0); BLOOD UREA NITROGEN 27 MG/DL (7-18); CALCIUM LEVEL 8.4 MG/DL (8.8-10.2); CARBON DIOXIDE LEVEL 33 MEQ/L (21-32); CHLORIDE LEVEL 101 MEQ/L (98-107); CK-MB VALUE MASS < 1.0 NG/ML (<3.6); CPK CREATINE PHOSPHOKINASE 36 U/L (39-308); CREATININE FOR GFR 0.77 MG/DL (0.70-1.30); GLOMERULAR FILTRATION RATE > 60.0 (>35); GLUCOSE, FASTING 107 MG/DL (70-100); MB/CK RELATIVE INDEX 2.78 (< OR =4); NT-PRO BNP 645 PG/ML (<450); POTASSIUM SERUM 4.5 MEQ/L (3.5-5.1); SODIUM LEVEL 139 MEQ/L (136-145); TOTAL PROTEIN 5.6 GM/DL (6.4-8.2); TROPONIN I 0.02 NG/ML (< 0.10)
[2019-02-18] MEDS ORDERED: PIPERACILLIN/TAZOBACTAM SOD 3.375 GM in D5W MINI-BAG PLUS 50 ML IV ONE (16:30)
--- NOTE | 2019-02-18 18:26 | REP ---
Chest x-ray: Single view. Obtained portably at 03:19 p.m. History: Dyspnea and cough. Comparison chest x-ray: February 18, 2019 at 12:07 p.m.. Findings: There is mild blunting of the left lateral pleural angle again noted unchanged from the film done earlier today. There is an area of pleural thickening and/or infiltrate in the right mid lung zone unchanged. These findings are improved compared to the February 11, 2019 exam. The patient is status post cervical spine fusion plating. There is a feeding tube in the left upper quadrant. Impression: Residual pleuroparenchymal opacity right mid lung zone and slight blunting of the left lateral pleural angle unchanged from the film done earlier today. Electronically Signed by Emir Block MD 02/19/2019 10:04 A
--- NOTE | 2019-02-18 19:36 | ECGEPIP ---
[facility] - ED Test Date: 2019-02-18 Pat Name: DILIP SARAVIA Department: Room: - Gender: Male [employer] Room Supervisor: JOz : [id number] Requested By: DILIP Betancourt Order Number: [id number] Reading MD: Darcie Lee Measurements Intervals [place] Rate: 94 P: 79 SC: 147 QRS: 124 QRSD: 106 T: 62 QT: 329 QTc: 413 Interpretive Statements SINUS RHYTHM MARKED RIGHT AXIS DEVIATION RIGHT BUNDLE BRANCH BLOCK SEPTAL MYOCARDIAL INFARCTION, PROBABLY OLD SIMILAR 02/04/19 Electronically Signed on 02-18-2019 19:36:50 EDT by Darcie Lee
[2019-02-18] MEDS: IPRATROPIUM 0.5MG/ALBUTEROL 2.5MG INH SOL UD 3ML (DUONEB)(J7620) INH SCH (20:00)
[2019-02-18] MEDS ORDERED: NORCO, ANEXSIA 5/325MG TABLET (HYDROcodone/ACETAMINOPHEN) PEG ONE (20:15)
[2019-02-18] MEDS: GABAPENTIN 400 MG CAP GT SCH (21:00)
[2019-02-18] MEDS: DICLOFENAC EPOLAMINE 1.3 % PATCH TD SCH (21:00)
[2019-02-18] MEDS ORDERED: MOM 30ML SUSPENSION UDC PO PRN (21:15)
[2019-02-18] MEDS ORDERED: ONDANSETRON 4MG/2ML VIAL (J2405) IV PRN (21:30)
[2019-02-18 21:35] LABS: PHOSPHORUS LEVEL 3.6 MG/DL (2.5-4.9)
[2019-02-18] MEDS ORDERED: MORPHINE SULFATE ORAL SOLN 10 MG/5 ML UD PO SCH (21:45)
--- NOTE | 2019-02-18 23:24 | HPEPDOC ---
General Date of Admission 02/18/19 Date of Service: Feb 18, 2019 Chief Complaint The patient is a 83-year-old male admitted with a reason for visit of SOB. 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 Duran and also a c-spine surgery in the past was discharged from hospital on 02/16/19 after treatment for aspiration pneumonia. He went to rehab at [facility] there he was noted to have persistently elevated WBCs. Cxr was done which was suggestive of new infiltrates so he was sent t the ED for evaluation. Patient denied any fever or any new cough. He says he has chronic seveer pain in his left shoulder. It is constantly present dull aching 10/10 in intensity most of the time . Sometimes it is sharp and burning in nature. Any movement of the left arm causes severe pain in the shoulder. CXR in the ED was again suggestive of pneumonia. He is being admited for possible aspiration pneumonia. Home Medications Scheduled Budesonide/Formoterol (Symbicort 160-4.5 Mcg Inhaler) 6 Gm Hfa.aer.ad, 2 PUFF IN H BID, (Reported) Diclofenac Epolamine (Flector) 1.3% Patch, 2 PATCH TD Q12H, (Reported) APPLY TO LEFT ELBOW AND LEFT SHOULDER Gabapentin (Gabapentin) 400 Mg Capsule, 400 MG GT TID, (Reported) Ipratropium/Albuterol Sulfate (Iprat-Albut 0.5-3(2.5) mg/3 ml) 3 Ml Ampul.neb, 1 IGGY INH Q6H, (Reported) L.acidoph/L.bulg/B.bif/S.therm (Angie-Bid Caplet) 1 Each Tablet, 1 TAB GT BID, (Reported) Pantoprazole Sodium (Protonix) 40 Mg Tablet.dr, 40 MG GT DAILY, (Reported) Pneumococcal 23-Delilah P-Sac Vac (Pneumovax 23) 25 Mcg/0.5 Ml Vial, 25 MCG INJ ASDIRECTED, (Reported) DUE TO RECEIVE 02/19/19 Prednisone (Prednisone) 10 Mg Tablet, 10 MG GT DAILY, (Reported) FOR 2 DAYS - STOP AFTER 02/18/19 Tuberculin,Purif.prot.deriv. (Tubersol) 5 Tub Unit/0.1 Ml Vial, 5 UNIT ID ASDIRECTED, (Reported) DUE TO RECEIVE AGAIN 03/03/19 Scheduled PRN Acetaminophen (Acetaminophen) 325 Mg Tablet, 650 MG GT Q4H PRN for PAIN, (Reported) Bisacodyl (Dulcolax) 10 Mg Supp.rect, 10 MG OK DAILY PRN for CONSTIPATION, (Reported) Dextrose (Glucose) 4 Gm Tab.chew, 1 CHW GT PRN PRN for LOW BLOOD SUGAR, (Reported) Glucagon,Human Recombinant (Glucagon Emergency Kit) 1 Mg Vial, 1 MG IM PRN PRN for LOW BLOOD SUGAR, (Reported) Hydrocodone/Acetaminophen (Hydrocodone-Acetamin 7.5-325) 1 Each Tablet, 1 TAB GT Q4H PRN for MODERATE/SEVERE PAIN (PS 5-10), (Reported) Milk Of Magnesia (Milk of Magnesia) 2,400 Mg/10 Ml Oral.susp, 10 ML GT DAILY PRN for CONSTIPATION, (Reported) Polyethylene Glycol 3350 (Miralax) 119 Gm Powder, 17 GM GT DAILY PRN for CONSTIPATION, (Reported) Sodium Phosphate,Harvey-Dibasic (Enema) 133 Ml Enema, 1 SOURAV OK DAILY PRN for CONSTIPATION, (Reported) Allergies Coded Allergies: No Known Allergies (Unverified , 01/06/19) Past Medical History Medical History Severe protein calorie malnutrition, Oropharyngeal dysphagia, percutaneous endoscopic gastrostomy tube fed, Failure to thrive has PEG tube, Adenocarcinoma of the lung Stage 1A T1N0M0 s/p Lobectomy, Spiculated lung nodule MARJAN, Bronchiectasis in CT chest, 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 Hypertensive heart disease without CHF, History of shoulder shingles, Chronic left shoulder pain s/p Left shoulder surgery with Dr. Duran and also a c-spine surgery in the past. Surgical History Trigger point injection of left shoulder PEG tube placement in december 2018 right upper lobe Lobectomy 2009 2 Shoulder surgeries Cervical spine surgery Family History Denies family history of lung cancer or lung disease Social History * Smoker: former Smoker Alcohol: Denies Drugs: denies A-FIB/CHADSVASC A-FIB History Current/History of A-Fib/PAF?: No Review of Systems Constitutional: Reports: Weakness, Fatigue; Denies: Chills, Fever Eyes: Denies: Pain, Vision change ENT: Denies: Head Aches, Ear Pain, Dysphagia Skin: Denies: Rash, Lesions, Breakdown Pulmonary: Denies: Dyspnea, Cough Cardiovascular: Denies: Chest Pain, Palpitations, Orthopnea, Paroxysmal Noc. Dyspnea Gastrointestinal: Denies: Nausea, Vomiting, Abdominal Pain, Diarrhea Musculoskeletal: Reports: Neck Pain, Back Pain, Shoulder Pain, Joint Pain Neurological: Reports: Weakness; Denies: Numbness, Change in speech, Confusion Physical Examination General Exam: Positive: Alert, Cooperative, Moderate Distress Eye Exam: Positive: PERRLA, Conjunctiva & lids normal, EOMI; Negative: Sclera icteric ENT Exam: Positive: Atraumatic, Pharynx Normal Neck Exam: Positive: Supple; Negative: JVD, thyromegaly Chest Exam: Positive: Clear to auscultation, Diminished Heart Exam: Positive: Rate Normal, Regular Rhythm, Normal S1, Normal S2; Negative: Murmurs, Rubs Abdomen Exam: Positive: Normal bowel sounds, Soft; Negative: Tenderness, Hepatospenomegaly Extremity Exam: Positive: Edema, Tenderness (left shoulder); Negative: Clubbing, Cyanosis Psych Exam: Positive: Mental status NL, Memory Intact, Oriented x 3 Vital Signs Vital Signs Date Time Temp Pulse Resp B/P (MAP) Pulse Ox O2 Delivery O2 Flow Rate FiO2 02/18/19 20:07 84 20 158/83 (108) 95 Nasal Cannula 2.0 02/18/19 14:23 97.8 Laboratory Data Labs 24H Laboratory Tests 2 02/18/19 15:03: Immature Granulocyte % (Auto) 1.0, White Blood Count 22.2H, Red Blood Count 3.23L, Hemoglobin 9.6L, Hematocrit 30.6L, Mean Corpuscular Volume 94.7, Mean Corpuscular Hemoglobin 29.7, Mean Corpuscular Hemoglobin Concent 31.4L, Red Cell Distribution Width 17.3H, Platelet Count 357, Neutrophils (%) (Auto) 94.8H, Lymphocytes (%) (Auto) 2.4L, Monocytes (%) (Auto) 1.7, Eosinophils (%) (Auto) 0.0, Basophils (%) (Auto) 0.1, Neutrophils # (Auto) 21.0H, Lymphocytes # (Auto) 0.5L, Monocytes # (Auto) 0.4, Eosinophils # (Auto) 0.0, Basophils # (Auto) 0.0, Nucleated Red Blood Cells % (auto) 0.0, Blood Gas Bicarbonate Standard 28.7, Venous Blood pH 7.388, Venous Blood Partial Pressure CO2 52.4H, Venous Blood Partial Pressure O2 53.1H, Venous Blood Total Carbon Dioxide 32.5H, Venous Blood HCO3 30.9H, Venous Blood Oxygen Saturation 85.4H, Venous Blood Base Excess 4.9H, Anion Gap 5L, Glomerular Filtration Rate > 60.0, Lactic Acid Level 1.9, Calcium Level 8.4L, Aspartate Amino Transf (AST/SGOT) 18, Alanine Aminotransferase (ALT/SGPT) 31, Alkaline Phosphatase 58, Total Bilirubin 0.6, Direct Bilirubin 0.2, Total Creatine Kinase 36L, Creatine Kinase MB < 1.0, Creatine Kinase MB Relative Index 2.78, Troponin I 0.02, EQ-Lca-R-Type Natriuretic Peptide 645H, Total Protein 5.6L, Albumin 2.4L, Albumin/Globulin Ratio 0.75L, Thyroid Stimulating Hormone (TSH) 1.440 CBC/BMP Laboratory Tests 02/18/19 15:03 Red Blood Count 3.23 L, Mean Corpuscular Volume 94.7, Mean Corpuscular Hemoglobin 29.7, Mean Corpuscular Hemoglobin Concent 31.4 L, Red Cell Distribution Width 17.3 H, Neutrophils (%) (Auto) 94.8 H, Lymphocytes (%) (Auto) 2.4 L, Monocytes (%) (Auto) 1.7, Eosinophils (%) (Auto) 0.0, Basophils (%) (Auto) 0.1, Neutrophils # (Auto) 21.0 H, Lymphocytes # (Auto) 0.5 L, Monocytes # (Auto) 0.4, Eosinophils # (Auto) 0.0, Basophils # (Auto) 0.0 Microbiology Microbiology 02/18/19 Blood Culture, Received Pending 02/18/19 Blood Culture, Received Pending Assessment/Plan 83 year old male from [place] where he was getting rehab after 2 hospitalizations in the last 2 months with PM of recurrent pneumonias possibly aspiration, Severe protein calorie malnutrition, Oropharyngeal dysphagia, percutaneous endoscopic gastrostomy tube fed, Failure to thrive has PEG tube, Adenocarcinoma of the lung Stage 1A T1N0M0 s/p Lobectomy, Spiculated lung nodule MARJAN, Bronchiectasis in CT chest, 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 Duran and also a c-spine surgery in the past was discharged from hospital on 02/16/19 after treatment for aspiration pneumoni a. He went to rehab at [facility] there he was noted to have persistently elevated WBCs. Cxr was done which was suggestive of new infiltrates so he was sent t the ED for evaluation. Patient denied any fever or any new cough. He says he has chronic severe pain in his left shoulder. It is constantly present dull aching 10/10 in intensity most of the time . Sometimes it is sharp and burning in nature. Any movement of the left arm causes severe pain in the shoulder. CXR in the ED was again suggestive of pneumonia. He is being admitted for possible aspiration pneumonia. Possible recurrent aspiration pneumonia Vs chronic changes in the lung Bronchiectasis, emphysema, interstitial fibrosis will check procalcitonin for any infection zosyn for now cultures ordered. Leucocytosis check procalcitonin if not suggestive of infection will need to evaluate for other causes. May be reactive to chronic steroids and chronic severe pain however if no infection may need a hematology evaluation Patient does not have any CBC between 2011 to 2018 COPD with emphysema and chronic respiratory failure with hypoxia continue symbicort, duonebs and oxygen supplementation. Right upper lobe lung resection for cancer in 2009 has traction bronchiectasis in CT chest. New MARJAN spiculated lung nodule patient does not want it worked up. Chronic shoulder Pain will give morphine tid and norco prn gabapentin severe protein calorie malnutrition with failure to thrive continue tube feeds hypertension with hypertensive heart disease amlodipine Peptic ulcer disease lansoprazole DNR and DNI Plan / VTE VTE Prophylaxis Ordered?: Yes EMILY CALIX MD Feb 18, 2019 20:42
--- NOTE | 2019-02-18 23:38 | REPVR ---
EXAM: CT Chest Without Contrast EXAM DATE/TIME: 02/18/2019 9:30 PM CLINICAL HISTORY: 83 years old, male; Shortness of breath; Prior surgery; Additional info: Pneumonia TECHNIQUE: Imaging protocol: Axial computed tomography images of the chest without intravenous contrast. Coronal and sagittal reformatted images were created and reviewed. 3D rendering: MIP reconstructed images were created and reviewed. Radiation optimization: All CT scans at this facility use at least one of these dose optimization techniques: automated exposure control; mA and/or kV adjustment per patient size (includes targeted exams where dose is matched to clinical indication); or iterative reconstruction. COMPARISON: CT Chest without contrast 11/19/2018 11:14 AM FINDINGS: Lungs: Consolidation in the peripheral right upper lobe with areas of air space opacities and bibasilar consolidations. Hyperinflated lungs. Scattered areas of parenchymal scarring seen as curvilinear densities are stable. There is bronchiectasis of the traction type, right greater than left more prominent than prior study. Secretions versus mass within the right main stem bronchus. These are new from prior study. Pleural space: Moderate left and small right pleural effusion. Heart: Coronary calcifications. Mediastinum: Surgical casey in the right mediastinum. Pulmonary arteries: Bilateral pulmonary arterial enlargement suggestive of pulmonary hypertension Aorta: Unremarkable. No aortic aneurysm. Lymph nodes: Few prominent mediastinal lymph nodes. Bones/joints: Diffuse demineralization of the bones with degenerative changes. Diffuse demineralization of the bones with degenerative changes. Left shoulder arthroplasty. Levoscoliosis of the lumbar spine. Soft tissues: Unremarkable. Stomach and bowel: PEG tube in place. Moderate fecal loading of the visualized colon. Other findings: Atherosclerosis. IMPRESSION: Consolidation in the peripheral right upper lobe with areas of air space opacities and bibasilar consolidations. Hyperinflated lungs. Scattered areas of parenchymal scarring seen as curvilinear densities are stable. There is bronchiectasis of the traction type, right greater than left more prominent than prior study. Secretions versus mass within the right main stem bronchus. These are new from prior study. Findings may represent multilobar pneumonia, Followup after treatment is recommended to rule out underlying mass. Moderate left and small right pleural effusion. Electronically signed by: Renée Townsend On 02/18/2019 23:38:16 PM
[2019-02-18] MEDS: PIPERACILLIN/TAZOBACTAM SOD 3.375 GM in D5W MINI-BAG PLUS 50 ML IV SCH (23:45)
[2019-02-19 00:15] VITALS: BP 161/76
[2019-02-19] MEDS: SYMBICORT 160/4.5MCG INHALER 6GM INH SCH ×4 (00:33→19:41)
[2019-02-19] MEDS: IPRATROPIUM 0.5MG/ALBUTEROL 2.5MG INH SOL UD 3ML (DUONEB)(J7620) INH SCH ×4 (03:47→19:41)
[2019-02-19 06:00] VITALS: BP 125/61
[2019-02-19] MEDS: PIPERACILLIN/TAZOBACTAM SOD 3.375 GM in D5W MINI-BAG PLUS 50 ML IV SCH ×3 (06:18→17:13)
[2019-02-19 06:47] LABS: BASO % 0.1 % (0.0-1.0); EOS % 0.1 % (0.0-3.0); HEMOGLOBIN 9.3 g/dl (13.5-17.5); LYMPH # 0.9 10^3/uL (1.5-4.5); LYMPH % 5.4 % (24.0-44.0); MEAN CORPUSCULAR HEMOGLOBIN 31.1 pg (27.0-33.0); MEAN CORPUSCULAR HGB CONC 32.1 g/dl (32.0-36.5); MONO # 0.8 10^3/uL (0.0-0.8); MONO % 4.5 % (0.0-5.0); NEUTROPHILS # 15.3 10^3/uL (1.8-7.7); NEUTROPHILS % 89.2 % (36.0-66.0); PLATELET COUNT, AUTOMATED 293 10^3/uL (150-450); RED BLOOD COUNT 2.99 10^6/uL (4.30-6.10); WHITE BLOOD COUNT 17.1 10^3/uL (4.0-10.0)
[2019-02-19] MEDS: ANEXSIA, NORCO 7.5MG/325MG TABLET(HYDROCODONE/APAP) GT PRN ×2 (06:51→14:18)
[2019-02-19 07:11] LABS: BLOOD UREA NITROGEN 25 MG/DL (7-18); CARBON DIOXIDE LEVEL 29 MEQ/L (21-32); CHLORIDE LEVEL 103 MEQ/L (98-107); CREATININE FOR GFR 0.79 MG/DL (0.70-1.30); GLOMERULAR FILTRATION RATE > 60.0 (>35); GLUCOSE, FASTING 100 MG/DL (70-100); MAGNESIUM LEVEL 2.1 MG/DL (1.8-2.4); PHOSPHORUS LEVEL 3.6 MG/DL (2.5-4.9); SODIUM LEVEL 138 MEQ/L (136-145)
[2019-02-19] MEDS ORDERED: MORPHINE 15 MG SA TAB XX SCH (09:00)
[2019-02-19] MEDS: ENOXAPARIN 30 MG/0.3 ML SYR (J1650) SC SCH (09:53)
[2019-02-19] MEDS: GABAPENTIN 400 MG CAP GT SCH ×3 (09:54→20:46)
[2019-02-19] MEDS: LANSOPRAZOLE SUSPENSION 30 MG/10 ML ORAL SYRINGE (FIRST-LANSOPRAZOLE) GT SCH (09:55)
[2019-02-19] MEDS: predniSONE 10 MG TAB GT SCH (09:55)
[2019-02-19] MEDS: MORPHINE SULFATE ORAL SOLN 10 MG/5 ML UD PEG SCH ×3 (09:55→20:47)
[2019-02-19] MEDS: amLODIPine 5 MG TAB PO SCH (09:56)
[2019-02-19] MEDS: DICLOFENAC EPOLAMINE 1.3 % PATCH TD SCH ×2 (09:56→20:48)
[2019-02-19 14:00] VITALS: BP 116/73
--- NOTE | 2019-02-19 15:41 | IPNPDOC ---
Text Note Date of Service The patient was seen on 02/19/19. NOTE Patient has been seen and examined. Chart, records and images reviewed. Case discussed with pulmonary service who will come and see the patient tomorrow. Otherwise, continue current management. VS,Fishbone, I+O VS, Fishbone, I+O Laboratory Tests 02/19/19 06:33 Red Blood Count 2.99 L, Mean Corpuscular Volume 97.0 H, Mean Corpuscular Hemoglobin 31.1, Mean Corpuscular Hemoglobin Concent 32.1, Red Cell Distribution Width 17.1 H, Neutrophils (%) (Auto) 89.2 H, Lymphocytes (%) (Auto) 5.4 L, Monocytes (%) (Auto) 4.5, Eosinophils (%) (Auto) 0.1, Basophils (%) (Auto) 0.1, Neutrophils # (Auto) 15.3 H, Lymphocytes # (Auto) 0.9 L, Monocytes # (Auto) 0.8, Eosinophils # (Auto) 0.0, Basophils # (Auto) 0.0, Calcium Level 8.0 L Vital Signs Date Time Temp Pulse Resp B/P (MAP) Pulse Ox O2 Delivery O2 Flow Rate FiO2 02/19/19 14:18 18 2.0 02/19/19 09:56 88 120/63 02/19/19 06:51 2 02/19/19 06:00 97.0 02/18/19 23:56 Nasal Cannula I&O- Last 24 Hours up to 6 AM 02/19/19 06:00 Intake Total 800 ml Output Total 800 ml Balance 0 ml JENNIFER LANDAVERDE MD Feb 19, 2019 15:41
[2019-02-19] MEDS ORDERED: DICLOFENAC EPOLAMINE 1.3 % PATCH TOP SCH (19:00)
[2019-02-19] MEDS: LIDOCAINE 5% (LIDODERM) PATCH TD SCH (20:49)
[2019-02-19 22:00] VITALS: BP 122/65
[2019-02-20] MEDS: PIPERACILLIN/TAZOBACTAM SOD 3.375 GM in D5W MINI-BAG PLUS 50 ML IV SCH ×4 (00:10→16:52)
[2019-02-20] MEDS: ANEXSIA, NORCO 7.5MG/325MG TABLET(HYDROCODONE/APAP) GT PRN ×2 (00:52→07:17)
[2019-02-20] MEDS: IPRATROPIUM 0.5MG/ALBUTEROL 2.5MG INH SOL UD 3ML (DUONEB)(J7620) INH SCH ×4 (00:55→20:00)
[2019-02-20] MEDS ORDERED: FUROSEMIDE 40 MG/4 ML VIAL (J1940) IV ONE (04:30)
[2019-02-20 06:00] VITALS: BP 121/64
[2019-02-20 06:26] LABS: BASO % 0.1 % (0.0-1.0); EOS % 0.1 % (0.0-3.0); HEMOGLOBIN 9.5 g/dl (13.5-17.5); LYMPH % 6.2 % (24.0-44.0); MEAN CORPUSCULAR HEMOGLOBIN 30.6 pg (27.0-33.0); MEAN CORPUSCULAR HGB CONC 31.7 g/dl (32.0-36.5); MEAN CORPUSCULAR VOLUME 96.8 fl (80.0-96.0); MONO # 0.8 10^3/uL (0.0-0.8); MONO % 4.7 % (0.0-5.0); NEUTROPHILS # 14.4 10^3/uL (1.8-7.7); NEUTROPHILS % 88.3 % (36.0-66.0); PLATELET COUNT, AUTOMATED 291 10^3/uL (150-450); WHITE BLOOD COUNT 16.3 10^3/uL (4.0-10.0)
[2019-02-20 06:46] LABS: BLOOD UREA NITROGEN 29 MG/DL (7-18); CALCIUM LEVEL 8.3 MG/DL (8.8-10.2); CARBON DIOXIDE LEVEL 29 MEQ/L (21-32); CHLORIDE LEVEL 101 MEQ/L (98-107); CREATININE FOR GFR 0.78 MG/DL (0.70-1.30); GLOMERULAR FILTRATION RATE > 60.0 (>35); GLUCOSE, FASTING 114 MG/DL (70-100); MAGNESIUM LEVEL 2.3 MG/DL (1.8-2.4); POTASSIUM SERUM 3.9 MEQ/L (3.5-5.1); SODIUM LEVEL 137 MEQ/L (136-145)
[2019-02-20] MEDS: SYMBICORT 160/4.5MCG INHALER 6GM INH SCH ×2 (07:24→20:00)
[2019-02-20] MEDS: MORPHINE SULFATE ORAL SOLN 10 MG/5 ML UD PEG SCH ×3 (09:44→21:18)
[2019-02-20] MEDS: ENOXAPARIN 30 MG/0.3 ML SYR (J1650) SC SCH (09:44)
[2019-02-20] MEDS: LANSOPRAZOLE SUSPENSION 30 MG/10 ML ORAL SYRINGE (FIRST-LANSOPRAZOLE) GT SCH (09:44)
[2019-02-20] MEDS: DICLOFENAC EPOLAMINE 1.3 % PATCH TD SCH ×2 (09:45→21:18)
[2019-02-20] MEDS: **NOTE PATIENT COMMENT** MISC XX SCH (09:45)
[2019-02-20] MEDS: GABAPENTIN 400 MG CAP GT SCH ×3 (09:45→21:17)
[2019-02-20] MEDS: predniSONE 10 MG TAB GT SCH (09:45)
[2019-02-20] MEDS: amLODIPine 5 MG TAB PO SCH (09:45)
[2019-02-20 14:00] VITALS: BP 132/63
--- NOTE | 2019-02-20 15:52 | IPNPDOC ---
Text Note Date of Service The patient was seen on 02/20/19. NOTE SUBJECTIVE: Mr. Phillips is doing well today. He continues to tolerate his tube feeds. I have had discussion with family at bedside regarding the severity of his aspiration. Patient has what can be described as recurrent pneumonia due to aspiration. I have explained that although he has a G-tube it does not eliminate his risk. OBJECTIVE: Physical examination: Gen.: Awake, alert, cooperative, no distress. ENT: Neck is supple, No adenopathy or thyromegaly, Oral mucosa is tacky, Mild scleral injection Chest: Mild bilateral coarseness to auscultation, wet voice, faint, ineffective cough. Heart: Regular rate and rhythm, no murmur. Abdomen: Soft, flat, G-tube site is intact, positive bowel tones, nondistended. Extremities: Patient has considerable muscle atrophy to his extremities and has overall cachexia, has some leg and foot edema due to malnutrition/hypoprotein emia/hypoalbuminemia ASSESSMENT/PLAN: 1. Probable recurrent aspiration pneumonia. The patient showed remarkable aspiration based on extensive swallow eval's. Patient consequently has a G-tube placed. He continues to have episodes of respiratory distress and pneumonia. Current CT shows findings not only of consolidation consistent with pneumonia but also findings of his other underlying chronic disease such as emphysema, bronchiectasis and pulmonary fibrosis. There is also finding of secretions within his right mainstem bronchus. Patient continues on empiric antibiotics and respiratory care in cluding Symbicort, DuoNeb's and oxygen supplementation. Additionally, there is spiculated nodule to the left upper lobe that the patient has been made aware of; he does not want further evaluation. 2. Protein calorie malnutrition. Patient has had failure to thrive for quite some time. He is also found to have remarkable aspiration. He is fed primarily by G-tube. Physically, he has remarkable cachexia and muscle atrophy. He continues on his current tube feeds/hydration regimen. 3. Leukocytosis. This is partly due to infection and partly due to due to the patient being on steroid therapy. However, the patient is on only 10 mg of prednisone per day. Patient also does exhibit left shift. We will continue with antibiotics for now as he is improving. We will continue to monitor cultures. Please note, patient does not produce much sputum. VS,Fishbone, I+O VS, Fishbone, I+O Laboratory Tests 02/20/19 05:37 Red Blood Count 3.10 L, Mean Corpuscular Volume 96.8 H, Mean Corpuscular Hemoglobin 30.6, Mean Corpuscular Hemoglobin Concent 31.7 L, Red Cell Distribution Width 17.2 H, Neutrophils (%) (Auto) 88.3 H, Lymphocytes (%) (Auto) 6.2 L, Monocytes (%) (Auto) 4.7, Eosinophils (%) (Auto) 0.1, Basophils (%) (Auto) 0.1, Neutrophils # (Auto) 14.4 H, Lymphocytes # (Auto) 1.0 L, Monocytes # (Auto) 0.8, Eosinophils # (Auto) 0.0, Basophils # (Auto) 0.0, Calcium Level 8.3 L Vital Signs Date Time Temp Pulse Resp B/P (MAP) Pulse Ox O2 Delivery O2 Flow Rate FiO2 02/20/19 14:00 98.3 90 18 132/63 (86) 95 2.0 02/18/19 23:56 Nasal Cannula I&O- Last 24 Hours up to 6 AM 02/20/19 06:00 Intake Total 1240 ml Output Total 2850 ml Balance -1610 ml JENNIFER LANDAVERDE MD Feb 20, 2019 15:52
[2019-02-20] MEDS: LIDOCAINE 5% (LIDODERM) PATCH TD SCH (21:18)
[2019-02-20 22:00] VITALS: BP 87/53
[2019-02-20 22:25] VITALS: BP 109/57
[2019-02-21] MEDS: PIPERACILLIN/TAZOBACTAM SOD 3.375 GM in D5W MINI-BAG PLUS 50 ML IV SCH ×5 (00:01→22:57)
[2019-02-21] MEDS: IPRATROPIUM 0.5MG/ALBUTEROL 2.5MG INH SOL UD 3ML (DUONEB)(J7620) INH SCH ×4 (01:38→20:00)
[2019-02-21] MEDS: ANEXSIA, NORCO 7.5MG/325MG TABLET(HYDROCODONE/APAP) GT PRN ×2 (05:52→21:22)
[2019-02-21 06:00] VITALS: BP 106/62
[2019-02-21 06:20] LABS: BASO % 0.1 % (0.0-1.0); EOS % 0.2 % (0.0-3.0); HEMATOCRIT 27.8 % (42.0-52.0); HEMOGLOBIN 8.8 g/dl (13.5-17.5); LYMPH # 1.3 10^3/uL (1.5-4.5); LYMPH % 9.1 % (24.0-44.0); MEAN CORPUSCULAR HEMOGLOBIN 29.8 pg (27.0-33.0); MEAN CORPUSCULAR HGB CONC 31.7 g/dl (32.0-36.5); MEAN CORPUSCULAR VOLUME 94.2 fl (80.0-96.0); MONO # 0.8 10^3/uL (0.0-0.8); MONO % 5.6 % (0.0-5.0); NEUTROPHILS # 11.7 10^3/uL (1.8-7.7); NEUTROPHILS % 84.4 % (36.0-66.0); PLATELET COUNT, AUTOMATED 279 10^3/uL (150-450); RED BLOOD COUNT 2.95 10^6/uL (4.30-6.10); WHITE BLOOD COUNT 13.8 10^3/uL (4.0-10.0)
[2019-02-21 06:30] LABS: BLOOD UREA NITROGEN 34 MG/DL (7-18); CALCIUM LEVEL 8.1 MG/DL (8.8-10.2); CARBON DIOXIDE LEVEL 31 MEQ/L (21-32); CHLORIDE LEVEL 101 MEQ/L (98-107); CREATININE FOR GFR 1.05 MG/DL (0.70-1.30); GLOMERULAR FILTRATION RATE > 60.0 (>35); GLUCOSE, FASTING 77 MG/DL (70-100); MAGNESIUM LEVEL 2.6 MG/DL (1.8-2.4); POTASSIUM SERUM 4.1 MEQ/L (3.5-5.1); SODIUM LEVEL 139 MEQ/L (136-145)
[2019-02-21] MEDS: SYMBICORT 160/4.5MCG INHALER 6GM INH SCH ×2 (08:35→20:43)
--- NOTE | 2019-02-21 08:38 | CR ---
DATE OF CONSULTATION: 02/20/2019 PULMONARY CONSULTATION: ATTENDING PHYSICIAN: Dr. 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 Patient was recently discharged from the hospital on 02/16/2019 to [facility] after being treated for aspiration pneumonia. The [facility] was [facility] to the [facility]. While at the [facility], patient was found to have an elevated white count. A chest x-ray was performed demonstrating a new possible lobar infiltrate. As such, the patient was sent back to the emergency room and admitted for further management. Per medical record, the patient denied any fever, chills, cough, shortness of breath at the time of his readmission. He was seemingly also complaining of 10/10 left shoulder pain. This has been an ongoing and chronic issue for him for a number of months. He has had a number of surgical revisions of a left shoulder prosthetic without much improvement. Patient follows with Dr. Ferrer of [facility] and, as such, the hospitalist team consulted pulmonary to review current pneumonia care plan in light of the patient's complicated pulmonary history. PAST MEDICAL HISTORY: Cachectic malnutrition. Oropharyngeal dysphagia. PEG tube feedings. Failure to thrive. Adenocarcinoma of lung stage IA, status post lobectomy. Spiculated left upper lobe nodule, not pursuing treatment. Advanced COPD and emphysematous change. Moderate pulmonary hypertension. Hypertension. Right shoulder pain. PAST SURGICAL HISTORY: Patient has had left shoulder trigger point injection. PEG tube placement. Right upper lobe lobectomy in 2008. Left shoulder surgery. Cervical (C) spine surgery. FAMILY HISTORY: Patient denies any family history of lung cancer or lung disease. Other history noncontributory given patient's advanced age. SOCIAL HISTORY: The patient is a former smoker but has not smoked in a number of years. He denies any alcohol use, and he denies any recurrent or regular drug use, IV or otherwise. ALLERGIES: No known allergies. Patient is currently receiving: - Zosyn - Percocet, morphine, diclofenac, Lidoderm patches, gabapentin - Symbicort, prednisone 10 mg daily - amlodipine - Lovenox for prophylaxis REVIEW OF SYSTEMS: General: Patient denies any subjective fevers or chills. He does report a decreased appetite. Patient remains cachectic without any notable changes in weight. He is still frail and denies any night sweats. HEENT: Patient declines any vision loss. He does have a history of difficulty swallowing but is not taking anything by mouth. He has not noticed any changes in his hearing or memory. Respiratory: Patient reports being at his (cut off). He denies any coughing. He denies any pleurisy. No wheezing. He does admit to some orthopnea requiring 3+ pillows. Cardiac: Patient denies any current chest pain or pressure. Denies any tachycardia or palpitations. Gastrointestinal (GI): Patient is moving his bowels. Does report episodic bouts of diarrhea. Denies any reflux, abdominal pain. No episodes of vomiting. Genitourinary (): Patient denies any difficulty with urination. Neurologic: Patient denies any numbness or tingling, memory deficits. Hematologic: Patient denies any easy bruising or bleeding. Skin: Patient denies any rashes or changing skin lesions. PHYSICAL EXAMINATION: Vital Signs: Temperature is 98.3, pulse is 90, respiratory rate is 18, blood pressure 132/63 with a mean arterial pressure (MAP) of 86, pulse oximetry is 95% on 2 liters via nasal cannula. General: The patient is interviewed and examined in his hospital room. He is found to be seated upright in his hospital bed, conversing with his without any difficulty. He appears older than his stated age. He is in no acute distress. He is able to answer questions appropriately and actively participate in his care. HEENT: Normocephalic, atraumatic. Extraocular muscles are noted to be intact. Pupils are equal, round, reactive to light and accommodation. Sclerae are nonicteric. Mucous membranes are moist, and he does have fair oral hygiene. Neck: No cervical lymphadenopathy appreciated. His trachea is midline. Cardiac: Patient has a regular rate and rhythm with a normal S1 and S2. No murmurs were appreciated. Pulmonary: Patient demonstrates very faint expiratory wheezes bilaterally; otherwise, clear to auscultation. No accessory muscle use noted. Extremities: Trace edema bilaterally in patient's dorsal foot. No calf tenderness noted bilaterally. Musculoskeletal (MSK): No joint effusions. Patient was witnessed standing from a seated position without any difficulty. Significant amount of muscle atrophy related to patient's cachexia noted. Neurologic: No focal neurologic deficits; patient is awake, alert, and oriented times three. No signs of aphasia or facial droop. Psychiatric: Mood and affect are appropriate given patient's current condition. LABORATORY STUDIES: Hematology: White count of 16.3, down from 17.1 yesterday. Hemoglobin and hematocrit of 9.5/30. Chemistries this morning: Sodium is 137, potassium is 3.9, chloride is 101, carbon dioxide is 29, BUN/creatinine of 29/0.78. Procalcitonin measured on the day of admission to be 0.25. Venous blood gas drawn on the date of admission: pH of 7.38, pCO2 of 52.4, pO2 of 53.1, and a bicarbonate of 30.9. Microbiology: Blood cultures are pending and are negative after 24 hours of growth. IMAGING STUDIES: Patient had a chest x-ray performed on admission, which was read as having residual pleuroparenchymal opacity in the right mid lung zones with slight blunting of left lateral pleural angles, unchanged from prior films. Chest CT was also performed, indicated no evidence of pulmonary fibrosis. An infiltrate noted in the right upper lobe and the right middle lobe. There is peribronchial cuffing but no bronchiectasis, and aforementioned lesion was also noted in the left lower lobe, which is no longer being pursued for therapy per patient and family. ASSESSMENT AND PLAN: Patient is an 83-year-old male, past medical history significant for a number of pulmonary diseases, including chronic obstructive pulmonary disease with emphysema, status post lobectomy, spiculated lung nodule in left upper lobe, pulmonary hypertension, and a recent history of recurrent aspiration pneumonia, presents to the hospital for further evaluation and management. 1. Aspiration pneumonitis versus pneumonia. We agree with the current treatment plan. Continue Zosyn. 2. Emphysema. Continue patient on current treatment plan, including oxygen. 3. Cachexia. Continue patient with tube feedings and encourage to eat upright to prevent aspiration from recurring. 4. We are going to likely sign off on this patient as it seems that his primary problem is being adequately controlled by the primary team. We will be here for further consultation should that be desired. Edited: [facility] 02/25/2019 0729 ADDENDUM: REASON FOR CONSULTATION: Aspiration pneumonitis. Mr. Phillips is a known cachectic 83-year-old male with emphysema with recurrent aspiration pneumonitis despite nonoral feeding. He had a newer infiltrate on chest imaging and was sent to the hospital for presumed aspiration pneumonia. He states he is feeling better. He is on antibiotic therapy. I have reviewed the history and physical as outlined by the resident. I agree with his assessment and plan. The patient is on inhaled therapy, antibiotic therapy, which should be continued. Unfortunately, I believe the patient continues to have a high risk of aspiration. I would make sure that he is sitting upright for all meals, even feeds through the gastrostomy (G) tube. Although there are abnormalities on chest imaging, those can be followed as an outpatient and they likely represent inflammation and areas of aspiration. I do not see a tumor-like mass currently; however, I cannot exclude minor abnormalities at this point in time that could progress over time. Unfortunately, the patient is severely cachectic, malnourished. Nutrition and preventing aspiration should be the mirza to his recovery. Addendum dictated: JACKLYN 02/20/2019 1421 Addendum transcribed: david 02/20/2019 1435
[2019-02-21] MEDS: amLODIPine 5 MG TAB PO SCH (09:00)
[2019-02-21 09:42] VITALS: BP 101/57
[2019-02-21] MEDS: GABAPENTIN 400 MG CAP GT SCH ×3 (09:50→21:21)
[2019-02-21] MEDS: ENOXAPARIN 30 MG/0.3 ML SYR (J1650) SC SCH (09:50)
[2019-02-21] MEDS: predniSONE 10 MG TAB GT SCH (09:50)
[2019-02-21] MEDS: DICLOFENAC EPOLAMINE 1.3 % PATCH TD SCH ×2 (09:51→21:21)
[2019-02-21] MEDS: **NOTE PATIENT COMMENT** MISC XX SCH (09:51)
[2019-02-21] MEDS: LANSOPRAZOLE SUSPENSION 30 MG/10 ML ORAL SYRINGE (FIRST-LANSOPRAZOLE) GT SCH (09:51)
[2019-02-21] MEDS: MORPHINE SULFATE ORAL SOLN 10 MG/5 ML UD PEG SCH ×3 (09:52→22:57)
[2019-02-21 14:00] VITALS: BP 115/59
--- NOTE | 2019-02-21 16:24 | IPNPDOC ---
Date Seen The patient was seen on 02/21/19. Progress Note SUBJECTIVE: Mr. Phillips is an 83-year-old male with unremarkable dysphagia. He is fed primarily by PEG tube. He is readmitted with recurrent aspiration pneumonia/pneumonitis. He had been off of his tube feeds for a bit. We plan to restart them OBJECTIVE PHYSICAL EXAMINATION: VITAL SIGNS: Please see below. Gen.: Awake, alert, cooperative, no distress. ENT: Neck is supple, No adenopathy or thyromegaly, Oral mucosa is tacky, Mild scleral injection Chest: Mild bilateral coarseness to auscultation, wet voice, faint, ineffective cough. Heart: Regular rate and rhythm, no murmur. Abdomen: Soft, flat, G-tube site is intact, positive bowel tones, nondistended. Extremities: Patient has considerable muscle atrophy to his extremities and has overall cachexia, has some leg and foot edema due to malnutrition/hypoproteinemia/hypoalbuminem LABORATORY DATA, IMAGING STUDIES, MICROBIOLOGY: Please see below. Echocardiogram: [N]. DVT prophylaxis ordered?: [Y] ASSESSMENT/PLAN: 1. Recurrent aspiration pneumonia. The patient has remarkable dysphagia with aspiration and consequently has a G- tube placed. He continues to have episodes of respiratory distress and pneumonia. Patient continues on empiric antibiotics and respiratory care including Symbicort, DuoNeb's and oxygen supplementation. We appreciate the input from pulmonary services. The patient has underlying oxygen-dependent acute on chronic hypoxic respiratory failure. 2. Protein calorie malnutrition. Patient has had failure to thrive for quite some time. He is also found to have remarkable aspiration. He is fed primarily by G-tube. Physically, he has remarkable cachexia and muscle atrophy. We are making some adjustment to the timing of his tube feeds so that he may have a break during the day. Recently we're attempting to keep the patient upright 60-90 when his tube feeds are running. We are encouraging the patient to spend more time up in a chair. This may help with reducing the frequency of his aspiration. 3. Leukocytosis. This is partly due to infection and partly due to due to the patient being on steroid therapy. However, the patient is on only 10 mg of prednisone per day. Patient also does exhibit left shift. We will continue with antibiotics for now as he is improving. We will continue to monitor cultures. Please note, patient does not produce much sputum. DISPOSITION: . VS, I&O, 24H, [facility] Vital Signs/I&O Vital Signs Date Time Temp Pulse Resp B/P (MAP) Pulse Ox O2 Delivery O2 Flow Rate FiO2 02/21/19 14:00 97.6 90 18 115/59 (77) 100 02/21/19 10:22 2.0 02/18/19 23:56 Nasal Cannula I&O- Last 24 Hours up to 6 AM 02/21/19 06:00 Intake Total 1015 ml Output Total 2000 ml Balance -985 ml Laboratory Data 24H LABS Laboratory Tests 2 02/21/19 06:03: Immature Granulocyte % (Auto) 0.6, White Blood Count 13.8H, Red Blood Count 2.95L, Hemoglobin 8.8L, Hematocrit 27.8L, Mean Corpuscular Volume 94.2, Mean Corpuscular Hemoglobin 29.8, Mean Corpuscular Hemoglobin Concent 31.7L, Red Cell Distribution Width 17.2H, Platelet Count 279, Neutrophils (%) (Auto) 84.4H, Lymphocytes (%) (Auto) 9.1L, Monocytes (%) (Auto) 5.6H, Eosinophils (%) (Auto) 0.2, Basophils (%) (Auto) 0.1, Neutrophils # (Auto) 11.7H, Lymphocytes # (Auto) 1.3L, Monocytes # (Auto) 0.8, Eosinophils # (Auto) 0.0, Basophils # (Auto) 0.0, Nucleated Red Blood Cells % (auto) 0.0, Anion Gap 7L, Glomerular Filtration Rate > 60.0, Blood Urea Nitrogen 34H, Creatinine 1.05, Sodium Level 139, Potassium Level 4.1, Chloride Level 101, Carbon Dioxide Level 31, Calcium Level 8.1L, Magnesium Level 2.6H CBC/BMP Laboratory Tests 02/21/19 06:03 Red Blood Count 2.95 L, Mean Corpuscular Volume 94.2, Mean Corpuscular H emoglobin 29.8, Mean Corpuscular Hemoglobin Concent 31.7 L, Red Cell Distribution Width 17.2 H, Neutrophils (%) (Auto) 84.4 H, Lymphocytes (%) (Auto) 9.1 L, Monocytes (%) (Auto) 5.6 H, Eosinophils (%) (Auto) 0.2, Basophils (%) (Auto) 0.1, Neutrophils # (Auto) 11.7 H, Lymphocytes # (Auto) 1.3 L, Monocytes # (Auto) 0.8, Eosinophils # (Auto) 0.0, Basophils # (Auto) 0.0, Calcium Level 8.1 L Microbiology Microbiology 02/18/19 Blood Culture - Preliminary, Resulted No Growth after 72 hours. All specime... 02/18/19 Blood Culture - Preliminary, Resulted No Growth after 72 hours. All specime... JENNIFER LANDAVERDE MD Feb 21, 2019 16:24
[2019-02-21] MEDS: LIDOCAINE 5% (LIDODERM) PATCH TD SCH (21:21)
[2019-02-21 22:00] VITALS: BP 98/55
[2019-02-22] MEDS: IPRATROPIUM 0.5MG/ALBUTEROL 2.5MG INH SOL UD 3ML (DUONEB)(J7620) INH SCH ×4 (02:00→20:00)
[2019-02-22] MEDS: PIPERACILLIN/TAZOBACTAM SOD 3.375 GM in D5W MINI-BAG PLUS 50 ML IV SCH ×4 (05:03→23:16)
[2019-02-22] MEDS: ANEXSIA, NORCO 7.5MG/325MG TABLET(HYDROCODONE/APAP) GT PRN ×3 (05:03→20:46)
[2019-02-22 06:00] VITALS: BP 117/58
[2019-02-22 06:46] LABS: EOS % 0.3 % (0.0-3.0); HEMATOCRIT 25.3 % (42.0-52.0); LYMPH # 1.1 10^3/uL (1.5-4.5); LYMPH % 9.5 % (24.0-44.0); MEAN CORPUSCULAR HEMOGLOBIN 29.6 pg (27.0-33.0); MEAN CORPUSCULAR HGB CONC 31.6 g/dl (32.0-36.5); MEAN CORPUSCULAR VOLUME 93.7 fl (80.0-96.0); MONO # 0.7 10^3/uL (0.0-0.8); MONO % 5.6 % (0.0-5.0); NEUTROPHILS # 9.8 10^3/uL (1.8-7.7); NEUTROPHILS % 84.1 % (36.0-66.0); PLATELET COUNT, AUTOMATED 255 10^3/uL (150-450); WHITE BLOOD COUNT 11.7 10^3/uL (4.0-10.0)
[2019-02-22 07:07] LABS: BLOOD UREA NITROGEN 29 MG/DL (7-18); CALCIUM LEVEL 7.9 MG/DL (8.8-10.2); CARBON DIOXIDE LEVEL 29 MEQ/L (21-32); CHLORIDE LEVEL 101 MEQ/L (98-107); CREATININE FOR GFR 0.97 MG/DL (0.70-1.30); GLOMERULAR FILTRATION RATE > 60.0 (>35); GLUCOSE, FASTING 100 MG/DL (70-100); MAGNESIUM LEVEL 2.5 MG/DL (1.8-2.4); SODIUM LEVEL 136 MEQ/L (136-145)
[2019-02-22] MEDS: SYMBICORT 160/4.5MCG INHALER 6GM INH SCH ×2 (07:41→20:00)
[2019-02-22] MEDS: GABAPENTIN 400 MG CAP GT SCH ×3 (10:34→20:43)
[2019-02-22] MEDS: predniSONE 10 MG TAB GT SCH (10:34)
[2019-02-22] MEDS: MORPHINE SULFATE ORAL SOLN 10 MG/5 ML UD PEG SCH ×3 (10:35→23:17)
[2019-02-22] MEDS: ENOXAPARIN 30 MG/0.3 ML SYR (J1650) SC SCH (10:37)
[2019-02-22] MEDS: amLODIPine 5 MG TAB PO SCH (10:37)
[2019-02-22] MEDS: LANSOPRAZOLE SUSPENSION 30 MG/10 ML ORAL SYRINGE (FIRST-LANSOPRAZOLE) GT SCH (10:37)
[2019-02-22] MEDS: DICLOFENAC EPOLAMINE 1.3 % PATCH TD SCH ×2 (10:38→20:45)
[2019-02-22] MEDS: **NOTE PATIENT COMMENT** MISC XX SCH (10:38)
[2019-02-22 14:00] VITALS: BP 114/59
--- NOTE | 2019-02-22 14:04 | IPNPDOC ---
Date Seen The patient was seen on 02/22/19. Progress Note SUBJECTIVE: Mr. Phillips is an 84-year-old male with dysphagia and chronic aspiration. He was admitted with recurrent aspiration pneumonia. He is primarily tube fed. We have rearranged the scheduling of his tube feeds with aggressive positioning to try to reduce the severity of his aspiration. He appears to be tolerating this fairly well. OBJECTIVE PHYSICAL EXAMINATION: VITAL SIGNS: Please see below. Physical examination: Gen.: Awake, alert, cooperative, no distress. ENT: Neck is supple, No adenopathy or thyromegaly, Oral mucosa is tacky, Mild scleral injection Chest: Decreased mild bilateral coarseness to auscultation, voice quality is much improved, rare but ineffective cough. Heart: Regular rate and rhythm, no murmur. Abdomen: Soft, flat, G-tube site is intact, positive bowel tones, nondistended. Extremities: Patient has considerable muscle atrophy to his extremities and has overall cachexia, has some leg and foot edema due to malnutrition/hypoproteinemia/hypoalbuminemia LABORATORY DATA, IMAGING STUDIES, MICROBIOLOGY: Please see below. Echocardiogram: . DVT prophylaxis ordered?: Lovenox ASSESSMENT/PLAN: 1. Recurrent aspiration pneumonia. The patient has remarkable dysphagia with aspiration and consequently has a G- tube placed. He continues to have episodes of respiratory distress and pneumonia. Patient continues on empiric antibiotics and respiratory care including Symbicort, DuoNeb's and oxygen supplementation. We appreciate the input from pulmonary services. The patient has underlying oxygen-dependent acute on chronic hypoxic respiratory failure. 2. Protein calorie malnutrition. Patient has had failure to thrive for quite some time. He is also found to have remarkable aspiration. He is fed primarily by G-tube. Physically, he has remarkable cachexia and muscle atrophy. We have made some adjustment to the timing of his tube feeds so that he may have a break during the day. Recently we're attempting to keep the patient upright 60-90 when his tube feeds are running. We are encouraging the patient to spend more time up in a chair. This may help with reducing the frequency of his aspiration. 3. Leukocytosis. This is partly due to infection and partly due to due to the patient being on steroid therapy. However, the patient is on only 10 mg of prednisone per day. Patient also does exhibit left shift. We will continue with antibiotics for now as he is improving. Blood cultures are negative to date. Please note, patient do es not produce much sputum. DISPOSITION: . VS, I&O, 24H, [facility] Vital Signs/I&O Vital Signs Date Time Temp Pulse Resp B/P (MAP) Pulse Ox O2 Delivery O2 Flow Rate FiO2 02/22/19 12:38 16 2.0 02/22/19 10:37 96 119/61 02/22/19 06:00 98.3 97 02/18/19 23:56 Nasal Cannula I&O- Last 24 Hours up to 6 AM 02/22/19 06:00 Intake Total 990 ml Output Total 925 ml Balance 65 ml Laboratory Data 24H LABS Laboratory Tests 2 02/22/19 06:21: Immature Granulocyte % (Auto) 0.5, White Blood Count 11.7H, Red Blood Count 2.70L, Hemoglobin 8.0L, Hematocrit 25.3L, Mean Corpuscular Volume 93.7, Mean Corpuscular Hemoglobin 29.6, Mean Corpuscular Hemoglobin Concent 31.6L, Red Cell Distribution Width 17.1H, Platelet Count 255, Neutrophils (%) (Auto) 84.1H, Lymphocytes (%) (Auto) 9.5L, Monocytes (%) (Auto) 5.6H, Eosinophils (%) (Auto) 0.3, Basophils (%) (Auto) 0.0, Neutrophils # (Auto) 9.8H, Lymphocytes # (Auto) 1.1L, Monocytes # (Auto) 0.7, Eosinophils # (Auto) 0.0, Basophils # (Auto) 0.0, Nucleated Red Blood Cells % (auto) 0.0, Anion Gap 6L, Glomerular Filtration Rate > 60.0, Blood Urea Nitrogen 29H, Creatinine 0.97, Sodium Level 136, Potassium Level 4.0, Chloride Level 101, Carbon Dioxide Level 29, Calcium Level 7.9L, Magnesium Level 2.5H CBC/BMP Laboratory Tests 02/22/19 06:21 Red Blood Count 2.70 L, Mean Corpuscular Volume 93.7, Mean Corpuscular Hemoglobin 29.6, Mean Corpuscular Hemoglobin Concent 31.6 L, Red Cell Distribution Width 17.1 H, Neutrophils (%) (Auto) 84.1 H, Lymphocytes (%) (Auto) 9.5 L, Monocytes (%) (Auto) 5.6 H, Eosinophils (%) (Auto) 0.3, Basophils (%) (Auto) 0.0, Neutrophils # (Auto) 9.8 H, Lymphocytes # (Auto) 1.1 L, Monocytes # (Auto) 0.7, Eosinophils # (Auto) 0.0, Basophils # (Auto) 0.0, Calcium Level 7.9 L Microbiology Microbiology 02/18/19 Blood Culture - Preliminary, Resulted No Growth after 72 hours. All specime... 02/18/19 Blood Culture - Preliminary, Resulted No Growth after 72 hours. All specime... JENNIFER LANDAVERDE MD Feb 22, 2019 14:04
[2019-02-22] MEDS: LIDOCAINE 5% (LIDODERM) PATCH TD SCH (20:45)
[2019-02-22 22:00] VITALS: BP 122/59
[2019-02-23] MEDS: IPRATROPIUM 0.5MG/ALBUTEROL 2.5MG INH SOL UD 3ML (DUONEB)(J7620) INH SCH ×4 (02:12→19:41)
[2019-02-23] MEDS: PIPERACILLIN/TAZOBACTAM SOD 3.375 GM in D5W MINI-BAG PLUS 50 ML IV SCH ×3 (05:07→18:17)
[2019-02-23] MEDS: ANEXSIA, NORCO 7.5MG/325MG TABLET(HYDROCODONE/APAP) GT PRN ×2 (05:07→12:29)
[2019-02-23 06:00] VITALS: BP 123/59
[2019-02-23 06:42] LABS: BASO % 0.2 % (0.0-1.0); EOS % 0.1 % (0.0-3.0); HEMATOCRIT 23.9 % (42.0-52.0); HEMOGLOBIN 7.5 g/dl (13.5-17.5); LYMPH # 1.1 10^3/uL (1.5-4.5); LYMPH % 10.8 % (24.0-44.0); MEAN CORPUSCULAR HEMOGLOBIN 29.5 pg (27.0-33.0); MEAN CORPUSCULAR HGB CONC 31.4 g/dl (32.0-36.5); MEAN CORPUSCULAR VOLUME 94.1 fl (80.0-96.0); MONO # 0.6 10^3/uL (0.0-0.8); MONO % 5.9 % (0.0-5.0); NEUTROPHILS # 8.5 10^3/uL (1.8-7.7); NEUTROPHILS % 82.3 % (36.0-66.0); PLATELET COUNT, AUTOMATED 231 10^3/uL (150-450); RED BLOOD COUNT 2.54 10^6/uL (4.30-6.10); WHITE BLOOD COUNT 10.3 10^3/uL (4.0-10.0)
[2019-02-23 07:03] LABS: BLOOD UREA NITROGEN 23 MG/DL (7-18); CALCIUM LEVEL 7.8 MG/DL (8.8-10.2); CARBON DIOXIDE LEVEL 30 MEQ/L (21-32); CHLORIDE LEVEL 101 MEQ/L (98-107); CREATININE FOR GFR 0.91 MG/DL (0.70-1.30); GLOMERULAR FILTRATION RATE > 60.0 (>35); GLUCOSE, FASTING 103 MG/DL (70-100); MAGNESIUM LEVEL 2.3 MG/DL (1.8-2.4); POTASSIUM SERUM 4.2 MEQ/L (3.5-5.1); SODIUM LEVEL 137 MEQ/L (136-145)
[2019-02-23] MEDS: SYMBICORT 160/4.5MCG INHALER 6GM INH SCH ×2 (07:22→19:41)
[2019-02-23] MEDS: amLODIPine 5 MG TAB PO SCH (09:00)
[2019-02-23] MEDS: DICLOFENAC EPOLAMINE 1.3 % PATCH TD SCH ×2 (09:58→21:19)
[2019-02-23] MEDS: LANSOPRAZOLE SUSPENSION 30 MG/10 ML ORAL SYRINGE (FIRST-LANSOPRAZOLE) GT SCH (09:58)
[2019-02-23] MEDS: **NOTE PATIENT COMMENT** MISC XX SCH (09:58)
[2019-02-23] MEDS: GABAPENTIN 400 MG CAP GT SCH ×3 (09:58→21:18)
[2019-02-23] MEDS: predniSONE 10 MG TAB GT SCH (09:58)
[2019-02-23] MEDS: ENOXAPARIN 30 MG/0.3 ML SYR (J1650) SC SCH (09:58)
[2019-02-23] MEDS: MORPHINE SULFATE ORAL SOLN 10 MG/5 ML UD PEG SCH ×3 (10:05→21:18)
[2019-02-23] MEDS ORDERED: CEFD250S26 GT (11:47)
[2019-02-23] MEDS ORDERED: MORP1SOL3 PEG (11:47)
[2019-02-23] MEDS ORDERED: LIDO5TD TD (11:47)
[2019-02-23] MEDS: NS 1,000 ML IV SCH (13:32)
[2019-02-23 14:00] VITALS: BP 113/59
--- NOTE | 2019-02-23 16:25 | IPNPDOC ---
Date Seen The patient was seen on 02/23/19. Progress Note SUBJECTIVE: This is an 84-year-old male with known dysphagia and chronic aspiration. He has been readmitted with recurrent aspiration pneumonia/pneumonitis. He has done well after adjustment of his feeding schedule and positioning. He is fed by G-tube. OBJECTIVE PHYSICAL EXAMINATION: VITAL SIGNS: Please see below. GENERAL: The patient is much more animated and in good spirits Gen.: Awake, alert, cooperative, no distress. ENT: Neck is supple, No adenopathy or thyromegaly, Oral mucosa is tacky, Mild scleral injection Chest: Decreased mild bilateral coarseness to auscultation, voice quality is much improved, rare but ineffective cough. Heart: Regular rate and rhythm, no murmur. Abdomen: Soft, flat, G-tube site is intact, positive bowel tones, nondistended. Extremities: Patient has considerable muscle atrophy to his extremities and has overall cachexia, has some leg and foot edema due to malnutrition/hypoproteinemia/hypoalbuminemia He is constitutionally weak and not at all ambulatory LABORATORY DATA, IMAGING STUDIES, MICROBIOLOGY: Please see below. Echocardiogram: . DVT prophylaxis ordered?: Lovenox ASSESSMENT/PLAN: 1. Recurrent aspiration pneumonia. The patient has remarkable dysphagia with aspiration and consequently has a G- tube placed. He continues to have episodes of respiratory distress and pneumonia. Patient has been transitioned to antibiotics through his G-tube. He continues with respiratory care including Symbicort, DuoNeb's and oxygen supplementation. We appreciate the input from pulmonary services. The patient has underlying oxygen-dependent acute on chronic hypoxic respiratory failure. He has had substantial clinical improvement. 2. Protein calorie malnutrition. Patient has had failure to thrive for quite some time. He is also found to have remarkable aspiration. He is fed primarily by G-tube. Physically, he has remarkable cachexia and muscle atrophy. We have made some adjustment to the timing of his tube feeds so that he may have a break during the day. Recently we're attempting to keep the patient upright 60-90 when his tube feeds are running. We are encouraging the patient to spend more time up in a chair. This may help with reducing the frequency of his aspiration. 3. Leukocytosis. This is partly due to infection and partly due to due to the patient being on steroid therapy. However, the patient is on only 10 mg of prednisone per day. The patient's white cell count has normalized for the first time in weeks. We will continue with antibiotics for now as he is improving. Blood cultures are negative to date. 4. Anemia of chronic disease--the patient has anemia of chronic disease. Hemoglobin today was 7.5. Plans are to transfuse with 1 unit of packed red blood cells to maintain oxygenation. DISPOSITION: Patient is anticipated for transfer/discharge to [facility] tomorrow. Orders are already in place.. VS, I&O, 24H, Fishbone Vital Signs/I&O Vital Signs Date Time Temp Pulse Resp B/P (MAP) Pulse Ox O2 Delivery O2 Flow Rate FiO2 02/23/19 14:00 98.2 85 17 113/59 (77) 99 02/23/19 09:00 2.0 02/18/19 23:56 Nasal Cannula I&O- Last 24 Hours up to 6 AM 02/23/19 06:00 Intake Total 1530 ml Output Total 1125 ml Balance 405 ml Laboratory Data 24H LABS Laboratory Tests 2 02/23/19 06:02: Immature Granulocyte % (Auto) 0.7, White Blood Count 10.3H, Red Blood Count 2.54L, Hemoglobin 7.5L, Hematocrit 23.9L, Mean Corpuscular Volume 94.1, Mean Corpuscular Hemoglobin 29.5, Mean Corpuscular Hemoglobin Concent 31.4L, Red Cell Distribution Width 16.9H, Platelet Count 231, Neutrophils (%) (Auto) 82.3H, Lymphocytes (%) (Auto) 10.8L, Monocytes (%) (Auto) 5.9H, Eosinophils (%) (Auto) 0.1, Basophils (%) (Auto) 0.2, Neutrophils # (Auto) 8.5H, Lymphocytes # (Auto) 1.1L, Monocytes # (Auto) 0.6, Eosinophils # (Auto) 0.0, Basophils # (Auto) 0.0, Nucleated Red Blood Cells % (auto) 0.0, Anion Gap 6L, Glomerular Filtration Rate > 60.0, Blood Urea Nitrogen 23H, Creatinine 0.91, Sodium Level 137, Potassium Level 4.2, Chloride Level 101, Carbon Dioxide Level 30, Calcium Level 7.8L, Magnesium Level 2.3 CBC/BMP Laboratory Tests 02/23/19 06:02 Red Blood Count 2.54 L, Mean Corpuscular Volume 94.1, Mean Corpuscular Hemoglobin 29.5, Mean Corpuscular Hemoglobin Concent 31.4 L, Red Cell Distribution Width 16.9 H, Neutrophils (%) (Auto) 82.3 H, Lymphocytes (%) (Auto) 10.8 L, Monocytes (%) (Auto) 5.9 H, Eosinophils (%) (Auto) 0.1, Basophils (%) (Auto) 0.2, Neutrophils # (Auto) 8.5 H, Lymphocytes # (Auto) 1.1 L, Monocytes # (Auto) 0.6, Eosinophils # (Auto) 0.0, Basophils # (Auto) 0.0, Calcium Level 7.8 L Microbiology Microbiology 02/18/19 Blood Culture - Final, Complete NO GROWTH AFTER 5 DAYS 02/18/19 Blood Culture - Final, Complete NO GROWTH AFTER 5 DAYS JENNIFER LANDAVERDE MD Feb 23, 2019 16:25
[2019-02-23] MEDS: LIDOCAINE 5% (LIDODERM) PATCH TD SCH (21:19)
[2019-02-23 22:00] VITALS: BP 110/55
[2019-02-24] MEDS: IPRATROPIUM 0.5MG/ALBUTEROL 2.5MG INH SOL UD 3ML (DUONEB)(J7620) INH SCH ×2 (00:13→07:22)
[2019-02-24] MEDS: PIPERACILLIN/TAZOBACTAM SOD 3.375 GM in D5W MINI-BAG PLUS 50 ML IV SCH ×3 (00:23→11:58)
[2019-02-24] MEDS: ANEXSIA, NORCO 7.5MG/325MG TABLET(HYDROCODONE/APAP) GT PRN ×2 (00:29→12:22)
[2019-02-24 06:00] VITALS: BP 147/69
[2019-02-24 06:33] LABS: BASO % 0.2 % (0.0-1.0); EOS % 0.3 % (0.0-3.0); LYMPH # 1.1 10^3/uL (1.5-4.5); LYMPH % 10.8 % (24.0-44.0); MEAN CORPUSCULAR HEMOGLOBIN 30.7 pg (27.0-33.0); MEAN CORPUSCULAR HGB CONC 31.9 g/dl (32.0-36.5); MEAN CORPUSCULAR VOLUME 96.3 fl (80.0-96.0); MONO # 0.6 10^3/uL (0.0-0.8); MONO % 6.2 % (0.0-5.0); NEUTROPHILS # 8.5 10^3/uL (1.8-7.7); NEUTROPHILS % 82.1 % (36.0-66.0); PLATELET COUNT, AUTOMATED 212 10^3/uL (150-450); RED BLOOD COUNT 3.22 10^6/uL (4.30-6.10); WHITE BLOOD COUNT 10.3 10^3/uL (4.0-10.0)
[2019-02-24 06:54] LABS: HEMOGLOBIN 9.9 g/dl (13.5-17.5)
[2019-02-24 06:56] LABS: BLOOD UREA NITROGEN 23 MG/DL (7-18); CALCIUM LEVEL 8.3 MG/DL (8.8-10.2); CARBON DIOXIDE LEVEL 31 MEQ/L (21-32); CHLORIDE LEVEL 103 MEQ/L (98-107); CREATININE FOR GFR 0.77 MG/DL (0.70-1.30); GLOMERULAR FILTRATION RATE > 60.0 (>35); GLUCOSE, FASTING 103 MG/DL (70-100); MAGNESIUM LEVEL 2.5 MG/DL (1.8-2.4); POTASSIUM SERUM 4.1 MEQ/L (3.5-5.1); SODIUM LEVEL 140 MEQ/L (136-145)
[2019-02-24] MEDS: SYMBICORT 160/4.5MCG INHALER 6GM INH SCH (07:22)
[2019-02-24] MEDS: LANSOPRAZOLE SUSPENSION 30 MG/10 ML ORAL SYRINGE (FIRST-LANSOPRAZOLE) GT SCH (08:23)
[2019-02-24] MEDS: ENOXAPARIN 30 MG/0.3 ML SYR (J1650) SC SCH (08:24)
[2019-02-24] MEDS: predniSONE 10 MG TAB GT SCH (08:24)
[2019-02-24] MEDS: MORPHINE SULFATE ORAL SOLN 10 MG/5 ML UD PEG SCH (08:24)
[2019-02-24 08:25] VITALS: BP 116/58
[2019-02-24] MEDS: DICLOFENAC EPOLAMINE 1.3 % PATCH TD SCH (08:25)
[2019-02-24] MEDS: **NOTE PATIENT COMMENT** MISC XX SCH (08:25)
[2019-02-24] MEDS: GABAPENTIN 400 MG CAP GT SCH (08:25)
[2019-02-24] MEDS: amLODIPine 5 MG TAB PO SCH (08:25)
[2019-02-24] MEDS: NS 1,000 ML IV SCH (12:07)
--- NOTE | 2019-02-25 07:09 | CR ---
DATE OF CONSULTATION: 02/20/2019 REASON FOR CONSULTATION: Aspiration pneumonitis. ADDENDUM: Mr. Phillips is a known cachectic 83-year-old male with emphysema with recurrent aspiration pneumonitis despite non oral feeding. He had a newer infiltrate on chest imaging and was sent to the hospital for presumed aspiration pneumonia. He states he is feeling better. He is on antibiotic therapy. I have reviewed the history and physical as outlined by the resident. I agree with his this assessment and plan. The patient is on inhaled therapy, antibiotic therapy, which should be continued. Unfortunately, I believe the patient continues to have a high risk of aspiration. I would make sure that he is sitting upright for all meals, even feeds through the G tube. Although there are abnormalities on chest imaging, those can be followed as an outpatient and they likely represent inflammation and areas of aspiration. I do not see a tumor like mass currently, however, I cannot exclude minor abnormalities at this point in time that could progress over time. Unfortunately, the patient is severely cachectic, malnourished. Nutrition and preventing aspiration should be the mirza to his recovery. Addendum dictated: Alen Mann DO 02/20/2019 1421 Addendum transcribed: david 02/20/2019 1435
== END 2019-02-24 13:24 | DRG 177 ==
LOC: EDBD 14:08 → M ED 14:08 → M ED INP 21:10 → M MSPAV 02-19 00:20
PROVIDERS: ADMIT Internal Medicine Nephrology; ATTEND Hospitalist
DX: J69.0 Pneumonitis due to inhalation of food and vomit (principal); E43 Unspecified severe protein-calorie malnutrition; J96.11 Chronic respiratory failure with hypoxia; R64 Cachexia; J43.9 Emphysema, unspecified; D72.829 Elevated white blood cell count, unspecified; Z85.118 Personal history of other malignant neoplasm of bronchus and lung; J84.10 Pulmonary fibrosis, unspecified; Z93.1 Gastrostomy status; R13.10 Dysphagia, unspecified; I11.9 Hypertensive heart disease without heart failure; Z66 Do not resuscitate; K27.9 Peptic ulcer, site unspecified, unspecified as acute or chronic, without hemorrhage or perforation; R91.1 Solitary pulmonary nodule; I27.20 Pulmonary hypertension, unspecified; Z87.891 Personal history of nicotine dependence; D63.8 Anemia in other chronic diseases classified elsewhere

== ENCOUNTER → 2019-02-18 | Outpatient (REF) ==
[2019-02-18 10:32] LABS: BASO % 0.1 % (0.0-1.0); HEMATOCRIT 29.8 % (42.0-52.0); HEMOGLOBIN 9.6 g/dl (13.5-17.5); LYMPH # 0.7 10^3/uL (1.5-4.5); LYMPH % 2.6 % (24.0-44.0); MEAN CORPUSCULAR HEMOGLOBIN 31.3 pg (27.0-33.0); MEAN CORPUSCULAR HGB CONC 32.2 g/dl (32.0-36.5); MEAN CORPUSCULAR VOLUME 97.1 fl (80.0-96.0); MONO # 0.9 10^3/uL (0.0-0.8); MONO % 3.4 % (0.0-5.0); NEUTROPHILS # 23.7 10^3/uL (1.8-7.7); PLATELET COUNT, AUTOMATED 348 10^3/uL (150-450); RED BLOOD COUNT 3.07 10^6/uL (4.30-6.10); WHITE BLOOD COUNT 25.5 10^3/uL (4.0-10.0)
--- NOTE | 2019-02-18 12:33 | REP ---
PA and lateral chest three views: Comparison is 02/11/2019. There are two PA and single lateral projections. There are bilateral pleural effusions, not significantly changed. The previous bilateral lower lobe infiltrates have slightly improved. The right upper lobe infiltrate is unchanged. Cardiac size is normal and unchanged. There are multiple mediastinal surgical clips, unchanged. There is a cervical spine stabilization plate, unchanged. There is a left shoulder arthroplasty, unchanged. Tubing is superimposed over the mid upper abdomen, possibly a G tube. Impression: The bilateral pleural effusions are unchanged. The bibasilar infiltrates have slightly improved. The right upper lobe infiltrate is unchanged. Electronically Signed by Jaime Haas MD 02/18/2019 12:24 P
== END ==
LOC: SKLAB2 09:48
PROVIDERS: ATTEND Internal Medicine
DX: D72.829 Elevated white blood cell count, unspecified (principal)

== ENCOUNTER → 2019-03-02 | Outpatient (REF) ==
[~2019-03-02] MED LIST changes: +APAP325T4 GT; +CEFD250S26 GT; +DULC10SU2 PR; +ENEMENE PR; +GLUC1CHW GT; +GLUC1KIT IM; +HYDR-4514 GT; +IPRA0.00 INH; +LIDO5TD TD; +MIRA3350 GT; +MOM30SS GT; +MORP1SOL3 PEG; +PNEU0.5I2 INJ; +PRED10TA2 GT; +PROT1TAB2 GT; +RISATAB3 GT; +TUBE5INJ ID
[2019-03-02 07:02] LABS: HEMATOCRIT 32.3 % (42.0-52.0); HEMOGLOBIN 10.3 g/dl (13.5-17.5); MEAN CORPUSCULAR HEMOGLOBIN 31.3 pg (27.0-33.0); MEAN CORPUSCULAR HGB CONC 31.9 g/dl (32.0-36.5); MEAN CORPUSCULAR VOLUME 98.2 fl (80.0-96.0); PLATELET COUNT, AUTOMATED 255 10^3/uL (150-450); RED BLOOD COUNT 3.29 10^6/uL (4.30-6.10); WHITE BLOOD COUNT 9.2 10^3/uL (4.0-10.0)
[2019-03-02 07:23] LABS: ALBUMIN 2.4 GM/DL (3.2-5.2); ALT/SGPT 36 U/L (12-78); BILIRUBIN,TOTAL 0.5 MG/DL (0.2-1.0); BLOOD UREA NITROGEN 27 MG/DL (7-18); CALCIUM LEVEL 8.5 MG/DL (8.8-10.2); CARBON DIOXIDE LEVEL 29 MEQ/L (21-32); CHLORIDE LEVEL 103 MEQ/L (98-107); CREATININE FOR GFR 0.68 MG/DL (0.70-1.30); GLOMERULAR FILTRATION RATE > 60.0 (>35); GLUCOSE, FASTING 143 MG/DL (70-100); POTASSIUM SERUM 4.7 MEQ/L (3.5-5.1); SODIUM LEVEL 137 MEQ/L (136-145); TOTAL PROTEIN 5.9 GM/DL (6.4-8.2)
== END ==
LOC: SKLAB2 07:00
PROVIDERS: ATTEND Internal Medicine
DX: D64.9 Anemia, unspecified (principal)

== ENCOUNTER 2019-03-06 15:45 | Inpatient (IN) | payer MEDICARE, BC ==
[~2019-03-06] VITALS: Ht 165.1 cm; Wt 37.9 kg
[~2019-03-06 15:45] MED LIST changes: -DOXY100T16 PO; +DOXY100T27 PO; -GLUC1CHW GT; +GLUC1CHW PEG
[2019-03-06 16:12] LABS: ABG BASE EXCESS 4.9 (-2.0-2.0); ABG O2 SATURATION 86.7 % (95.0-99.0); ABG PARTIAL PRESSURE CO2 46.4 mmHg (35.0-45.0); ABG PARTIAL PRESSURE O2 54.5 mmHg (75.0-100.0); ABG STANDARD HCO3 28.7 MEQ/L (22.0-26.0); ABG TOTAL CO2 31.4 MEQ/L (23.0-31.0); ABG pH (ARTERIAL) 7.428 UNITS (7.350-7.450)
[2019-03-06 16:26] LABS: BASO % 0.3 % (0.0-1.0); EOS # 0.1 10^3/uL (0.0-0.50); EOS % 1.5 % (0.0-3.0); HEMATOCRIT 36.3 % (42.0-52.0); HEMOGLOBIN 11.4 g/dl (13.5-17.5); LYMPH # 0.8 10^3/uL (1.5-4.5); LYMPH % 9.3 % (24.0-44.0); MEAN CORPUSCULAR HEMOGLOBIN 31.1 pg (27.0-33.0); MEAN CORPUSCULAR HGB CONC 31.4 g/dl (32.0-36.5); MEAN CORPUSCULAR VOLUME 98.9 fl (80.0-96.0); MONO # 0.6 10^3/uL (0.0-0.8); MONO % 6.9 % (0.0-5.0); NEUTROPHILS # 7.1 10^3/uL (1.8-7.7); NEUTROPHILS % 81.8 % (36.0-66.0); PLATELET COUNT, AUTOMATED 350 10^3/uL (150-450); RED BLOOD COUNT 3.67 10^6/uL (4.30-6.10); WHITE BLOOD COUNT 8.7 10^3/uL (4.0-10.0)
[2019-03-06] MEDS ORDERED: IPRATROPIUM 0.5MG/ALBUTEROL 2.5MG INH SOL UD 3ML (DUONEB)(J7620) NEB ONE (16:30)
[2019-03-06] MEDS ORDERED: methylPREDNISolone INJ 125 MG/2 ML VIAL (J2930) IV ONE (16:30)
--- NOTE | 2019-03-06 16:39 | REP ---
Clinical: Cough and dyspnea. Technique: Portable semiupright AP views of the chest. Comparison: 02/18/2019. Findings: Mediastinum and cardiac silhouette are stable. Lung delacruz demonstrate diffuse chronic interstitial changes. Superimposed left lower lobe infiltrate is suspected. No definite effusion. No pneumothorax. Skeletal structures stable. Impression: Diffuse chronic interstitial changes/fibrosis. Subtle superimposed left lower lobe infiltrate suspected. Electronically Signed by Samuel Fountain MD 03/06/2019 04:31 P
[2019-03-06] MEDS ORDERED: cefTRIAXone SOD 2 GM in D5W MINI-BAG PLUS 50 ML IV ONE (16:45)
[2019-03-06] MEDS ORDERED: NORC1TAB7 PEG (16:57)
[2019-03-06] MEDS ORDERED: ACETAMINOPHEN 650 MG SUPP PR ONE (17:00)
[2019-03-06 17:01] LABS: ALT/SGPT 42 U/L (12-78); BILIRUBIN,DIRECT 0.3 MG/DL (0.0-0.2); BILIRUBIN,TOTAL 0.8 MG/DL (0.2-1.0); BLOOD UREA NITROGEN 28 MG/DL (7-18); CALCIUM LEVEL 8.9 MG/DL (8.8-10.2); CARBON DIOXIDE LEVEL 30 MEQ/L (21-32); CHLORIDE LEVEL 101 MEQ/L (98-107); CK-MB VALUE MASS 1.3 NG/ML (<3.6); CPK CREATINE PHOSPHOKINASE 53 U/L (39-308); CREATININE FOR GFR 0.76 MG/DL (0.70-1.30); GLOMERULAR FILTRATION RATE > 60.0 (>35); GLUCOSE, FASTING 81 MG/DL (70-100); MB/CK RELATIVE INDEX 2.45 (< OR =4); NT-PRO BNP 963 PG/ML (<450); POTASSIUM SERUM 4.8 MEQ/L (3.5-5.1); SODIUM LEVEL 137 MEQ/L (136-145); TOTAL PROTEIN 6.4 GM/DL (6.4-8.2); TROPONIN I < 0.02 NG/ML (< 0.10)
[2019-03-06] MEDS ORDERED: NS 1,250 ML in IV 1 EA IV ONE (17:15)
[2019-03-06] MEDS ORDERED: MOM30SS PEG (17:30)
[2019-03-06] MEDS ORDERED: INSUDET SC (17:30)
[2019-03-06] MEDS ORDERED: FINA5TAB2 PO (17:30)
[2019-03-06] MEDS ORDERED: LASI20TA3 PO (17:30)
[2019-03-06] MEDS ORDERED: BISO5TAB14 PEG (17:30)
[2019-03-06] MEDS ORDERED: ELIQ5TAB PEG (17:30)
[2019-03-06] MEDS ORDERED: FLOM0.4C39 PEG (17:30)
[2019-03-06] MEDS ORDERED: ATIV1TAB10 PEG ×2 (17:30)
[2019-03-06] MEDS ORDERED: FISH1000 PO (17:30)
[2019-03-06] MEDS ORDERED: ACET-908 PEG (17:30)
[2019-03-06] MEDS ORDERED: ENEMENE PR ×2 (17:30→18:12)
[2019-03-06] MEDS ORDERED: IPRA0.00 INH ×2 (17:30→18:12)
[2019-03-06] MEDS ORDERED: SENN8.6T17 PEG (17:30)
[2019-03-06] MEDS ORDERED: PEPC1TAB5 PO (17:30)
[2019-03-06] MEDS ORDERED: INCR1INH INH (17:30)
[2019-03-06] MEDS ORDERED: SERT-141 PEG (17:30)
[2019-03-06] MEDS ORDERED: TRAZ1TAB12 PEG (17:30)
[2019-03-06] MEDS ORDERED: ADV500INH INH (17:30)
[2019-03-06] MEDS ORDERED: ASPI81CH33 PEG (17:30)
[2019-03-06] MEDS ORDERED: IRON65TA2 PO (17:30)
[2019-03-06] MEDS ORDERED: XALA0.007 OU (17:30)
[2019-03-06] MEDS ORDERED: FENO160T10 PO (17:30)
[2019-03-06] MEDS ORDERED: DULC10SU2 PR ×2 (17:30→18:12)
[2019-03-06] MEDS ORDERED: MULTCAP PEG (17:30)
[2019-03-06] MEDS ORDERED: APAP500T10 PO (17:30)
[2019-03-06] MEDS ORDERED: ACETAMINOPHEN TAB 650MG DOSE (2X325MG) PO PRN (18:00)
[2019-03-06] MEDS ORDERED: AZITHROMYCIN INJ 500 MG, VIAL MATE ADAPTER 1 EACH in D5W 250 ML IV SCH (18:00)
[2019-03-06] MEDS ORDERED: RISATAB3 EN (18:12)
[2019-03-06] MEDS ORDERED: PANT40TA3 EN (18:12)
[2019-03-06] MEDS ORDERED: DICL13PA TD (18:12)
[2019-03-06] MEDS ORDERED: MOM30SS EN (18:12)
[2019-03-06] MEDS ORDERED: NORC1TAB8 EN (18:12)
[2019-03-06] MEDS ORDERED: SYMB16INH INH (18:12)
[2019-03-06] MEDS ORDERED: MIRA3350 EN (18:12)
[2019-03-06] MEDS ORDERED: ACET-907 EN (18:12)
[2019-03-06] MEDS ORDERED: GABA-845 EN (18:12)
--- NOTE | 2019-03-06 18:25 | HPEPDOC ---
[facility] Medical History & Physical Date of Admission Mar 06, 2019 Date of Service: Mar 06, 2019 History and Physical CHIEF COMPLAINT: Hypoxia HISTORY OF PRESENT ILLNESS: Patient is an 84-year-old male with extensive pulmonary disease including COPD, interstitial fibrosis, lung cancer status post right upper lobe lobectomy, p ulmonary hypertension, recurrent aspiration pneumonia despite having a feeding tube and ?DM brought in from correction for reported fevers, cough and hypoxia. Symptoms all started today per family at bedside, most history were obtained from family as patient was minimally alert. In ER, patient was found to be hypoxic with pO2 on ABG in 50s with NRB not adequately support patient's O2 requiring utilization of high flow oxygen. Saturation remained stable in mid 90s on high flow oxygen. No other symptoms were reported prior to today. Normally follows with Dr. Ferrer as outpatient. PAST MEDICAL HISTORY: Refer to [facility] PAST SURGICAL HISTORY: Left shoulder injection PEG tube placement Right upper lobe lobectomy Shoulder surgeries SOCIAL HISTORY: Denies tobacco, alcohol or illicit drug use. FAMILY HISTORY: Children with Crohn's and MS ALLERGIES: Please see below. REVIEW OF SYSTEMS: 10 point review of system negative except as stated in [facility] HOME MEDICATIONS: Please see below. PHYSICAL EXAMINATION: General: Lethargic, minimally responsive with verbal stimuli, severely malnourished/cachectic/frail Eyes: Normal sclera HENT: Atraumatic, neck supple, moist mucous membranes Cardiovascular: Tachycardic Pulmonary: Clear to auscultation b/l, no wheezing GI: Soft, nondistended Skin: Warm and dry Neuro: Not fully alert, unable to assess neurological status. LABORATORY DATA: See below. IMAGING: CXR- Impression: Diffuse chronic interstitial changes/fibrosis. Subtle superimposed left lower lobe infiltrate suspected. MICROBIOLOGY: Please see below. ASSESSMENT AND PLAN: 1. LLL PNA with hypoxia - in setting of recurrent aspiration PNA, suspect recurrent event. - Febrile but otherwise no leukocytosis and normal lactic acid. Does NOT appear to have evidence of sepsis at this time. - Will treat with Zosyn at this time. Consider expanding spectrum if clinically does not improve. - Will try to ge sputum culture but will be difficult as patient will not be alert enough to provide. - c/w High flow oxygen now. Titrate down to NRB and NC if possible, to maintain sat >92%. - Will consult Pulm/Dr. Ferrer if hypoxia persistent. 2. COPD/Pulmonary fibrosis - Not likely in exacerbation. - Will give short course of prednisone as it may help with oxygenation in setting of pulmonary fibrosis. - duonebs PRN, resume home inhaler and meds. - Follows with Dr. Ferrer. 3. ?DM - was at insulin at some point but denies having DM. - BS normal. Will just monitor for now. if high, will add sliding scale. 4. Hx lung cancer - s/p RUL lobectomy. DVT ppx: Lovenox and SCD Code status: DNR/DNI Vital Signs Vital Signs Date Time Temp Pulse Resp B/P (MAP) Pulse Ox O2 Delivery O2 Flow Rate FiO2 03/06/19 17:01 94 Nasal Cannula 35.0 60 03/06/19 16:31 180/114 (136) 03/06/19 16:30 127 03/06/19 16:15 101.2 22 Laboratory Data Labs 24H Laboratory Tests 2 03/06/19 16:00: Blood Gas Bicarbonate Standard 28.7H, Arterial Blood pH 7.428, Arterial Blood Partial Pressure CO2 46.4H, Arterial Blood Partial Pressure O2 54.5L, Arterial Blood Total CO2 31.4H, Arterial Blood HCO3 30.0H, Arterial Blood Base Excess 4.9H, Arterial Blood Oxygen Saturation 86.7L 03/06/19 16:10: Immature Granulocyte % (Auto) 0.2, White Blood Count 8.7, Red Blood Count 3.67L, Hemoglobin 11.4L, Hematocrit 36.3L, Mean Corpuscular Volume 98.9H, Mean C orpuscular Hemoglobin 31.1, Mean Corpuscular Hemoglobin Concent 31.4L, Red Cell Distribution Width 15.5H, Platelet Count 350, Neutrophils (%) (Auto) 81.8H, Lymphocytes (%) (Auto) 9.3L, Monocytes (%) (Auto) 6.9H, Eosinophils (%) (Auto) 1.5, Basophils (%) (Auto) 0.3, Neutrophils # (Auto) 7.1, Lymphocytes # (Auto) 0.8L, Monocytes # (Auto) 0.6, Eosinophils # (Auto) 0.1, Basophils # (Auto) 0.0, Nucleated Red Blood Cells % (auto) 0.0, Anion Gap 6L, Glomerular Filtration Rate > 60.0, Lactic Acid Level 1.3, Calcium Level 8.9, Aspartate Amino Transf (AST/SGOT) 28, Alanine Aminotransferase (ALT/SGPT) 42, Alkaline Phosphatase 86, Total Bilirubin 0.8, Direct Bilirubin 0.3H, Total Creatine Kinase 53, Creatine Kinase MB 1.3, Creatine Kinase MB Relative Index 2.45, Troponin I < 0.02, UK-Nlc-B-Type Natriuretic Peptide 963H, Total Protein 6.4, Albumin 3.0L, Albumin/Globulin Ratio 0.88L CBC/BMP Laboratory Tests 03/06/19 16:10 Red Blood Count 3.67 L, Mean Corpuscular Volume 98.9 H, Mean Corpuscular Hemoglobin 31.1, Mean Corpuscular Hemoglobin Concent 31.4 L, Red Cell Distribution Width 15.5 H, Neutrophils (%) (Auto) 81.8 H, Lymphocytes (%) (Auto) 9.3 L, Monocytes (%) (Auto) 6.9 H, Eosinophils (%) (Auto) 1.5, Basophils (%) (Auto) 0.3, Neutrophils # (Auto) 7.1, Lymphocytes # (Auto) 0.8 L, Monocytes # (Auto) 0.6, Eosinophils # (Auto) 0.1, Basophils # (Auto) 0.0 Microbiology Microbiology 03/06/19 Blood Culture, Received Pending 03/06/19 Blood Culture, Received Pending 03/06/19 Gram Stain, Received Pending 03/06/19 Sputum Culture, Received Pending Allergies Coded Allergies: No Known Allergies (Unverified , 01/06/19) A-FIB/CHADSVASC A-FIB History Current/History of A-Fib/PAF?: No MICHAEL MA MD Mar 06, 2019 18:25
[2019-03-06] MEDS ORDERED: MOM 30ML SUSPENSION UDC GT PRN (18:30)
[2019-03-06] MEDS ORDERED: BISACODYL 10 MG SUPP PR PRN (18:30)
[2019-03-06] MEDS ORDERED: MIRALAX *UNIT DOSE* 17GM PACKET GT PRN (18:30)
[2019-03-06] MEDS ORDERED: PIPERACILLIN/TAZOBACTAM SOD 3.375 GM in D5W MINI-BAG PLUS 50 ML IV SCH (20:00)
[2019-03-06 20:30] VITALS: BP 102/56
[2019-03-06 21:00] VITALS: O2SAT 90
[2019-03-06] MEDS ORDERED: SYMBICORT 160/4.5MCG INHALER 6GM INH SCH (21:00)
[2019-03-06 22:00] VITALS: O2SAT 94
[2019-03-06 22:01] VITALS: O2SAT 92
[2019-03-06] MEDS: ANEXSIA, NORCO 7.5MG/325MG TABLET(HYDROCODONE/APAP) GT PRN (22:47)
[2019-03-06] MEDS: DICLOFENAC EPOLAMINE 1.3 % PATCH TD SCH (22:48)
[2019-03-06] MEDS: GABAPENTIN 400 MG CAP GT SCH (22:48)
[2019-03-06 23:00] VITALS: O2SAT 93
[2019-03-07] VITALS (23 sets, daily range): BP systolic 92–118; BP diastolic 50–60; O2SAT 90–96
[2019-03-07 03:41] LABS: ABG BASE EXCESS 0.6 (-2.0-2.0); ABG HCO3 25.1 MEQ/L (22.0-26.0); ABG O2 SATURATION 98.7 % (95.0-99.0); ABG PARTIAL PRESSURE CO2 39.8 mmHg (35.0-45.0); ABG PARTIAL PRESSURE O2 118.1 mmHg (75.0-100.0); ABG STANDARD HCO3 25.1 MEQ/L (22.0-26.0); ABG TOTAL CO2 26.3 MEQ/L (23.0-31.0); ABG pH (ARTERIAL) 7.418 UNITS (7.350-7.450)
[2019-03-07 05:50] LABS: HEMATOCRIT 30.4 % (42.0-52.0); HEMOGLOBIN 9.6 g/dl (13.5-17.5); MEAN CORPUSCULAR HEMOGLOBIN 30.9 pg (27.0-33.0); MEAN CORPUSCULAR HGB CONC 31.6 g/dl (32.0-36.5); MEAN CORPUSCULAR VOLUME 97.7 fl (80.0-96.0); PLATELET COUNT, AUTOMATED 348 10^3/uL (150-450); RED BLOOD COUNT 3.11 10^6/uL (4.30-6.10); WHITE BLOOD COUNT 17.5 10^3/uL (4.0-10.0)
[2019-03-07] MEDS: HumaLOG INSULIN (NovoLOG) PER UNIT SC SCH ×3 (06:00→17:02)
[2019-03-07] MEDS: PIPERACILLIN/TAZOBACTAM SOD 3.375 GM in D5W MINI-BAG PLUS 50 ML IV SCH ×3 (06:03→18:36)
[2019-03-07 06:10] LABS: BLOOD UREA NITROGEN 34 MG/DL (7-18); CALCIUM LEVEL 8.2 MG/DL (8.8-10.2); CARBON DIOXIDE LEVEL 27 MEQ/L (21-32); CHLORIDE LEVEL 101 MEQ/L (98-107); CREATININE FOR GFR 0.93 MG/DL (0.70-1.30); GLOMERULAR FILTRATION RATE > 60.0 (>35); GLUCOSE, FASTING 273 MG/DL (70-100); POTASSIUM SERUM 4.7 MEQ/L (3.5-5.1); SODIUM LEVEL 135 MEQ/L (136-145)
[2019-03-07] MEDS: FORMOTEROL FUMARATE 20 MCG/2 ML INHALATION SOLUTION (PERFOROMIST) INH SCH ×2 (07:26→20:34)
[2019-03-07] MEDS: BUDESONIDE 0.5 MG/2 ML INHALATION SUSPENSION INH SCH ×2 (07:27→20:34)
[2019-03-07] MEDS ORDERED: GLUCOSE 4 GM CHEW TABLET PO PRN (08:30)
[2019-03-07] MEDS ORDERED: GLUCAGON FOR INJ 1 MG VIAL (J1610) SC PRN (08:30)
[2019-03-07] MEDS ORDERED: DEXTROSE 50% 50 ML SYRINGE IV PRN (08:30)
[2019-03-07] MEDS ORDERED: cefTRIAXone SOD 1 GM in D5W MINI-BAG PLUS 50 ML IV SCH (09:00)
[2019-03-07] MEDS ORDERED: predniSONE 20 MG TAB PO SCH (09:00)
[2019-03-07] MEDS ORDERED: SLF 3 ML SYR IV PRN (09:45)
[2019-03-07] MEDS: GABAPENTIN 400 MG CAP GT SCH ×3 (09:47→20:17)
[2019-03-07] MEDS: ENOXAPARIN 30 MG/0.3 ML SYR (J1650) SC SCH (09:47)
[2019-03-07] MEDS: DICLOFENAC EPOLAMINE 1.3 % PATCH TD SCH ×2 (09:48→20:17)
[2019-03-07] MEDS ORDERED: VANCOMYCIN HCL 1,000 MG, VIAL MATE ADAPTER 1 EACH in D5W 250 ML IV ONE (10:00)
--- NOTE | 2019-03-07 10:44 | IPNPDOC ---
Date Seen The patient was seen on 03/07/19. Progress Note SUBJECTIVE: No acute events reported overnight. Patient appears much more alert and comfortable this morning. Oxygen FiO2 50->40% and 35->30L/min. He reports having some SOB but not significant. WBC increased to 17 from 8 but did get high dose solumedrol yesterday. OBJECTIVE PHYSICAL EXAMINATION: VITAL SIGNS: Please see below. General: Lethargic, minimally responsive with verbal stimuli, severely malnourished/cachectic/frail Eyes: Normal sclera HENT: Atraumatic, neck supple, moist mucous membranes Cardiovascular: Tachycardic Pulmonary: Clear to auscultation b/l, no wheezing GI: Soft, nondistended Skin: Warm and dry Neuro: Not fully alert, unable to assess neurological status. LABORATORY DATA, IMAGING STUDIES, MICROBIOLOGY: Please see below. ASSESSMENT AND PLAN: 1. LLL PNA with hypoxia - in setting of recurrent aspiration PNA, suspect recurrent event. - Febrile but otherwise no leukocytosis and normal lactic acid. Does NOT appear to have evidence of sepsis at this time. - c/w Zosyn, Vancomycin added given high O2 requirement and inc leukocytosis. Although could be from steroids. MRSA screen, d/c if negative. - Will try to ge sputum culture but will be difficult. - c/w High flow oxygen now. Titrate down to NRB and NC if possible, to maintain sat >92%. - Will consult Pulm/Dr. Ferrer if hypoxia persistent. 2. COPD/Pulmonary fibrosis - Not likely in exacerbation. - Will give short course of prednisone as it may help with oxygenation in setting of pulmonary fibrosis. - duonebs PRN, resume home inhaler and meds. - Follows with Dr. Ferrer. 3. Suspected steroid induced hyperglycemia vs DM - was at insulin at some point but denies having DM. - BS elevated this morning, liklely 2/2 steroids rather than diabetes. - Obtain HbA1c 4. Hx lung cancer - s/p RUL lobectomy. DVT ppx: Lovenox and SCD Code status: DNR/DNI VS, I&O, 24H, Fishbone Vital Signs/I&O Vital Signs Date Time Temp Pulse Resp B/P (MAP) Pulse Ox O2 Delivery O2 Flow Rate FiO2 03/07/19 08:00 98.4 92 18 95 30.0 40 03/07/19 04:00 92/52 (65) 03/06/19 22:01 Nasal Cannula I&O- Last 24 Hours up to 6 AM 03/07/19 06:00 Intake Total 1380 ml Output Total 100 ml Balance 1280 ml Laboratory Data 24H LABS Laboratory Tests 2 03/06/19 16:00: Blood Gas Bicarbonate Standard 28.7H, Arterial Blood pH 7.428, Arterial Blood Partial Pressure CO2 46.4H, Arterial Blood Partial Pressure O2 54.5L, Arterial Blood Total CO2 31.4H, Arterial Blood HCO3 30.0H, Arterial Blood Base Excess 4.9H, Arterial Blood Oxygen Saturation 86.7L 03/06/19 16:10: Immature Granulocyte % (Auto) 0.2, White Blood Count 8.7, Red Blood Count 3.67L, Hemoglobin 11.4L, Hematocrit 36.3L, Mean Corpuscular Volume 98.9H, Mean Corpuscular Hemoglobin 31.1, Mean Corpuscular Hemoglobin Concent 31.4L, Red Cell Distribution Width 15.5H, Platelet Count 350, Neutrophils (%) (Auto) 81.8H, Lymphocytes (%) (Auto) 9.3L, Monocytes (%) (Auto) 6.9H, Eosinophils (%) (Auto) 1.5, Basophils (%) (Auto) 0.3, Neutrophils # (Auto) 7.1, Lymphocytes # (Auto) 0.8L, Monocytes # (Auto) 0.6, Eosinophils # (Auto) 0.1, Basophils # (Auto) 0.0, Nucleated Red Blood Cells % (auto) 0.0, Anion Gap 6L, Glomerular Filtration Rate > 60.0, Lactic Acid Level 1.3, Calcium Level 8.9, Aspartate Amino Transf (AST/SGOT) 28, Alanine Aminotransferase (ALT/SGPT) 42, Alkaline Phosphatase 86, Total Bilirubin 0.8, Direct Bilirubin 0.3H, Total Creatine Kinase 53, Creatine Kinase MB 1.3, Creatine Kinase MB Relative Index 2.45, Troponin I < 0.02, SC-Bxd-E-Type Natriuretic Peptide 963H, Total Protein 6.4, Albumin 3.0L, Albumin/Globulin Ratio 0.88L 03/07/19 03:20: Blood Gas Bicarbonate Standard 25.1, Arterial Blood pH 7.418, Arterial Blood Partial Pressure CO2 39.8, Arterial Blood Partial Pressure O2 118.1H, Arterial Blood Total CO2 26.3, Arterial Blood HCO3 25.1, Arterial Blood Base Excess 0.6, Arterial Blood Oxygen Saturation 98.7 03/07/19 05:26: Nucleated Red Blood Cells % (auto) 0.0, Anion Gap 7L, Glomerular Filtration Rate > 60.0, Calcium Level 8.2L, Blood Urea Nitrogen 34H, Creatinine 0.93, Sodium Level 135L, Potassium Level 4.7, Chloride Level 101, Carbon Dioxide Level 27 CBC/BMP Laboratory Tests 03/06/19 16:10 Red Blood Count 3.67 L, Mean Corpuscular Volume 98.9 H, Mean Corpuscular Hemoglobin 31.1, Mean Corpuscular Hemoglobin Concent 31.4 L, Red Cell Di stribution Width 15.5 H, Neutrophils (%) (Auto) 81.8 H, Lymphocytes (%) (Auto) 9.3 L, Monocytes (%) (Auto) 6.9 H, Eosinophils (%) (Auto) 1.5, Basophils (%) (Auto) 0.3, Neutrophils # (Auto) 7.1, Lymphocytes # (Auto) 0.8 L, Monocytes # (Auto) 0.6, Eosinophils # (Auto) 0.1, Basophils # (Auto) 0.0 03/07/19 05:26 Red Blood Count 3.11 L, Mean Corpuscular Volume 97.7 H, Mean Corpuscular Hemoglobin 30.9, Mean Corpuscular Hemoglobin Concent 31.6 L, Red Cell Distribution Width 15.7 H, Calcium Level 8.2 L Microbiology Microbiology 03/06/19 Blood Culture, Received Pending 03/06/19 Blood Culture, Received Pending 03/06/19 Gram Stain - Final, Resulted 03/06/19 Sputum Culture - Preliminary, Resulted Staphylococcus Aureus MICHAEL MA MD Mar 07, 2019 10:43
--- NOTE | 2019-03-07 11:13 | ECGEPIP ---
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
[2019-03-07 12:05] LABS: HEMOGLOBIN A1c 5.6 %
[2019-03-07] MEDS: predniSONE 20 MG TAB PEG SCH (13:21)
--- NOTE | 2019-03-07 14:02 | PHACANCOPD ---
PHARMACY VANCOMYCIN DOSING Pt Demographics Demographics Patient Age:84 , Weight:41.600 , Gender: male Adjusted Body Weight Date: 03/07/19, Adjusted Body Weight: Kg Events Past 24 Hours Events Past 24 Hours: YES: Elevation in WBC; NO: Dialysis, Diuretic Therapy, Change in CrCl, Fever Vancomycin Vancomycin indication: Respiratory Infection Vancomycin Target Ranges: 15-20 mcg/ml Vancomycin Load Y/N: Yes Load Dose Date Time Vancomycin Load Dose: 1000mg Date: 03/07 Time: 1000 Vancomycin Dose Date: 03/07/19. Current Vancomycin Dose: [750mg iv q12h@22] Intermittent Dosing?: No Labs Labs Item Value Date Time White Blood Count 8.7 10^3/uL 03/06/19 1610 White Blood Count 17.5 10^3/uL H 03/07/19 0526 Creatinine 0.93 MG/DL 03/07/19 0526 Lactic Acid Level 1.3 MMOL/L 03/06/19 1610 Vital Signs Label Value Date Time Patient Temperature 99.3 degrees F 03/07/19 1200 Temperature Source Temporal 03/07/19 1200 Patient Temperature 98.4 degrees F 03/07/19 0800 Temperature Source Temporal 03/07/19 0800 Micro Microbiology 03/06/19 Blood Culture, Received Pending 03/06/19 Blood Culture, Received Pending 03/06/19 Gram Stain - Final, Resulted 03/06/19 Sputum Culture - Preliminary, Resulted Staphylococcus Aureus Creatinine Clearance Date:03/07/19. Creatinine Clearance: . Assessment and Plan Maintaining Current Dose?: Yes Reason for dose change: No Dose Change Pharmacist Note Pharmacist Note Date: 03/07/19. Pharmacist note: Patient is being empirically started on Vancomycin for a respiratory infection. He is currently being treated with Zosy n for aspiration pneumonia and Vancomycin was added due to increase in WBC and increase O2 needs. Leukocytosis could be secondary to steroid use. A MRSA screen has been ordered, we will follow up with physician if negative. Patient was loaded on Vancomycin 1gm and continued on 750mg IV q12h per previous consult. We will continue to follow and make adjustments as necessary. EILE[facility] Mar 07, 2019 14:02
[2019-03-07] MEDS: SLF 3 ML SYR IV SCH ×2 (14:50→22:04)
[2019-03-07] MEDS: VANCOMYCIN HCL 750 MG, VIAL MATE ADAPTER 1 EACH in D5W 250 ML IV SCH (22:04)
[2019-03-08] VITALS (27 sets, daily range): BP systolic 95–124; BP diastolic 53–68; O2SAT 88–98
[2019-03-08] MEDS: PIPERACILLIN/TAZOBACTAM SOD 3.375 GM in D5W MINI-BAG PLUS 50 ML IV SCH ×5 (00:23→23:38)
[2019-03-08] MEDS: HumaLOG INSULIN (NovoLOG) PER UNIT SC SCH ×5 (00:23→23:39)
[2019-03-08 05:11] LABS: HEMATOCRIT 28.8 % (42.0-52.0); HEMOGLOBIN 9.2 g/dl (13.5-17.5); MEAN CORPUSCULAR HEMOGLOBIN 30.9 pg (27.0-33.0); MEAN CORPUSCULAR HGB CONC 31.9 g/dl (32.0-36.5); MEAN CORPUSCULAR VOLUME 96.6 fl (80.0-96.0); PLATELET COUNT, AUTOMATED 328 10^3/uL (150-450); RED BLOOD COUNT 2.98 10^6/uL (4.30-6.10); WHITE BLOOD COUNT 17.9 10^3/uL (4.0-10.0)
[2019-03-08 05:30] LABS: BLOOD UREA NITROGEN 34 MG/DL (7-18); CALCIUM LEVEL 8.1 MG/DL (8.8-10.2); CARBON DIOXIDE LEVEL 27 MEQ/L (21-32); CHLORIDE LEVEL 100 MEQ/L (98-107); CREATININE FOR GFR 0.77 MG/DL (0.70-1.30); GLOMERULAR FILTRATION RATE > 60.0 (>35); GLUCOSE, FASTING 199 MG/DL (70-100); POTASSIUM SERUM 4.2 MEQ/L (3.5-5.1); SODIUM LEVEL 134 MEQ/L (136-145)
[2019-03-08] MEDS: SLF 3 ML SYR IV SCH ×3 (05:53→21:53)
[2019-03-08] MEDS: ANEXSIA, NORCO 7.5MG/325MG TABLET(HYDROCODONE/APAP) GT PRN ×4 (06:01→22:48)
[2019-03-08] MEDS: BUDESONIDE 0.5 MG/2 ML INHALATION SUSPENSION INH SCH ×2 (08:41→20:06)
[2019-03-08] MEDS: FORMOTEROL FUMARATE 20 MCG/2 ML INHALATION SOLUTION (PERFOROMIST) INH SCH ×2 (08:41→20:06)
[2019-03-08] MEDS: GABAPENTIN 400 MG CAP GT SCH ×3 (09:15→21:53)
[2019-03-08] MEDS: ENOXAPARIN 30 MG/0.3 ML SYR (J1650) SC SCH (09:15)
[2019-03-08] MEDS: predniSONE 20 MG TAB PEG SCH (09:15)
[2019-03-08] MEDS: DICLOFENAC EPOLAMINE 1.3 % PATCH TD SCH ×2 (09:16→21:53)
[2019-03-08] MEDS: VANCOMYCIN HCL 750 MG, VIAL MATE ADAPTER 1 EACH in D5W 250 ML IV SCH ×2 (10:43→21:54)
--- NOTE | 2019-03-08 11:16 | IPNPDOC ---
Date Seen The patient was seen on 03/08/19. Progress Note SUBJECTIVE: No acute events reported overnight. Patient reported feeling well and appear very comfortable. On High flow still weaned down to 35% Fio2 and 20L this AM. To try to wean to NC today. Sputum culture + MRSA OBJECTIVE PHYSICAL EXAMINATION: VITAL SIGNS: Please see below. General: Alert and talkative, severely malnourished/cachectic/frail Eyes: Normal sclera HENT: Atraumatic, neck supple, moist mucous membranes Cardiovascular: Normal rate Pulmonary: Clear to auscultation b/l, no wheezing GI: Soft, nondistended Skin: Warm and dry Neuro: Not fully alert, unable to assess neurological status. LABORATORY DATA, IMAGING STUDIES, MICROBIOLOGY: Please see below. ASSESSMENT AND PLAN: 1. LLL PNA with hypoxia - in setting of recurrent aspiration PNA, suspect recurrent event. - Febrile but otherwise no leukocytosis and normal lactic acid. Does NOT appear to have evidence of sepsis at this time. - Sputum culture + MRSA. On Zosyn and Vanco. - c/w High flow oxygen now. Titrate to NC if possible, to maintain sat >92%. - Will consult Pulm/Dr. Ferrer if hypoxia persistent. 2. COPD/Pulmonary fibrosis - Not likely in exacerbation. - Will give short course of prednisone as it may help with oxygenation in setting of pulmonary fibrosis. - duonebs PRN, resume home inhaler and meds. - Follows with Dr. Ferrer. 3. Likely steroid induced hyperglycemia rather than DM - was at insulin at some point but denies having DM. HbA1c 5.6. - ISS as needed. 4. Hx lung cancer - s/p RUL lobectomy. DVT ppx: Lovenox and SCD Code status: DNR/DNI VS, I&O, 24H, [facility] Vital Signs/I&O Vital Signs Date Time Temp Pulse Resp B/P (MAP) Pulse Ox O2 Delivery O2 Flow Rate FiO2 03/08/19 09:00 98 25.0 35 03/08/19 08:00 98.1 75 18 113/61 (78) 03/06/19 22:01 Nasal Cannula I&O- Last 24 Hours up to 6 AM 03/08/19 06:00 Intake Total 1720 ml Output Total 400 ml Balance 1320 ml Laboratory Data 24H LABS Laboratory Tests 2 03/07/19 11:50: Bedside Glucose (Misc Panel) 244H 03/07/19 16:51: Bedside Glucose (Misc Panel) 52L 03/07/19 18:01: Bedside Glucose (Misc Panel) 123H 03/08/19 00:22: Bedside Glucose (Misc Panel) 243H 03/08/19 03:31: Bedside Glucose (Misc Panel) 254H 03/08/19 04:37: Nucleated Red Blood Cells % (auto) 0.0, Anion Gap 7L, Glomerular Filtration Rate > 60.0, Blood Urea Nitrogen 34H, Creatinine 0.77, Sodium Level 134L, Potassium Level 4.2, Chloride Level 100, Carbon Dioxide Level 27, Calcium Level 8.1L 03/08/19 05:48: Bedside Glucose (Misc Panel) 149H CBC/BMP Laboratory Tests 03/08/19 04:37 Red Blood Count 2.98 L, Mean Corpuscular Volume 96.6 H, Mean Corpuscular Hemoglobin 30.9, Mean Corpuscular Hemoglobin Concent 31.9 L, Red Cell Distribut ion Width 15.6 H, Calcium Level 8.1 L Microbiology Microbiology 03/06/19 Blood Culture - Preliminary, Resulted No growth after 24 hours . All specim... 03/06/19 Blood Culture - Preliminary, Resulted No growth after 24 hours . All specim... 03/07/19 MRSA Screen, Received Pending 03/06/19 Gram Stain - Final, Complete 03/06/19 Sputum Culture - Final, Complete Staph.aureus Methicillin Resis MICHAEL MA MD Mar 08, 2019 11:16
--- NOTE | 2019-03-08 21:19 | PHACANCOPD ---
PHARMACY VANCOMYCIN DOSING Pt Demographics Demographics Patient Age:84 , Weight:39.200 , Gender: male Adjusted Body Weight Date: 03/07/19, Adjusted Body Weight: Kg Events Past 24 Hours Events Past 24 Hours: NO: Dialysis, Diuretic Therapy, Change in CrCl, Fever, Elevation in WBC, Pending Diagnostics, Pending Procedures, Other Vancomycin Vancomycin indication: Respiratory Infection Vancomycin Target Ranges: 15-20 mcg/ml Vancomycin Load Y/N: Yes Load Dose Date Time Vancomycin Load Dose: 1000mg Date: 03/07 Time: 1000 Vancomycin Dose Date: 03/08/19. Current Vancomycin Dose: [750mg iv q12h@22] Intermittent Dosing?: No Labs Labs Item Value Date Time White Blood Count 17.9 10^3/uL H 03/08/19436 Glomerular Filtration Rate > 60.0 03/08/19436 Creatinine 0.77 MG/DL 03/08/19436 Blood Urea Nitrogen 34 MG/DL H 03/08/19436 Vancomycin Level Trough 19.0 UG/ML 03/08/192045 Vital Signs Label Value Date Time Patient Temperature 98.2 degrees F 03/08/191999 Temperature Source Temporal 03/08/191999 Micro Microbiology 03/06/19 Blood Culture - Preliminary, Resulted No Growth after 48 hours. All Specime... 03/06/19 Blood Culture - Preliminary, Resulted No Growth after 48 hours. All Specime... 03/07/19 MRSA Screen, Received Pending 03/06/19 Gram Stain - Final, Complete 03/06/19 Sputum Culture - Final, Complete Staph.aureus Methicillin Resis Creatinine Clearance Date:03/08/19. Creatinine Clearance: [~60]. Assessment and Plan Maintaining Current Dose?: Yes Reason for dose change: No Dose Change Pharmacist Note Pharmacist Note Date: 03/08/19. Pharmacist note: Trough of 19 is within target range. Will continue current dosing. Will continue to monitor and make adjustments as needed. [facility] Mar 08, 2019 21:19
[2019-03-09] VITALS (23 sets, daily range): BP systolic 118–147; BP diastolic 58–72; O2SAT 84–99
[2019-03-09] MEDS: HumaLOG INSULIN (NovoLOG) PER UNIT SC SCH ×4 (06:00→23:52)
[2019-03-09] MEDS: SLF 3 ML SYR IV SCH ×3 (06:08→21:38)
[2019-03-09] MEDS: PIPERACILLIN/TAZOBACTAM SOD 3.375 GM in D5W MINI-BAG PLUS 50 ML IV SCH (06:08)
[2019-03-09 06:19] LABS: HEMATOCRIT 29.2 % (42.0-52.0); HEMOGLOBIN 9.3 g/dl (13.5-17.5); MEAN CORPUSCULAR HEMOGLOBIN 30.1 pg (27.0-33.0); MEAN CORPUSCULAR HGB CONC 31.8 g/dl (32.0-36.5); MEAN CORPUSCULAR VOLUME 94.5 fl (80.0-96.0); PLATELET COUNT, AUTOMATED 335 10^3/uL (150-450); RED BLOOD COUNT 3.09 10^6/uL (4.30-6.10); WHITE BLOOD COUNT 16.6 10^3/uL (4.0-10.0)
[2019-03-09 06:33] LABS: BLOOD UREA NITROGEN 35 MG/DL (7-18); CALCIUM LEVEL 8.7 MG/DL (8.8-10.2); CARBON DIOXIDE LEVEL 32 MEQ/L (21-32); CHLORIDE LEVEL 96 MEQ/L (98-107); CREATININE FOR GFR 0.76 MG/DL (0.70-1.30); GLOMERULAR FILTRATION RATE > 60.0 (>35); GLUCOSE, FASTING 112 MG/DL (70-100); SODIUM LEVEL 133 MEQ/L (136-145)
[2019-03-09] MEDS: BUDESONIDE 0.5 MG/2 ML INHALATION SUSPENSION INH SCH ×2 (07:39→19:33)
[2019-03-09] MEDS: FORMOTEROL FUMARATE 20 MCG/2 ML INHALATION SOLUTION (PERFOROMIST) INH SCH ×2 (07:39→19:32)
[2019-03-09] MEDS: DICLOFENAC EPOLAMINE 1.3 % PATCH TD SCH ×2 (09:31→21:38)
[2019-03-09] MEDS: VANCOMYCIN HCL 750 MG, VIAL MATE ADAPTER 1 EACH in D5W 250 ML IV SCH (09:32)
[2019-03-09] MEDS: ENOXAPARIN 30 MG/0.3 ML SYR (J1650) SC SCH (09:32)
[2019-03-09] MEDS: predniSONE 20 MG TAB PEG SCH (09:32)
[2019-03-09] MEDS: GABAPENTIN 400 MG CAP GT SCH ×3 (09:33→21:38)
--- NOTE | 2019-03-09 10:19 | IPNPDOC ---
Date Seen The patient was seen on 03/09/19. Progress Note SUBJECTIVE: Patient states that he feels well, breathing well. Last night reportedly was SOB and felt he did not have enough oxygen, but better today. Had been weaned off high flow oxygen and currently on 2L O2. OBJECTIVE PHYSICAL EXAMINATION: VITAL SIGNS: Please see below. General: Alert and talkative, severely malnourished/cachectic/frail Eyes: Normal sclera HENT: Atraumatic, neck supple, moist mucous membranes Cardiovascular: Normal rate Pulmonary: Clear to auscultation b/l, no wheezing GI: Soft, nondistended Skin: Warm and dry Neuro: Not fully alert, unable to assess neurological status. LABORATORY DATA, IMAGING STUDIES, MICROBIOLOGY: Please see below. ASSESSMENT AND PLAN: 1. LLL PNA with hypoxia - in setting of recurrent aspiration PNA, suspect recurrent event. - Sputum culture + MRSA. On Zosyn and Vanco. will d/c Zosyn. - c/w O2 support to maintain sat >92%. - Leukocytosis but in setting of steroid use. 2. COPD/Pulmonary fibrosis - Not likely in exacerbation. - Will give short course of prednisone as it may help with oxygenation in s etting of pulmonary fibrosis. - duonebs PRN, resume home inhaler and meds. - Follows with Dr. Ferrer. 3. Likely steroid induced hyperglycemia rather than DM - was at insulin at some point but denies having DM. HbA1c 5.6. - ISS as needed. 4. Hx lung cancer - s/p RUL lobectomy. DVT ppx: Lovenox and SCD Code status: DNR/DNI VS, I&O, 24H, [facility] Vital Signs/I&O Vital Signs Date Time Temp Pulse Resp B/P (MAP) Pulse Ox O2 Delivery O2 Flow Rate FiO2 03/09/19 10:00 89 Nasal Cannula 2.0 03/09/19 08:00 98.0 74 20 134/65 (88) 03/08/19 16:00 35 I&O- Last 24 Hours up to 6 AM 03/09/19 06:00 Intake Total 2560 ml Output Total 1375 ml Balance 1185 ml Laboratory Data 24H LABS Laboratory Tests 2 03/08/19 11:52: Bedside Glucose (Misc Panel) 275H 03/08/19 15:19: Bedside Glucose (Misc Panel) 266H 03/08/19 16:28: Bedside Glucose (Misc Panel) 227H 03/08/19 20:46: Vancomycin Level Trough 19.0 03/08/19 23:28: Bedside Glucose (Misc Panel) 231H 03/09/19 05:36: Nucleated Red Blood Cells % (auto) 0.0, Anion Gap 5L, Glomerular Filtration Rate > 60.0, Blood Urea Nitrogen 35H, Creatinine 0.76, Sodium Level 133L, Potassium Level 4.0, Chloride Level 96L, Carbon Dioxide Level 32, Calcium Level 8.7L 03/09/19 06:00: Bedside Glucose (Misc Panel) 100 CBC/BMP Laboratory Tests 03/09/19 05:36 Red Blood Count 3.09 L, Mean Corpuscular Volume 94.5, Mean Corpuscular Hemoglobin 30.1, Mean Corpuscular Hemoglobin Concent 31.8 L, Red Cell Distribution Width 15.3 H, Calcium Level 8.7 L Microbiology Microbiology 03/06/19 Blood Culture - Preliminary, Resulted No Growth after 48 hours. All Specime... 03/06/19 Blood Culture - Preliminary, Resulted No Growth after 48 hours. All Specime... 03/07/19 MRSA Screen - Final, Complete Staph.aureus Methicillin Resis 03/06/19 Gram Stain - Final, Complete 03/06/19 Sputum Culture - Final, Complete Staph.aureus Methicillin Resis MICHAEL MA MD Mar 09, 2019 10:19
[2019-03-09] MEDS: ANEXSIA, NORCO 7.5MG/325MG TABLET(HYDROCODONE/APAP) GT PRN ×2 (14:55→21:54)
[2019-03-10] VITALS (26 sets, daily range): BP systolic 127–148; BP diastolic 60–89; O2SAT 89–99
[2019-03-10] MEDS: ANEXSIA, NORCO 7.5MG/325MG TABLET(HYDROCODONE/APAP) GT PRN ×3 (02:14→15:21)
--- NOTE | 2019-03-10 04:04 | PHACANCOPD ---
PHARMACY VANCOMYCIN DOSING Pt Demographics Demographics Patient Age:84 , Weight:39.900 , Gender: male Adjusted Body Weight Date: 03/07/19, Adjusted Body Weight: Kg Vancomycin Vancomycin indication: Respiratory Infection Vancomycin Target Ranges: 15-20 mcg/ml Vancomycin Load Y/N: Yes Load Dose Date Time Vancomycin Load Dose: 1000mg Date: 03/07 Time: 1000 Vancomycin Dose Date: 03/08/19. Current Vancomycin Dose: [750mg iv q12h@22] Intermittent Dosing?: No Labs Labs Laboratory Tests 03/09/19 05:36 Red Blood Count 3.09 L, Mean Corpuscular Volume 94.5, Mean Corpuscular Hemoglobin 30.1, Mean Corpuscular Hemoglobin Concent 31.8 L, Red Cell Di stribution Width 15.3 H, Calcium Level 8.7 L Micro Microbiology 03/06/19 Blood Culture - Preliminary, Resulted No Growth after 72 hours. All specime... 03/06/19 Blood Culture - Preliminary, Resulted No Growth after 72 hours. All specime... 03/07/19 MRSA Screen - Final, Complete Staph.aureus Methicillin Resis 03/06/19 Gram Stain - Final, Complete 03/06/19 Sputum Culture - Final, Complete Staph.aureus Methicillin Resis Creatinine Clearance Date:03/08/19. Creatinine Clearance: [~60]. Assessment and Plan Maintaining Current Dose?: No Reason for dose change: Trough too high Pharmacist Note Pharmacist Note Date: 03/10/19. Pharmacist note:Vancomycin trough drawn this evening@20:56 reported as 22.4 (trough goal= 15-20)Will hold 2200 dose d/t accumulation and adjust Vancomycin to 1 gram IV [id number] to begin 03/10@0600.Next trough is scheduled for 03/11@0500-will continue to follow labs Date: 03/08/19. Pharmacist note: Trough of 19 is within target range. Will continue current dosing. Will continue to monitor and make adjustments as needed. [facility] Mar 10, 2019 04:04
[2019-03-10 05:21] LABS: HEMATOCRIT 33.7 % (42.0-52.0); HEMOGLOBIN 10.5 g/dl (13.5-17.5); MEAN CORPUSCULAR HEMOGLOBIN 29.6 pg (27.0-33.0); MEAN CORPUSCULAR HGB CONC 31.2 g/dl (32.0-36.5); MEAN CORPUSCULAR VOLUME 94.9 fl (80.0-96.0); PLATELET COUNT, AUTOMATED 406 10^3/uL (150-450); RED BLOOD COUNT 3.55 10^6/uL (4.30-6.10); WHITE BLOOD COUNT 18.1 10^3/uL (4.0-10.0)
[2019-03-10 05:40] LABS: BLOOD UREA NITROGEN 32 MG/DL (7-18); CALCIUM LEVEL 8.5 MG/DL (8.8-10.2); CARBON DIOXIDE LEVEL 30 MEQ/L (21-32); CHLORIDE LEVEL 97 MEQ/L (98-107); CREATININE FOR GFR 0.64 MG/DL (0.70-1.30); GLOMERULAR FILTRATION RATE > 60.0 (>35); GLUCOSE, FASTING 102 MG/DL (70-100); POTASSIUM SERUM 3.8 MEQ/L (3.5-5.1); SODIUM LEVEL 134 MEQ/L (136-145)
[2019-03-10] MEDS: VANCOMYCIN HCL 1,000 MG, VIAL MATE ADAPTER 1 EACH in D5W 250 ML IV SCH (05:55)
[2019-03-10] MEDS: SLF 3 ML SYR IV SCH ×3 (05:55→21:00)
[2019-03-10] MEDS: HumaLOG INSULIN (NovoLOG) PER UNIT SC SCH ×3 (05:55→17:33)
[2019-03-10] MEDS: FORMOTEROL FUMARATE 20 MCG/2 ML INHALATION SOLUTION (PERFOROMIST) INH SCH ×2 (07:16→20:05)
[2019-03-10] MEDS: BUDESONIDE 0.5 MG/2 ML INHALATION SUSPENSION INH SCH ×2 (07:16→20:05)
[2019-03-10] MEDS: GABAPENTIN 400 MG CAP GT SCH ×3 (09:08→21:00)
[2019-03-10] MEDS: predniSONE 20 MG TAB PEG SCH (09:08)
[2019-03-10] MEDS: ENOXAPARIN 30 MG/0.3 ML SYR (J1650) SC SCH (09:09)
[2019-03-10] MEDS: DICLOFENAC EPOLAMINE 1.3 % PATCH TD SCH ×2 (09:10→21:00)
--- NOTE | 2019-03-10 18:43 | IPNPDOC ---
Date Seen The patient was seen on 03/10/19. Progress Note SUBJECTIVE: Pt is off vapotherm, still c/o sob but o2 sat stable on nasal cannula. cough productive of white sputum. no chest pain, pressure, or tightness. no fever or chills overnight. OBJECTIVE PHYSICAL EXAMINATION: VITAL SIGNS: Please see below. General: no conversational dyspnea or use of accessory respiratory mm. Eyes: Normal sclera HENT: Atraumatic, neck supple, moist mucous membranes Cardiovascular: Normal rate Pulmonary: Clear to auscultation b/l, no wheezing GI: Soft, nondistended Skin: Warm and dry Neuro: Not fully alert, unable to assess neurological status. LABORATORY DATA, IMAGING STUDIES, MICROBIOLOGY: Please see below. ASSESSMENT AND PLAN: LLL PNA with hypoxia - in setting of recurrent aspiration PNA, suspect recurrent event. - Sputum culture + MRSA. On Zosyn and Vanco. will d/c Zosyn. - c/w O2 support to maintain sat >92%. - Leukocytosis but in setting of steroid use. COPD/Pulmonary fibrosis - Not likely in exacerbation. - Will give short course of prednisone as it may help with oxygenation in setting of pulmonary fibrosis. - duonebs PRN, resume home inhaler and meds. - Follows with Dr. Ferrer. Likely steroid induced hyperglycemia rather than DM - was at insulin at some point but denies having DM. HbA1c 5.6. - ISS as needed. Hx lung cancer - s/p RUL lobectomy. DVT ppx: Lovenox and SCD Code status: DNR/DNI VS, I&O, 24H, [facility] Vital Signs/I&O Vital Signs Date Time Temp Pulse Resp B/P (MAP) Pulse Ox O2 Delivery O2 Flow Rate FiO2 03/10/19 16:00 98.7 84 18 127/69 (88) 99 3.0 03/10/19 15:01 Nasal Cannula 03/08/19 16:00 35 I&O- Last 24 Hours up to 6 AM 03/10/19 06:00 Intake Total 2490 ml Output Total 1575 ml Balance 915 ml Laboratory Data 24H LABS Laboratory Tests 2 03/09/19 20:54: Vancomycin Level Trough 22.4H 03/09/19 23:40: Bedside Glucose (Misc Panel) 140H 03/10/19 04:49: Nucleated Red Blood Cells % (auto) 0.0, Anion Gap 7L, Glomerular Filtration Rate > 60.0, Blood Urea Nitrogen 32H, Creatinine 0.64L, Sodium Level 134L, Potassium Level 3.8, Chloride Level 97L, Carbon Dioxide Level 30, Calcium Level 8.5L 03/10/19 11:33: Bedside Glucose (Misc Panel) 152H 03/10/19 17:20: Bedside Glucose (Misc Panel) 218H CBC/BMP Laboratory Tests 03/10/19 04:49 Red Blood Count 3.55 L, Mean Corpuscular Volume 94.9, Mean Corpuscular Hemoglobin 29.6, Mean Corpuscular Hemoglobin Concent 31.2 L, Red Cell Distribution Width 15.3 H, Calcium Level 8.5 L Microbiology Microbiology 03/06/19 Blood Culture - Preliminary, Resulted No Growth after 72 hours. All specime... 03/06/19 Blood Culture - Preliminary, Resulted No Growth after 72 hours. All specime... 03/07/19 MRSA Screen - Final, Complete Staph.aureus Methicillin Resis 03/06/19 Gram Stain - Final, Complete 03/06/19 Sputum Culture - Final, Complete Staph.aureus Methicillin Resis KHALIF ANDERSON MD Mar 10, 2019 18:43
[2019-03-11] VITALS (19 sets, daily range): BP systolic 122–160; BP diastolic 66–87; O2SAT 90–99
[2019-03-11] MEDS: HumaLOG INSULIN (NovoLOG) PER UNIT SC SCH ×4 (00:08→17:48)
[2019-03-11] MEDS: ANEXSIA, NORCO 7.5MG/325MG TABLET(HYDROCODONE/APAP) GT PRN ×5 (00:09→20:08)
[2019-03-11 05:56] LABS: HEMATOCRIT 34.5 % (42.0-52.0); HEMOGLOBIN 10.7 g/dl (13.5-17.5); MEAN CORPUSCULAR HEMOGLOBIN 29.5 pg (27.0-33.0); PLATELET COUNT, AUTOMATED 431 10^3/uL (150-450); RED BLOOD COUNT 3.63 10^6/uL (4.30-6.10); WHITE BLOOD COUNT 16.7 10^3/uL (4.0-10.0)
[2019-03-11 06:14] LABS: BLOOD UREA NITROGEN 28 MG/DL (7-18); CALCIUM LEVEL 8.7 MG/DL (8.8-10.2); CARBON DIOXIDE LEVEL 34 MEQ/L (21-32); CHLORIDE LEVEL 99 MEQ/L (98-107); CREATININE FOR GFR 0.62 MG/DL (0.70-1.30); GLOMERULAR FILTRATION RATE > 60.0 (>35); GLUCOSE, FASTING 89 MG/DL (70-100); POTASSIUM SERUM 4.5 MEQ/L (3.5-5.1); SODIUM LEVEL 138 MEQ/L (136-145)
[2019-03-11] MEDS: SLF 3 ML SYR IV SCH ×3 (06:23→20:09)
[2019-03-11] MEDS: VANCOMYCIN HCL 1,000 MG, VIAL MATE ADAPTER 1 EACH in D5W 250 ML IV SCH (06:35)
--- NOTE | 2019-03-11 06:39 | PHACANCOPD ---
PHARMACY VANCOMYCIN DOSING Pt Demographics Demographics Patient Age:84 , Weight:40.600 , Gender: male Adjusted Body Weight Date: 03/07/19, Adjusted Body Weight: Kg Vancomycin Vancomycin indication: Respiratory Infection Vancomycin Target Ranges: 15-20 mcg/ml Vancomycin Load Y/N: Yes Load Dose Date Time Vancomycin Load Dose: 1000mg Date: 03/07 Time: 1000 Vancomycin Dose Date: 03/08/19. Current Vancomycin Dose: [750mg iv q12h@22] Intermittent Dosing?: No Labs Micro Microbiology 03/06/19 Blood Culture - Preliminary, Resulted No Growth after 72 hours. All specime... 03/06/19 Blood Culture - Preliminary, Resulted No Growth after 72 hours. All specime... 03/07/19 MRSA Screen - Final, Complete Staph.aureus Methicillin Resis 03/06/19 Gram Stain - Final, Complete 03/06/19 Sputum Culture - Final, Complete Staph.aureus Methicillin Resis Creatinine Clearance Date:03/08/19. Creatinine Clearance: [~60]. Assessment and Plan Maintaining Current Dose?: Yes Reason for dose change: No Dose Change Pharmacist Note Pharmacist Note Date: 03/11/19. Pharmacist note:Vancomycin trough drawn this morning@5:09 reported as 19.8,scr=no significant change. Will continue with current regimen( Vancomycin 1 gm IV Q24H)-will continue to follow labs and adjust dose as needed Date: 03/10/19. Pharmacist note:Vancomycin trough drawn this evening@20:56 reported as 22.4 (trough goal= 15-20)Will hold 2200 dose d/t accumulation and adjust Vancomycin to 1 gram IV [id number] to begin 03/10@0600.Next trough is scheduled for 03/11@0500-will continue to follow labs Date: 03/08/19. Pharmacist note: Trough of 19 is within target range. Will continue current dosing. Will continue to monitor and make adjustments as needed. [facility] Mar 11, 2019 06:39
[2019-03-11] MEDS: FORMOTEROL FUMARATE 20 MCG/2 ML INHALATION SOLUTION (PERFOROMIST) INH SCH ×2 (07:13→19:45)
[2019-03-11] MEDS: BUDESONIDE 0.5 MG/2 ML INHALATION SUSPENSION INH SCH ×2 (07:13→19:45)
[2019-03-11] MEDS: GABAPENTIN 400 MG CAP GT SCH ×3 (09:09→20:09)
[2019-03-11] MEDS: DICLOFENAC EPOLAMINE 1.3 % PATCH TD SCH ×2 (09:09→20:08)
[2019-03-11] MEDS: ENOXAPARIN 30 MG/0.3 ML SYR (J1650) SC SCH (09:13)
[2019-03-11 09:15] LABS: PREALBUMIN 19.3 MG/DL (20.0-40.0)
--- NOTE | 2019-03-11 15:12 | IPNPDOC ---
Date Seen The patient was seen on 03/11/19. Progress Note SUBJECTIVE: Daughter at the bedside is concerned about recurrence of aspiration, and asking for protective measures to prevent future recurrence. Still with BETTS, and c/o hypoglycemia yesterday with glucose in the 50's. Pt is off vapotherm, still c/o sob but o2 sat stable on nasal cannula. cough productive of white sputum. no chest pain, pressure, or tightness. no fever or chills overnight. Pt has not been out of bed due to fatigue, loss of energy, and BETTS. Commercial Correspondent consulted with recommendations to increase jevity to 75ml/hr x 18hrs. OBJECTIVE PHYSICAL EXAMINATION: VITAL SIGNS: Please see below. General: no conversational dyspnea or use of accessory respiratory mm. cachectic appearing with some temporal wasting. disheveled. no tripod positioning. answering questions appropriately. Eyes: Normal sclera anicteric HENT: Atraumatic, neck supple, moist mucous membranes Cardiovascular: S1S2 RRR Pulmonary: Clear to auscultation b/l, no wheezing GI: Soft, nondistended (+) bs no rebound guarding feeding tube Skin: Warm and dry LABORATORY DATA, IMAGING STUDIES, MICROBIOLOGY: Please see below. ASSESSMENT AND PLAN: Patient is an 84-year-old male with extensive pulmonary disease including COPD, interstitial fibrosis, lung cancer status post right upper lobe lobectomy, pulmonary hypertension, recurrent aspiration pneumonia despite having a feeding tube and ?DM brought in from correction for reported fevers, cough and hypoxia. Symptoms all started today per family at bedside, most history were obtained from family as patient was minimally alert. In ER, patient was found to be hypoxic with pO2 on ABG in 50s with NRB not adequately support patient's O2 requiring utilization of high flow oxygen. Saturation remained stable in mid 90s on high flow oxygen. No other symptoms were reported prior to today. Normally follows with Dr. Ferrer as outpatient. LLL PNA with hypoxia - in setting of recurrent aspiration PNA, suspect recurrent event. - Sputum culture + MRSA. - s/p Zosyn -on IV vanco for MRSA pneumonia from admission x 7 days, renally dosed by pharmacist. - c/w O2 support to maintain sat >92%. s/p vapotherm - Leukocytosis but in setting of steroid use. Acute on Chronic Hypoxic Respiratory Failure -15liters o2 90% on ED arrival , required vapotherm which has been weaned off -secondary to LLL MRSA pneumonia in the setting of copd and chronic pulmonary fibrosis -currently stable at 3liters nasal cannula -initially received vanco and zosyn, but sputum cx: MRSA . thus, zosyn discontinued COPD/Pulmonary fibrosis - Not likely in exacerbation. - on a short course of prednisone as it may help with oxygenation in setting of pulmonary fibrosis. - duonebs PRN, resumed home inhaler and meds. - Follows with Dr. Ferrer. Pulmonary Cachexia -optimized nutirition via tube feedings -Commercial Correspondent recommends jevity 75ml/hr x 18hrs Protein Calorie Malnutrition BMI 14.9 -optimized nutirition via tube feedings -Commercial Correspondent recommends jevity 75ml/hr x 18hrs -complicating care Failure to Thrive -optimized nutirition via tube feedings -Commercial Correspondent recommends jevity 75ml/hr x 18hrs -complicating care Likely steroid induced hyperglycemia rather than DM - was at insulin at some point but denies having DM. HbA1c 5.6. - ISS as needed. Hx lung cancer - s/p RUL lobectomy. -on chronic o2 supplementation Recurrent Aspiration -HOB>45degrees at all times -frequent suctioning if increased secretions Debility -due to malnutrition, chronic hypoxia, pulmonary cachexia -PT consulted. DVT ppx: Lovenox and SCD Code status: DNR/DNI VS, I&O, 24H, [facility] Vital Signs/I&O Vital Signs Date Time Temp Pulse Resp B/P (MAP) Pulse Ox O2 Delivery O2 Flow Rate FiO2 03/11/19 12:00 3.0 03/11/19 12:00 93 Nasal Cannula 03/11/19 12:00 97.5 85 18 157/72 (100) 03/08/19 16:00 35 I&O- Last 24 Hours up to 6 AM 03/11/19 06:00 Intake Total 1484 ml Output Total 1015 ml Balance 469 ml Laboratory Data 24H LABS Laboratory Tests 2 03/10/19 17:20: Bedside Glucose (Misc Panel) 218H 03/11/19 00:03: Bedside Glucose (Misc Panel) 162H 03/11/19 05:09: Nucleated Red Blood Cells % (auto) 0.0, Anion Gap 5L, Glomerular Filtration Rate > 60.0, Blood Urea Nitrogen 28H, Creatinine 0.62L, Sodium Level 138, Potassium Level 4.5, Chloride Level 99, Carbon Dioxide Level 34H, Calcium Level 8.7L, Prealbumin 19.3L, Vancomycin Level Trough 19.8 03/11/19 11:58: Bedside Glucose (Misc Panel) 141H CBC/BMP Laboratory Tests 03/11/19 05:09 Red Blood Count 3.63 L, Mean Corpuscular Volume 95.0, Mean Corpuscular Hemoglobin 29.5, Mean Corpuscular Hemoglobin Concent 31.0 L, Red Cell Distribu tion Width 15.2 H, Calcium Level 8.7 L Microbiology Microbiology 03/06/19 Blood Culture - Preliminary, Resulted No Growth after 72 hours. All specime... 03/06/19 Blood Culture - Preliminary, Resulted No Growth after 72 hours. All specime... 03/07/19 MRSA Screen - Final, Complete Staph.aureus Methicillin Resis 03/06/19 Gram Stain - Final, Complete 03/06/19 Sputum Culture - Final, Complete Staph.aureus Methicillin Resis KHALIF ANDERSON MD Mar 11, 2019 14:54
[2019-03-11] MEDS ORDERED: ONDANSETRON 4MG/2ML VIAL (J2405) IV ONE (19:00)
--- NOTE | 2019-03-11 20:04 | REP ---
KUB abdomen and pelvis: KUB film of abdomen and pelvis is performed. No dilated bowel loops are seen. There is no evidence of small bowel obstruction. Scattered vascular calcifications are present. G tube is seen overlying the left upper quadrant. There are degenerative changes of the spine. Electronically Signed by Jaime Harris MD 03/13/2019 12:48 P
[2019-03-11] MEDS ORDERED: ONDANSETRON 4MG/2ML VIAL (J2405) IV PRN (23:00)
[2019-03-12] VITALS (19 sets, daily range): BP systolic 115–164; BP diastolic 50–78; O2SAT 87–99
[2019-03-12] MEDS: ANEXSIA, NORCO 7.5MG/325MG TABLET(HYDROCODONE/APAP) GT PRN ×3 (04:50→15:49)
[2019-03-12] MEDS: VANCOMYCIN HCL 1,000 MG, VIAL MATE ADAPTER 1 EACH in D5W 250 ML IV SCH (05:12)
[2019-03-12] MEDS: HumaLOG INSULIN (NovoLOG) PER UNIT SC SCH ×4 (05:13→18:00)
[2019-03-12] MEDS: SLF 3 ML SYR IV SCH ×2 (05:13→14:52)
[2019-03-12 05:42] LABS: HEMATOCRIT 39.3 % (42.0-52.0); HEMOGLOBIN 12.1 g/dl (13.5-17.5); MEAN CORPUSCULAR HGB CONC 30.8 g/dl (32.0-36.5); MEAN CORPUSCULAR VOLUME 97.5 fl (80.0-96.0); PLATELET COUNT, AUTOMATED 432 10^3/uL (150-450); RED BLOOD COUNT 4.03 10^6/uL (4.30-6.10); WHITE BLOOD COUNT 16.4 10^3/uL (4.0-10.0)
[2019-03-12 05:56] LABS: BLOOD UREA NITROGEN 30 MG/DL (7-18); CALCIUM LEVEL 8.6 MG/DL (8.8-10.2); CARBON DIOXIDE LEVEL 35 MEQ/L (21-32); CHLORIDE LEVEL 98 MEQ/L (98-107); CREATININE FOR GFR 0.72 MG/DL (0.70-1.30); GLOMERULAR FILTRATION RATE > 60.0 (>35); GLUCOSE, FASTING 127 MG/DL (70-100); POTASSIUM SERUM 4.8 MEQ/L (3.5-5.1); SODIUM LEVEL 137 MEQ/L (136-145)
--- NOTE | 2019-03-12 07:49 | IPNPDOC ---
Date Seen The patient was seen on 03/12/19. Progress Note SUBJECTIVE: No other issues overnight. Tele unremarkable overnight. Pt is off vapotherm, still c/o sob but o2 sat stable on nasal cannula. cough productive of white sputum. no chest pain, pressure, or tightness. no fever or chills overnight. Pt has not been out of bed due to fatigue, loss of energy, and BETTS. Product Controller consulted with recommendations to increase jevity to 75ml/hr x 18hrs. OBJECTIVE PHYSICAL EXAMINATION: VITAL SIGNS: Please see below. General: no conversational dyspnea or use of accessory respiratory mm. cachectic appearing with some temporal wasting. disheveled. no tripod positioning. answering questions appropriately. Eyes: Normal sclera anicteric HENT: Atraumatic, neck supple, moist mucous membranes Cardiovascular: S1S2 RRR Pulmonary: Clear to auscultation b/l, no wheezing GI: Soft, nondistended (+) bs no rebound guarding feeding tube Skin: Warm and dry LABORATORY DATA, IMAGING STUDIES, MICROBIOLOGY: Please see below. ASSESSMENT AND PLAN: Patient is an 84-year-old male with extensive pulmonary disease including COPD, interstitial fibrosis, lung cancer status post right upper lobe lobectomy, pulmonary hypertension, recurrent aspiration pneumonia despite having a feeding tube and ?DM brought in from senior care for reported fevers, cough and hypoxia. Symptoms all started today per family at bedside, most history were o btained from family as patient was minimally alert. In ER, patient was found to be hypoxic with pO2 on ABG in 50s with NRB not adequately support patient's O2 requiring utilization of high flow oxygen. Saturation remained stable in mid 90s on high flow oxygen. No other symptoms were reported prior to today. Normally follows with Dr. Ferrer as outpatient. LLL PNA with hypoxia - in setting of recurrent aspiration PNA, suspect recurrent event. - Sputum culture + MRSA. - s/p Zosyn -on IV vanco for MRSA pneumonia from admission x 7 days, renally dosed by pharmacist. - c/w O2 support to maintain sat >92%. s/p vapotherm - Leukocytosis but in setting of steroid use. Acute on Chronic Hypoxic Respiratory Failure -15liters o2 90% on ED arrival , required vapotherm which has been weaned off -secondary to LLL MRSA pneumonia in the setting of copd and chronic pulmonary fibrosis -currently stable at 3liters nasal cannula -initially received vanco and zosyn, but sputum cx: MRSA . thus, zosyn discontinued COPD/Pulmonary fibrosis - Not likely in exacerbation. - on a short course of prednisone as it may help with oxygenation in setting of pulmonary fibrosis. - duonebs PRN, resumed home inhaler and meds. - Follows with Dr. Ferrer. Pulmonary Cachexia -optimized nutirition via tube feedings -Product Controller recommends jevity 75ml/hr x 18hrs Protein Calorie Malnutrition BMI 14.9 -optimized nutirition via tube feedings -Product Controller recommends jevity 75ml/hr x 18hrs -complicating care Failure to Thrive -optimized nutirition via tube feedings -Product Controller recommends jevity 75ml/hr x 18hrs -complicating care Likely steroid induced hyperglycemia rather than DM - was at insulin at some point but denies having DM. HbA1c 5.6. - ISS as needed. Hx lung cancer - s/p RUL lobectomy. -on chronic o2 supplementation Recurrent Aspiration -HOB>45degrees at all times -frequent suctioning if increased secretions Debility -due to malnutrition, chronic hypoxia, pulmonary cachexia -PT consulted. DVT ppx: Lovenox and SCD Code status: DNR/DNI VS, I&O, 24H, [facility] VS, I&O, 24H, [facility] Vital Signs/I&O Vital Signs Date Time Temp Pulse Resp B/P (MAP) Pulse Ox O2 Delivery O2 Flow Rate FiO2 03/12/19 05:20 18 03/12/19 04:00 98.7 105 133/66 (88) 92 3.0 03/11/19 19:46 Nasal Cannula 03/08/19 16:00 35 I&O- Last 24 Hours up to 6 AM 03/12/19 06:00 Intake Total 1070 ml Output Total 1200 ml Balance -130 ml Laboratory Data 24H LABS Laboratory Tests 2 03/11/19 11:58: Bedside Glucose (Misc Panel) 141H 03/11/19 17:46: Bedside Glucose (Misc Panel) 110 03/11/19 20:10: Bedside Glucose (Misc Panel) 130H 03/12/19 05:21: Nucleated Red Blood Cells % (auto) 0.0, Anion Gap 4L, Glomerular Filtration Rate > 60.0, Blood Urea Nitrogen 30H, Creatinine 0.72, Sodium Level 137, Potassium Level 4.8, Chloride Level 98, Carbon Dioxide Level 35H, Calcium Level 8.6L 03/12/19 05:24: Bedside Glucose (Misc Panel) 145H CBC/BMP Laboratory Tests 03/12/19 05:21 Red Blood Count 4.03 L, Mean Corpuscular Volume 97.5 H, Mean Corpuscular Hemoglobin 30.0, Mean Corpuscular Hemoglobin Concent 30.8 L, Red Cell Distribution Width 15.3 H, Calcium Level 8.6 L Microbiology Microbiology 03/06/19 Blood Culture - Final, Complete NO GROWTH AFTER 5 DAYS 03/06/19 Blood Culture - Final, Complete NO GROWTH AFTER 5 DAYS 03/07/19 MRSA Screen - Final, Complete Staph.aureus Methicillin Resis 03/06/19 Gram Stain - Final, Complete 03/06/19 Sputum Culture - Final, Complete Staph.aureus Methicillin Resis KHALIF ANDERSON MD Mar 12, 2019 07:49
[2019-03-12] MEDS: FORMOTEROL FUMARATE 20 MCG/2 ML INHALATION SOLUTION (PERFOROMIST) INH SCH ×2 (08:00→20:27)
[2019-03-12] MEDS: BUDESONIDE 0.5 MG/2 ML INHALATION SUSPENSION INH SCH ×2 (08:11→20:27)
[2019-03-12] MEDS: GABAPENTIN 400 MG CAP GT SCH ×3 (08:51→21:26)
[2019-03-12] MEDS: ENOXAPARIN 30 MG/0.3 ML SYR (J1650) SC SCH (08:52)
[2019-03-12] MEDS: DICLOFENAC EPOLAMINE 1.3 % PATCH TD SCH ×2 (08:52→21:27)
--- NOTE | 2019-03-12 09:28 | REP ---
CHEST, TWO VIEWS: Two views of the chest performed and compared to prior study, most recently 03/06/2019. There is increased right pleural effusion, which is moderate in size. There is adjacent patchy atelectasis/infiltrate. There is a small left effusion with mild patchy left basilar atelectasis/infiltrate. The heart does not appear to be significantly enlarged. There is calcification and tortuosity of the thoracic aorta. Multiple metallic clips are seen over the superior mediastinum. There is a metallic left shoulder prosthesis and metallic hardware is seen in the lower cervical spine. IMPRESSION: Bibasilar infiltrates and effusions right greater than left. Electronically Signed by Jaime Harris MD 03/13/2019 12:59 P
[2019-03-12] MEDS ORDERED: FUROSEMIDE 40 MG/4 ML VIAL (J1940) IV ONE ×2 (16:00→21:00)
[2019-03-13] VITALS (22 sets, daily range): BP systolic 110–140; BP diastolic 50–67; O2SAT 93–100
[2019-03-13] MEDS: ANEXSIA, NORCO 7.5MG/325MG TABLET(HYDROCODONE/APAP) GT PRN ×4 (04:25→20:48)
[2019-03-13] MEDS: HumaLOG INSULIN (NovoLOG) PER UNIT SC SCH ×4 (06:00→17:07)
[2019-03-13] MEDS: VANCOMYCIN HCL 1,000 MG, VIAL MATE ADAPTER 1 EACH in D5W 250 ML IV SCH (06:00)
[2019-03-13] MEDS: SLF 3 ML SYR IV SCH ×4 (06:01→22:00)
[2019-03-13] MEDS: FORMOTEROL FUMARATE 20 MCG/2 ML INHALATION SOLUTION (PERFOROMIST) INH SCH ×2 (07:14→20:45)
[2019-03-13] MEDS: BUDESONIDE 0.5 MG/2 ML INHALATION SUSPENSION INH SCH ×2 (07:14→20:45)
[2019-03-13 07:29] LABS: HEMATOCRIT 30.7 % (42.0-52.0); MEAN CORPUSCULAR HEMOGLOBIN 29.8 pg (27.0-33.0); MEAN CORPUSCULAR HGB CONC 31.3 g/dl (32.0-36.5); MEAN CORPUSCULAR VOLUME 95.3 fl (80.0-96.0); PLATELET COUNT, AUTOMATED 413 10^3/uL (150-450); RED BLOOD COUNT 3.22 10^6/uL (4.30-6.10)
[2019-03-13 07:37] LABS: HEMOGLOBIN 9.6 g/dl (13.5-17.5)
[2019-03-13 08:26] LABS: BLOOD UREA NITROGEN 35 MG/DL (7-18); CALCIUM LEVEL 8.4 MG/DL (8.8-10.2); CARBON DIOXIDE LEVEL 37 MEQ/L (21-32); CHLORIDE LEVEL 92 MEQ/L (98-107); CREATININE FOR GFR 0.65 MG/DL (0.70-1.30); GLOMERULAR FILTRATION RATE > 60.0 (>35); GLUCOSE, FASTING 129 MG/DL (70-100); POTASSIUM SERUM 4.3 MEQ/L (3.5-5.1); SODIUM LEVEL 134 MEQ/L (136-145)
[2019-03-13 08:29] LABS: VANCOMYCIN LEVEL TROUGH 60.8 UG/ML (10.0-20.0)
[2019-03-13] MEDS: ENOXAPARIN 30 MG/0.3 ML SYR (J1650) SC SCH (09:18)
[2019-03-13] MEDS: GABAPENTIN 400 MG CAP GT SCH ×3 (09:19→20:47)
[2019-03-13] MEDS: DICLOFENAC EPOLAMINE 1.3 % PATCH TD SCH ×2 (09:20→20:48)
[2019-03-13] MEDS ORDERED: SALIVA SUBSTITUTE(MOUTHKOTE) BTL MT PRN (14:45)
--- NOTE | 2019-03-13 15:20 | PHACANCOPD ---
PHARMACY VANCOMYCIN DOSING Pt Demographics Demographics Patient Age:84 , Weight:38.600 , Gender: male Adjusted Body Weight Date: 03/07/19, Adjusted Body Weight: Kg Events Past 24 Hours Events Past 24 Hours: YES: Elevation in WBC; NO: Dialysis, Diuretic Therapy, Change in CrCl, Fever, Pending Diagnostics, Pending Procedures, Other Vancomycin Vancomycin indication: Respiratory Infection Vancomycin Target Ranges: 15-20 mcg/ml Vancomycin Load Y/N: Yes Load Dose Date Time Vancomycin Load Dose: 1000mg Date: 03/07 Time: 1000 Vancomycin Dose Date 03/13/19: Current Vancomycin Dose: [1 gram iv q24h@0600] Date: 03/08/19. Current Vancomycin Dose: [750mg iv q12h@22] Intermittent Dosing?: No Labs Labs Item Value Date Time White Blood Count 22.0 10^3/uL H 03/13/19 0702 White Blood Count 16.4 10^3/uL H 03/12/19 0521 White Blood Count 16.7 10^3/uL H 03/11/19 0509 White Blood Count 18.1 10^3/uL H 03/10/19 0449 White Blood Count 16.6 10^3/uL H 03/09/19 0536 Creatinine 0.65 MG/DL L 03/13/19 0702 Creatinine 0.72 MG/DL 03/12/19 0521 Creatinine 0.62 MG/DL L 03/11/19 0509 Creatinine 0.64 MG/DL L 03/10/19 0449 Glomerular Filtration Rate > 60.0 03/13/19 0702 Glomerular Filtration Rate > 60.0 03/12/19 0521 Glomerular Filtration Rate > 60.0 03/11/19 0509 Glomerular Filtration Rate > 60.0 03/10/19 0449 Vancomycin Level Trough 60.8 UG/ML *H 03/13/19 0702 Vancomycin Level Trough 19.8 UG/ML 03/11/19 0509 Vancomycin Level Trough 22.4 UG/ML H 03/09/19 2054 Vancomycin Level Trough 19.0 UG/ML 03/08/19 204 Micro Microbiology 03/06/19 Blood Culture - Final, Complete NO GROWTH AFTER 5 DAYS 03/06/19 Blood Culture - Final, Complete NO GROWTH AFTER 5 DAYS 03/07/19 MRSA Screen - Final, Complete Staph.aureus Methicillin Resis 03/06/19 Gram Stain - Final, Complete 03/06/19 Sputum Culture - Final, Complete Staph.aureus Methicillin Resis Creatinine Clearance Date:03/13/19. Creatinine Clearance: [-60]. Date:03/08/19. Creatinine Clearance: [~60]. Assessment and Plan Maintaining Current Dose?: No Reason for dose change: Trough too high, Other Pharmacist Note Pharmacist Note 03/13/19: Vancomycin trough drawn this morning @0702 after a dose was administered @0600 and resulted in a supratherapeutic level of 60.8. Vancomycin was placed on hold for today until the ordered random for 03/14/19 can be reviewed. The patient continues to have an elevated WBC count but is afebrile. Date: 03/11/19. Pharmacist note:Vancomycin trough drawn this morning@5:09 re ported as 19.8,scr=no significant change. Will continue with current regimen( Vancomycin 1 gm IV Q24H)-will continue to follow labs and adjust dose as needed Date: 03/10/19. Pharmacist note:Vancomycin trough drawn this evening@20:56 reported as 22.4 (trough goal= 15-20)Will hold 2200 dose d/t accumulation and adjust Vancomycin to 1 gram IV [id number] to begin 03/10@0600.Next trough is sc heduled for 03/11@0500-will continue to follow labs Date: 03/08/19. Pharmacist note: Trough of 19 is within target range. Will con tinue current dosing. Will continue to monitor and make adjustments as needed. [facility] Mar 13, 2019 15:20
[2019-03-13] MEDS ORDERED: SALIVA SUBSTITUTE(MOUTHKOTE) BTL MT ONE (15:30)
--- NOTE | 2019-03-13 15:49 | REP ---
CT study of the chest without contrast: History: Leukocytosis on vancomycin for a MRSA pneumonia. Rule out parapneumonic effusion. Comparison chest CT study is from February 18, 2019. CT findings: There are small bilateral pleural effusions. However, these are not felt to have changed in the interval since the February 18, 2019 prior study. There is however much more extensive pulmonary parenchymal consolidation in the right upper lung and right lower lung zones than was present on February 18, 2019 consistent with progressive consolidation from pneumonia. The air column for the right mainstem bronchus abruptly terminates at the right hilar level where there is soft tissue fullness. This raises question of mucus plugging versus central mass lesion. The patient is status post right thoracotomy and partial pneumonectomy. The central bronchial airways are occluded on the right. This is a new finding when compared to the prior study. The left lower lobe consolidation is essentially unchanged. Impression: Status post a partial pneumonectomy on the right. Progressive consolidation associated with pneumonia in the right lung. Small stable bilateral pleural effusions. Right hilar fullness with bronchial secretions or extrinsic mass effect obliterating the bronchial air columns in the right hilar region. Electronically Signed by Emir Block MD 03/13/2019 08:20 P
--- NOTE | 2019-03-13 17:01 | IPNPDOC ---
Date Seen The patient was seen on 03/13/19. Progress Note SUBJECTIVE: Pt had worsening white count, but breathing is better with lasix x2 doses. OBJECTIVE PHYSICAL EXAMINATION: VITAL SIGNS: Please see below. General: no conversational dyspnea or use of accessory respiratory mm. cachectic appearing with some temporal wasting. disheveled. no tripod positioning. answering questions appropriately. Eyes: Normal sclera anicteric HENT: Atraumatic, neck supple, moist mucous membranes Cardiovascular: S1S2 RRR Pulmonary: diminished. bibasilar crackles, faint b/l wheezing GI: Soft, nondistended (+) bs no rebound guarding feeding tube Skin: Warm and dry LABORATORY DATA, IMAGING STUDIES, MICROBIOLOGY: Please see below. ASSESSMENT AND PLAN: Patient is an 84-year-old male with extensive pulmonary disease including COPD, interstitial fibrosis, lung cancer status post right upper lobe lobectomy, pulmonary hypertension, recurrent aspiration pneumonia despite having a feeding tube and ?DM brought in from shelter for reported fevers, cough and hypoxia. Symptoms all started today per family at bedside, most history were obtained from family as patient was minimally alert. In ER, patient was found to be hypoxic with pO2 on ABG in 50s with NRB not adequately support patient's O2 requiring utilization of high flow oxygen. Saturation remained stable in mid 90s on high flow oxygen. No other symptoms were reported prior to today. Normally follows with Dr. Ferrer as outpatient. LLL PNA with hypoxia - in setting of recurrent aspiration PNA, suspect recurrent event. - Sputum culture + MRSA. - s/p Zosyn -on IV vanco for MRSA pneumonia from admission x 7 days, renally dosed by pharmacist. - c/w O2 support to maintain sat >92%. s/p vapotherm - Leukocytosis but in setting of steroid use. -repeated CT chest 03/13/19 due to worsening leukocytosis 22, and rechecked sputum cx 03/13/19 with addition of meropenem Acute on Chronic Hypoxic Respiratory Failure -15liters o2 90% on ED arrival , required vapotherm which has been weaned off -secondary to LLL MRSA pneumonia in the setting of copd and chronic pulmonary fibrosis -currently stable at 3liters nasal cannula -initially received vanco and zosyn, but sputum cx: MRSA . thus, zosyn discontinued COPD/Pulmonary fibrosis - Not likely in exacerbation. - on a short course of prednisone as it may help with oxygenation in setting of pulmonary fibrosis. - duonebs PRN, resumed home inhaler and meds. - Follows with Dr. Ferrer. Pulmonary Cachexia -optimized nutirition via tube feedings -[employer] Con[employer] recommends jevity 75ml/hr x 18hrs Soft Tissue mass in lung -?malignancy vs mucus plug -oxygenating is improved -will use acapella if mucus plug -if postobstructive pneumonia, meropenem added 03/13/19. Protein Calorie Malnutrition BMI 14.9 -optimized nutirition via tube feedings -[employer] Conductor recommends jevity 75ml/hr x 18hrs -complicating care Failure to Thrive -optimized nutirition via tube feedings -[employer] Conductor recommends jevity 75ml/hr x 18hrs -complicating care Likely steroid induced hyperglycemia rather than DM - was at insulin at some point but denies having DM. HbA1c 5.6. - ISS as needed. Hx lung cancer - s/p RUL lobectomy. -on chronic o2 supplementation Recurrent Aspiration -HOB>45degrees at all times -frequent suctioning if increased secretions Debility -due to malnutrition, chronic hypoxia, pulmonary cachexia -PT consulted. DVT ppx: Lovenox and SCD Code status: DNR/DNI VS, I&O, 24H, [facility] Vital Signs/I&O Vital Signs Date Time Temp Pulse Resp B/P (MAP) Pulse Ox O2 Delivery O2 Flow Rate FiO2 03/13/19 16:00 3.0 03/13/19 15:04 18 03/13/19 12:00 97.0 88 120/52 (74) 93 03/13/19 04:00 Nasal Cannula 03/08/19 16:00 35 I&O- Last 24 Hours up to 6 AM 03/13/19 06:00 Intake Total 2588 ml Output Total 1335 ml Balance 1253 ml Laboratory Data 24H LABS Laboratory Tests 2 03/12/19 18:29: Bedside Glucose (Misc Panel) 116H 03/13/19 01:54: Bedside Glucose (Misc Panel) 139H 03/13/19 06:16: Bedside Glucose (Misc Panel) 95 03/13/19 07:02: Nucleated Red Blood Cells % (auto) 0.0, Anion Gap 5L, Glomerular Filtration Rate > 60.0, Blood Urea Nitrogen 35H, Creatinine 0.65L, Sodium Level 134L, Potassium Level 4.3, Chloride Level 92L, Carbon Dioxide Level 37H, Calcium Level 8.4L, Vancomycin Level Trough 60.8*H 03/13/19 12:36: Bedside Glucose (Misc Panel) 126H CBC/BMP Laboratory Tests 03/13/19 07:02 Red Blood Count 3.22 L, Mean Corpuscular Volume 95.3, Mean Corpuscular Hemoglobin 29.8, Mean Corpuscular Hemoglobin Concent 31.3 L, Red Cell Distribution Width 15.5 H, Calcium Level 8.4 L Microbiology Microbiology 03/06/19 Blood Culture - Final, Complete NO GROWTH AFTER 5 DAYS 03/06/19 Blood Culture - Final, Complete NO GROWTH AFTER 5 DAYS 03/07/19 MRSA Screen - Final, Complete Staph.aureus Methicillin Resis 03/06/19 Gram Stain - Final, Complete 03/06/19 Sputum Culture - Final, Complete Staph.aureus Methicillin Resis KHALIF ANDERSON MD Mar 13, 2019 17:01
[2019-03-13] MEDS: MEROPENEM INJ 500 MG in IV 1 EA IV SCH (18:48)
[2019-03-14] VITALS (23 sets, daily range): BP systolic 110–133; BP diastolic 48–65; O2SAT 91–99
[2019-03-14] MEDS: HumaLOG INSULIN (NovoLOG) PER UNIT SC SCH ×4 (00:14→17:21)
[2019-03-14] MEDS: MEROPENEM INJ 500 MG in IV 1 EA IV SCH ×3 (03:28→18:15)
[2019-03-14] MEDS: SLF 3 ML SYR IV SCH ×3 (05:57→20:56)
[2019-03-14 06:00] LABS: HEMATOCRIT 33.4 % (42.0-52.0); HEMOGLOBIN 10.7 g/dl (13.5-17.5); MEAN CORPUSCULAR HEMOGLOBIN 30.7 pg (27.0-33.0); MEAN CORPUSCULAR VOLUME 95.7 fl (80.0-96.0); PLATELET COUNT, AUTOMATED 393 10^3/uL (150-450); RED BLOOD COUNT 3.49 10^6/uL (4.30-6.10); WHITE BLOOD COUNT 14.1 10^3/uL (4.0-10.0)
[2019-03-14 06:32] LABS: ATYPICAL LYMPH 1 % (0-5); EOSINOPHILS 6 % (0-5); LYMPHOCYTES 18 % (16-52); METAMYELOCYTES 2 % (0-0); MONOCYTES 5 % (0-8); NEUTROPHILS 68 % (35-75); PLATELET ESTIMATE NORMAL (NORMAL)
[2019-03-14 06:33] LABS: POLYCHROMASIA 1+
[2019-03-14 06:49] LABS: BLOOD UREA NITROGEN 32 MG/DL (7-18); CALCIUM LEVEL 8.6 MG/DL (8.8-10.2); CARBON DIOXIDE LEVEL 35 MEQ/L (21-32); CHLORIDE LEVEL 96 MEQ/L (98-107); GLOMERULAR FILTRATION RATE > 60.0 (>35); GLUCOSE, FASTING 90 MG/DL (70-100); SODIUM LEVEL 136 MEQ/L (136-145); VANCOMYCIN LEVEL TROUGH 20.4 UG/ML (10.0-20.0)
--- NOTE | 2019-03-14 07:10 | PHACANCOPD ---
PHARMACY VANCOMYCIN DOSING Pt Demographics Demographics Patient Age:84 , Weight:37.800 , Gender: male Adjusted Body Weight Date: 03/07/19, Adjusted Body Weight: Kg Vancomycin Vancomycin indication: Respiratory Infection Vancomycin Target Ranges: 15-20 mcg/ml Vancomycin Load Y/N: Yes Load Dose Date Time Vancomycin Load Dose: 1000mg Date: 03/07 Time: 1000 Vancomycin Dose Date 03/13/19: Current Vancomycin Dose: [1 gram iv q24h@0600] Date: 03/08/19. Current Vancomycin Dose: [750mg iv q12h@22] Intermittent Dosing?: No Labs Micro Microbiology 03/06/19 Blood Culture - Final, Complete NO GROWTH AFTER 5 DAYS 03/06/19 Blood Culture - Final, Complete NO GROWTH AFTER 5 DAYS 03/14/19 Gram Stain - Final, Complete 03/14/19 Sputum Culture - Final, Complete 03/07/19 MRSA Screen - Final, Complete Staph.aureus Methicillin Resis 03/06/19 Gram Stain - Final, Complete 03/06/19 Sputum Culture - Final, Complete Staph.aureus Methicillin Resis Creatinine Clearance Date:03/13/19. Creatinine Clearance: [-60]. Date:03/08/19. Creatinine Clearance: [~60]. Assessment and Plan Maintaining Current Dose?: No Reason for dose change: Trough too high Pharmacist Note Pharmacist Note Date: 03/14/19. Pharmacist note:Vancomycin random drawn this am reported as 20.4- S CR=0.6. Will adjust dose to 750mg IV Q24H to begin today at 0800-have ordered next trough for tomorrow am to assess dose change-will continue to follow 03/13/19: Vancomycin trough drawn this morning @0702 after a dose was adminis tered @0600 and resulted in a supratherapeutic level of 60.8. Vancomycin was placed on hold for today until the ordered random for 03/14/19 can be reviewed. The patient continues to have an elevated WBC count but is afebrile. Date: 03/11/19. Pharmacist note:Vancomycin trough drawn this morning@5:09 reported as 19.8,scr=no significant change. Will continue with current regimen( Vancomycin 1 gm IV Q24H)-will continue to follow labs and adjust dose as needed Date: 03/10/19. Pharmacist note:Vancomycin trough drawn this evening@20:56 reported as 22.4 (trough goal= 15-20)Will hold 2200 dose d/t accumulation and adjust Vancomycin to 1 gram IV [id number] to begin 03/10@0600.Next trough is scheduled for 03/11@0500-will continue to follow labs Date: 03/08/19. Pharmacist note: Trough of 19 is within target range. Will continue current dosing. Will continue to monitor and make adjustments as needed. [facility] Mar 14, 2019 07:10
[2019-03-14] MEDS: BUDESONIDE 0.5 MG/2 ML INHALATION SUSPENSION INH SCH ×2 (07:17→20:00)
[2019-03-14] MEDS: FORMOTEROL FUMARATE 20 MCG/2 ML INHALATION SOLUTION (PERFOROMIST) INH SCH ×2 (07:17→20:00)
[2019-03-14] MEDS: GABAPENTIN 400 MG CAP GT SCH ×3 (08:11→20:57)
[2019-03-14] MEDS: ENOXAPARIN 30 MG/0.3 ML SYR (J1650) SC SCH (08:11)
[2019-03-14] MEDS: VANCOMYCIN HCL 750 MG, VIAL MATE ADAPTER 1 EACH in D5W 250 ML IV SCH (08:11)
[2019-03-14] MEDS: DICLOFENAC EPOLAMINE 1.3 % PATCH TD SCH ×2 (08:12→20:56)
[2019-03-14] MEDS: ANEXSIA, NORCO 7.5MG/325MG TABLET(HYDROCODONE/APAP) GT PRN ×2 (08:24→17:22)
--- NOTE | 2019-03-14 12:06 | IPNPDOC ---
Date Seen The patient was seen on 03/14/19. Progress Note SUBJECTIVE: Due to worsening white count and respiratory distress, repeat CT chest : progression of consolidation. meropenem added 03/13/19. sputum cx: MRSA. repeat sputum cx: neg. Daughter requested repeat swallow eval for aspiration. surgery recommended jejunostomy conversion as PEG still causing aspiration. still w cough productive of white sputum no fever or chills no chest pain. decreased wbc today. OBJECTIVE PHYSICAL EXAMINATION: VITAL SIGNS: Please see below. General: no conversational dyspnea or use of accessory respiratory mm. cachectic appearing with some temporal wasting. disheveled. no tripod positioning. answering questions appropriately. Eyes: Normal sclera anicteric HENT: Atraumatic, neck supple, moist mucous membranes Cardiovascular: S1S2 RRR Pulmonary: diminished. bibasilar crackles, faint b/l wheezing GI: Soft, nondistended (+) bs no rebound guarding feeding tube Skin: Warm and dry LABORATORY DATA, IMAGING STUDIES, MICROBIOLOGY: Please see below. ASSESSMENT AND PLAN: Patient is an 84-year-old male with extensive pulmonary disease including COPD, interstitial fibrosis, lung cancer status post right upper lobe lobectomy, pulmonary hypertension, recurrent aspiration pneumonia despite having a feeding tube and ?DM brought in from custodial for reported fevers, cough and hypoxia. Symptoms all started today per family at bedside, most history were obtained from family as patient was minimally alert. In ER, patient was found to be hypoxic with pO2 on ABG in 50s with NRB not adequately support patient's O2 requiring utilization of high flow oxygen. Saturation remained stable in mid 90s on high flow oxygen. No other symptoms were reported prior to today. Normally follows with Dr. Ferrer as outpatient. LLL PNA with hypoxia - in setting of recurrent aspiration PNA, suspect recurrent event. - Sputum culture + MRSA. - s/p Zosyn -on IV vanco for MRSA pneumonia from admission x 7 days, renally dosed by pharmacist. - c/w O2 support to maintain sat >92%. s/p vapotherm - Leukocytosis but in setting of steroid use. -repeated CT chest 03/13/19 due to worsening leukocytosis 22, and rechecked sputum cx 03/13/19 with addition of meropenem Acute on Chronic Hypoxic Respiratory Failure -15liters o2 90% on ED arrival , required vapotherm which has been weaned off -secondary to LLL MRSA pneumonia in the setting of copd and chronic pulmonary fibrosis -currently stable at 3liters nasal cannula -initially received vanco and zosyn, but sputum cx: MRSA . thus, zosyn discontinued COPD/Pulmonary fibrosis - Not likely in exacerbation. - on a short course of prednisone as it may help with oxygenation in setting of pulmonary fibrosis. - duonebs PRN, resumed home inhaler and meds. - Follows with Dr. Ferrer. Pulmonary Cachexia -optimized nutirition via tube feedings -[employer] Operator recommends jevity 75ml/hr x 18hrs Soft Tissue mass in lung -?malignancy vs mucus plug -oxygenating is improved -will use acapella if mucus plug -if postobstructive pneumonia, meropenem added 03/13/19. Protein Calorie Malnutrition BMI 14.9 -optimized nutirition via tube feedings -[employer] Machine Operator recommends jevity 75ml/hr x 18hrs -complicating care Failure to Thrive -optimized nutirition via tube feedings -[employer] Machine Operator recommends jevity 75ml/hr x 18hrs -complicating care Likely steroid induced hyperglycemia rather than DM - was at insulin at some point but denies having DM. HbA1c 5.6. - ISS as needed. Hx lung cancer - s/p RUL lobectomy. -on chronic o2 supplementation Recurrent Aspiration -HOB>45degrees at all times -frequent suctioning if increased secretions -repeat swallow eval on saturday -surgery recommends IR for jejunostomy tube as pt aspirates with PEG Debility -due to malnutrition, chronic hypoxia, pulmonary cachexia -PT consulted. DVT ppx: Lovenox and SCD Code status: DNR/DNI VS, I&O, [facility]H, [facility] Vital Signs/I&O Vital Signs Date Time Temp Pulse Resp B/P (MAP) Pulse Ox O2 Delivery O2 Flow Rate FiO2 03/14/19 04:00 97 Nasal Cannula 3.0 03/14/19 04:00 97.4 93 18 130/65 (86) 03/08/19 16:00 35 I&O- Last 24 Hours up to 6 AM 03/14/19 06:00 Intake Total 1735 ml Output Total 1100 ml Balance 635 ml Laboratory Data 24H LABS Laboratory Tests 2 03/13/19 07:02: Nucleated Red Blood Cells % (auto) 0.0, Anion Gap 5L, Glomerular Filtration Rate > 60.0, Blood Urea Nitrogen 35H, Creatinine 0.65L, Sodium Level 134L, Potassium Level 4.3, Chloride Level 92L, Carbon Dioxide Level 37H, Calcium Level 8.4L, Vancomycin Level Trough 60.8*H 03/13/19 12:36: Bedside Glucose (Misc Panel) 126H 03/13/19 17:05: Bedside Glucose (Misc Panel) 115H 03/13/19 17:19: Urine Color YELLOW, Urine Appearance CLEAR, Urine pH 9.0, Urine Specific [place] 1.012, Urine Protein NEGATIVE, Urine Glucose (UA) NEGATIVE, Urine Ketones NEGATIVE, Urine Blood NEGATIVE, Urine Nitrite NEGATIVE, Urine Bilirubin NEGATIVE, Urine Urobilinogen 0.2, Urine Leukocyte Esterase NEGATIVE, Urine WBC (Auto) 0, Urine RBC (Auto) 1, Urine Hyaline Casts (Auto) 0, Urine Bacteria (Auto) NEGATIVE, Urine Squamous Epithelial Cells 0, Urine Sperm (Auto) 03/14/19 00:06: Bedside Glucose (Misc Panel) 161H 03/14/19 05:39: Immature Granulocyte % (Auto) , Nucleated Red Blood Cells % (auto) 0.2H, Neutrophils 68, Lymphocytes (Manual) 18, Monocytes (Manual) 5, Eosinophils (Manual) 6H, Metamyelocytes 2H, Atypical Lymphocytes 1, Platelet Estimate NORMAL, Polychromasia 1+, Anion Gap 5L, Glomerular Filtration Rate > 60.0, Blood Urea Nitrogen 32H, Creatinine 0.60L, Sodium Level 136, Potassium Level 5.0, Chloride Level 96L, Carbon Dioxide Level 35H, Calcium Level 8.6L, Vancomycin Level Trough 20.4H 03/14/19 05:41: CBC/BMP Laboratory Tests 03/13/19 07:02 Red Blood Count 3.22 L, Mean Corpuscular Volume 95.3, Mean Corpuscular Hemoglobin 29.8, Mean Corpuscular Hemoglobin Concent 31.3 L, Red Cell Distribution Width 15.5 H, Calcium Level 8.4 L 03/14/19 05:39 Red Blood Count 3.49 L, Mean Corpuscular Volume 95.7, Mean Corpuscular Hemoglobin 30.7, Mean Corpuscular Hemoglobin Concent 32.0, Red Cell Distribution Width 15.5 H, Calcium Level 8.6 L Microbiology Microbiology 03/06/19 Blood Culture - Final, Complete NO GROWTH AFTER 5 DAYS 03/06/19 Blood Culture - Final, Complete NO GROWTH AFTER 5 DAYS 03/14/19 Gram Stain - Final, Complete 03/14/19 Sputum Culture - Final, Complete 03/07/19 MRSA Screen - Final, Complete Staph.aureus Methicillin Resis 03/06/19 Gram Stain - Final, Complete 03/06/19 Sputum Culture - Final, Complete Staph.aureus Methicillin Resis KHALIF ANDERSON MD Mar 14, 2019 07:03
[2019-03-15] VITALS (24 sets, daily range): BP systolic 102–138; BP diastolic 57–68; O2SAT 93–100
[2019-03-15] MEDS: HumaLOG INSULIN (NovoLOG) PER UNIT SC SCH ×4 (00:14→18:00)
[2019-03-15] MEDS: MEROPENEM INJ 500 MG in IV 1 EA IV SCH ×3 (02:25→18:15)
[2019-03-15] MEDS: ANEXSIA, NORCO 7.5MG/325MG TABLET(HYDROCODONE/APAP) GT PRN ×3 (05:45→16:06)
[2019-03-15] MEDS: SLF 3 ML SYR IV SCH ×3 (05:48→20:56)
[2019-03-15 06:06] LABS: HEMATOCRIT 33.2 % (42.0-52.0); HEMOGLOBIN 10.3 g/dl (13.5-17.5); MEAN CORPUSCULAR HEMOGLOBIN 30.1 pg (27.0-33.0); MEAN CORPUSCULAR VOLUME 97.1 fl (80.0-96.0); PLATELET COUNT, AUTOMATED 426 10^3/uL (150-450); RED BLOOD COUNT 3.42 10^6/uL (4.30-6.10); WHITE BLOOD COUNT 16.5 10^3/uL (4.0-10.0)
[2019-03-15] MEDS ORDERED: FUROSEMIDE 20 MG/2 ML VIAL (J1940) IV ONE (06:15)
[2019-03-15 06:26] LABS: BLOOD UREA NITROGEN 30 MG/DL (7-18); CALCIUM LEVEL 8.9 MG/DL (8.8-10.2); CARBON DIOXIDE LEVEL 38 MEQ/L (21-32); CHLORIDE LEVEL 97 MEQ/L (98-107); EOSINOPHILS 2 % (0-5); GLOMERULAR FILTRATION RATE > 60.0 (>35); GLUCOSE, FASTING 89 MG/DL (70-100); LYMPHOCYTES 15 % (16-52); METAMYELOCYTES 2 % (0-0); MYELOCYTES 1 % (0-0); NEUTROPHILS 79 % (35-75); POTASSIUM SERUM 4.7 MEQ/L (3.5-5.1); SODIUM LEVEL 137 MEQ/L (136-145)
[2019-03-15 06:27] LABS: PLATELET ESTIMATE NORMAL (NORMAL)
--- NOTE | 2019-03-15 07:06 | REPVR ---
EXAM: XR Chest, 1 View EXAM DATE/TIME: 03/15/2019 6:48 AM CLINICAL HISTORY: 84 years old, male; Other: SOB TECHNIQUE: Imaging protocol: XR of the chest, 1 view. COMPARISON: CR Chest, 2 view PA, Lat 03/12/2019 8:33 AM FINDINGS: Lungs: Volume loss right lung with right mediastinal surgical clips. Persistent bilateral pulmonary consolidations with diminished aeration of the right upper lung which is likely on the basis of less inspiratory volume. A soft tissue prominence and fullness of the right noe. Pleural space: Bilateral apical pleural thickening. Bilateral pleural effusions. Heart/Mediastinum: Unremarkable. No cardiomegaly. Vasculature: Ectatic thoracic aorta. Bones/joints: Left shoulder arthroplasty. Degenerative change of the spine. Partial visualization of plate fixation lower cervical spine. IMPRESSION: Persistent pulmonary consolidations greater on the right with bilateral pleural effusions. Electronically signed by: Dunia Hinson On 03/15/2019 07:06:14 AM
[2019-03-15] MEDS: BUDESONIDE 0.5 MG/2 ML INHALATION SUSPENSION INH SCH ×2 (07:16→20:36)
[2019-03-15] MEDS: FORMOTEROL FUMARATE 20 MCG/2 ML INHALATION SOLUTION (PERFOROMIST) INH SCH ×2 (07:16→20:36)
--- NOTE | 2019-03-15 07:37 | IPNPDOC ---
Date Seen The patient was seen on 03/15/19. Progress Note SUBJECTIVE: pt c/o worsening sob, with scant cough w productive sputum. no fever or chills. repeat cxr: increased right consolidation with b/l pleural effusions. s/p lasix this am at 6:30am, and pt requesting urinal. per surgery, may benefit from changing peg to jejunostomy to reduce risk of recurrent aspiration. white count improved with meropenem. repeat sputum cx: oropharyngeal. repeat sputum cx still pending. pt refused acapella and incentive spirometery. OBJECTIVE PHYSICAL EXAMINATION: VITAL SIGNS: Please see below. General: no conversational dyspnea or use of accessory respiratory mm. cachectic appearing with some temporal wasting. disheveled. no tripod positioning. answering questions appropriately. Eyes: Normal sclera anicteric HENT: Atraumatic, neck supple, moist mucous membranes Cardiovascular: S1S2 RRR Pulmonary: diminished. bibasilar crackles, faint b/l wheezing GI: Soft, nondistended (+) bs no rebound guarding feeding tube Skin: Warm and dry LABORATORY DATA, IMAGING STUDIES, MICROBIOLOGY: Please see below. ASSESSMENT AND PLAN: Patient is an 84-year-old male with extensive pulmonary disease including COPD, interstitial fibrosis, lung cancer status post right upper lobe lobectomy, pulmonary hypertension, recurrent aspiration pneumonia despite having a feeding tube and ?DM brought in from halfway for reported fevers, cough and hypoxia. Symptoms all started today per family at bedside, most history were obtained from family as patient was minimally alert. In ER, patient was found to be hypoxic with pO2 on ABG in 50s with NRB not adequately support patient's O2 requiring utilization of high flow oxygen. Saturation remained stable in mid 90s on high flow oxygen. No other symptoms were reported prior to today. Normally fo llows with Dr. Ferrer as outpatient. LLL PNA with hypoxia - in setting of recurrent aspiration PNA, suspect recurrent event. - Sputum culture + MRSA. - s/p Zosyn -on IV vanco for MRSA pneumonia from admission x 7 days, renally dosed by pharmacist. - c/w O2 support to maintain sat >92%. s/p vapotherm - Leukocytosis but in setting of steroid use. -repeated CT chest 03/13/19 due to worsening leukocytosis 22, and rechecked sputum cx 03/13/19 with addition of meropenem Acute on Chronic Hypoxic Respiratory Failure -15liters o2 90% on ED arrival , required vapotherm which has been weaned off -secondary to LLL MRSA pneumonia in the setting of copd and chronic pulmonary fibrosis -currently stable at 3liters nasal cannula -initially received vanco and zosyn, but sputum cx: MRSA . thus, zosyn discontinued -03/15/19 repeat cxr: increased right consolidation with b/l pleural effusions. s/p lasix this am at 6:30am, and pt requesting urinal. -per surgery, may benefit from changing peg to jejunostomy to reduce risk of recurrent aspiration. -03/13/19 white count improved with meropenem. COPD/Pulmonary fibrosis - Not likely in exacerbation. - on a short course of prednisone as it may help with oxygenation in setting of pulmonary fibrosis. - duonebs PRN, resumed home inhaler and meds. - Follows with Dr. Ferrer. Pulmonary Cachexia -optimized nutirition via tube feedings -Senior Engineering Specialist recommends jevity 75ml/hr x 18hrs Soft Tissue mass in lung -?malignancy vs mucus plug -oxygenating is improved -will use acapella if mucus plug -if postobstructive pneumonia, meropenem added 03/13/19. Protein Calorie Malnutrition BMI 14.9 -optimized nutirition via tube feedings -Senior Engineering Specialist recommends jevity 75ml/hr x 18hrs -complicating care Failure to Thrive -optimized nutirition via tube feedings -Senior Engineering Specialist recommends jevity 75ml/hr x 18hrs -complicating care Likely steroid induced hyperglycemia rather than DM - was at insulin at some point but denies having DM. HbA1c 5.6. - ISS as needed. Hx lung cancer - s/p RUL lobectomy. -on chronic o2 supplementation Recurrent Aspiration -HOB>45degrees at all times -frequent suctioning if increased secretions -repeat swallow eval on saturday -surgery recommends IR for jejunostomy tube as pt aspirates with PEG Debility -due to malnutrition, chronic hypoxia, pulmonary cachexia -PT consulted. DVT ppx: Lovenox and SCD Code status: DNR/DNI VS, I&O, 24H, Fishbone Vital Signs/I&O Vital Signs Date Time Temp Pulse Resp B/P (MAP) Pulse Ox O2 Delivery O2 Flow Rate FiO2 03/15/19 05:45 18 94 3.0 03/15/19 04:00 Nasal Cannula 03/15/19 04:00 97.8 105 138/68 (91) I&O- Last 24 Hours up to 6 AM 03/15/19 06:00 Intake Total 750 ml Output Total 900 ml Balance -150 ml Laboratory Data 24H LABS Laboratory Tests 2 03/14/19 11:03: Bedside Glucose (Misc Panel) 131H, Procalcitonin 0.16 03/14/19 17:20: Bedside Glucose (Misc Panel) 131H 03/14/19 23:44: Bedside Glucose (Misc Panel) 151H 03/15/19 05:37: Immature Granulocyte % (Auto) , Nucleated Red Blood Cells % (auto) 0.0 CBC/BMP Laboratory Tests 03/15/19 05:37 Red Blood Count 3.42 L, Mean Corpuscular Volume 97.1 H, Mean Corpuscular Hemoglobin 30.1, Mean Corpuscular Hemoglobin Concent 31.0 L, Red Cell Distrib ution Width 15.4 H Microbiology Microbiology 03/06/19 Blood Culture - Final, Complete NO GROWTH AFTER 5 DAYS 03/06/19 Blood Culture - Final, Complete NO GROWTH AFTER 5 DAYS 03/14/19 Gram Stain - Final, Complete 03/14/19 Sputum Culture - Final, Complete 03/07/19 MRSA Screen - Final, Complete Staph.aureus Methicillin Resis 03/06/19 Gram Stain - Final, Complete 03/06/19 Sputum Culture - Final, Complete Staph.aureus Methicillin Resis KHALIF ANDERSON MD Mar 15, 2019 06:10
[2019-03-15] MEDS: VANCOMYCIN HCL 750 MG, VIAL MATE ADAPTER 1 EACH in D5W 250 ML IV SCH (07:58)
[2019-03-15] MEDS: GABAPENTIN 400 MG CAP GT SCH ×3 (09:38→20:56)
[2019-03-15] MEDS: DICLOFENAC EPOLAMINE 1.3 % PATCH TD SCH ×2 (09:38→20:56)
[2019-03-15] MEDS: ENOXAPARIN 30 MG/0.3 ML SYR (J1650) SC SCH (09:38)
--- NOTE | 2019-03-15 10:35 | PHACANCOPD ---
PHARMACY VANCOMYCIN DOSING Pt Demographics Demographics Patient Age:84 , Weight:38.600 , Gender: male Adjusted Body Weight Date: 03/07/19, Adjusted Body Weight: Kg Events Past 24 Hours Events Past 24 Hours: YES: Change in CrCl, Elevation in WBC; NO: Dialysis, Diuretic Therapy, Fever, Pending Diagnostics, Pending Procedures, Other Vancomycin Vancomycin indication: Respiratory Infection Vancomycin Target Ranges: 15-20 mcg/ml Vancomycin Load Y/N: Yes Load Dose Date Time Vancomycin Load Dose: 1000mg Date: 03/07 Time: 1000 Vancomycin Dose Date 03/13/19: Current Vancomycin Dose: [1 gram iv q24h@0600] Date: 03/08/19. Current Vancomycin Dose: [750mg iv q12h@22] Intermittent Dosing?: No Labs Labs Vital Signs Label Value Date Time Patient Temperature 98.1 degrees F 03/15/19 0800 Temperature Source Temporal 03/15/19 0800 Patient Temperature 97.8 degrees F 03/15/19 0400 Temperature Source Temporal 03/15/19 0400 Blood Pressure Assessment 112/60 (77) 03/15/19 0800 Item Value Date Time Oxygen Flow Rate 2.0 L/min 03/15/19 0800 Oxygen Flow Rate 3.0 L/min 03/15/19 0624 White Blood Count 16.5 10^3/uL H 03/15/19 0537 White Blood Count 14.1 10^3/uL H 03/14/19 0539 White Blood Count 22.0 10^3/uL H 03/13/19 0702 Creatinine 0.70 MG/DL 03/15/19 0537 Creatinine 0.60 MG/DL L 03/14/19 0539 Creatinine 0.65 MG/DL L 03/13/19 0702 Vancomycin Level Trough 19.2 UG/ML 03/15/19 0727 Vancomycin Level Trough 20.4 UG/ML H 03/14/19 0539 Micro Microbiology 03/06/19 Blood Culture - Final, Complete NO GROWTH AFTER 5 DAYS 03/06/19 Blood Culture - Final, Complete NO GROWTH AFTER 5 DAYS 03/14/19 Gram Stain - Final, Complete 03/14/19 Sputum Culture - Final, Complete 03/07/19 MRSA Screen - Final, Complete Staph.aureus Methicillin Resis 03/06/19 Gram Stain - Final, Complete 03/06/19 Sputum Culture - Final, Complete Staph.aureus Methicillin Resis Creatinine Clearance Date:03/13/19. Creatinine Clearance: [-60]. Date:03/08/19. Creatinine Clearance: [~60]. Assessment and Plan Maintaining Current Dose?: Yes Reason for dose change: No Dose Change Pharmacist Note Pharmacist Note 03/15/19: Trough this AM resulted at 19.2 mcg/ml. At this time we will continue the current dose of Vanco 750mg IV Q24H@0800. We will continue to monitor and adjust dose as needed. Date: 03/14/19. Pharmacist note:Vancomycin random drawn this am reported as 20.4- S CR=0.6. Will adjust dose to 750mg IV Q24H to begin today at 0800-have ordered next trough for tomorrow am to assess dose change-will continue to follow 03/13/19: Vancomycin trough drawn this morning @0702 after a dose was administered @0600 and resulted in a supratherapeutic level of 60.8. Vancomycin was placed on hold for today until the ordered random for 03/14/19 can be reviewed. The patient continues to have an elevated WBC count but is afebrile. Date: 03/11/19. Pharmacist note:Vancomycin trough drawn this morning@5:09 reported as 19.8,scr=no significant change. Will continue with current regimen( Vancomycin 1 gm IV Q24H)-will continue to follow labs and adjust dose as needed Date: 03/10/19. Pharmacist note:Vancomycin trough drawn this evening@20:56 reported as 22.4 (trough goal= 15-20)Will hold 2200 dose d/t accumulation and adjust Vancomycin to 1 gram IV [id number] to begin 03/10@0600.Next trough is scheduled for 03/11@0500-will continue to follow labs Date: 03/08/19. Pharmacist note: Trough of 19 is within target range. Will continue current dosing. Will continue to monitor and make adjustments as needed. MARI RAJPUT PHARMACY Mar 15, 2019 10:35
[2019-03-15] MEDS: IPRATROPIUM 0.5MG/ALBUTEROL 2.5MG INH SOL UD 3ML (DUONEB)(J7620) NEB PRN (12:05)
[2019-03-16] VITALS (20 sets, daily range): BP systolic 112–148; BP diastolic 55–71; O2SAT 88–100
[2019-03-16] MEDS: MEROPENEM INJ 500 MG in IV 1 EA IV SCH ×3 (02:53→18:30)
[2019-03-16] MEDS: ANEXSIA, NORCO 7.5MG/325MG TABLET(HYDROCODONE/APAP) GT PRN ×4 (03:43→23:54)
[2019-03-16] MEDS: HumaLOG INSULIN (NovoLOG) PER UNIT SC SCH ×5 (06:00→23:46)
[2019-03-16] MEDS: SLF 3 ML SYR IV SCH ×3 (06:05→22:02)
[2019-03-16 06:19] LABS: BASO # 0.1 10^3/uL (0.0-0.2); BASO % 0.3 % (0.0-1.0); EOS # 0.2 10^3/uL (0.0-0.50); EOS % 0.9 % (0.0-3.0); LYMPH # 1.5 10^3/uL (1.5-4.5); LYMPH % 8.5 % (24.0-44.0); MEAN CORPUSCULAR HEMOGLOBIN 30.3 pg (27.0-33.0); MEAN CORPUSCULAR HGB CONC 31.3 g/dl (32.0-36.5); MONO # 1.3 10^3/uL (0.0-0.8); MONO % 7.6 % (0.0-5.0); NEUTROPHILS # 13.7 10^3/uL (1.8-7.7); PLATELET COUNT, AUTOMATED 434 10^3/uL (150-450); WHITE BLOOD COUNT 17.4 10^3/uL (4.0-10.0)
[2019-03-16 06:44] LABS: BLOOD UREA NITROGEN 34 MG/DL (7-18); CALCIUM LEVEL 8.5 MG/DL (8.8-10.2); CARBON DIOXIDE LEVEL 35 MEQ/L (21-32); CHLORIDE LEVEL 97 MEQ/L (98-107); CREATININE FOR GFR 0.69 MG/DL (0.70-1.30); GLOMERULAR FILTRATION RATE > 60.0 (>35); GLUCOSE, FASTING 93 MG/DL (70-100); POTASSIUM SERUM 4.7 MEQ/L (3.5-5.1); SODIUM LEVEL 137 MEQ/L (136-145)
[2019-03-16] MEDS: BUDESONIDE 0.5 MG/2 ML INHALATION SUSPENSION INH SCH ×2 (08:25→19:36)
[2019-03-16] MEDS: FORMOTEROL FUMARATE 20 MCG/2 ML INHALATION SOLUTION (PERFOROMIST) INH SCH ×2 (08:25→19:36)
[2019-03-16] MEDS: ENOXAPARIN 30 MG/0.3 ML SYR (J1650) SC SCH (09:18)
[2019-03-16] MEDS: GABAPENTIN 400 MG CAP GT SCH ×3 (09:21→22:02)
[2019-03-16] MEDS: VANCOMYCIN HCL 750 MG, VIAL MATE ADAPTER 1 EACH in D5W 250 ML IV SCH (09:23)
[2019-03-16] MEDS: DICLOFENAC EPOLAMINE 1.3 % PATCH TD SCH ×2 (09:24→23:53)
[2019-03-16] MEDS: IPRATROPIUM 0.5MG/ALBUTEROL 2.5MG INH SOL UD 3ML (DUONEB)(J7620) NEB PRN (17:07)
--- NOTE | 2019-03-16 17:36 | IPNPDOC ---
Date Seen The patient was seen on 03/16/19. Progress Note SUBJECTIVE: Pt is frustrated about not being able to eat. "will I ever be able to at again." Despite IV vanco and zosyn , pt's white count is still elevated with persistent c/o cough with scant thick sputum. unable to get repeat sputum cx as he is unable to provide a sample for culture. Previous sputum cx: MRSA, repeat sputum cx: oropharyngeal. per surgery, may benefit from changing peg to jejunostomy to reduce risk of recurrent aspiration. no fever or chills. c/o generalized weakness. Pt's daughter requests repeat swallow eval. Per swallow therapist, they will review previous findings first. . pt refused acapella and incentive spirometery. Discussed at length the option of residential concierge and allowing the patient to eat with the patient and with the daughter as well. Daughter will call his other siblings to make a decision to either back off tube feedings and allow the patient to eat or to do jejunostomy tube and continue tube feeds. OBJECTIVE PHYSICAL EXAMINATION: VITAL SIGNS: Please see below. General: no conversational dyspnea or use of accessory respiratory mm. cachectic appearing with some temporal wasting. disheveled. no tripod positioning. answering questions appropriately. Eyes: Normal sclera anicteric HENT: Atraumatic, neck supple, moist mucous membranes Cardiovascular: S1S2 RRR Pulmonary: diminished. bibasilar crackles, faint b/l wheezing GI: Soft, nondistended (+) bs no rebound guarding feeding tube Skin: Warm and dry LABORATORY DATA, IMAGING STUDIES, MICROBIOLOGY: Please see below. ASSESSMENT AND PLAN: Patient is an 84-year-old male with extensive pulmonary disease including COPD, interstitial fibrosis, lung cancer status post right upper lobe lobectomy, pulmonary hypertension, recurrent aspiration pneumonia despite having a feeding tube and ?DM brought in from assisted for reported fevers, cough and hypoxia. Symptoms all started today per family at bedside, most history were obtained from family as patient was minimally alert. In ER, patient was found to be hypoxic with pO2 on ABG in 50s with NRB not adequately support patient's O2 requiring utilization of high flow oxygen. Saturation remained stable in mid 90s on high flow oxygen. No other symptoms were reported prior to today. Normally follows with Dr. Ferrer as outpatient. MRSA LLL PNA with hypoxia - in setting of recurrent aspiration PNA, suspect recurrent event. - Sputum culture + MRSA. - s/p Zosyn -on IV vanco for MRSA pneumonia from admission x , renally dosed by pharmacist. - c/w O2 support to maintain sat >92%. s/p vapotherm - Leukocytosis but in setting of steroid use. -repeated CT chest 03/13/19 due to worsening leukocytosis 22, and rechecked sputum cx 03/13/19 with addition of meropenem Acute on Chronic Hypoxic Respiratory Failure -15liters o2 90% on ED arrival , required vapotherm which has been weaned off -secondary to LLL MRSA pneumonia in the setting of copd and chronic pulmonary fibrosis -currently stable at 3liters nasal cannula -initially received vanco and zosyn, but sputum cx: MRSA . thus, zosyn discontinued -03/15/19 repeat cxr: increased right consolidation with b/l pleural effusions. s/p lasix this am at 6:30am, and pt requesting urinal. -per surgery, may benefit from changing peg to jejunostomy to reduce risk of recurrent aspiration. -03/13/19 white count improved with meropenem. COPD/Pulmonary fibrosis - Not likely in exacerbation. - on a short course of prednisone as it may help with oxygenation in setting of pulmonary fibrosis. - duonebs PRN, resumed home inhaler and meds. - Follows with Dr. Ferrer. Recurrent Aspiration -PEG tube -NPO -Pt is frustrated about not being able to eat. "will I ever be able to at again." Despite IV vanco and zosyn , pt's white count is still elevated with persistent c/o cough with scant thick sputum. unable to get repeat sputum cx as he is unable to provide a sample for culture. Previous sputum cx: MRSA, repeat sputum cx: oropharyngeal. per surgery, may benefit from changing peg to jejunostomy to reduce risk of recurrent aspiration. no fever or chills. c/o generalized weakness. Pt's daughter requests repeat swallow eval. Per swallow therapist, they will review previous findings first. . pt refused acapella and incentive spirometery. Discussed at length the option of residential concierge and allowing the patient to eat with the patient and with the daughter as well. Daughter will call his other siblings to make a decision to either back off tube feedings and allow the patient to eat or to do jejunostomy tube and continue tube feeds. Pulmonary Cachexia -optimized nutirition via tube feedings -Plating Tank Operator Apprentice recommends jevity 75ml/hr x 18hrs Soft Tissue mass in lung -?malignancy vs mucus plug -oxygenating is improved -will use acapella if mucus plug -if postobstructive pneumonia, meropenem added 03/13/19. Protein Calorie Malnutrition BMI 14.9 -optimized nutirition via tube feedings -Plating Tank Operator Apprentice recommends jevity 75ml/hr x 18hrs -complicating care Failure to Thrive -optimized nutirition via tube feedings -Plating Tank Operator Apprentice recommends jevity 75ml/hr x 18hrs -complicating care Likely steroid induced hyperglycemia rather than DM - was at insulin at some point but denies having DM. HbA1c 5.6. - ISS as needed. Hx lung cancer - s/p RUL lobectomy. -on chronic o2 supplementation Recurrent Aspiration -HOB>45degrees at all times -frequent suctioning if increased secretions -repeat swallow eval on saturday -surgery recommends IR for jejunostomy tube as pt aspirates with PEG Debility -due to malnutrition, chronic hypoxia, pulmonary cachexia -PT consulted. DVT ppx: Lovenox and SCD Code status: DNR/DNI VS, I&O, [facility]H, [facility] Vital Signs/I&O Vital Signs Date Time Temp Pulse Resp B/P (MAP) Pulse Ox O2 Delivery O2 Flow Rate FiO2 03/16/19 17:00 94 Nasal Cannula 3.0 03/16/19 16:34 18 03/16/19 16:00 99.1 101 119/59 (79) I&O- Last 24 Hours up to 6 AM 03/16/19 06:00 Intake Total 1940 ml Output Total 1375 ml Balance 565 ml Laboratory Data 24H LABS Laboratory Tests 2 03/15/19 18:18: Bedside Glucose (Misc Panel) 125H 03/15/19 23:34: Bedside Glucose (Misc Panel) 160H 03/16/19 05:52: Immature Granulocyte % (Auto) 3.7H, White Blood Count 17.4H, Red Blood Count 3.30L, Hemoglobin 10.0L, Hematocrit 32.0L, Mean Corpuscular Volume 97.0H, Mean Corpuscular Hemoglobin 30.3, Mean Corpuscular Hemoglobin Concent 31.3L, Red Cell Distribution Width 15.1H, Platelet Count 434, Neutrophils (%) (Auto) 79.0H, Lymphocytes (%) (Auto) 8.5L, Monocytes (%) (Auto) 7.6H, Eosinophils (%) (Auto) 0.9, Basophils (%) (Auto) 0.3, Neutrophils # (Auto) 13.7H, Lymphocytes # (Auto) 1.5, Monocytes # (Auto) 1.3H, Eosinophils # (Auto) 0.2, Basophils # (Auto) 0.1, Nucleated Red Blood Cells % (auto) 0.0, Anion Gap 5L, Glomerular Filtration Rate > 60.0, Blood Urea Nitrogen 34H, Creatinine 0.69L, Sodium Level 137, Potassium Level 4.7, Chloride Level 97L, Carbon Dioxide Level 35H, Calcium Level 8.5L 03/16/19 12:10: Bedside Glucose (Misc Panel) 139H 03/16/19 17:11: Bedside Glucose (Misc Panel) 115H CBC/BMP Laboratory Tests 03/16/19 05:52 Red Blood Count 3.30 L, Mean Corpuscular Volume 97.0 H, Mean Corpuscular Hemoglobin 30.3, Mean Corpuscular Hemoglobin Concent 31.3 L, Red Cell Distribution Width 15.1 H, Neutrophils (%) (Auto) 79.0 H, Lymphocytes (%) (Auto) 8.5 L, Monocytes (%) (Auto) 7.6 H, Eosinophils (%) (Auto) 0.9, Basophils (%) (Auto) 0.3, Neutrophils # (Auto) 13.7 H, Lymphocytes # (Auto) 1.5, Monocytes # (Auto) 1.3 H, Eosinophils # (Auto) 0.2, Basophils # (Auto) 0.1, Calcium Level 8.5 L Microbiology Microbiology 03/06/19 Blood Culture - Final, Complete NO GROWTH AFTER 5 DAYS 03/06/19 Blood Culture - Final, Complete NO GROWTH AFTER 5 DAYS 03/14/19 Gram Stain - Final, Complete 03/14/19 Sputum Culture - Final, Complete 03/07/19 MRSA Screen - Final, Complete Staph.aureus Methicillin Resis 03/06/19 Gram Stain - Final, Complete 03/06/19 Sputum Culture - Final, Complete Staph.aureus Methicillin Resis KHALIF ANDERSON MD Mar 16, 2019 17:36
[2019-03-17] MEDS: MEROPENEM INJ 500 MG in IV 1 EA IV SCH ×3 (01:01→17:31)
[2019-03-17] MEDS: SLF 3 ML SYR IV SCH ×3 (02:00→22:20)
[2019-03-17] MEDS: HumaLOG INSULIN (NovoLOG) PER UNIT SC SCH ×3 (05:29→17:25)
[2019-03-17 06:00] VITALS: BP 133/69
[2019-03-17 07:03] LABS: BASO # 0.1 10^3/uL (0.0-0.2); BASO % 0.3 % (0.0-1.0); EOS # 0.1 10^3/uL (0.0-0.50); EOS % 0.8 % (0.0-3.0); HEMATOCRIT 29.1 % (42.0-52.0); HEMOGLOBIN 9.3 g/dl (13.5-17.5); LYMPH # 1.4 10^3/uL (1.5-4.5); MEAN CORPUSCULAR HEMOGLOBIN 29.8 pg (27.0-33.0); MEAN CORPUSCULAR VOLUME 93.3 fl (80.0-96.0); MONO # 1.5 10^3/uL (0.0-0.8); MONO % 8.8 % (0.0-5.0); NEUTROPHILS % 79.3 % (36.0-66.0); PLATELET COUNT, AUTOMATED 412 10^3/uL (150-450); RED BLOOD COUNT 3.12 10^6/uL (4.30-6.10); WHITE BLOOD COUNT 17.6 10^3/uL (4.0-10.0)
[2019-03-17 07:32] LABS: BLOOD UREA NITROGEN 32 MG/DL (7-18); CALCIUM LEVEL 8.7 MG/DL (8.8-10.2); CARBON DIOXIDE LEVEL 38 MEQ/L (21-32); CHLORIDE LEVEL 98 MEQ/L (98-107); CREATININE FOR GFR 0.61 MG/DL (0.70-1.30); GLOMERULAR FILTRATION RATE > 60.0 (>35); GLUCOSE, FASTING 87 MG/DL (70-100); POTASSIUM SERUM 4.7 MEQ/L (3.5-5.1); SODIUM LEVEL 137 MEQ/L (136-145); VANCOMYCIN LEVEL TROUGH 19.4 UG/ML (10.0-20.0)
[2019-03-17] MEDS: FORMOTEROL FUMARATE 20 MCG/2 ML INHALATION SOLUTION (PERFOROMIST) INH SCH ×2 (08:04→19:25)
[2019-03-17] MEDS: BUDESONIDE 0.5 MG/2 ML INHALATION SUSPENSION INH SCH ×2 (08:04→19:25)
[2019-03-17] MEDS: GABAPENTIN 400 MG CAP GT SCH ×3 (08:15→22:19)
[2019-03-17] MEDS: ENOXAPARIN 30 MG/0.3 ML SYR (J1650) SC SCH (08:16)
[2019-03-17] MEDS: DICLOFENAC EPOLAMINE 1.3 % PATCH TD SCH ×2 (08:16→22:19)
[2019-03-17] MEDS: VANCOMYCIN HCL 750 MG, VIAL MATE ADAPTER 1 EACH in D5W 250 ML IV SCH (10:27)
[2019-03-17] MEDS: ANEXSIA, NORCO 7.5MG/325MG TABLET(HYDROCODONE/APAP) GT PRN ×3 (10:28→22:34)
[2019-03-17 14:00] VITALS: BP 111/68
--- NOTE | 2019-03-17 18:55 | IPNPDOC ---
Text Note Date of Service The patient was seen on 03/17/19. NOTE S: patient here with MRSA PNA, COPD, HTN and aspiration PNA. and son pr esent at bedside. patient states overall feels weak. He states minimal moist cough, no CP, mild SOB, no abdomen pain; He and family states their goal is to return home after rehab for strengthing. He is adamant that he does not want comfort measures only. O: Vitals as below General: thin cachetic male, AAOx3, NAD, no use of accessory muscles HRRR LCTA with course rhonchi/rales at bases but not as diffuse as appearing on CXR Ext:no edema abdomen: G tube intact and functioning CXR images reviewed with patient and family. Labs and chart reviewed with patient and family A/P: Patient is an 84-year-old male with extensive pulmonary disease including COPD, interstitial fibrosis, lung cancer status post right upper lobe lobectomy, pulmonary hypertension, recurrent aspiration pneumonia brought in from [facility] for reported fevers, cough and hypoxia. Patient normally sees Dr Ferrer for pulmonary. 1) MRSA LLL PNA with hypoxia with aspiration Pneumonia (saliva, food, etc) - Sputum culture + MRSA. - Initially treated with zosyn, now on vanc and meropenem. WBC still elevated and CXR worse (03/15 compared to admission). not on steroids. - Vanc renal dose by pharmacy and currently therapeutic. -on IV vanco for MRSA pneumonia from admission x , renally dosed by pharmacist. - c/w O2 support to maintain sat >92%. (currently on 3 liter) - Consult ID - T/C pulm consult (dr Ferrer) if CXR worse tomorrow 2) Acute on Chronic Hypoxic Respiratory Failure -15liters o2 90% on ED arrival , required vapotherm which has been weaned off to 3 liter NC. -secondary to LLL MRSA pneumonia in the setting of copd and chronic pulmonary fibrosis - patient given IV lasix for effusion on CXR 03/15. 3) COPD/Pulmonary fibrosis - Not likely in exacerbation. off steroids and no improvement. - duonebs PRN, resumed home inhaler and meds. - Follows with Dr. Ferrer. 4) Recurrent Aspiration -PEG tube placed 12/2018 for malnutrition NOT aspiration. -NPO -Pt is frustrated about not being able to eat. "will I ever be able to at again." - pateint is NOT candidate for J tube placement as G tube was recently placed and needs time to heal. -Speech therapy working with patient on swallow and possible recreational feeding. - Family wants to start "realfood" tube feeding as bolus feeds. will consult nutrition service for possible bolus TF and family to bring in [employer] brand TF from home 5) Pulmonary Cachexia -optimized nutirition via tube feedings -Sexual Assault Counselor recommends jevity 75ml/hr x 18hrs 6) Soft Tissue mass in lung -?malignancy vs mucus plug -oxygenating is improved -will use acapella if mucus plug -if postobstructive pneumonia, meropenem added 03/13/19. 7) Protein Calorie Malnutrition BMI 14.9 -optimized nutirition via tube feedings -Sexual Assault Counselor recommends jevity 75ml/hr x 18hrs -complicating care 8)Failure to Thrive -optimized nutirition via tube feedings -Sexual Assault Counselor recommends jevity 75ml/hr x 18hrs; family wants to try more natural TF and will discuss with tape transferrer bolus feeds, etc -complicating care 9) Likely steroid induced hyperglycemia rather than DM - monitor; currently off steroids - was at insulin at some point but denies having DM. HbA1c 5.6. - ISS as needed. 10) Hx lung cancer - s/p RUL lobectomy. -on chronic o2 supplementation 11) Debility -due to malnutrition, chronic hypoxia, pulmonary cachexia -PT consulted. DVT ppx: Lovenox and SCD Code status: DNR/DNI GOAL/DISPOSITION: to return to rehab and ultimately home. NOT INTERESTED IN AIRLINE TRANSPORT PILOT VS,Fishbone, I+O VS, Fishbone, I+O Laboratory Tests 03/17/19 06:53 Red Blood Count 3.12 L, Mean Corpuscular Volume 93.3, Mean Corpuscular Hemoglobin 29.8, Mean Corpuscular Hemoglobin Concent 32.0, Red Cell Distribution Width 15.3 H, Neutrophils (%) (Auto) 79.3 H, Lymphocytes (%) (Auto) 8.0 L, Monocytes (%) (Auto) 8.8 H, Eosinophils (%) (Auto) 0.8, Basophils (%) (Auto) 0.3, Neutrophils # (Auto) 14.0 H, Lymphocytes # (Auto) 1.4 L, Monocytes # (Auto) 1.5 H, Eosinophils # (Auto) 0.1, Basophils # (Auto) 0.1, Calcium Level 8.7 L Vital Signs Date Time Temp Pulse Resp B/P (MAP) Pulse Ox O2 Delivery O2 Flow Rate FiO2 03/17/19 10:58 22 3.0 03/17/19 06:00 98.0 101 133/69 (90) 100 03/16/19 19:45 Nasal Cannula I&O- Last 24 Hours up to 6 AM 03/17/19 06:00 Intake Total 2460 ml Output Total 925 ml Balance 1535 ml JOCELIN QUINTERO DO Mar 17, 2019 15:55
--- NOTE | 2019-03-17 19:45 | CR ---
DATE OF CONSULTATION: 03/17/2019 INFECTIOUS DISEASE CONSULTATION Asked to consult by hospitalist for evaluation of recurrent pneumonia in an 83-year-old patient with severe chronic obstructive pulmonary disease (COPD) and a history of lung cancer. Mr. Phillips is an 83-year-old gentleman with a history of lung cancer in 2008, status post right upper lobectomy, severe COPD who has been hospitalized for the past 3 months at least on four different occasions, and currently was in the [facility] for rehabilitation. The patient initially was diagnosed with aspiration pneumonia in December and had a G-tube placed by Dr. Silva. He has been nothing by mouth (n.p.o.) since then. He has severe protein-calorie malnutrition. The patient has had failure to thrive and recently readmitted on 03/06/2019 with methicillin-resistant Staphylococcus aureus (MRSA) pneumonia. He was treated with 10 days of intravenous (IV) vancomycin. His white count around 17-18,000 and has been persistently elevated. He currently describes his sputum to be whitish to yellowish in color, slightly better and meropenem was added on 03/13/2019 because of persistent leukocytosis and cough. Procalcitonin on 03/14/2019 was 0.16. The patient is frail, does not feel well. He complains of severe shoulder pain. He has been seen by the pain clinic previously and Dr. Reed. PAST MEDICAL HISTORY: Significant for lung cancer, stage I, status post right upper lobectomy done by Dr. Bolaños in May of 2009, did not require chemotherapy or radiation. History of aspiration pneumonia, status post G-tube, diastolic dysfunction, advanced COPD, but usually was not on O2 until recent hospitalization. History of shingles to the shoulder with chronic shoulder pain, status post left shoulder replacement. PAST SURGICAL HISTORY: Cervical (C) spine surgery. Shoulder replacement. Percutaneous endoscopic gastrostomy (PEG) tube in December of 2018. OTHER HISTORY: Trigger point injection in the left shoulder. FAMILY HISTORY: Nonrevealing. SOCIAL HISTORY: He lived with his until 2 months ago when he went to the [facility] for rehabilitation. He does not smoke or drink. PHYSICAL EXAMINATION: On physical exam, he is a frail elderly gentleman in mild discomfort but no acute distress. Temperature is 97.5, pulse 99, respirations 18, blood pressure 111/68, oxygen saturation (O2 sat) 94% on 3 liters. Heart: Normal S1, S2, distant. Lungs: Diminished breath sounds at the bases. No wheezes. Abdomen is soft, nontender with reducible small inguinal hernia. G-tube in place. Extremities: Emaciated, frail, thin. No edema. Oropharynx moist. No lesions. LABORATORY DATA: White count is 17.6, hemoglobin 9.3, hematocrit 29.1, platelets 412, 80% neutrophils, 8% lymphocytes, 8% monocytes. His white count on admission was 8.7. He received 4 days of prednisone 40 mg from 03/07/2019 to 03/10/2019, and his white count has remained in the 17 range. Sodium 137, potassium 4.7, chloride 98, bicarbonate 38, BUN 32, creatinine 0.61, glucose 87, calcium 8.7. Procalcitonin 0.16; he started at 0.66 in December. Sputum culture from 03/06/2019 is positive for methicillin-resistant Staphylococcus aureus (MRSA), heavy growth. Nasopharyngeal culture is positive for MRSA. Sputum culture repeated on 03/14/2019 was poor quality. Sputum culture from 03/16/2019 is pending. It has many white cells, few gram positive cocci in chains. CT chest done on 03/13/2019 shows persistent pulmonary consolidation, greater on the right, with bilateral pleural effusions. Left shoulder arthroplasty. Chest x-ray from 03/15/2019 showed persistent pulmonary consolidation, right worse than left. With pleural effusion. IMPRESSION: 84-year-old frail elderly gentleman with a history of lung cancer status post lobectomy in 2008, severe advanced COPD with recurrent pneumonia, four hospitalizations between December and March of 2019. The patient is now oxygen dependent. He has persistent leukocytosis. He has been on IV vancomycin for 10 days appropriately for MRSA pneumonia, has persistent consolidation and meropenem has been added. I do not think the issue is an antibiotic choice as much as it is mucous plugging probably mouth secretion a mild clearance of secretions, possibly underlying recurrent, probably malclearance of secretions, possibly underlying recurrent cancer or only aspiration pneumonia. At this point, more antibiotics are not the answer to the question. The patient has very poor protoplasm and has very poor prognosis. PLAN: I have discussed the case with Dr. Ferrer who has seen him for many years and knows him very well. He will discuss with him his outlook and outcome and possibly comfort measures or hospice care. Sputum culture from 03/16/2019 does not grow MRSA. MTDD
[2019-03-17 22:00] VITALS: BP 114/59
[2019-03-18] MEDS: IPRATROPIUM 0.5MG/ALBUTEROL 2.5MG INH SOL UD 3ML (DUONEB)(J7620) NEB PRN (01:34)
[2019-03-18 02:00] VITALS: BP 138/79
[2019-03-18] MEDS: MEROPENEM INJ 500 MG in IV 1 EA IV SCH ×3 (02:26→17:36)
[2019-03-18] MEDS: ANEXSIA, NORCO 7.5MG/325MG TABLET(HYDROCODONE/APAP) GT PRN ×4 (04:39→22:11)
[2019-03-18 06:00] VITALS: BP 104/66
[2019-03-18] MEDS: HumaLOG INSULIN (NovoLOG) PER UNIT SC SCH ×4 (06:00→17:36)
[2019-03-18 06:04] LABS: BASO # 0.1 10^3/uL (0.0-0.2); BASO % 0.3 % (0.0-1.0); EOS # 0.1 10^3/uL (0.0-0.50); EOS % 0.7 % (0.0-3.0); HEMATOCRIT 26.7 % (42.0-52.0); HEMOGLOBIN 8.3 g/dl (13.5-17.5); LYMPH # 1.4 10^3/uL (1.5-4.5); LYMPH % 9.3 % (24.0-44.0); MEAN CORPUSCULAR HEMOGLOBIN 29.5 pg (27.0-33.0); MEAN CORPUSCULAR HGB CONC 31.1 g/dl (32.0-36.5); MONO # 1.4 10^3/uL (0.0-0.8); MONO % 9.4 % (0.0-5.0); NEUTROPHILS # 11.5 10^3/uL (1.8-7.7); NEUTROPHILS % 78.3 % (36.0-66.0); PLATELET COUNT, AUTOMATED 382 10^3/uL (150-450); RED BLOOD COUNT 2.81 10^6/uL (4.30-6.10); WHITE BLOOD COUNT 14.7 10^3/uL (4.0-10.0)
[2019-03-18 06:30] LABS: BLOOD UREA NITROGEN 28 MG/DL (7-18); CALCIUM LEVEL 8.3 MG/DL (8.8-10.2); CARBON DIOXIDE LEVEL 36 MEQ/L (21-32); CHLORIDE LEVEL 97 MEQ/L (98-107); CREATININE FOR GFR 0.58 MG/DL (0.70-1.30); GLOMERULAR FILTRATION RATE > 60.0 (>35); GLUCOSE, FASTING 87 MG/DL (70-100); POTASSIUM SERUM 4.6 MEQ/L (3.5-5.1); SODIUM LEVEL 135 MEQ/L (136-145)
[2019-03-18] MEDS: SLF 3 ML SYR IV SCH ×3 (06:31→22:12)
[2019-03-18] MEDS: BUDESONIDE 0.5 MG/2 ML INHALATION SUSPENSION INH SCH ×2 (07:57→19:39)
[2019-03-18] MEDS: FORMOTEROL FUMARATE 20 MCG/2 ML INHALATION SOLUTION (PERFOROMIST) INH SCH ×2 (07:57→19:39)
[2019-03-18] MEDS: ENOXAPARIN 30 MG/0.3 ML SYR (J1650) SC SCH (09:17)
[2019-03-18] MEDS: GABAPENTIN 400 MG CAP GT SCH ×3 (09:18→22:11)
[2019-03-18] MEDS: DICLOFENAC EPOLAMINE 1.3 % PATCH TD SCH ×2 (09:18→22:12)
--- NOTE | 2019-03-18 11:00 | IPN ---
PULMONARY CRITICAL CARE PROGRESS NOTE: DATE OF VISIT: 03/18/2019 I was asked by Dr. Hall and Dr. Morel to evaluate Mr. Phillips. He is well known to me from the outpatient setting as well as multiple hospital admissions. He is known to have essentially end-stage obstructive lung disease, previously resected non-small cell cancer stage I of the right upper lobe in 2008. His issues over the last 6-8 months have been pulmonary cachexia progressive decline and recurrent aspiration pneumonias. He recently was in the intermediate subacute rehab but has been re-admitted with yet another aspiration pneumonia despite having a gastrostomy (G) tube. He is much more weak. He is much more debilitated. I am asked now to assist in his management. Maximum temperature (Tmax) 97.1, blood pressure 104-130s, heart rate generally 60-80s, respiratory rate in the teens without accessory muscle use. In general, he is an ill-appearing elderly gentleman, quite frail. HEENT otherwise normocephalic, atraumatic. Pupils react. Neck with markedly diminished mobility. Chest shows diffuse intercostal muscle wasting. Breath sound intensity markedly diminished. There is egophony crackles over at least half of the right posterior chest. No rubs. Left chest fairly clear. Cardiac exam generally regular. Peripheral pulses palpable. No obvious edema. Abdomen soft with active bowel sounds. G-tube site benign appearance. Extremities without cyanosis or clubbing. Neurologically, he is awake, alert and appropriate. Chest x-rays and CTs are reviewed and show persistent right-sided infiltrate. Chest x-ray from today is pending. I reviewed all his available laboratories. White blood cell count remains marginally elevated at 14.7 today, 70% segmented neutrophils, no bands. He remains anemic with a hemoglobin of 8.3. Electrolytes fairly unremarkable, except for an elevated resting CO2 of 36, BUN 28, creatinine 0.58. IMPRESSION: 1. Advanced obstructive lung disease. 2. Coronary cachexia. 3. Recurrent aspiration pneumonia despite G-tube. 4. Protein calorie malnutrition. 5. Previously resected non-small cell lung cancer with no evidence of recurrence. 6. DO NOT RESUSCITATE, DO NOT INTUBATE. RECOMMENDATIONS: At this point, he has been on broad-spectrum antimicrobials. I believe much of the issue is his chronically debilitated state and malnutrition. He spends most of his time in bed. Secretion clearance is markedly diminished in that regard and I have spoke at length with the patient and family that is at the bedside. We may have actually reached the point where we are not able to get him through this, but he is not ready for comfort measure only (CHILDREN'S NURSERY ASSISTANT) just yet. In view of this, we will increase his secretion clearance with increased nebulizers, expectorants, mucolytics, and mechanical reexpansion therapy. We will re-add steroids in the hopes that we can decrease whatever inflammation may be there as this may be a contribution of BOOP/RETAIL LOAN ORIGINATOR ASSISTANT. I also discussed with the patient and family that we may not be able to make any significant progress but we will see the above interventions have to offer. We will proceed as outlined above. Further recommendations will be made in the progress record as new information becomes available. MTDD
[2019-03-18] MEDS: VANCOMYCIN HCL 750 MG, VIAL MATE ADAPTER 1 EACH in D5W 250 ML IV SCH (11:25)
[2019-03-18] MEDS: methylPREDNISolone INJ 125 MG/2 ML VIAL (J2930) IV SCH ×2 (11:26→17:36)
--- NOTE | 2019-03-18 11:31 | REP ---
CHEST X-RAY: Two views. HISTORY: MRSA pneumonia. COMPARISON STUDY: March 15, 2019. FINDINGS: Consolidation has progressed with increased volume loss in the right hemithorax. The right hemithorax is now almost completely opacified. Post thoracotomy changes are again noted on the right. There is patchy consolidation in the left lower lobe consistent with pneumonia. This is unchanged. There is some slight blunting of the left lateral pleural angle. IMPRESSION: Progressive opacification and collapse in the right lung which is now almost completely opacified. Stable infiltrate left base. Slight blunting left lateral pleural angle. Electronically Signed by Emir Block MD 03/18/2019 11:48 A
[2019-03-18] MEDS: IPRATROPIUM 0.5MG/ALBUTEROL 2.5MG INH SOL UD 3ML (DUONEB)(J7620) NEB SCH ×4 (12:30→23:41)
[2019-03-18 14:00] VITALS: BP 132/75
[2019-03-18 20:00] VITALS: O2SAT 96
--- NOTE | 2019-03-18 21:16 | IPNPDOC ---
Text Note Date of Service The patient was seen on 03/18/19. NOTE S: present when patient seen this afternoon. Patient states he feels the same - no better, no worse. still with cough, still requiring high flow oxygen.He has been seen by pulmonology (who is managing nebs, steroids, etc) and infectious disease (managing antibiotics). He states no CP. Has been out to chair 3 times today. He also saw animal control specialist and she spoke with family and patient and recommended against changing tube feedings O: Vitals as below General: cachetic appearing, accessory muscles, alert/oriented, skin and bones appearing HRRR LCTA with course rhonchi/rales at left base, no audible breathsound on right (diminished) Ext:no edema CXR images reviewed with patient and family and show white out of right lung (worse than 03/15/19). A/P: Patient is an 84-year-old male with extensive pulmonary disease including COPD, interstitial fibrosis, lung cancer status post right upper lobe lobectomy, pulmonary hypertension, recurrent aspiration pneumonia brought in from [facility] for reported fevers, cough and hypoxia. PROGNOSIS: POOR 1) MRSA PNA with hypoxia with aspiration Pneumonia (saliva, food, etc) - Sputum culture + MRSA. - Initially treated with zosyn, now on vanc and meropenem. - ID consulted and notes reviewed. 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 2) Acute on Chronic Hypoxic Respiratory Failure - he is on vapotherm 3) COPD/Pulmonary fibrosis - director multimedia restarted steroids, nebs and pulmonary toilet 4) Recurrent Aspiration -PEG tube placed 12/2018 for malnutrition NOT aspiration. -NPO -Pt is frustrated about not being able to eat. - pateint is NOT candidate for J tube placement as G tube was recently placed and needs time to heal. -Speech therapy working with patient on swallow and possible recreational feeding. - Family wants to start "realfood" tube feeding as bolus feeds - animal control specialist consulted and does NOT recommended altering current TF regimen 5) Pulmonary Cachexia -optimized nutirition via tube feedings -Cell Cleaner recommends jevity 75ml/hr x 18hrs 6) Soft Tissue mass in lung -?malignancy vs mucus plug 7) Severe protein calorie malnutrition manifested by BMI 13.9, intercostal muscle wasting, weak, debiltiy and pulmonary cachexia 8)Failure to Thrive -optimized nutirition via tube feedings -Cell Cleaner recommends jevity 75ml/hr x 18hrs; family wants to try more natural TF and will discuss with animal control specialist bolus feeds, etc -complicating care 9) Likely steroid induced hyperglycemia rather than DM - monitor as steroids restarted - was at insulin at some point but denies having DM. HbA1c 5.6. - ISS as needed. 10) Hx lung cancer - s/p RUL lobectomy. -on chronic o2 supplementation 11) Debility -due to malnutrition, chronic hypoxia, pulmonary cachexia -PT consulted. DVT ppx: Lovenox and SCD Code status: DNR/DNI Current Medications Acetaminophen (Tylenol Tab) 650 mg Q4HP PRN PO PAIN OR FEVER Last administered on 03/09/19 13:24; Start 03/06/19 at 18:00 Acetaminophen/ Hydrocodone Bitart (Anexsia, [place] 7.5mg/325mg) 1 tab Q4HP PRN GT PAIN SCALE 6-10 Last administered on 03/18/19 13:34; Start 03/06/19 at 18:30 Albuterol/ Ipratropium (Duoneb (Ipr 0.5mg/Alb 2.5mg)) 3 ml Q2HP PRN NEB SOB/WHEEZING Last administered on 03/18/19 01:34; Start 03/06/19 at 18:00 Albuterol/ Ipratropium (Duoneb (Ipr 0.5mg/Alb 2.5mg)) 3 ml RQ4H NEB Last administered on 03/18/19at 15:44; Start 03/18/19 at 12:00 Bisacodyl (Dulcolax Suppository) 10 mg DAILYPRN PRN MD CONSTIPATION; Start 03/06/19 at 18:30 Budesonide (Pulmicort) 0.5 mg RBID INH Last administered on 03/18/19 19:39; Start 03/07/19 at 08:00 Diclofenac Epolamine (Flector 1.3%) 2 patch BID TD Last administered on 03/18/19 09:18; Start 03/06/19 at 21:00 Enoxaparin Sodium (Lovenox) 30 mg DAILY SC Last administered on 03/18/19 09:17; Start 03/07/19 at 09:00 Formoterol Fumarate (Perforomist) 20 mcg RBID INH Last administered on 03/18/19at 19:39; Start 03/07/19 at 08:00 Gabapentin (Neurontin) 400 mg TID GT Last administered on 03/18/19at 17:22; Start 03/06/19 at 21:00 Insulin Human Lispro (HumaLOG INSULIN) SEE PROTOCOL TABLE Q6H SC Last administered on 03/18/19at 17:36; Start 03/12/19 at 12:00 Insulin Human Lispro (HumaLOG INSULIN) SEE PROTOCOL TABLE Q6H SC Last administered on 03/11/19at 00:08; Start 03/07/19 at 06:00; Stop 03/12/19 at 08:18; Status DC Magnesium Hydroxide (Milk Of Magnesia) 30 ml DAILYPRN PRN GT CONSTIPATION; Start 03/06/19 at 18:30 Meropenem 500 mg/ IV Miscellaneous Supplies 50 ml @ 100 mls/hr Q8H IV Last administered on 03/18/19at 17:36; Start 03/13/19 at 18:00 Methylprednisolone (SOLUmedrol) 80 mg Q8H IV Last administered on 03/18/19at 17:36; Start 03/18/19 at 11:00 Ondansetron HCl (ZOFRAN INJection) 8 mg Q4HP PRN IV NAUSEA OR VOMITING; Start 03/11/19 at 23:00 Polyethylene Glycol (Miralax) 1 pkt DAILYPRN PRN GT CONSTIPATION; Start 03/06/19 at 18:30 Saliva Substitute (Mouthkote) 5 sprays Q1HP PRN MT dry mouth; Start 03/13/19 at 14:45 Sodium Chloride (Saline Lock Flush) 2 ml ASDIRECTED PRN IV SEE LABEL COMMENTS; Start 03/07/19 at 09:45 Sodium Chloride (Saline Lock Flush) 2 ml SLF IV Last administered on 03/18/19at 06:31; Start 03/07/19 at 14:00 Vancomycin HCl 750 mg/IV Miscellaneous Supplies 1 each/ Dextrose 275 ml @ 275 mls/hr Q24H IV Last administered on 03/18/19at 11:25; Start 03/17/19 at 11:00 VS,Fishbone, I+O VS, Fishbone, I+O Laboratory Tests 03/18/19 05:26 Red Blood Count 2.81 L, Mean Corpuscular Volume 95.0, Mean Corpuscular Hemoglobin 29.5, Mean Corpuscular Hemoglobin Concent 31.1 L, Red Cell Distribution Width 15.2 H, Neutrophils (%) (Auto) 78.3 H, Lymphocytes (%) (Auto) 9.3 L, Monocytes (%) (Auto) 9.4 H, Eosinophils (%) (Auto) 0.7, Basophils (%) (Auto) 0.3, Neutrophils # (Auto) 11.5 H, Lymphocytes # (Auto) 1.4 L, Monocytes # (Auto) 1.4 H, Eosinophils # (Auto) 0.1, Basophils # (Auto) 0.1, Calcium Level 8.3 L Vital Signs Date Time Temp Pulse Resp B/P (MAP) Pulse Ox O2 Delivery O2 Flow Rate FiO2 03/18/19 14:04 18 3.0 03/18/19 14:00 97.0 88 132/75 (94) 97 03/16/19 19:45 Nasal Cannula I&O- Last 24 Hours up to 6 AM 03/18/19 06:00 Intake Total 2825 ml Output Total 1475 ml Balance 1350 ml JOCELIN QUINTERO DO Mar 18, 2019 21:16
[2019-03-18 22:00] VITALS: BP 133/72
[2019-03-19] VITALS: O2SAT 94
[2019-03-19] MEDS: HumaLOG INSULIN (NovoLOG) PER UNIT SC SCH ×4 (00:37→18:12)
[2019-03-19 02:00] VITALS: O2SAT 97
[2019-03-19] MEDS: MEROPENEM INJ 500 MG in IV 1 EA IV SCH ×3 (02:18→18:12)
[2019-03-19] MEDS: methylPREDNISolone INJ 125 MG/2 ML VIAL (J2930) IV SCH ×3 (02:18→18:13)
[2019-03-19] MEDS: IPRATROPIUM 0.5MG/ALBUTEROL 2.5MG INH SOL UD 3ML (DUONEB)(J7620) NEB SCH ×6 (03:51→23:49)
[2019-03-19 06:00] VITALS: BP 136/60
[2019-03-19] MEDS: SLF 3 ML SYR IV SCH ×3 (06:12→22:25)
[2019-03-19] MEDS: ANEXSIA, NORCO 7.5MG/325MG TABLET(HYDROCODONE/APAP) GT PRN ×4 (06:12→22:25)
[2019-03-19 06:19] LABS: BASO % 0.1 % (0.0-1.0); HEMATOCRIT 26.8 % (42.0-52.0); HEMOGLOBIN 8.6 g/dl (13.5-17.5); LYMPH # 0.7 10^3/uL (1.5-4.5); LYMPH % 4.3 % (24.0-44.0); MEAN CORPUSCULAR HEMOGLOBIN 30.9 pg (27.0-33.0); MEAN CORPUSCULAR HGB CONC 32.1 g/dl (32.0-36.5); MEAN CORPUSCULAR VOLUME 96.4 fl (80.0-96.0); MONO # 0.1 10^3/uL (0.0-0.8); MONO % 0.8 % (0.0-5.0); NEUTROPHILS # 14.5 10^3/uL (1.8-7.7); NEUTROPHILS % 93.6 % (36.0-66.0); PLATELET COUNT, AUTOMATED 386 10^3/uL (150-450); RED BLOOD COUNT 2.78 10^6/uL (4.30-6.10); WHITE BLOOD COUNT 15.5 10^3/uL (4.0-10.0)
[2019-03-19 06:46] LABS: BLOOD UREA NITROGEN 34 MG/DL (7-18); CALCIUM LEVEL 8.9 MG/DL (8.8-10.2); CARBON DIOXIDE LEVEL 34 MEQ/L (21-32); CHLORIDE LEVEL 96 MEQ/L (98-107); CREATININE FOR GFR 0.59 MG/DL (0.70-1.30); GLOMERULAR FILTRATION RATE > 60.0 (>35); GLUCOSE, FASTING 217 MG/DL (70-100); POTASSIUM SERUM 4.6 MEQ/L (3.5-5.1); SODIUM LEVEL 134 MEQ/L (136-145)
[2019-03-19] MEDS: BUDESONIDE 0.5 MG/2 ML INHALATION SUSPENSION INH SCH ×2 (07:21→19:28)
[2019-03-19] MEDS: FORMOTEROL FUMARATE 20 MCG/2 ML INHALATION SOLUTION (PERFOROMIST) INH SCH ×2 (07:21→19:28)
[2019-03-19] MEDS: ENOXAPARIN 30 MG/0.3 ML SYR (J1650) SC SCH (09:08)
[2019-03-19] MEDS: GABAPENTIN 400 MG CAP GT SCH ×3 (09:08→22:24)
[2019-03-19] MEDS: DICLOFENAC EPOLAMINE 1.3 % PATCH TD SCH ×2 (09:08→22:24)
[2019-03-19] MEDS: VANCOMYCIN HCL 750 MG, VIAL MATE ADAPTER 1 EACH in D5W 250 ML IV SCH (10:28)
--- NOTE | 2019-03-19 10:28 | IPN ---
DATE: 03/19/2019 I again attended Mr. Phillips. He remains generally ill appearing, weak and emaciated. He thinks feels at least no worse today. T-max 98, blood pressure in the 130s, heart rate generally in he 90s. Respiratory rate 18-22 without accessory muscle use. Intake and output 2030 mL in and 2150 mL out. White blood cell count 15.5, hemoglobin 8.6, platelet count 386,000, 19% segs, no bands. Sodium 134, potassium 4.6, chloride 96, CO2 34, BUN 34, creatinine 0.59. On exam, he is frail and ill appearing. Pupils are reactive, sclera clear. Neck with diminished mobility. Trachea is in the midline. Chest again shows marked intercostal muscle wasting. I do believe there is some faint egophony at the base, right greater than left. No convincing wheeze or rubs. Cardiac exam is generally regular. Peripheral pulses diminished but palpable. Trace edema. Abdomen is soft, nontender with active bowel sounds. G-tube site clean and dry. Extremities no cyanosis or clubbing. Neurologically generally nonfocal. IMPRESSION: 1. Essentially end stage obstructive lung disease. 2. Pulmonary cachexia. 3. DO NOT RESUSCITATE status. 4. Recurrent aspiration pneumonia. RECOMMENDATIONS: I reviewed his most recent culture data. I am in full agreement with his current antimicrobials. He was started on increased mucolytics. As we can, I would like to start him on extended release guaifenesin, but he is fed through a PEG and those pills are not crushable. We will continue with EzPAP and nebulized bronchodilators. We placed him on higher dose steroids to aid with secretion clearance yesterday. At this point, will continue as outlined above. He needs overall strength and conditioning as this will markedly help his respiratory status. He needs to be out of bed. I discussed his overall status with him again. Will proceed as outlined above, although his prognosis really is poor in the long run. Further recommendations will be made in the progress record as new information becomes available.
--- NOTE | 2019-03-19 10:54 | PHACANCOPD ---
PHARMACY VANCOMYCIN DOSING Pt Demographics Demographics Patient Age:84 , Weight:37.900 , Gender: male Adjusted Body Weight Date: 03/07/19, Adjusted Body Weight: Kg Events Past 24 Hours Events Past 24 Hours: NO: Dialysis, Diuretic Therapy, Change in CrCl, Fever, Elevation in WBC, Pending Diagnostics, Pending Procedures, Other Vancomycin Vancomycin indication: Respiratory Infection Vancomycin Target Ranges: 15-20 mcg/ml Vancomycin Load Y/N: Yes Load Dose Date Time Vancomycin Load Dose: 1000mg Date: 03/07 Time: 1000 Vancomycin Dose Date 03/13/19: Current Vancomycin Dose: [1 gram iv q24h@0600] Date: 03/08/19. Current Vancomycin Dose: [750mg iv q12h@22] Intermittent Dosing?: No Labs Labs Vital Signs Label Value Date Time Patient Temperature 98.0 degrees F 03/19/19 0600 Temperature Source Temporal 03/19/19 0600 Patient Temperature 97.6 degrees F 03/18/19 2200 Temperature Source Temporal 03/18/19 2200 Patient Temperature 97.0 degrees F 03/18/19 1400 Temperature Source Oral 03/18/19 1400 Item Value Date Time White Blood Count 15.5 10^3/uL H 03/19/19 0519 White Blood Count 14.7 10^3/uL H 03/18/19 0526 White Blood Count 17.6 10^3/uL H 03/17/19 0653 Creatinine 0.59 MG/DL L 03/19/19 0519 Creatinine 0.58 MG/DL L 03/18/19 0526 Creatinine 0.61 MG/DL L 03/17/19 0653 Vancomycin Level Trough 18.2 UG/ML 03/19/19 1008 Vancomycin Level Trough 19.4 UG/ML 03/17/19 0653 Vancomycin Level Trough 19.2 UG/ML 03/15/19 0727 Micro Microbiology 03/16/19 Gram Stain - Final, Resulted 03/16/19 Sputum Culture - Preliminary, Resulted Staphylococcus Aureus 03/14/19 Gram Stain - Final, Complete 03/14/19 Sputum Culture - Final, Complete Creatinine Clearance Date:03/13/19. Creatinine Clearance: [-60]. Date:03/08/19. Creatinine Clearance: [~60]. Assessment and Plan Maintaining Current Dose?: Yes Reason for dose change: No Dose Change Pharmacist Note Pharmacist Note 03/19/19: Trough drawn this AM resulted at 18.2mcg/ml. This is still within our goal of 15-20 mcg/ml. We will continue to monitor and adjust dose as needed. 03/15/19: Trough this AM resulted at 19.2 mcg/ml. At this time we will continue the current dose of Vanco 750mg IV Q24H@0800. We will continue to monitor and adjust dose as needed. Date: 03/14/19. Pharmacist note:Vancomycin random drawn this am reported as 20.4- S CR=0.6. Will adjust dose to 750mg IV Q24H to begin today at 0800-have ordered next trough for tomorrow am to assess dose change-will continue to follow 03/13/19: Vancomycin trough drawn this morning @0702 after a dose was administered @0600 and resulted in a supratherapeutic level of 60.8. Vancomycin was placed on hold for today until the ordered random for 03/14/19 can be reviewed. The patient continues to have an elevated WBC count but is afebrile. Date: 03/11/19. Pharmacist note:Vancomycin trough drawn this morning@5:09 reported as 19.8,scr=no significant change. Will continue with current regimen( Vancomycin 1 gm IV Q24H)-will continue to follow labs and adjust dose as needed Date: 03/10/19. Pharmacist note:Vancomycin trough drawn this evening@20:56 reported as 22.4 (trough goal= 15-20)Will hold 2200 dose d/t accumulation and adjust Vancomycin to 1 gram IV [id number] to begin 03/10@0600.Next trough is scheduled for 03/11@0500-will continue to follow labs Date: 03/08/19. Pharmacist note: Trough of 19 is within target range. Will continue current dosing. Will continue to monitor and make adjustments as needed. MARI RAJPUT PHARMACY Mar 19, 2019 10:54
--- NOTE | 2019-03-19 12:59 | IPNPDOC ---
Text Note Date of Service The patient was seen on 03/19/19. NOTE S: patient being seen for MRSA PNA, severe COPD,interstitial fibrosis with acute on chronic hypoxic respiratory failure. He is still requiring high flow oxygen and desaturates when walking 10 feet with PT. He states "feel the same" no better or worse. daughter and at bedside. O: Vitals as below General: cachetic, AAOx3 HRRR Lungs: diminished breath sounds, course rales scattered Ext no edema A/P: 1) MRSA PNA with hypoxia with aspiration Pneumonia (saliva, food, etc) - Sputum culture + MRSA. - Initially treated with zosyn, now on vanc and meropenem. - ID consulted and pulm consulted - discussed with patient and family that prognosis is poor. - considering home with hospice/OIL TREATER but other family members not. Will check CXR tomorrow to see if changes are making difference 2) Acute on Chronic Hypoxic Respiratory Failure - he is on vapotherm 3) COPD/Pulmonary fibrosis - high raw sugar boiler restarted steroids, nebs and pulmonary toilet 4) Recurrent Aspiration -PEG tube placed 12/2018 for malnutrition NOT aspiration. -NPO -Pt is frustrated about not being able to eat. - pateint is NOT candidate for J tube placement as G tube was recently placed and needs time to heal. -Speech therapy working with patient on swallow and possible recreational feeding. ,discussed case with speech and recommends continued ST whereever he goes (home,SNF, etc) 5) Pulmonary Cachexia -optimized nutirition via tube feedings -Head Pastry Chef recommends jevity 75ml/hr x 18hrs 6) Soft Tissue mass in lung -?malignancy vs mucus plug 7) Severe protein calorie malnutrition manifested by BMI 13.9, intercostal muscle wasting, weak, debiltiy and pulmonary cachexia 8)Failure to Thrive -optimized nutirition via tube feedings -Head Pastry Chef recommends jevity 75ml/hr x 18hrs; family wants to try more natural TF and will discuss with pastry assistant bolus feeds, etc -complicating care 9) Likely steroid induced hyperglycemia rather than DM - monitor as steroids restarted - was at insulin at some point but denies having DM. HbA1c 5.6. - ISS as needed. 10) Hx lung cancer - s/p RUL lobectomy. -on chronic o2 supplementation 11) Debility -due to malnutrition, chronic hypoxia, pulmonary cachexia -PT consulted. POOR PROGNOSIS DVT ppx: Lovenox and SCD Code status: DNR/DNI VS,Fishbone, I+O VS, Fishbone, I+O Laboratory Tests 03/19/19 05:19 Red Blood Count 2.78 L, Mean Corpuscular Volume 96.4 H, Mean Corpuscular Hemoglobin 30.9, Mean Corpuscular Hemoglobin Concent 32.1, Red Cell Distribution Width 14.7 H, Neutrophils (%) (Auto) 93.6 H, Lymphocytes (%) (Auto) 4.3 L, Monocytes (%) (Auto) 0.8, Eosinophils (%) (Auto) 0.0, Basophils (%) (Auto) 0.1, Neutrophils # (Auto) 14.5 H, Lymphocytes # (Auto) 0.7 L, Monocytes # (Auto) 0.1, Eosinophils # (Auto) 0.0, Basophils # (Auto) 0.0, Calcium Level 8.9 Vital Signs Date Time Temp Pulse Resp B/P (MAP) Pulse Ox O2 Delivery O2 Flow Rate FiO2 03/19/19 06:42 20 03/19/19 06:00 98.0 92 136/60 (85) 94 3.0 03/19/19 02:00 Nasal Cannula I&O- Last 24 Hours up to 6 AM 03/19/19 06:00 Intake Total 1805 ml Output Total 2100 ml Balance -295 ml JOCELIN QUINTERO DO Mar 19, 2019 11:17
[2019-03-19 14:00] VITALS: BP 143/74
[2019-03-19 20:00] VITALS: O2SAT 93
--- NOTE | 2019-03-19 20:10 | IPN ---
DATE: 03/19/2019 Mr. Phillips feels a little better today. He was able to walk. He wants to go home and not go to rehabilitation at the [facility]. He was seen by Dr. Ferrer, who recommended Mucinex and post ambulation. He told him his prognosis was poor. PHYSICAL EXAMINATION: LUNGS: Good air entry, diminished at the bases. No wheezes or rales. Temperature is 98.3, pulse 101, respirations 14, blood pressure 143/74, oxygen saturation 92% on 3 liters nasal cannula. HEART: Normal S1, S2. No murmurs. ABDOMEN: Soft, nontender. Percutaneous endoscopic gastrostomy tube in place. EXTREMITIES: No edema. LABORATORY DATA: White count 15.5, hemoglobin 8.6, hematocrit 26.8, platelets 386. Sodium 134, potassium 4.6, chloride 96, bicarbonate 34, BUN 34, creatinine 0.59, glucose 217. Sputum culture had methicillin-resistant Staphylococcus aureus (MRSA) on 03/06/2019, sensitive to Bactrim and again, sputum culture from 03/16/2019 and had Staphylococcus aureus. IMPRESSION: 1. MRSA pneumonia with worsening chest x-ray. 2. Deconditioning due to difficulty with walking from hypoxia. 3. 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 Chest x-ray showed progressive opacification and collapse in the right lung, which is now completely opacified. IMPRESSION: Patient has poor prognosis, has persistent MRSA pneumonia, possibly has a lung mass causing postobstructive pneumonia. If the sputum culture only grows MRSA, the patient could be switched to oral linezolid or Bactrim to continue another 10-14 days until improvement. Patient wants to go home and not go to a [facility] for rehabilitation. I agree with him if he had care. Discontinue meropenem if sputum culture has no gram-negative pathogen.
[2019-03-19 22:00] VITALS: BP 137/70
[2019-03-20] VITALS (7 sets, daily range): BP systolic 130–131; BP diastolic 65–67; O2SAT 94–97
[2019-03-20] MEDS: HumaLOG INSULIN (NovoLOG) PER UNIT SC SCH ×5 (00:03→23:55)
[2019-03-20] MEDS: MEROPENEM INJ 500 MG in IV 1 EA IV SCH (01:43)
[2019-03-20] MEDS: methylPREDNISolone INJ 125 MG/2 ML VIAL (J2930) IV SCH ×3 (02:28→17:35)
[2019-03-20] MEDS: SLF 3 ML SYR IV SCH ×3 (03:08→21:32)
[2019-03-20] MEDS: IPRATROPIUM 0.5MG/ALBUTEROL 2.5MG INH SOL UD 3ML (DUONEB)(J7620) NEB SCH ×5 (04:00→19:14)
[2019-03-20] MEDS: ANEXSIA, NORCO 7.5MG/325MG TABLET(HYDROCODONE/APAP) GT PRN ×4 (05:47→21:25)
[2019-03-20] MEDS: FORMOTEROL FUMARATE 20 MCG/2 ML INHALATION SOLUTION (PERFOROMIST) INH SCH ×2 (06:59→19:14)
[2019-03-20] MEDS: BUDESONIDE 0.5 MG/2 ML INHALATION SUSPENSION INH SCH ×2 (06:59→19:14)
--- NOTE | 2019-03-20 07:53 | REP ---
Portable chest, 07:05 a.m., single AP view with the patient semi upright: Comparison is 2018. There is opacification of the right hemithorax has slightly improved. There is tubing of uncertain significance superimposed over the right hemithorax. There is a large a focal density inferiorly in the left lung, unchanged. Cardiac size cannot be determined as the right cardiac margin is obscured. There is a total left shoulder arthroplasty. Impression: There has been slight improvement in the right hemithorax opacification. No other interval change. Electronically Signed by Jaime Haas MD 03/20/2019 07:45 A
[2019-03-20] MEDS: ENOXAPARIN 30 MG/0.3 ML SYR (J1650) SC SCH (09:28)
[2019-03-20] MEDS: DICLOFENAC EPOLAMINE 1.3 % PATCH TD SCH ×2 (09:29→21:24)
[2019-03-20] MEDS: LINEZOLID 600MG TABLET (ZYVOX) PEG SCH ×2 (09:29→21:24)
[2019-03-20] MEDS: GABAPENTIN 400 MG CAP GT SCH ×3 (09:29→21:24)
--- NOTE | 2019-03-20 20:39 | IPNPDOC ---
Text Note Date of Service The patient was seen on 03/20/19. NOTE S: patient sitting in chair ; at side; states feels better . Still with cough, no CP, no fever O: Vitals as below General: pleasant , cachetic, AAOx3 HRRR Lungs - diminished breath sounds through out CXR reviewed and no significant change A/P: 1) MRSA PNA with hypoxia with aspiration Pneumonia (saliva, food, etc) - Sputum culture + MRSA. - Initially treated with zosyn, changed to vanc and meropenem ; no improvement after total antibiotic therapy of 14 days. - ID consulted and pulm consulted - Per ID note, d/c meropenem. change IV vanc to oral zyvox via peg tube - disposition - family and patient have agreed to palliative care at home; plan to discharge home while family make arrangements for 24 hour care/supervision , etc ALL OTHER PROBLEMS BELOW UNCHANGED: 2) Acute on Chronic Hypoxic Respiratory Failure - he is on vapotherm 3) COPD/Pulmonary fibrosis - hyperbaric tech restarted steroids, nebs and pulmonary toilet 4) Recurrent Aspiration -PEG tube placed 12/2018 for malnutrition NOT aspiration. -NPO -Pt is frustrated about not being able to eat. - pateint is NOT candidate for J tube placement as G tube was recently placed and needs time to heal. -Speech therapy working with patient on swallow and possible recreational feeding. ,discussed case with speech and recommends continued ST whereever he goes (home,SNF, etc) 5) Pulmonary Cachexia -optimized nutirition via tube feedings -Turf Sales Person recommends jevity 75ml/hr x 18hrs 6) Soft Tissue mass in lung -?malignancy vs mucus plug 7) Severe protein calorie malnutrition manifested by BMI 13.9, intercostal muscle wasting, weak, debiltiy and pulmonary cachexia 8)Failure to Thrive -optimized nutirition via tube feedings -Turf Sales Person recommends jevity 75ml/hr x 18hrs; family wants to try more natural TF and will discuss with snack bar cook bolus feeds, etc -complicating care 9) Likely steroid induced hyperglycemia rather than DM - monitor as steroids restarted - was at insulin at some point but denies having DM. HbA1c 5.6. - ISS as needed. 10) Hx lung cancer - s/p RUL lobectomy. -on chronic o2 supplementation 11) Debility -due to malnutrition, chronic hypoxia, pulmonary cachexia -PT consulted. POOR PROGNOSIS DVT ppx: Lovenox and SCD Code status: DNR/DNI VS,Fishbone, I+O VS, Fishbone, I+O Vital Signs Date Time Temp Pulse Resp B/P (MAP) Pulse Ox O2 Delivery O2 Flow Rate FiO2 03/20/19 06:17 20 03/20/19 06:00 97.8 88 131/65 (87) 97 3.0 03/20/19 04:00 Nasal Cannula I&O- Last 24 Hours up to 6 AM 03/20/19 06:00 Intake Total 1210 ml Output Total 850 ml Balance 360 ml JOCELIN QUINTERO DO Mar 20, 2019 09:06
[2019-03-21 00:15] VITALS: O2SAT 97
[2019-03-21] MEDS: IPRATROPIUM 0.5MG/ALBUTEROL 2.5MG INH SOL UD 3ML (DUONEB)(J7620) NEB SCH ×6 (00:36→20:00)
[2019-03-21] MEDS: ANEXSIA, NORCO 7.5MG/325MG TABLET(HYDROCODONE/APAP) GT PRN ×4 (01:26→20:59)
[2019-03-21] MEDS: methylPREDNISolone INJ 125 MG/2 ML VIAL (J2930) IV SCH ×2 (02:39→10:51)
[2019-03-21 02:48] VITALS: O2SAT 100
[2019-03-21] MEDS: SLF 3 ML SYR IV SCH ×3 (02:53→21:00)
[2019-03-21] MEDS: HumaLOG INSULIN (NovoLOG) PER UNIT SC SCH ×3 (05:36→17:04)
[2019-03-21 06:00] VITALS: BP 129/68
[2019-03-21] MEDS: ENOXAPARIN 30 MG/0.3 ML SYR (J1650) SC SCH (07:58)
[2019-03-21] MEDS: DICLOFENAC EPOLAMINE 1.3 % PATCH TD SCH ×2 (07:59→20:59)
[2019-03-21] MEDS: LINEZOLID 600MG TABLET (ZYVOX) PEG SCH ×2 (07:59→20:58)
[2019-03-21] MEDS: GABAPENTIN 400 MG CAP GT SCH ×3 (07:59→20:58)
[2019-03-21 08:20] VITALS: O2SAT 96
[2019-03-21] MEDS: FORMOTEROL FUMARATE 20 MCG/2 ML INHALATION SOLUTION (PERFOROMIST) INH SCH ×2 (08:39→20:16)
[2019-03-21] MEDS: BUDESONIDE 0.5 MG/2 ML INHALATION SUSPENSION INH SCH ×2 (08:40→20:16)
--- NOTE | 2019-03-21 16:22 | IPNPDOC ---
Text Note Date of Service The patient was seen on 03/21/19. NOTE S: Patient sleeping but easily awakens. at bedside. In good spirits and excited to go home to see great grandkids and extended family. States no change to his cough, SOB. no CP. O: Vitals as below General: pleasant , cachetic, AAOx3 Lungs - diminished breath sounds on right, better aeration on left anteriorly; HRRR no murmur Ext no edema Abdomen: scaffoid A/P: MRSA PNA with hypoxia with aspiration Pneumonia (saliva, food, etc) and acute on chronic hypoxic respiratory failure Still on 3 liter high flow oxygen - respiratory titrating for home oxygen Handout given on MRSA and discussed with pateint and . Continue with IV steroids and po zyvox. Tomorrow - titrate steroids, and check CXR Anticipate d/c friday 03/23 to home with palliative care VS,Fishbone, I+O VS, Fishbone, I+O Vital Signs Date Time Temp Pulse Resp B/P (MAP) Pulse Ox O2 Delivery O2 Flow Rate FiO2 03/21/19 12:47 18 3.0 03/21/19 08:20 96 Nasal Cannula 03/21/19 06:00 97.6 91 129/68 (88) I&O- Last 24 Hours up to 6 AM 03/21/19 05:59 Intake Total 1950 ml Output Total 860 ml Balance 1090 ml JOCELIN QUINTERO DO Mar 21, 2019 16:22
[2019-03-21 17:18] VITALS: BP 149/71
[2019-03-21] MEDS: methylPREDNISolone INJ 40 MG/1 ML VIAL (J2920) IV SCH (18:36)
[2019-03-21 22:00] VITALS: BP 133/69
[2019-03-22] MEDS: methylPREDNISolone INJ 40 MG/1 ML VIAL (J2920) IV SCH ×3 (02:55→17:53)
[2019-03-22] MEDS: ANEXSIA, NORCO 7.5MG/325MG TABLET(HYDROCODONE/APAP) GT PRN ×4 (02:55→21:42)
[2019-03-22] MEDS: IPRATROPIUM 0.5MG/ALBUTEROL 2.5MG INH SOL UD 3ML (DUONEB)(J7620) NEB SCH ×7 (03:32→23:33)
[2019-03-22 06:00] VITALS: BP 145/85
[2019-03-22] MEDS: HumaLOG INSULIN (NovoLOG) PER UNIT SC SCH ×5 (06:00→23:51)
[2019-03-22] MEDS: SLF 3 ML SYR IV SCH ×3 (06:34→21:43)
[2019-03-22 06:44] LABS: HEMATOCRIT 26.3 % (42.0-52.0); HEMOGLOBIN 8.4 g/dl (13.5-17.5); MEAN CORPUSCULAR HEMOGLOBIN 29.7 pg (27.0-33.0); MEAN CORPUSCULAR HGB CONC 31.9 g/dl (32.0-36.5); MEAN CORPUSCULAR VOLUME 92.9 fl (80.0-96.0); PLATELET COUNT, AUTOMATED 488 10^3/uL (150-450); RED BLOOD COUNT 2.83 10^6/uL (4.30-6.10)
[2019-03-22 07:11] LABS: ALBUMIN 2.2 GM/DL (3.2-5.2); ALT/SGPT 142 U/L (12-78); BILIRUBIN,TOTAL 0.3 MG/DL (0.2-1.0); BLOOD UREA NITROGEN 44 MG/DL (7-18); CALCIUM LEVEL 8.7 MG/DL (8.8-10.2); CARBON DIOXIDE LEVEL 34 MEQ/L (21-32); CHLORIDE LEVEL 98 MEQ/L (98-107); CREATININE FOR GFR 0.61 MG/DL (0.70-1.30); GLOMERULAR FILTRATION RATE > 60.0 (>35); GLUCOSE, FASTING 107 MG/DL (70-100); POTASSIUM SERUM 4.2 MEQ/L (3.5-5.1); SODIUM LEVEL 140 MEQ/L (136-145); TOTAL PROTEIN 5.9 GM/DL (6.4-8.2)
[2019-03-22] MEDS: BUDESONIDE 0.5 MG/2 ML INHALATION SUSPENSION INH SCH ×2 (08:09→20:02)
[2019-03-22] MEDS: FORMOTEROL FUMARATE 20 MCG/2 ML INHALATION SOLUTION (PERFOROMIST) INH SCH ×2 (08:09→20:02)
[2019-03-22] MEDS: GABAPENTIN 400 MG CAP GT SCH ×3 (09:42→21:42)
[2019-03-22] MEDS: LINEZOLID 600MG TABLET (ZYVOX) PEG SCH ×2 (09:42→21:42)
[2019-03-22] MEDS: ENOXAPARIN 30 MG/0.3 ML SYR (J1650) SC SCH (09:42)
[2019-03-22] MEDS: DICLOFENAC EPOLAMINE 1.3 % PATCH TD SCH ×2 (09:42→21:41)
[2019-03-22 09:59] VITALS: O2SAT 93
[2019-03-22 14:00] VITALS: BP 150/79
--- NOTE | 2019-03-22 16:58 | IPNPDOC ---
Text Note Date of Service The patient was seen on 03/22/19. NOTE S: patient states feels better today, less cough. he is able to be titrated to 2 liter NC with maintaining oxygenation. no fever. O: Vitals as below General cachetic, NAD AAOx3 HRRR LCTA with improved air movement to right upper lobe, diminished breath sound RLL and normal breath sounds on left. Ext no edema CXR images reviewed with patient and - greatly improved; RUL white out from mucus plugging resolved; A/P: MRSA PNA with hypoxia with aspiration Pneumonia (saliva, food, etc) and acute on chronic hypoxic respiratory failure with underlying pulmonary fibrosis respiratory titrating for home oxygen Continue with IV steroids (titrate) and po zyvox. Anticipate d/c friday 03/23 to home with palliative care Will need to discuss with ID if MRSA precautions still needed at home with visits from great grandchildren and duration of zyvox via PEG tube Current Medications Acetaminophen (Tylenol Tab) 650 mg Q4HP PRN PO PAIN OR FEVER Last administered on 03/09/19at 13:24; Start 03/06/19 at 18:00 Acetaminophen/ Hydrocodone Bitart (Anexsia, [place] 7.5mg/325mg) 1 tab Q4HP PRN GT PAIN SCALE 6-10 Last administered on 03/22/19at 15:22; Start 03/06/19 at 18:30 Albuterol/ Ipratropium (Duoneb (Ipr 0.5mg/Alb 2.5mg)) 3 ml Q2HP PRN NEB SOB/WHEEZING Last administered on 03/18/19at 01:34; Start 03/06/19 at 18:00 Albuterol/ Ipratropium (Duoneb (Ipr 0.5mg/Alb 2.5mg)) 3 ml RQ4H NEB Last administered on 03/22/19at 15:56; Start 03/18/19 at 12:00 Bisacodyl (Dulcolax Suppository) 10 mg DAILYPRN PRN [place] CONSTIPATION; Start 03/06/19 at 18:30 Budesonide (Pulmicort) 0.5 mg RBID INH Last administered on 03/22/19at 08:09; Start 03/07/19 at 08:00 Dextrose (Dextrose 50%) 25 ml ASDIRECTED PRN IV SEE LABEL COMMENTS Last administered on 03/07/19at 17:02; Start 03/07/19 at 08:30 Diclofenac Epolamine (Flector 1.3%) 2 patch BID TD Last administered on 03/22/19at 09:42; Start 03/06/19 at 21:00 Enoxaparin Sodium (Lovenox) 30 mg DAILY SC Last administered on 03/22/19at 09:42; Start 03/07/19 at 09:00 Formoterol Fumarate (Perforomist) 20 mcg RBID INH Last administered on 03/22/19at 08:09; Start 03/07/19 at 08:00 Gabapentin (Neurontin) 400 mg TID GT Last administered on 03/22/19at 15:21; Start 03/06/19 at 21:00 Glucagon (Glucagon) 1 mg ASDIRECTED PRN SC SEE LABEL COMMENTS; Start 03/07/19 at 08:30 Glucose (Glucose) 16 GM ASDIRECTED PRN PO SEE LABEL COMMENTS; Start 03/07/19 at 08:30 Insulin Human Lispro (HumaLOG INSULIN) SEE PROTOCOL TABLE Q6H SC Last administered on 03/21/19at 12:17; Start 03/12/19 at 12:00 Linezolid (Zyvox) 600 mg BID PEG Last administered on 03/22/19at 09:42; Start 03/20/19 at 09:15 Magnesium Hydroxide (Milk Of Magnesia) 30 ml DAILYPRN PRN [place] CONSTIPATION; Start 03/06/19 at 18:30 Methylprednisolone (SOLU medrol) 40 mg Q8H IV Last administered on 03/22/19at 12:28; Start 03/21/19 at 19:00 Ondansetron HCl (ZOFRAN INJection) 8 mg Q4HP PRN IV NAUSEA OR VOMITING; Start 03/11/19 at 23:00 Polyethylene Glycol (Miralax) 1 pkt DAILYPRN PRN [place] CONSTIPATION; Start 03/06/19 at 18:30 Saliva Substitute (Mouthkote) 5 sprays Q1HP PRN MT dry mouth; Start 03/13/19 at 14:45 VS,Fishbone, I+O VS, Fishbone, I+O Laboratory Tests 03/22/19 05:18 Red Blood Count 2.83 L, Mean Corpuscular Volume 92.9, Mean Corpuscular Hemoglobin 29.7, Mean Corpuscular Hemoglobin Concent 31.9 L, Red Cell Distribution Width 15.4 H, Calcium Level 8.7 L, Aspartate Amino Transf (AST/SGOT) 61 H, Alanine Aminotransferase (ALT/SGPT) 142 H, Alkaline Phosphatase 68, Total Bilirubin 0.3, Total Protein 5.9 L, Albumin 2.2 L Vital Signs Date Time Temp Pulse Resp B/P (MAP) Pulse Ox O2 Delivery O2 Flow Rate FiO2 03/22/19 15:52 18 2.0 03/22/19 14:00 97.6 98 150/79 (102) 94 03/22/19 09:59 Nasal Cannula I&O- Last 24 Hours up to 6 AM 03/22/19 06:00 Intake Total 2825 ml Output Total 1125 ml Balance 1700 ml JOCELIN QUINTERO DO Mar 22, 2019 16:58
[2019-03-22 22:00] VITALS: BP 149/83
[2019-03-22 23:01] VITALS: O2SAT 97
[2019-03-23] MEDS: ANEXSIA, NORCO 7.5MG/325MG TABLET(HYDROCODONE/APAP) GT PRN ×3 (03:17→13:45)
[2019-03-23] MEDS: methylPREDNISolone INJ 40 MG/1 ML VIAL (J2920) IV SCH ×2 (03:18→12:40)
[2019-03-23] MEDS: IPRATROPIUM 0.5MG/ALBUTEROL 2.5MG INH SOL UD 3ML (DUONEB)(J7620) NEB SCH ×3 (04:00→11:06)
[2019-03-23] MEDS: HumaLOG INSULIN (NovoLOG) PER UNIT SC SCH ×2 (05:39→11:41)
[2019-03-23] MEDS: SLF 3 ML SYR IV SCH ×2 (05:53→14:09)
[2019-03-23 06:00] VITALS: BP 158/82
[2019-03-23] MEDS: BUDESONIDE 0.5 MG/2 ML INHALATION SUSPENSION INH SCH (07:17)
[2019-03-23] MEDS: FORMOTEROL FUMARATE 20 MCG/2 ML INHALATION SOLUTION (PERFOROMIST) INH SCH (07:17)
[2019-03-23] MEDS: DICLOFENAC EPOLAMINE 1.3 % PATCH TD SCH (09:25)
[2019-03-23] MEDS: LINEZOLID 600MG TABLET (ZYVOX) PEG SCH (09:26)
[2019-03-23] MEDS: GABAPENTIN 400 MG CAP GT SCH (09:26)
[2019-03-23] MEDS: ENOXAPARIN 30 MG/0.3 ML SYR (J1650) SC SCH (09:26)
--- NOTE | 2019-03-23 09:53 | REP ---
CHEST, TWO VIEWS: Two views of the chest are performed. COMPARISON: 03/20/2019 as well as other prior exams. There is a residual infiltrate throughout the right lung but there is continued improvement compared to prior studies. Infiltrate in the left lung base is slightly improved as well. Cardiomediastinal silhouette is unchanged. IMPRESSION: Continued improvement bilateral infiltrates. Electronically Signed by Jaime Harris MD 03/24/2019 01:25 P
[2019-03-23] MEDS ORDERED: LINE1TAB6 PEG (10:46)
[2019-03-23] MEDS ORDERED: PERF20NE2 INH (12:48)
[2019-03-23] MEDS ORDERED: IPRA0.00 INH (12:48)
[2019-03-23] MEDS ORDERED: BUDE0.5S6 INH (12:48)
[2019-03-23] MEDS ORDERED: PRED5ELUD PEG (12:48)
[2019-03-23 14:00] VITALS: BP 148/80
--- NOTE | 2019-03-23 17:08 | CR.PDOC ---
General Date of Consultation: Mar 20, 2019 Referring Provider: Abdullahi Caruso MD Primary Care Physician: Jr Banks Collins Consultation REASON FOR CONSULTATION/CHIEF COMPLAINT: Asked by [facility] to see patient and famly for consideration of palliative care for his end stage lung disease HISTORY OF PRESENT ILLNESS: 84 year old male who family reports was in fairly good health until 6 months or so ago. Since then he has been admitted multiple times for pneumonia, dehydration. He has a feeding tube and all nurtr ition and hydration is through that. ALLERGIES: Please see below. HOME MEDICATIONS: Please see below. I discussed [facility] with Mr. Phillips and his family. They do not want to travel to the clinic as he is too weak to tolerate going to [facility]. They are looking for home health nursing so he can be cared for at home. Neither Mr. Phillips nor his family felt hospice was something he was ready for at this time. Vital Signs/I&O Vital Signs Date Time Temp Pulse Resp B/P (MAP) Pulse Ox O2 Delivery O2 Flow Rate FiO2 03/23/19 14:15 18 03/23/19 14:00 97.2 83 148/80 (102) 98 2.0 03/22/19 23:01 Nasal Cannula I&O- Last 24 Hours up to 6 AM 03/23/19 06:00 Intake Total 2030 ml Output Total 550 ml Balance 1480 ml Laboratory Data Labs 24H Laboratory Tests 2 03/22/19 23:27: Bedside Glucose (Misc Panel) 191H 03/23/19 05:15: Bedside Glucose (Misc Panel) 119H 03/23/19 11:32: Bedside Glucose (Misc Panel) 146H 03/23/19 15:45: Microbiology Microbiology 03/16/19 Gram Stain - Final, Complete 03/16/19 Sputum Culture - Final, Complete Staph.aureus Methicillin Resis 03/14/19 Gram Stain - Final, Complete 03/14/19 Sputum Culture - Final, Complete Allergies Coded Allergies: No Known Allergies (Unverified , 01/06/19) Home Medications Scheduled Budesonide (Budesonide) 0.5 Mg/2 Ml Ampul.neb, 0.5 MG INH RBID, #60 Diclofenac Epolamine (Flector) 1.3% Patch, 2 PATCH TD BID, (Reported) APPLY TO LEFT ARM AND LEFT SHOULDER Formoterol Fumarate (Perforomist) 20 Mcg/2 Ml Vial.neb, 20 MCG INH RBID, #60 Gabapentin (Gabapentin) 400 Mg Capsule, 400 MG EN TID, (Reported) Ipratropium/Albuterol Sulfate (Iprat-Albut 0.5-3(2.5) mg/3 ml) 3 Ml Ampul.neb, 1 IGGY INH Q6H, #120 L.acidoph/L.bulg/B.bif/S.therm (Angie-Bid Caplet) 1 Each Tablet, 1 TAB EN TID, (Reported) Linezolid (Linezolid) 600 Mg Tablet, 600 MG PEG BID for 7 Days, #14 Pantoprazole Sodium (Pantoprazole Sodium) 40 Mg Tablet.dr, 40 MG EN DAILY, (Reported) Prednisone (Prednisone) 5 Mg/5 Ml Solution, 40 ML PEG ASDIRECTED, #1000 40mg twice a day for 4 days, 40mg once a day for 4 days, 30mg daily and further tapering instructions per DR Ferrer Scheduled PRN Acetaminophen (Tylenol) 325 Mg Tablet, 325 MG EN Q4H PRN for PAIN / FEVER, (Reported) Bisacodyl (Dulcolax) 10 Mg Supp.rect, 10 MG [place] DAILY PRN for CONSTIPATION, (Reported) Hydrocodone/Acetaminophen ([place] 7.5-325 Tablet) 1 Each Tablet, 1 TAB EN Q4H PRN for PAIN SCALE 6-10, (Reported) Milk Of Magnesia (Milk of Magnesia) 2,400 Mg/10 Ml Oral.susp, 30 ML EN DAILY PRN for CONSTIPATION, (Reported) Polyethylene Glycol 3350 (Miralax) 119 Gm Powder, 17 GM EN DAILY PRN for CONSTIPATION, (Reported) Sodium Phosphate,[place]-Dibasic (Enema) 133 Ml Enema, 1 SOURAV [place] DAILY PRN for CONSTIPATION, (Reported) Carol OLIVARES SALES REPRESENTATIVE [employer] Mar 23, 2019 17:08
--- NOTE | 2019-03-23 21:25 | DS.PDOC ---
Discharge Summary General Date of Admission Mar 06, 2019 at 17:53 Date of Discharge 03/23/19 Primary Care Physician: Jr Banks Collins Attending Physician: JOCELIN QUINTERO DO Specialist/Consultants Involve: Jak Ferrer Specialist/Consultants Involve Dr Hall, Palliative care management assistant, Speech therapy consult, physical therapy consult Discharge Summary PROCEDURES PERFORMED DURING STAY:none ADMITTING DIAGNOSES: 1. LLL PNA with hypoxia 2. COPD/Pulmonary fibrosis. 3. questionable DM 4. Hx lung cancer - s/p RUL lobectomy. DISCHARGE DIAGNOSES: 1) MRSA LLL PNA with hypoxia with aspiration Pneumonia (saliva, food, etc) and mucus plug 2) Acute on Chronic Hypoxic Respiratory Failure 3) COPD/Pulmonary fibrosis with exacerbation 4) Recurrent Aspiration 5) Pulmonary Cachexia 6) Soft Tissue mass in lung 7) Severe Protein Calorie Malnutrition BMI 14.9 8)Failure to Thrive 9) Likely steroid induced hyperglycemia not DM 10) Hx lung cancer - s/p RUL lobectomy. 11) Debility COMPLICATIONS/CHIEF COMPLAINT: Copd, Lll Pneumonia. HISTORY OF PRESENT ILLNESS:Patient is an 84-year-old male with extensive pulmonary disease including COPD, interstitial fibrosis, lung cancer status post right upper lobe lobectomy, pulmonary hypertension, recurrent aspiration pneumonia despite having a feeding tube and ?DM brought in from long-term for reported fevers, cough and hypoxia. Symptoms all started today per family at bedside, most history were obtained from family as patient was minimally alert. In ER, patient was found to be hypoxic with pO2 on ABG in 50s with NRB not adequately support patient's O2 requiring utilization of high flow oxygen. Saturation remained stable in mid 90s on high flow oxygen. No other symptoms were reported prior to today. Normally follows with Dr. Ferrer as outpatient. See H&P for details HOSPITAL COURSE: patient admitted , initially treated with zosyn,vanc for pneumonia. He clinically worsened on 03/13/19 and was chagned to Vanc/meropenem. He was initial given 1-[address] day [address] admission. Dr Ferrer and ID consulted when CXR did not improve and he was placed on HIGH DOSE steroids, inaddition to continuing with vancomycin (not meropenem), aggressive pulmonary toilet for mucus plugging. His oxygenation improved and cxr showed improvement prior to discharge. Patient was changed to zyvox via PEG tube prior to discharge. His maximum oxygen requirement during hospitalization was 15 liter on high flow for oxygen sat 90%. patient continued to have aspiration of saliva and secretion which were improved with speech therapy exercises, IS and PEP. PEG tube was placed in 12/2018 (prior to hospitalization) because of malnutrition, NOT because of aspiration. It was felt his debility, pulmonary cachexia contributed to his aspiration. He remained slightly improved and stable and is being discharged home with palliative care. CODE STATUS : DNR/DNI DISCHARGE MEDICATIONS: Please see below. ALLERGIES: Please see below. PHYSICAL EXAMINATION ON DISCHARGE: VITAL SIGNS: Please see below. General cachetic, NAD AAOx3 HRRR LCTA with improved air movement to right upper lobe, diminished breath sound RLL and normal breath sounds on left. Ext no edema LABORATORY DATA: Please see below. IMAGING: CXR 03/23/19 IMPRESSION: Continued improvement about bilateral infiltrates. CXR 03/18/19 IMPRESSION: Progressive opacification and collapse in the right lung which is now almost completely opacified. Stable infiltrate left base. Slight blunting left lateral pleural angle. CXR 03/06/19 Impression: Diffuse chronic interstitial changes/fibrosis. Subtle superimposed left lower lobe infiltrate suspected. CT CHEST 03/13/19 Impression: Status post a partial pneumonectomy on the right. Progressive consolidation associated with pneumonia in the right lung. Small stable bilateral pleural effusions. Right hilar fullness with bronchial secretions or extrinsic mass effect obliterating the bronchial air columns in the right hilar region. ACTIVITY: as tolerated DIET: jevity TF as below DISPOSITION: home with home health and palliative care DISCHARGE INSTRUCTIONS: 1. follow up with Dr Ferrer in 1 week as previously scheduled 2. Steroid taper (dexamethasone via PEG tube) 3. zyvox x 1 week via PEG tube 4. Palliative care consult 5. Home health consult with PT/OT/ST and shelter 6. Pulse feed jevity 5pm to 11 AM with 60 cc free water flushes before/after meds and TF 7. Oxygen via NC 2-3 liters continuously DISCHARGE CONDITION: stable PROGNOSIS: Guarded/poor TIME SPENT ON DISCHARGE: 45 minutes. Vital Signs/I&Os Vital Signs Date Time Temp Pulse Resp B/P (MAP) Pulse Ox O2 Delivery O2 Flow Rate FiO2 03/23/19 11:35 93 2.0 03/23/19 11:28 20 03/23/19 06:00 97.4 84 158/82 (107) 03/22/19 23:01 Nasal Cannula I&O- Last 24 Hours up to 6 AM 03/23/19 06:00 Intake Total 2030 ml Output Total 550 ml Balance 1480 ml Laboratory Data Labs 24H Laboratory Tests 2 03/22/19 16:36: Bedside Glucose (Misc Panel) 199H 03/22/19 23:27: Bedside Glucose (Misc Panel) 191H 03/23/19 05:15: Bedside Glucose (Misc Panel) 119H 03/23/19 11:32: Bedside Glucose (Misc Panel) 146H CBC/BMP Item Value Date Time White Blood Count 17.5 10^3/uL H 03/07/19 0526 Hemoglobin 9.6 g/dl L 03/07/19 0526 Hematocrit 30.4 % L 03/07/19 0526 Platelet Count 348 10^3/uL 03/07/19 0526 White Blood Count 22.0 10^3/uL H 03/13/19 0702 Hemoglobin 9.6 g/dl L # 03/13/19 0702 Hematocrit 30.7 % L 03/13/19 0702 Platelet Count 413 10^3/uL 03/13/19 0702 White Blood Count 17.0 10^3/uL H 03/22/19 0518 Hemoglobin 8.4 g/dl L 03/22/19 0518 Hematocrit 26.3 % L 03/22/19 0518 Platelet Count 488 10^3/uL H 03/22/19 0518 Sodium Level 140 MEQ/L 03/22/19 0518 Potassium Level 4.2 MEQ/L 03/22/19 0518 Chloride Level 98 MEQ/L 03/22/19 0518 Carbon Dioxide Level 34 MEQ/L H 03/22/19 0518 Blood Urea Nitrogen 44 MG/DL H 03/22/19 0518 Creatinine 0.61 MG/DL L 03/22/19 0518 Aspartate Amino Transf (AST/SGOT) 61 U/L H 03/22/19 0518 Alanine Aminotransferase (ALT/SGPT) 142 U/L H 03/22/19 0518 Albumin 2.2 GM/DL L 03/22/19 0518 Procalcitonin 0.16 NG/ML 03/14/19 1103 Sodium Level 134 MEQ/L L 03/13/19 0702 Potassium Level 4.3 MEQ/L 03/13/19 0702 Blood Urea Nitrogen 35 MG/DL H 03/13/19 0702 Creatinine 0.65 MG/DL L 03/13/19 0702 Fasting Glucose 129 MG/DL H 03/13/19 0702 Calcium Level 8.4 MG/DL L 03/13/19 0702 Prealbumin 19.3 MG/DL L 03/11/19 0509 Sodium Level 135 MEQ/L L 03/07/19 0526 Potassium Level 4.7 MEQ/L 03/07/19 0526 Chloride Level 101 MEQ/L 03/07/19 0526 Carbon Dioxide Level 27 MEQ/L 03/07/19 0526 Blood Urea Nitrogen 34 MG/DL H 03/07/19 0526 Creatinine 0.93 MG/DL 03/07/19 0526 KG-[id number] Natriuretic Peptide 963 PG/ML H 03/06/19 1610 Albumin 3.0 GM/DL L 03/06/19 1610 FSBS Laboratory Tests Test 03/22/19 16:36 03/22/19 23:27 03/23/19 05:15 03/23/19 11:32 Range/Units Bedside Glucose (Misc Panel) 199 191 119 146 83-110 MG/DL Microbiology Microbiology 03/16/19 Gram Stain - Final, Complete 03/16/19 Sputum Culture - Final, Complete Staph.aureus Methicillin Resis 03/14/19 Gram Stain - Final, Complete 03/14/19 Sputum Culture - Final, Complete Discharge Medications Scheduled Budesonide (Budesonide) 0.5 Mg/2 Ml Ampul.neb, 0.5 MG INH RBID Diclofenac Epolamine (Flector) 1.3% Patch, 2 PATCH TD BID, (Reported) APPLY TO LEFT ARM AND LEFT SHOULDER Formoterol Fumarate (Perforomist) 20 Mcg/2 Ml Vial.neb, 20 MCG INH RBID Gabapentin (Gabapentin) 400 Mg Capsule, 400 MG EN TID, (Reported) Ipratropium/Albuterol Sulfate (Iprat-Albut 0.5-3(2.5) mg/3 ml) 3 Ml Ampul.neb, 1 IGGY INH Q6H L.acidoph/L.bulg/B.bif/S.therm (Angie-Bid Caplet) 1 Each Tablet, 1 TAB EN TID, (Reported) Linezolid (Linezolid) 600 Mg Tablet, 600 MG PEG BID Pantoprazole Sodium (Pantoprazole Sodium) 40 Mg Tablet.dr, 40 MG EN DAILY, (Reported) Prednisone (Prednisone) 5 Mg/5 Ml Solution, 40 ML PEG ASDIRECTED 40mg twice a day for 4 days, 40mg once a day for 4 days, 30mg daily and further tapering instructions per DR Ferrer Scheduled PRN Acetaminophen (Tylenol) 325 Mg Tablet, 325 MG EN Q4H PRN for PAIN / FEVER, (Reported) Bisacodyl (Dulcolax) 10 Mg Supp.rect, 10 MG [place] DAILY PRN for CONSTIPATION, (Reported) Hydrocodone/Acetaminophen ([place] 7.5-325 Tablet) 1 Each Tablet, 1 TAB EN Q4H PRN for PAIN SCALE 6-10, (Reported) Milk Of Magnesia (Milk of Magnesia) 2,400 Mg/10 Ml Oral.susp, 30 ML EN DAILY PRN for CONSTIPATION, (Reported) Polyethylene Glycol 3350 (Miralax) 119 Gm Powder, 17 GM EN DAILY PRN for CONSTIPATION, (Reported) Sodium Phosphate,[place]-Dibasic (Enema) 133 Ml Enema, 1 SOURAV [place] DAILY PRN for CONSTIPATION, (Reported) Allergies Coded Allergies: No Known Allergies (Unverified , 01/06/19) JOCELIN QUINTERO DO Mar 23, 2019 12:53
--- NOTE | 2019-03-24 16:01 | IPN ---
DATE: 03/23/2019 Mr. Phillips is anxious to go home today. He is going home with oxygen at 2 liters. His cough has improved. He has mild shortness of breath. He is doing well with physical therapy. His linezolid has been authorized at a copay of 5 dollars. He was authorized for one tablet twice a day for 7 days. He is currently day #4 of by mouth linezolid and his has finished 14 days of IV vancomycin. Chest x-ray show improving bilateral infiltrates. On physical exam, temperature is 97.2, pulse 83, respirations 18, blood pressure 148/80, oxygen saturation 98% 2 liters nasal cannula. Heart: Normal S1-S2. No murmurs. Lungs: Crackles at the bases on the right. Decreased breath sounds at the left. Abdomen is soft, nontender. G tube in place. Extremities: No edema. LABORATORY DATA: White count is 17, hemoglobin 8.4, hematocrit 26.3, platelets 488. Sodium 140, potassium 4.2, chloride 98, bicarbonate 34, BUN 44, creatinine 0.61, glucose 107. Procalcitonin done on 03/14 was 0.16. IMPRESSION: 1. Methicillin-resistant Staphylococcus aureus (MRSA) pneumonia, bilateral lobes on by mouth linezolid after he finished 14 days of vancomycin with very slow response. PLAN The patient will finish a 10-day course of linezolid. Followup procalcitonin level was obtained today. This could be checked as an outpatient. The patient could follow up with Dr. Ferrer in one week and with his primary care provider, Dr. Suh. He does not need an infectious disease followup as an outpatient. DISCHARGE MEDICATIONS: Zyvox 600 mg by mouth twice a day for one week. MTDD
[2019-04-10] MEDS ORDERED: OMEP40CA97 EN (12:49)
== END 2019-03-23 16:45 | disposition home health service (06) | DRG 177 ==
LOC: EDBD 15:45 → M ED 15:45 → M ED INP 17:53 → EEVIPCON 17:53 → M PCU 19:58 → M MSPAV 03-16 17:53
PROVIDERS: ADMIT Student in an Organized Health Care Education/Training Program; ATTEND Family Medicine
DX: J15.212 Pneumonia due to Methicillin resistant Staphylococcus aureus (principal); J96.21 Acute and chronic respiratory failure with hypoxia; E43 Unspecified severe protein-calorie malnutrition; J44.0 Chronic obstructive pulmonary disease with (acute) lower respiratory infection; R64 Cachexia; Z68.1 Body mass index [BMI] 19.9 or less, adult; J44.9 Chronic obstructive pulmonary disease, unspecified; R73.9 Hyperglycemia, unspecified; J84.10 Pulmonary fibrosis, unspecified; R62.7 Adult failure to thrive; J69.0 Pneumonitis due to inhalation of food and vomit; Z85.118 Personal history of other malignant neoplasm of bronchus and lung; Z79.899 Other long term (current) drug therapy; Z66 Do not resuscitate; Z93.1 Gastrostomy status

== ENCOUNTER → 2019-04-09 | Outpatient (CLI) | payer MEDICARE, BC ==
[~2019-04-09] MED LIST changes: +ACET-907 EN; +ACET-908 PEG; +ADV500INH INH; +APAP500T10 PO; +ASPI81CH33 PEG; +ATIV1TAB10 PEG; +BISO5TAB5 PEG; +BUDE0.5S6 INH; +DOXY100T16 PO; -DOXY100T27 PO; +ELIQ5TAB PEG; +FENO160T10 PO; +FINA5TAB2 PO; +FISH1000 PO; +FLOM0.4C39 PEG; +GABA-845 EN; +HYDR-3719 EN; +INCR1INH INH; +INSUDET SC; +IRON65TA2 PO; +LASI20TA3 PO; +LEVA750T7 PEG; +LIDO5DIS41 TOP; +LINE1TAB6 PEG; +MIRA3350 EN; +MOM30SS EN; +MOM30SS PEG; +MULTCAP PEG; +NORC1TAB7 PEG; +NORC1TAB8 EN; +OMEP40CA2 EN; +PANT40TA3 EN; +PEPC1TAB5 PO; +PERF20NE2 INH; +PRED5ELUD EN; +PRED5ELUD PEG; +RISATAB3 EN; +SENN8.6T17 PEG; +SERT-141 PEG; +SPIR-10 EN; +SUCR1TA EN; +TRAZ10TA PEG; +XALA0.007 OU
--- NOTE | 2019-04-09 15:39 | REP ---
Examination Requested: Cookie Swallow Reason For Exam: Dysphasia The procedure was performed by ELLY Cedillo, under the direct supervision of Dr. Harris. The procedure was performed with Diane Kaba from speech pathology present. 5 ml aliquots of honey, thin, nectar, puree, mixed fruit and pill consistency barium was administered. No penetration or aspiration was visualized throughout the course of the exam. The detailed report of this examination will be provided by speech pathology. 4.7 minutes of fluoroscopy time was utilized for this procedure. Reviewed by ELLY Hernandez 04/09/2019 12:56 P Electronically Signed by Jaime Harris MD 04/09/2019 03:31 P
== END ==
LOC: M ST 10:30
PROVIDERS: ATTEND Family Medicine
DX: R13.12 Dysphagia, oropharyngeal phase (principal)

== ENCOUNTER 2019-04-10 12:24 | Inpatient (IN) | payer MEDICARE, BC ==
[~2019-04-10] VITALS: Ht 170.2 cm; Wt 44.2 kg
[~2019-04-10 12:24] MED LIST changes: -HYDR-3719 EN; -LEVA750T7 PEG; -LIDO5DIS41 TOP; -OMEP40CA2 EN; -PRED5ELUD EN; -SPIR-10 EN; -SUCR1TA EN
[2019-04-10] MEDS ORDERED: LIDO5DIS41 TOP (12:49)
[2019-04-10] MEDS ORDERED: PRED5ELUD EN (12:49)
[2019-04-10] MEDS ORDERED: SUCR1TA EN (12:49)
[2019-04-10] MEDS ORDERED: SPIR-10 EN (12:49)
[2019-04-10] MEDS ORDERED: OMEP40CA2 EN (12:49)
[2019-04-10] MEDS ORDERED: IPRATROPIUM 0.5MG/ALBUTEROL 2.5MG INH SOL UD 3ML (DUONEB)(J7620) NEB ONE (13:30)
--- NOTE | 2019-04-10 14:02 | REP ---
PORTABLE CHEST, ONE VIEW: HISTORY: Cough. COMPARISON: 04/09/2019 Patchy density is present in the right lung consistent with an infiltrate that is decreased compared to the previous study. Patchy density is present in the left lower lobe consistent with an infiltrate that is slightly increased compared to the previous study. The heart is normal in size. The pulmonary vasculature is normal in appearance. IMPRESSION: 1. Right lung infiltrate decreased compared to the previous study. 2. Left lower lobe infiltrate increased compared to the previous study. Electronically Signed by Robbin Batista MD 04/10/2019 02:03 P
[2019-04-10 14:08] LABS: VENOUS BASE EXCESS 5.7 (-2.0-2.0); VENOUS O2 SATURATION 60.2 % (60.0-80.0); VENOUS PARTIAL PRESSURE CO2 65.1 mmHg (38.0-50.0); VENOUS PARTIAL PRESSURE O2 35.7 mmHg (30.0-50.0); VENOUS PH 7.323 UNITS (7.330-7.430)
[2019-04-10 14:16] LABS: BASO % 0.1 % (0.0-1.0); HEMATOCRIT 26.9 % (42.0-52.0); HEMOGLOBIN 8.6 g/dl (13.5-17.5); LYMPH # 0.6 10^3/uL (1.5-4.5); LYMPH % 2.6 % (24.0-44.0); MEAN CORPUSCULAR HEMOGLOBIN 30.8 pg (27.0-33.0); MEAN CORPUSCULAR VOLUME 96.4 fl (80.0-96.0); MONO # 0.3 10^3/uL (0.0-0.8); MONO % 1.6 % (0.0-5.0); NEUTROPHILS # 20.9 10^3/uL (1.8-7.7); NEUTROPHILS % 95.2 % (36.0-66.0); PLATELET COUNT, AUTOMATED 221 10^3/uL (150-450); RED BLOOD COUNT 2.79 10^6/uL (4.30-6.10); WHITE BLOOD COUNT 21.9 10^3/uL (4.0-10.0)
[2019-04-10 14:50] LABS: ALBUMIN 2.2 GM/DL (3.2-5.2); ALT/SGPT 26 U/L (12-78); BILIRUBIN,DIRECT 0.2 MG/DL (0.0-0.2); BILIRUBIN,TOTAL 0.4 MG/DL (0.2-1.0); BLOOD UREA NITROGEN 30 MG/DL (7-18); CALCIUM LEVEL 8.1 MG/DL (8.8-10.2); CARBON DIOXIDE LEVEL 35 MEQ/L (21-32); CHLORIDE LEVEL 96 MEQ/L (98-107); CK-MB VALUE MASS 1.5 NG/ML (<3.6); CPK CREATINE PHOSPHOKINASE 26 U/L (39-308); CREATININE FOR GFR 0.81 MG/DL (0.70-1.30); GLOMERULAR FILTRATION RATE > 60.0 (>35); GLUCOSE, FASTING 154 MG/DL (70-100); MB/CK RELATIVE INDEX 5.77 (< OR =4); NT-PRO BNP 1098 PG/ML (<450); POTASSIUM SERUM 5.2 MEQ/L (3.5-5.1); SODIUM LEVEL 136 MEQ/L (136-145); THYROID STIMULATING HORMONE 0.939 uIU/ML (0.358-3.740); TOTAL PROTEIN 5.1 GM/DL (6.4-8.2); TROPONIN I < 0.02 NG/ML (< 0.10)
[2019-04-10] MEDS ORDERED: VANCOMYCIN HCL 1,000 MG, VIAL MATE ADAPTER 1 EACH in D5W 250 ML IV ONE (15:00)
[2019-04-10] MEDS ORDERED: PIPERACILLIN/TAZOBACTAM SOD 3.375 GM in D5W MINI-BAG PLUS 50 ML IV ONE (15:00)
[2019-04-10] MEDS ORDERED: HYDR-3719 EN (15:50)
[2019-04-10] MEDS ORDERED: BUDE0.5S6 INH (15:59)
[2019-04-10] MEDS ORDERED: PERF20NE2 INH (15:59)
[2019-04-10] MEDS ORDERED: IPRATROPIUM 0.5MG/ALBUTEROL 2.5MG INH SOL UD 3ML (DUONEB)(J7620) NEB PRN (16:30)
[2019-04-10] MEDS ORDERED: ACETAMINOPHEN TAB 650MG DOSE (2X325MG) FT PRN (16:30)
[2019-04-10] MEDS ORDERED: ONDANSETRON 4MG/2ML VIAL (J2405) IV PRN (16:30)
[2019-04-10] MEDS ORDERED: VANCOMYCIN HCL 1,000 MG, VIAL MATE ADAPTER 1 EACH in D5W 250 ML IV SCH (16:30)
--- NOTE | 2019-04-10 16:45 | HPEPDOC ---
General Date of Admission Apr 10, 2019 at 16:16 Date of Service: Apr 10, 2019 Chief Complaint The patient is a 84-year-old male admitted with a reason for visit of Aspiration Pneumonia. History of Present Illness 84-year-old male with past medical history including advanced COPD, interstitial fibrosis, lung cancer status post right upper lobectomy, pulmonary hypertension, dysphagia s/p feeding tube placement, recurrent aspiration pneumonia, and severe protein calorie malnutrition presented to the ER with a chief complaint of shortness of breath and increased cough since yesterday. Of note, the patient was recently admitted here from 03/06-03/23 for aspiration pneumonia. Of note, the patient has had several admissions here over the last 6 months for the same. He has been treated for MRSA pneumonia with extended IV and by mouth antibiotics. The patient underwent a modified barium swallow study yesterday with speech therapy and thereafter developed respiratory distress. He returns the ER today with increased lethargy, fatigue, and a cough productive of yellowish sputum. The patient's history is limited due to his clinical condition. Home Medications Scheduled Budesonide (Budesonide) 0.5 Mg/2 Ml Ampul.neb, 0.5 MG INH BID, (Reported) Formoterol Fumarate (Perforomist) 20 Mcg/2 Ml Vial.neb, 20 MCG INH BID, (Reported) Gabapentin (Gabapentin) 400 Mg Capsule, 400 MG EN TID, (Reported) Ipratropium/Albuterol Sulfate (Iprat-Albut 0.5-3(2.5) mg/3 ml) 3 Ml Ampul.neb, 1 IGGY INH Q6H Lidocaine (Lidoderm) 5% Adh..patch, 2 PATCH TOP DAILY, (Reported) may wear up to 12 hours. 1 on left shoulder 1 on left upper arm Omeprazole (Omeprazole) 40 Mg Capsule.dr, 40 MG EN DAILY, (Reported) Prednisone (Prednisone) 5 Mg/5 Ml Solution, 10 MG EN DAILY, (Reported) Spironolactone (Spironolactone) 25 Mg Tablet, 25 MG EN Q2D, (Reported) Sucralfate (Sucralfate) 1 Gm Tablet, 1 GM EN TID, (Reported) Scheduled PRN Bisacodyl (Dulcolax) 10 Mg Supp.rect, 10 MG TN DAILY PRN for CONSTIPATION, (Reported) Hydrocodone/Acetaminophen (Hydrocodone-Acetamin 10-325 mg) 1 Each Tablet, 1 TAB EN Q6H PRN for PAIN SCALE 6-10, (Reported) Milk Of Magnesia (Milk of Magnesia) 2,400 Mg/10 Ml Oral.susp, 30 ML EN DAILY PRN for CONSTIPATION, (Reported) Sodium Phosphate,Letcher-Dibasic (Enema) 133 Ml Enema, 1 SOURAV TN DAILY PRN for CONSTIPATION, (Reported) Allergies Coded Allergies: No Known Allergies (Unverified , 01/06/19) Past Medical History Medical History As noted in HPI. Surgical History Cervical spine surgery, shoulder replacement, PEG tube placement in December 2018, right upper lobectomy in 2008 Social History * Smoker: Denies Alcohol: Denies Drugs: denies Review of Systems Other systems 10 point review of systems negative unless otherwise specified in HPI. Physical Examination General Exam: Positive: No Acute Distress, Other (patient noted to be somnolent, but arousable to stimulation. Able to answer some simple questions, and follows commands.) ENT Exam: Positive: Atraumatic, Other ENT (bitemporal wasting noted) Neck Exam: Negative: JVD Chest Exam: Positive: Diminished Heart Exam: Positive: Rate Normal, Normal S1, Normal S2 Abdomen Exam: Positive: Soft; Negative: Tenderness Extremity Exam: Negative: Tenderness Vital Signs Vital Signs Date Time Temp Pulse Resp B/P (MAP) Pulse Ox O2 Delivery O2 Flow Rate FiO2 04/10/19 13:00 70 20 126/64 (84) 98 Nasal Cannula 2.0 04/10/19 12:25 98.6 Laboratory Data Labs 24H Laboratory Tests 2 04/10/19 13:56: Immature Granulocyte % (Auto) 0.5, White Blood Count 21.9H, Red Blood Count 2.79L, Hemoglobin 8.6L, Hematocrit 26.9L, Mean Corpuscular Volume 96.4H, Mean Corpuscular Hemoglobin 30.8, Mean Corpuscular Hemoglobin Concent 32.0, Red Cell Distribution Width 16.9H, Platelet Count 221, Neutrophils (%) (Auto) 95.2H, Lymphocytes (%) (Auto) 2.6L, Monocytes (%) (Auto) 1.6, Eosinophils (%) (Auto) 0.0, Basophils (%) (Auto) 0.1, Neutrophils # (Auto) 20.9H, Lymphocytes # (Auto) 0.6L, Monocytes # (Auto) 0.3, Eosinophils # (Auto) 0.0, Basophils # (Auto) 0.0, Nucleated Red Blood Cells % (auto) 0.0, Blood Gas Bicarbonate Standard 29.0, Venous Blood pH 7.323L, Venous Blood Partial Pressure CO2 65.1H, Venous Blood Partial Pressure O2 35.7, Venous Blood Total Carbon Dioxide 35.0H, Venous Blood HCO3 33.0H, Venous Blood Oxygen Saturation 60.2, Venous Blood Base Excess 5.7H, Anion Gap 5L, Glomerular Filtration Rate > 60.0, Calcium Level 8.1L, Aspartate Amino Transf (AST/SGOT) 11, Alanine Aminotransferase (ALT/SGPT) 26, Alkaline Phosphatase 54, Total Bilirubin 0.4, Direct Bilirubin 0.2, Total Creatine Kinase 26L, Creatine Kinase MB 1.5, Creatine Kinase MB Relative Index 5.77H, Troponin I < 0.02, RU-[id number]-Type Natriuretic Peptide 1098H, Total Protein 5.1L, Albumin 2.2L, Albumin/Globulin Ratio 0.76L, Thyroid Stimulating Hormone (TSH) 0.939 CBC/BMP Laboratory Tests 04/10/19 13:56 Red Blood Count 2.79 L, Mean Corpuscular Volume 96.4 H, Mean Corpuscular Hemoglobin 30.8, Mean Corpuscular Hemoglobin Concent 32.0, Red Cell Distribution Width 16.9 H, Neutrophils (%) (Auto) 95.2 H, Lymphocytes (%) (Auto) 2.6 L, Monocytes (%) (Auto) 1.6, Eosinophils (%) (Auto) 0.0, Basophils (%) (Auto) 0.1, Neutrophils # (Auto) 20.9 H, Lymphocytes # (Auto) 0.6 L, Monocytes # (Auto) 0.3, Eosinophils # (Auto) 0.0, Basophils # (Auto) 0.0 Microbiology Microbiology 04/10/19 Blood Culture, Received Pending 04/10/19 Blood Culture, Received Pending 04/10/19 Gram Stain - Final, Resulted 04/10/19 Sputum Culture, Resulted Pending Plan / VTE VTE Prophylaxis Ordered?: Yes Plan Plan Recurrent Aspiration Pneumonia CXR notable for worsening LLL Pna WBC elevated at 21K (although the patient is on chronic steroids this is higher than his baseline) Cultures ordered in the ER We will keep the patient NPO Vanco/Zosyn ordered for empiric coverage We will cont to monitor the patient's history status Advanced COPD, interstitial fibrosis, on 2 L of oxygen at baseline 2/2 Chronic Hypoxic Resp Failure Follows with Dr. Ferrer of pulmonary Continue nebs as ordered, pulmonary toilet IV Solu-Medrol ordered History of lung cancer status post right upper lobectomy Follow-up as an outpatient Severe protein calorie malnutrition BMI 14.8, patient noted to have bitemporal wasting, and generalized muscle wasting Dysphagia status post feeding tube Jevity 1.5 ordered Diastolic congestive heart failure, pulmonary hypertension Patient does not appear to be volume overloaded at this time DVT prophylaxis Heparin subcutaneous CODE STATUS-the patient is a DNR/DNI, this was confirmed with the patient's and daughter at the bedside. I did have a long discussion with the patient's family regarding the patient's overall poor long-term prognosis given his history of advanced COPD, lung cancer status post right upper lobectomy, and recurrent aspiration pneumonia which has caused him to be hospitalized several times over the last 6 months all in the background of his advanced age. They have verbalized that the patient is not ready to go on hospice or consider comfort measures only yet. We will continue to treat the patient as per his and his family's wishes. TERI WEST MD Apr 10, 2019 16:45
[2019-04-10 19:30] VITALS: BP 116/64
[2019-04-10] MEDS: IPRATROPIUM 0.5MG/ALBUTEROL 2.5MG INH SOL UD 3ML (DUONEB)(J7620) NEB SCH (20:00)
[2019-04-10] MEDS: SUCRALFATE SUSP 1GM/10ML UD FT SCH (20:57)
[2019-04-10] MEDS: methylPREDNISolone INJ 40 MG/1 ML VIAL (J2920) IV SCH (20:57)
[2019-04-10] MEDS: HEPARIN SOD (PORCINE) 5000 UNITS/ML VIAL SQ SCH (20:57)
[2019-04-10] MEDS: PIPERACILLIN/TAZOBACTAM SOD 3.375 GM in D5W MINI-BAG PLUS 50 ML IV SCH (20:58)
[2019-04-10] MEDS: SYMBICORT 160/4.5MCG INHALER 6GM INH SCH (21:00)
[2019-04-10] MEDS ORDERED: ACETAMINOPHEN *IV* 1,000 MG in APPROPRIATE DILUENT 1 EA IV ONE (23:00)
[2019-04-11] VITALS: BP 101/56
[2019-04-11] MEDS: HYDROcodone/APAP LIQUID 7.5-325MG 15ML UDC (LORTAB ELIXIR) PEG PRN ×4 (01:38→23:40)
[2019-04-11] MEDS: PIPERACILLIN/TAZOBACTAM SOD 3.375 GM in D5W MINI-BAG PLUS 50 ML IV SCH ×4 (03:30→22:14)
[2019-04-11 04:00] VITALS: BP 121/65
[2019-04-11] MEDS: IPRATROPIUM 0.5MG/ALBUTEROL 2.5MG INH SOL UD 3ML (DUONEB)(J7620) NEB SCH ×6 (05:05→23:56)
[2019-04-11 06:17] LABS: HEMATOCRIT 26.3 % (42.0-52.0); HEMOGLOBIN 8.3 g/dl (13.5-17.5); MEAN CORPUSCULAR HEMOGLOBIN 30.2 pg (27.0-33.0); MEAN CORPUSCULAR HGB CONC 31.6 g/dl (32.0-36.5); MEAN CORPUSCULAR VOLUME 95.6 fl (80.0-96.0); PLATELET COUNT, AUTOMATED 212 10^3/uL (150-450); RED BLOOD COUNT 2.75 10^6/uL (4.30-6.10); WHITE BLOOD COUNT 17.9 10^3/uL (4.0-10.0)
[2019-04-11 07:04] LABS: ALT/SGPT 23 U/L (12-78); BILIRUBIN,TOTAL 0.3 MG/DL (0.2-1.0); BLOOD UREA NITROGEN 29 MG/DL (7-18); CALCIUM LEVEL 8.2 MG/DL (8.8-10.2); CARBON DIOXIDE LEVEL 33 MEQ/L (21-32); CHLORIDE LEVEL 96 MEQ/L (98-107); CREATININE FOR GFR 0.84 MG/DL (0.70-1.30); GLOMERULAR FILTRATION RATE > 60.0 (>35); GLUCOSE, FASTING 263 MG/DL (70-100); MAGNESIUM LEVEL 2.2 MG/DL (1.8-2.4); SODIUM LEVEL 135 MEQ/L (136-145); TOTAL PROTEIN 5.5 GM/DL (6.4-8.2)
[2019-04-11] MEDS: SYMBICORT 160/4.5MCG INHALER 6GM INH SCH ×2 (07:50→19:17)
[2019-04-11 08:00] VITALS: BP 134/74
--- NOTE | 2019-04-11 08:06 | ECGEPIP ---
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
[2019-04-11] MEDS: methylPREDNISolone INJ 40 MG/1 ML VIAL (J2920) IV SCH ×2 (08:46→22:13)
[2019-04-11] MEDS: SUCRALFATE SUSP 1GM/10ML UD FT SCH ×3 (08:46→22:13)
[2019-04-11] MEDS: HEPARIN SOD (PORCINE) 5000 UNITS/ML VIAL SQ SCH ×2 (08:47→22:13)
[2019-04-11] MEDS: LANSOPRAZOLE SUSPENSION 30 MG/10 ML ORAL SYRINGE (FIRST-LANSOPRAZOLE) FT SCH (09:59)
[2019-04-11] MEDS: VANCOMYCIN HCL 750 MG, VIAL MATE ADAPTER 1 EACH in D5W 250 ML IV SCH (09:59)
[2019-04-11 12:00] VITALS: BP 142/81
[2019-04-11 13:47] VITALS: BP 140/83
--- NOTE | 2019-04-11 14:09 | IPNPDOC ---
Subjective Date Seen The patient was seen on 04/11/19. Subjective Chief Complaint/HPI Patient seen and examined at the bedside. No acute overnight events noted. Objective Physical Examination General Exam: Positive: No Acute Distress, Other (patient noted to be somnolent, but arousable to stimulation. Able to answer some simple questions, and follows commands.) ENT Exam: Positive: Atraumatic, Other ENT (bitemporal wasting noted) Neck Exam: Negative: JVD Chest Exam: Positive: Diminished Heart Exam: Positive: Rate Normal, Normal S1, Normal S2 Abdomen Exam: Positive: Soft; Negative: Tenderness Extremity Exam: Negative: Tenderness Assessment /Plan Plan/VTE VTE Prophylaxis Ordered?: Yes Plan Recurrent Aspiration Pneumonia CXR notable for worsening LLL Pna WBC 21.9K-->17.9K (although the patient is on chronic steroids) Sputum Cultures pending (Patient with hx of MRSA PNA) Blood Cultures unrevealing thus far We will keep the patient NPO Vanco/Zosyn ordered for empiric coverage We will cont to monitor the patient's history status Advanced COPD, interstitial fibrosis, on 2 L of oxygen at baseline 2/2 Chronic Hypoxic Resp Failure Follows with Dr. Ferrer of pulmonary Continue nebs as ordered, pulmonary toilet IV Solu-Medrol ordered History of lung cancer status post right upper lobectomy Follow-up as an outpatient Severe protein calorie malnutrition BMI 14.8, patient noted to have bitemporal wasting, and generalized muscle wasting Dysphagia status post feeding tube Jevity 1.5 ordered Diastolic congestive heart failure, pulmonary hypertension Patient does not appear to be volume overloaded at this time DVT prophylaxis Heparin subcutaneous VS, I&O, 24H, Fishbone Vital Signs/I&O Vital Signs Date Time Temp Pulse Resp B/P (MAP) Pulse Ox O2 Delivery O2 Flow Rate FiO2 04/11/19 13:47 98.6 92 22 140/83 (102) 98 2.0 04/10/19 18:00 Nasal Cannula I&O- Last 24 Hours up to 6 AM 04/11/19 06:00 Intake Total 350 ml Output Total 750 ml Balance -400 ml Laboratory Data 24H LABS Laboratory Tests 2 04/11/19 06:02: Nucleated Red Blood Cells % (auto) 0.0, Anion Gap 6L, Glomerular Filtration Rate > 60.0, Blood Urea Nitrogen 29H, Creatinine 0.84, Sodium Level 135L, Potassium Level 4.0#, Chloride Level 96L, Carbon Dioxide Level 33H, Calcium Level 8.2L, Aspartate Amino Transf (AST/SGOT) 9, Alanine Aminotransferase (ALT/SGPT) 23, Alkaline Phosphatase 55, Total Bilirubin 0.3, Total Protein 5.5L, Albumin 2.0L, Magnesium Level 2.2, C-Reactive Protein, Quantitative 21.40H, Albumin/Globulin Ratio 0.57L CBC/BMP Laboratory Tests 04/11/19 06:02 Red Blood Count 2.75 L, Mean Corpuscular Volume 95.6, Mean Corpuscular Hemoglobin 30.2, Mean Corpuscular Hemoglobin Concent 31.6 L, Red Cell Distribu tion Width 16.8 H, Calcium Level 8.2 L, Aspartate Amino Transf (AST/SGOT) 9, Alanine Aminotransferase (ALT/SGPT) 23, Alkaline Phosphatase 55, Total Bilirubin 0.3, Total Protein 5.5 L, Albumin 2.0 L Microbiology Microbiology 04/10/19 Blood Culture - Preliminary, Resulted No growth after 24 hours . All specim... 04/10/19 Blood Culture - Preliminary, Resulted No growth after 24 hours . All specim... 04/10/19 Gram Stain - Final, Resulted 04/10/19 Sputum Culture, Resulted Pending TERI WEST MD Apr 11, 2019 14:09
[2019-04-11 22:00] VITALS: BP 129/67
[2019-04-11] MEDS: ACETAMINOPHEN 500 MG TAB PO PRN (22:14)
[2019-04-12] MEDS: PIPERACILLIN/TAZOBACTAM SOD 3.375 GM in D5W MINI-BAG PLUS 50 ML IV SCH ×4 (03:30→21:16)
[2019-04-12] MEDS: IPRATROPIUM 0.5MG/ALBUTEROL 2.5MG INH SOL UD 3ML (DUONEB)(J7620) NEB SCH ×5 (04:00→19:35)
[2019-04-12 06:00] VITALS: BP 145/74
[2019-04-12] MEDS: HYDROcodone/APAP LIQUID 7.5-325MG 15ML UDC (LORTAB ELIXIR) PEG PRN ×3 (06:07→17:30)
[2019-04-12 06:23] LABS: HEMATOCRIT 23.5 % (42.0-52.0); HEMOGLOBIN 7.7 g/dl (13.5-17.5); MEAN CORPUSCULAR HEMOGLOBIN 30.3 pg (27.0-33.0); MEAN CORPUSCULAR HGB CONC 32.8 g/dl (32.0-36.5); MEAN CORPUSCULAR VOLUME 92.5 fl (80.0-96.0); PLATELET COUNT, AUTOMATED 219 10^3/uL (150-450); RED BLOOD COUNT 2.54 10^6/uL (4.30-6.10); WHITE BLOOD COUNT 17.4 10^3/uL (4.0-10.0)
[2019-04-12 06:44] LABS: ALT/SGPT 24 U/L (12-78); BILIRUBIN,TOTAL 0.4 MG/DL (0.2-1.0); BLOOD UREA NITROGEN 28 MG/DL (7-18); CALCIUM LEVEL 8.2 MG/DL (8.8-10.2); CARBON DIOXIDE LEVEL 34 MEQ/L (21-32); CHLORIDE LEVEL 95 MEQ/L (98-107); CREATININE FOR GFR 0.77 MG/DL (0.70-1.30); GLOMERULAR FILTRATION RATE > 60.0 (>35); GLUCOSE, FASTING 257 MG/DL (70-100); POTASSIUM SERUM 3.6 MEQ/L (3.5-5.1); SODIUM LEVEL 134 MEQ/L (136-145); TOTAL PROTEIN 5.4 GM/DL (6.4-8.2)
[2019-04-12] MEDS: SYMBICORT 160/4.5MCG INHALER 6GM INH SCH ×2 (07:06→19:35)
[2019-04-12] MEDS: HEPARIN SOD (PORCINE) 5000 UNITS/ML VIAL SQ SCH ×2 (08:03→21:16)
[2019-04-12] MEDS: SUCRALFATE SUSP 1GM/10ML UD FT SCH ×3 (08:04→21:16)
[2019-04-12] MEDS: ACETAMINOPHEN 500 MG TAB PO PRN (08:04)
[2019-04-12] MEDS: LANSOPRAZOLE SUSPENSION 30 MG/10 ML ORAL SYRINGE (FIRST-LANSOPRAZOLE) FT SCH (08:05)
[2019-04-12] MEDS: predniSONE 5MG/5ML SOLN ORAL SYRINGE PEG SCH (10:07)
[2019-04-12] MEDS: VANCOMYCIN HCL 750 MG, VIAL MATE ADAPTER 1 EACH in D5W 250 ML IV SCH (10:07)
--- NOTE | 2019-04-12 11:33 | IPNPDOC ---
Subjective Date Seen The patient was seen on 04/12/19. Subjective Chief Complaint/HPI Patient seen and examined at bedside. No acute overnight events noted. Patient states that he is feeling much better this morning, and is eager to be discharged home. Objective Physical Examination General Exam: Positive: Alert, Cooperative, No Acute Distress ENT Exam: Positive: Atraumatic, Other ENT (bitemporal wasting noted) Neck Exam: Negative: JVD Chest Exam: Positive: Diminished Heart Exam: Positive: Rate Normal, Normal S1, Normal S2 Abdomen Exam: Positive: Soft; Negative: Tenderness Extremity Exam: Negative: Tenderness, Swelling Psych Exam: Positive: Oriented x 3 Assessment /Plan Plan/VTE VTE Prophylaxis Ordered?: Yes Plan Recurrent Aspiration Pneumonia CXR notable for worsening LLL Pna WBC 21.9K-->17.9K-->17.4K (although the patient is on chronic steroids) Sputum Cultures pending (Patient with hx of MRSA PNA)---I called the lab this morning, cultures/sensitivity are suppose to be back by tomorrow Blood Cultures unrevealing thus far We will keep the patient NPO Vanco/Zosyn ordered for empiric coverage We will cont to monitor the patient's history status Advanced COPD, interstitial fibrosis, on 2 L of oxygen at baseline 2/2 Chronic Hypoxic Resp Failure Follows with Dr. Ferrer of pulmonary Continue nebs as ordered, pulmonary toilet IV Solu-Medrol transitioned to Liquid Prednisone via PEG Tube Normocytic anemia Patient noted to be iron deficient based on previous lab work Ferrous sulfate added to her medication regimen No obvious or overt bleeding noted at this time We will transfuse the patient 1 unit of packed red blood cells. History of lung cancer status post right upper lobectomy Follow-up as an outpatient Severe protein calorie malnutrition BMI 14.8, patient noted to have bitemporal wasting, and generalized muscle wasting Dysphagia status post feeding tube Jevity 1.5 ordered Diastolic congestive heart failure, pulmonary hypertension Patient does not appear to be volume overloaded at this time DVT prophylaxis Heparin subcutaneous Disposition-pending continued clinical improvement, culture/sensitivity data, and physical therapy evaluation. VS, I&O, 24H, Fishbone Vital Signs/I&O Vital Signs Date Time Temp Pulse Resp B/P (MAP) Pulse Ox O2 Delivery O2 Flow Rate FiO2 04/12/19 09:34 2.0 8/11/19 06:37 18 04/12/19 06:00 98.3 86 145/74 (97) 100 04/10/19 18:00 Nasal Cannula I&O- Last 24 Hours up to 6 AM 04/12/19 06:00 Intake Total 760 ml Output Total 750 ml Balance 10 ml Laboratory Data 24H LABS Laboratory Tests 2 04/12/19 05:17: Nucleated Red Blood Cells % (auto) 0.0, Anion Gap 5L, Glomerular Filtration Rate > 60.0, Blood Urea Nitrogen 28H, Creatinine 0.77, Sodium Level 134L, Potassium Level 3.6, Chloride Level 95L, Carbon Dioxide Level 34H, Calcium Level 8.2L, Aspartate Amino Transf (AST/SGOT) 9, Alanine Aminotransferase (ALT/SGPT) 24, Alkaline Phosphatase 52, Total Bilirubin 0.4, Total Protein 5.4L, Albumin 2.0L, Albumin/Globulin Ratio 0.59L 04/12/19 08:51: Vancomycin Level Trough 9.7L CBC/BMP Laboratory Tests 04/12/19 05:17 Red Blood Count 2.54 L, Mean Corpuscular Volume 92.5, Mean Corpuscular Hemoglobin 30.3, Mean Corpuscular Hemoglobin Concent 32.8, Red Cell Distribution Width 16.6 H, Calcium Level 8.2 L, Aspartate Amino Transf (AST/SGOT) 9, Alanine Aminotransferase (ALT/SGPT) 24, Alkaline Phosphatase 52, Total Bilirubin 0.4, Total Protein 5.4 L, Albumin 2.0 L Microbiology Microbiology 04/10/19 Blood Culture - Preliminary, Resulted No growth after 24 hours . All specim... 04/10/19 Blood Culture - Preliminary, Resulted No growth after 24 hours . All specim... 04/10/19 Gram Stain - Final, Resulted 04/10/19 Sputum Culture, Resulted Pending TERI WEST MD Apr 12, 2019 11:33
[2019-04-12] MEDS: FERROUS SULFATE 300MG/5ML UDC LIQUID PEG SCH (14:38)
[2019-04-12 15:03] VITALS: BP 148/84
[2019-04-12] MEDS: GABAPENTIN 400 MG CAP PEG SCH ×2 (15:57→21:16)
[2019-04-12 22:00] VITALS: BP 142/76
[2019-04-13] MEDS: PIPERACILLIN/TAZOBACTAM SOD 3.375 GM in D5W MINI-BAG PLUS 50 ML IV SCH ×2 (02:39→09:21)
[2019-04-13] MEDS: IPRATROPIUM 0.5MG/ALBUTEROL 2.5MG INH SOL UD 3ML (DUONEB)(J7620) NEB SCH ×4 (03:20→11:06)
[2019-04-13] MEDS: HYDROcodone/APAP LIQUID 7.5-325MG 15ML UDC (LORTAB ELIXIR) PEG PRN ×2 (03:24→09:20)
[2019-04-13 06:00] VITALS: BP 144/76
[2019-04-13] MEDS ORDERED: VANCOMYCIN HCL 500 MG in D5W MINI-BAG PLUS 100 ML IV SCH (06:00)
[2019-04-13 06:34] LABS: HEMATOCRIT 29.2 % (42.0-52.0); HEMOGLOBIN 9.4 g/dl (13.5-17.5); MEAN CORPUSCULAR HEMOGLOBIN 28.6 pg (27.0-33.0); MEAN CORPUSCULAR HGB CONC 32.2 g/dl (32.0-36.5); MEAN CORPUSCULAR VOLUME 88.8 fl (80.0-96.0); PLATELET COUNT, AUTOMATED 248 10^3/uL (150-450); RED BLOOD COUNT 3.29 10^6/uL (4.30-6.10); WHITE BLOOD COUNT 12.8 10^3/uL (4.0-10.0)
[2019-04-13 07:03] LABS: ALT/SGPT 28 U/L (12-78); BILIRUBIN,TOTAL 0.5 MG/DL (0.2-1.0); BLOOD UREA NITROGEN 24 MG/DL (7-18); C REACTIVE PROTEIN QUANTITATIV 5.69 MG/DL (0.00-0.30); CALCIUM LEVEL 8.2 MG/DL (8.8-10.2); CARBON DIOXIDE LEVEL 32 MEQ/L (21-32); CHLORIDE LEVEL 98 MEQ/L (98-107); CREATININE FOR GFR 0.68 MG/DL (0.70-1.30); GLOMERULAR FILTRATION RATE > 60.0 (>35); GLUCOSE, FASTING 158 MG/DL (70-100); POTASSIUM SERUM 3.7 MEQ/L (3.5-5.1); SODIUM LEVEL 136 MEQ/L (136-145); TOTAL PROTEIN 5.4 GM/DL (6.4-8.2)
[2019-04-13] MEDS: SYMBICORT 160/4.5MCG INHALER 6GM INH SCH (07:55)
[2019-04-13] MEDS: GABAPENTIN 400 MG CAP PEG SCH (09:19)
[2019-04-13] MEDS: SUCRALFATE SUSP 1GM/10ML UD FT SCH (09:20)
[2019-04-13] MEDS: FERROUS SULFATE 300MG/5ML UDC LIQUID PEG SCH (09:21)
[2019-04-13] MEDS: HEPARIN SOD (PORCINE) 5000 UNITS/ML VIAL SQ SCH (09:21)
[2019-04-13] MEDS: predniSONE 5MG/5ML SOLN ORAL SYRINGE PEG SCH (09:21)
[2019-04-13] MEDS ORDERED: LEVA750T7 PEG (13:50)
--- NOTE | 2019-04-13 15:09 | DS.PDOC ---
Discharge Summary General Date of Admission Apr 10, 2019 at 16:16 Date of Discharge 04/13/19 Discharge Summary PROCEDURES PERFORMED DURING STAY: None. ADMITTING/DISCHARGE DIAGNOSES: Recurrent aspiration pneumonia COMPLICATIONS/CHIEF COMPLAINT: Aspiration Pneumonia. HISTORY OF PRESENT ILLNESS: . 84-year-old male with past medical history including advanced COPD, interstitial fibrosis, lung cancer status post right upper lobectomy, pulmonary hypertension, dysphagia s/p feeding tube placement, recurrent aspiration pneumonia, and severe protein calorie malnutrition presented to the ER with a chief complaint of shortness of breath and increased cough since yesterday. Of note, the patient was recently admitted here from 03/06-03/23 for aspiration pneumonia. Of note, the patient has had several admissions here over the last 6 months for the same. He has been treated for MRSA pneumonia with extended IV and by mouth antibiotics. The patient underwent a modified barium swallow study yesterday with speech therapy and thereafter developed respiratory distress. He returns the ER today with increased lethargy, fatigue, and a cough productive of yellowish sputum. The patient's history is limited due to his clinical condition. Recurrent Aspiration Pneumonia CXR notable for worsening LLL Pna WBC 21.9K-->17.9K-->17.4K-->12K (although the patient is on chronic steroids) Sputum Cultures notable for Pseudomonascultures/sensitivity are suppose to be back by tomorrow Blood Cultures unrevealing thus far Patient transitioned to Levaquin via PEG for a total of 7 day Abx trial since abx were started Patient's respiratory status has returned back to baseline Patient cleared by PT today-->Will d/c home with previous level of care Advanced COPD, interstitial fibrosis, on 2 L of oxygen at baseline 2/2 Chronic Hypoxic Resp Failure Follows with Dr. Ferrer of pulmonary Continue [facility] as ordered, pulmonary toilet IV Solu-Medrol transitioned to Liquid Prednisone via PEG Tube Normocytic anemia Patient noted to be iron deficient based on previous lab work No obvious or overt bleeding noted at this time s/p transfusion of 1 unit of packed red blood cells with stable hgb thereafter History of lung cancer status post right upper lobectomy Follow-up as an outpatient Severe protein calorie malnutrition BMI 14.8, patient noted to have bitemporal wasting, and generalized muscle wasting Dysphagia status post feeding tube Jevity 1.5 ordered Diastolic congestive heart failure, pulmonary hypertension Patient does not appear to be volume overloaded at this time DISCHARGE MEDICATIONS: Please see below. ALLERGIES: Please see below. PHYSICAL EXAMINATION ON DISCHARGE: VITAL SIGNS: Please see below. General Exam: Positive: Alert, Cooperative, No Acute Distress ENT Exam: Positive: Atraumatic, Other ENT (bitemporal wasting noted) Neck Exam: Negative: JVD Chest Exam: Positive: Diminished Heart Exam: Positive: Rate Normal, Normal S1, Normal S2 Abdomen Exam: Positive: Soft; Negative: Tenderness Extremity Exam: Negative: Tenderness, Swelling Psych Exam: Positive: Oriented x 3 LABORATORY DATA: Please see below. IMAGING: PORTABLE CHEST, ONE VIEW: HISTORY: Cough. COMPARISON: 04/09/2019 Patchy density is present in the right lung consistent with an infiltrate that is decreased compared to the previous study. Patchy density is present in the left lower lobe consistent with an infiltrate that is slightly increased compared to the previous study. The heart is normal in size. The pulmonary vasculature is normal in appearance. IMPRESSION: 1. Right lung infiltrate decreased compared to the previous study. 2. Left lower lobe infiltrate increased compared to the previous study. PROGNOSIS: Poor long-term prognosis ACTIVITY: As tolerated. DIET: Tube feeding DISCHARGE PLAN: DISPOSITION: 06 [facility]. DISCHARGE INSTRUCTIONS: Follow-up with primary care physician within 7 days. Complete antibiotic trial as prescribed. Return to the ER for any acute emergencies. DISCHARGE CONDITION: Stable. TIME SPENT ON DISCHARGE: Greater than 30 minutes. Vital Signs/I&Os Vital Signs Date Time Temp Pulse Resp B/P (MAP) Pulse Ox O2 Delivery O2 Flow Rate FiO2 04/13/19 10:03 2.0 04/13/19 09:50 18 04/13/19 06:00 98.6 79 144/76 (98) 98 04/10/19 18:00 Nasal Cannula I&O- Last 24 Hours up to 6 AM 04/13/19 05:59 Intake Total 1260 ml Output Total 500 ml Balance 760 ml Laboratory Data Labs 24H Laboratory Tests 2 04/13/19 05:13: Nucleated Red Blood Cells % (auto) 0.0, Anion Gap 6L, Glomerular Filtration Rate > 60.0, Blood Urea Nitrogen 24H, Creatinine 0.68L, Sodium Level 136, Potassium Level 3.7, Chloride Level 98, Carbon Dioxide Level 32, Calcium Level 8.2L, Aspartate Amino Transf (AST/SGOT) 15, Alanine Aminotransferase (ALT/SGPT) 28, Alkaline Phosphatase 55, Total Bilirubin 0.5, Total Protein 5.4L, Albumin 2.0L, C-Reactive Protein, Quantitative 5.69H, Albumin/Globulin Ratio 0.59L CBC/BMP Laboratory Tests 04/13/19 05:13 Red Blood Count 3.29 L, Mean Corpuscular Volume 88.8, Mean Corpuscular Hemoglobin 28.6, Mean Corpuscular Hemoglobin Concent 32.2, Red Cell Distribution Width 16.7 H, Calcium Level 8.2 L, Aspartate Amino Transf (AST/SGOT) 15, Alanine Aminotransferase (ALT/SGPT) 28, Alkaline Phosphatase 55, Total Bilirubin 0.5, Total Protein 5.4 L, Albumin 2.0 L Microbiology Microbiology 04/10/19 Blood Culture - Preliminary, Resulted No Growth after 72 hours. All specime... 04/10/19 Blood Culture - Preliminary, Resulted No Growth after 72 hours. All specime... 04/10/19 Gram Stain - Final, Complete 04/10/19 Sputum Culture - Final, Complete Pseudomonas Aeruginosa Discharge Medications Scheduled Budesonide (Budesonide) 0.5 Mg/2 Ml Ampul.neb, 0.5 MG INH BID, (Reported) Formoterol Fumarate (Perforomist) 20 Mcg/2 Ml Vial.neb, 20 MCG INH BID, (Reported) Gabapentin (Gabapentin) 400 Mg Capsule, 400 MG EN TID, (Reported) Ipratropium/Albuterol Sulfate (Iprat-Albut 0.5-3(2.5) mg/3 ml) 3 Ml Ampul.neb, 1 IGGY INH Q6H Levofloxacin (Levaquin) 750 Mg Tablet, 1 TAB PEG Q2D Lidocaine (Lidoderm) 5% Adh..patch, 2 PATCH TOP DAILY, (Reported) may wear up to 12 hours. 1 on left shoulder 1 on left upper arm Omeprazole (Omeprazole) 40 Mg Capsule.dr, 40 MG EN DAILY, (Reported) Prednisone (Prednisone) 5 Mg/5 Ml Solution, 10 MG EN DAILY, (Reported) Spironolactone (Spironolactone) 25 Mg Tablet, 25 MG EN Q2D, (Reported) Sucralfate (Sucralfate) 1 Gm Tablet, 1 GM EN TID, (Reported) Scheduled PRN Bisacodyl (Dulcolax) 10 Mg Supp.rect, 10 MG DE DAILY PRN for CONSTIPATION, (Reported) Hydrocodone/Acetaminophen (Hydrocodone-Acetamin 10-325 mg) 1 Each Tablet, 1 TAB EN Q6H PRN for PAIN SCALE 6-10, (Reported) Milk Of Magnesia (Milk of Magnesia) 2,400 Mg/10 Ml Oral.susp, 30 ML EN DAILY PRN for CONSTIPATION, (Reported) Sodium Phosphate,Clarion-Dibasic (Enema) 133 Ml Enema, 1 SOURAV DE DAILY PRN for CONSTIPATION, (Reported) Allergies Coded Allergies: No Known Allergies (Unverified , 01/06/19) TERI WEST MD Apr 13, 2019 15:09
== END 2019-04-13 14:35 | disposition home health service (06) | DRG 177 ==
LOC: M ED 12:24 → M ED INP 16:16 → M MS5PR 04-11 13:25
PROVIDERS: ADMIT Internal Medicine; ATTEND Internal Medicine
DX: J69.0 Pneumonitis due to inhalation of food and vomit (principal); E43 Unspecified severe protein-calorie malnutrition; J96.11 Chronic respiratory failure with hypoxia; I50.32 Chronic diastolic (congestive) heart failure; Z68.1 Body mass index [BMI] 19.9 or less, adult; R13.12 Dysphagia, oropharyngeal phase; J44.9 Chronic obstructive pulmonary disease, unspecified; J84.10 Pulmonary fibrosis, unspecified; I27.20 Pulmonary hypertension, unspecified; Z85.118 Personal history of other malignant neoplasm of bronchus and lung; D64.9 Anemia, unspecified; Z79.899 Other long term (current) drug therapy; Z93.1 Gastrostomy status

== ENCOUNTER 2019-04-23 11:14 | Emergency (ER) | payer MEDICARE, BC ==
[~2019-04-23] VITALS: Ht 170.2 cm; Wt 43.2 kg
[~2019-04-23 11:14] MED LIST changes: -BISO5TAB5 PEG; +BISO5TAB9 PEG; +HYDR-3719 EN; +LEVA750T7 PEG; +LIDO5DIS41 TOP; +OMEP40CA2 EN; +PRED5ELUD EN; +SPIR-10 EN; +SUCR1TA EN
[2019-04-23 12:07] LABS: ABG BASE EXCESS 4.5 (-2.0-2.0); ABG HCO3 28.9 MEQ/L (22.0-26.0); ABG O2 SATURATION 96.2 % (95.0-99.0); ABG PARTIAL PRESSURE CO2 42.5 mmHg (35.0-45.0); ABG PARTIAL PRESSURE O2 84.8 mmHg (75.0-100.0); ABG STANDARD HCO3 28.5 MEQ/L (22.0-26.0); ABG TOTAL CO2 30.2 MEQ/L (23.0-31.0); ABG pH (ARTERIAL) 7.451 UNITS (7.350-7.450)
[2019-04-23 12:10] LABS: BASO % 0.1 % (0.0-1.0); EOS % 0.1 % (0.0-3.0); HEMATOCRIT 34.8 % (42.0-52.0); HEMOGLOBIN 11.3 g/dl (13.5-17.5); LYMPH # 0.4 10^3/uL (1.5-4.5); LYMPH % 2.9 % (24.0-44.0); MEAN CORPUSCULAR HEMOGLOBIN 29.9 pg (27.0-33.0); MEAN CORPUSCULAR HGB CONC 32.5 g/dl (32.0-36.5); MEAN CORPUSCULAR VOLUME 92.1 fl (80.0-96.0); MONO # 0.9 10^3/uL (0.0-0.8); MONO % 6.2 % (0.0-5.0); NEUTROPHILS # 13.6 10^3/uL (1.8-7.7); PLATELET COUNT, AUTOMATED 448 10^3/uL (150-450); RED BLOOD COUNT 3.78 10^6/uL (4.30-6.10); WHITE BLOOD COUNT 15.1 10^3/uL (4.0-10.0)
[2019-04-23 12:44] LABS: ALBUMIN 2.6 GM/DL (3.2-5.2); ALT/SGPT 31 U/L (12-78); BILIRUBIN,DIRECT 0.1 MG/DL (0.0-0.2); BILIRUBIN,TOTAL 0.3 MG/DL (0.2-1.0); BLOOD UREA NITROGEN 29 MG/DL (7-18); CALCIUM LEVEL 9.5 MG/DL (8.8-10.2); CARBON DIOXIDE LEVEL 32 MEQ/L (21-32); CHLORIDE LEVEL 95 MEQ/L (98-107); CK-MB VALUE MASS 1.1 NG/ML (<3.6); CPK CREATINE PHOSPHOKINASE 36 U/L (39-308); CREATININE FOR GFR 0.69 MG/DL (0.70-1.30); FREE T4 1.23 NG/DL (0.76-1.46); GLOMERULAR FILTRATION RATE > 60.0 (>35); GLUCOSE, FASTING 132 MG/DL (70-100); MB/CK RELATIVE INDEX 3.06 (< OR =4); NT-PRO BNP 919 PG/ML (<450); POTASSIUM SERUM 4.9 MEQ/L (3.5-5.1); SODIUM LEVEL 133 MEQ/L (136-145); TOTAL PROTEIN 6.8 GM/DL (6.4-8.2); TROPONIN I < 0.02 NG/ML (< 0.10)
[2019-04-23] MEDS ORDERED: ISOVUE-370 76% 100ML VIAL (Q9967) As Ordered ONE (12:53)
[2019-04-23] MEDS ORDERED: PERCOCET 5MG/325MG TAB PO ONE (13:00)
--- NOTE | 2019-04-23 13:44 | ECGEPIP ---
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
--- NOTE | 2019-04-23 13:46 | REP ---
REASON FOR EXAM: Cough, dyspnea, and hypoxia. Multiple prior exams were reviewed, the latest of which is dated 03/13/2019. Patient is status post lung carcinoma with lobectomy. Latest prior exam showed consolidated pneumonia in the right lung with small bilateral pleural effusions. Right hilar fullness was also noted with bronchiolar obliteration in the right hilar region. CONTRAST: 100 mL Isovue 370. There is excellent visualization of the pulmonary arterial vasculature. There are no focal filling defects present that would be considered consistent with acute pulmonary emboli. The mediastinum and pulmonary noe are unchanged. There is a small left pleural effusion status quo. There is on pericardial effusion. There is no change in the imaged osseous structures or imaged upper abdomen. Evaluation of the lung delacruz show patchy opacities scattered throughout all lobes bilaterally, but with improvement in the lower lobes compared to the latest prior. An area of consolidation/atelectasis persists in the left lower lobe. Postoperative change is again seen on the right status quo. IMPRESSION: 1. There is no evidence of an acute pulmonary embolus. 2. There are some chronic lung changes as described above but there has been some improvement compared to the latest prior of 03/13/2019. Electronically Signed by Leo Madison DO 04/23/2019 03:05 P
[2019-04-23 14:53] VITALS: BP 154/77
== END 2019-04-23 15:16 | disposition home or self-care (01) ==
LOC: M ED 11:14
DX: R06.02 Shortness of breath (principal); I45.19 Other right bundle-branch block; J44.9 Chronic obstructive pulmonary disease, unspecified; Z79.899 Other long term (current) drug therapy

== ENCOUNTER 2019-04-26 11:37 | Inpatient (IN) | payer MEDICARE, BC ==
[~2019-04-26] VITALS: Ht 167.6 cm; Wt 40.0 kg
[~2019-04-26 11:37] MED LIST changes: +BISO5TAB14 PEG; -BISO5TAB9 PEG; -DOXY100T16 PO; +DOXY100T27 PO; -OMEP40CA2 EN; +OMEP40CA97 EN; -TRAZ10TA PEG; +TRAZ1TAB12 PEG
[2019-04-26] MEDS ORDERED: ALBUTEROL SULFATE 2.5 MG/0.5 ML INH NEB SOLN As Ordered ONE (11:56)
[2019-04-26] MEDS ORDERED: IPRATROPIUM 0.5MG/ALBUTEROL 2.5MG INH SOL UD 3ML (DUONEB)(J7620) As Ordered ONE (11:57)
[2019-04-26] MEDS ORDERED: IPRATROPIUM 0.5MG/ALBUTEROL 2.5MG INH SOL UD 3ML (DUONEB)(J7620) NEB ONE (12:00)
[2019-04-26] MEDS ORDERED: ALBUTEROL SULFATE 2.5 MG/0.5 ML INH NEB SOLN INH ONE (12:00)
[2019-04-26] MEDS ORDERED: dexameTHASONE 20 MG/5 ML VIAL (J1100) IV ONE (12:30)
[2019-04-26 12:43] LABS: BASO % 0.1 % (0.0-1.0); EOS % 0.1 % (0.0-3.0); HEMATOCRIT 32.3 % (42.0-52.0); HEMOGLOBIN 10.3 g/dl (13.5-17.5); LYMPH # 0.9 10^3/uL (1.5-4.5); LYMPH % 4.6 % (24.0-44.0); MEAN CORPUSCULAR HEMOGLOBIN 28.8 pg (27.0-33.0); MEAN CORPUSCULAR HGB CONC 31.9 g/dl (32.0-36.5); MEAN CORPUSCULAR VOLUME 90.2 fl (80.0-96.0); MONO # 0.9 10^3/uL (0.0-0.8); MONO % 4.5 % (0.0-5.0); NEUTROPHILS # 17.5 10^3/uL (1.8-7.7); NEUTROPHILS % 89.9 % (36.0-66.0); PLATELET COUNT, AUTOMATED 414 10^3/uL (150-450); RED BLOOD COUNT 3.58 10^6/uL (4.30-6.10); WHITE BLOOD COUNT 19.4 10^3/uL (4.0-10.0)
[2019-04-26 13:02] LABS: INR 0.98; PROTHROMBIN TIME 12.7 SECONDS (11.8-14.0)
[2019-04-26 13:04] LABS: D-DIMER QUANT 2344.6 ng/ml (<500)
[2019-04-26 13:43] LABS: ALBUMIN 2.5 GM/DL (3.2-5.2); ALT/SGPT 28 U/L (12-78); BILIRUBIN,DIRECT 0.1 MG/DL (0.0-0.2); BILIRUBIN,TOTAL 0.3 MG/DL (0.2-1.0); BLOOD UREA NITROGEN 38 MG/DL (7-18); CALCIUM LEVEL 9.1 MG/DL (8.8-10.2); CARBON DIOXIDE LEVEL 34 MEQ/L (21-32); CHLORIDE LEVEL 93 MEQ/L (98-107); CK-MB VALUE MASS 1.5 NG/ML (<3.6); CPK CREATINE PHOSPHOKINASE 36 U/L (39-308); CREATININE FOR GFR 0.72 MG/DL (0.70-1.30); GLOMERULAR FILTRATION RATE > 60.0 (>35); GLUCOSE, FASTING 169 MG/DL (70-100); MB/CK RELATIVE INDEX 4.17 (< OR =4); NT-PRO BNP 4882 PG/ML (<450); POTASSIUM SERUM 5.5 MEQ/L (3.5-5.1); SODIUM LEVEL 132 MEQ/L (136-145); THYROXINE (T4) 7.6 UG/DL (4.5-12.0); TOTAL PROTEIN 6.1 GM/DL (6.4-8.2); TROPONIN I < 0.02 NG/ML (< 0.10)
[2019-04-26] MEDS ORDERED: ISOVUE-370 76% 100ML VIAL (Q9967) As Ordered ONE (14:19)
[2019-04-26] MEDS ORDERED: NORCO, ANEXSIA 5/325MG TABLET (HYDROcodone/ACETAMINOPHEN) PO ONE (15:30)
[2019-04-26] MEDS ORDERED: PIPERACILLIN/TAZOBACTAM SOD 3.375 GM in D5W MINI-BAG PLUS 50 ML IV ONE (15:30)
[2019-04-26] MEDS ORDERED: IPRA0.00 INH (15:39)
[2019-04-26] MEDS ORDERED: PILL CUTTER 1 EACH XX ONE (15:39)
[2019-04-26] MEDS ORDERED: IPRATROPIUM 0.5MG/ALBUTEROL 2.5MG INH SOL UD 3ML (DUONEB)(J7620) NEB PRN (16:15)
[2019-04-26] MEDS ORDERED: VANCOMYCIN HCL 1,000 MG, VIAL MATE ADAPTER 1 EACH in D5W 250 ML IV SCH (16:15)
[2019-04-26] MEDS ORDERED: MOM 30ML SUSPENSION UDC PEG PRN (16:30)
--- NOTE | 2019-04-26 16:48 | HPEPDOC ---
General Date of Admission 04/26/19 Date of Service: Apr 26, 2019 Primary Care Physician: ONI RING MD [facility] Attending Physician: MELCHOR GUADARRAMA MD Chief Complaint The patient is a 84-year-old male admitted with a reason for visit of Low Spo2. Source: Patient, Family Exam Limitations: No limitations Timing/Duration: Unsure Severity: Mild Associated Symptoms: Other (low pulse ox) History of Present Illness 83 years old white male with past medical history of advanced COPD, interstitial fibrosis, lung cancer status post right upper lobectomy, pulmonary hypertension, dysphagia, status post PEG tube, recurrent aspiration pneumonia, severe protein calorie malnutrition has multiple admission in this hospital. He was seen in the ED a few days ago, came back again with chief complaints of shortness of breath, which started a few days ago along with a low saturation on pulse ox was unable to keep his pulse ox more than 80%. Patient is oxygen dependent on 3 L nasal cannula, but he increased it to 4 L, still unable to maintain his oxygenation and decided to come to ER. Patient does not offer any other complaints including chest pain, nausea, vomiting, diarrhea, syncope or seizures. Home Medications Scheduled Budesonide (Budesonide) 0.5 Mg/2 Ml Ampul.neb, 0.5 MG INH BID, (Reported) Formoterol Fumarate (Perforomist) 20 Mcg/2 Ml Vial.neb, 20 MCG INH BID, (Reported) Gabapentin (Gabapentin) 400 Mg Capsule, 400 MG EN TID, (Reported) Ipratropium/Albuterol Sulfate (Iprat-Albut 0.5-3(2.5) mg/3 ml) 3 Ml Ampul.neb, 1 IGGY INH Q6H, (Reported) Omeprazole (Omeprazole) 40 Mg Capsule.dr, 40 MG EN DAILY, (Reported) Prednisone (Prednisone) 5 Mg/5 Ml Solution, 10 MG EN DAILY, (Reported) Spironolactone (Spironolactone) 25 Mg Tablet, 25 MG EN Q2D, (Reported) Sucralfate (Sucralfate) 1 Gm Tablet, 1 GM EN TID, (Reported) Scheduled PRN Hydrocodone/Acetaminophen (Hydrocodone-Acetamin 10-325 mg) 1 Each Tablet, 1 TAB EN Q6H PRN for PAIN SCALE 6-10, (Reported) Lidocaine (Lidoderm) 5% Adh..patch, 2 PATCH TOP DAILY PRN for PAIN, (Reported) APPLY ONE PATCH TO LEFT SHOULDER AND ONE PATCH TO LEFT UPPER ARM Milk Of Magnesia (Milk of Magnesia) 2,400 Mg/10 Ml Oral.susp, 30 ML EN DAILY PRN for CONSTIPATION, (Reported) Allergies Coded Allergies: No Known Allergies (Unverified , 01/06/19) Past Medical History Medical History COPD, interstitial fibrosis, lung cancer status post right upper lobectomy, pulmonary hypertension, dysphagia status post PEG tube placement, recurrent aspiration pneumonia. Severe protein calorie monitor patient Surgical History Cervical spine surgery, shoulder replacement PEG tube placement, right upper lobectomy Family History Significant Family History: No pertinent family hx Social History * Smoker: Denies Alcohol: Denies Drugs: denies A-FIB/CHADSVASC A-FIB History Current/History of A-Fib/PAF?: No Review of Systems Constitutional: Denies: Chills, Fever, Malaise, Night Sweats, Weakness, Fatigue, Weight Loss, Lethargy, Other Eyes: Denies: Pain, Vision change, Conjunctivae inflammation, Eyelid inflammation, Redness, Other ENT: Denies: Head Aches, Ear Pain, Dysphagia Skin: Denies: Rash, Lesions, Jaundice, Bruising, Itching, Dry, Breakdown, Nail Changes, Other Pulmonary: Reports: Dyspnea Cardiovascular: Denies: Chest Pain, Palpitations, Orthopnea, Paroxysmal Noc. Dyspnea, Edema, Lt Headedness, Other Symptoms Gastrointestinal: Denies: Nausea, Vomiting, Abdominal Pain, Diarrhea, Constipation, Melena, Hematochezia, Other Symptoms Hematologic: Denies: Bruising, Bleeding Excessively, Petecchia, Purpura, Enlarged Lymph Nodes, Other Hematologic Endocrine: Denies: Polydipsia, Polyphagia, Polyuria, Heat Intolerance, Cold Intolerance, Other Endocrine Sx Musculoskeletal: Denies: Neck Pain, Back Pain, Shoulder Pain, Arm Pain, Hand Pain, Leg Pain, Foot Pain, Joint Pain, Muscle Pain, Spasms, Other Symptoms Neurological: Denies: Weakness, Numbness, Incoordination, Change in speech, Confusion, Seizures, Other Symptoms Physical Examination General Exam: Positive: Alert, Cooperative Eye Exam: Positive: PERRLA, Conjunctiva & lids normal ENT Exam: Positive: Atraumatic, Mucous membr. moist/pink Neck Exam: Positive: Supple Chest Exam: Positive: Rhonchi (, left upper lobe. Scattered wheezing. D iminished breath sounds bilaterally) Heart Exam: Positive: Rate Normal, Normal S1, Normal S2 Abdomen Exam: Positive: Normal bowel sounds, Soft Extremity Exam: Positive: Normal pulses Skin Exam: Positive: Nl turgor and temperature Neuro Exam: Positive: Strength at 5/5 X4 ext, Sensation Intact Psych Exam: Positive: Mental status NL, Oriented x 3 Vital Signs Vital Signs Date Time Temp Pulse Resp B/P (MAP) Pulse Ox O2 Delivery O2 Flow Rate FiO2 04/26/19 16:00 92 130/66 (87) 98 04/26/19 15:51 22 04/26/19 14:52 Venturi Mask 50 04/26/19 11:37 98.7 4.0 Laboratory Data Labs 24H Laboratory Tests 2 04/26/19 11:55: Immature Granulocyte % (Auto) 0.8, White Blood Count 19.4H, Red Blood Count 3.58L, Hemoglobin 10.3L, Hematocrit 32.3L, Mean Corpuscular Volume 90.2, Mean Corpuscular Hemoglobin 28.8, Mean Corpuscular Hemoglobin Concent 31.9L, Red Cell Distribution Width 16.1H, Platelet Count 414, Neutrophils (%) (Auto) 89.9H, Lymphocytes (%) (Auto) 4.6L, Monocytes (%) (Auto) 4.5, Eosinophils (%) (Auto) 0.1, Basophils (%) (Auto) 0.1, Neutrophils # (Auto) 17.5H, Lymphocytes # (Auto) 0.9L, Monocytes # (Auto) 0.9H, Eosinophils # (Auto) 0.0, Basophils # (Auto) 0.0, Nucleated Red Blood Cells % (auto) 0.0 04/26/19 12:10: POC pH (Misc Panel) 7.408, POC Base Excess (Misc Panel) 10.0H, POC Saturated Percent O2 (Misc) 94L, POC pO2 (Misc Panel) 71.0L, POC pCO2 (Misc Panel) 55.3H, POC HCO3 (Misc Panel) 34.9H, POC Total CO2 (Misc Panel) 37.0H 04/26/19 12:19: Prothrombin Time 12.7, Prothromb Time International Ratio 0.98, D-Dimer, Quantitative 2344.60H, Anion Gap 5L, Glomerular Filtration Rate > 60.0, Lactic Acid Level 2.2*H, Calcium Level 9.1, Aspartate Amino Transf (AST/SGOT) 22, Alanine Aminotransferase (ALT/SGPT) 28, Alkaline Phosphatase 65, Total Bilirubin 0.3, Direct Bilirubin 0.1, Total Creatine Kinase 36L, Creatine Kinase MB 1.5, Creatine Kinase MB Relative Index 4.17H, Troponin I < 0.02, RM-Fkf-A-Type Natriuretic Peptide 4882H, Total Protein 6.1L, Albumin 2.5L, Albumin/Globulin Ratio 0.69L, Thyroid Stimulating Hormone (TSH) 1.510, Thyroxine (T4) 7.6 CBC/BMP Laboratory Tests 04/26/19 11:55 Red Blood Count 3.58 L, Mean Corpuscular Volume 90.2, Mean Corpuscular Hemoglobin 28.8, Mean Corpuscular Hemoglobin Concent 31.9 L, Red Cell Distribution Width 16.1 H, Neutrophils (%) (Auto) 89.9 H, Lymphocytes (%) (Auto) 4.6 L, Monocytes (%) (Auto) 4.5, Eosinophils (%) (Auto) 0.1, Basophils (%) (Auto) 0.1, Neutrophils # (Auto) 17.5 H, Lymphocytes # (Auto) 0.9 L, Monocytes # (Auto) 0.9 H, Eosinophils # (Auto) 0.0, Basophils # (Auto) 0.0 04/26/19 12:19 Microbiology Microbiology 04/26/19 Blood Culture, Received Pending 04/26/19 Blood Culture, Received Pending Problems (1) Aspiration pneumonia Status: Acute Problem Text: 84 years old white male with past medical history of multiple medical problems including advanced COPD and recurrent aspiration pneumonia, came back again with repeated aspiration pneumonia on left upper lobe with hypoxia and we'll called in to admit patient for further treatment. Admit to [facility] floor Telemetry monitoring and continuous pulse ox Oxygen support DuoNeb every 6 hours and every 2 hours when necessary Zosyn 3.375 mg IV every 6 hours Vanco 1 g IV every 12 hours Hold PEG feeding Will call a dietary consultation for further recommendations DVT prophylaxis with Lovenox Activity as tolerated Continue home meds (2) COPD (chronic obstructive pulmonary disease) Status: Chronic Problem Text: DuoNeb every 6 hours and every 2 hours when necessary Solu-Medrol 60 mg IV every 8 hours Oxygen support Pulmonary rehabilitation (3) Protein calorie malnutrition Status: Chronic Problem Text: Patient with history of dysphagia on Jevity 1.5, 6 cans with c ontinuous feeding Will keep patient nothing by mouth in the meantime Request dietary consult for further recommendations. The patient's PEG tube feeding (4) Dysphagia Status: Chronic Problem Text: As above (5) Lung cancer Status: Chronic Problem Text: Status post right upper lobectomy Continue home meds Plan / VTE VTE Prophylaxis Ordered?: Yes MELCHOR GUADARRAMA MD Apr 26, 2019 16:48
[2019-04-26] MEDS ORDERED: VANCOMYCIN HCL 1,000 MG, VIAL MATE ADAPTER 1 EACH in D5W 250 ML IV ONE (17:00)
[2019-04-26 18:00] VITALS: BP 120/70
[2019-04-26] MEDS: methylPREDNISolone INJ 125 MG/2 ML VIAL (J2930) IV SCH (18:50)
[2019-04-26] MEDS: SPIRONOLACTONE 25 MG TAB PEG SCH (18:51)
[2019-04-26] MEDS: D5W/0.45% SODIUM CHLORIDE 1,000 ML IV SCH (18:59)
--- NOTE | 2019-04-26 19:06 | PHACANCOPD ---
PHARMACY VANCOMYCIN DOSING Pt Demographics Demographics Patient Age:84 , Weight:45.800 , Gender: male Adjusted Body Weight Date: 04/26/19, Adjusted Body Weight: [use actual] Kg Events Past 24 Hours Events Past 24 Hours: NO: Dialysis, Diuretic Therapy, Change in CrCl, Fever, Elevation in WBC, Pending Diagnostics, Pending Procedures, Other Vancomycin Vancomycin indication: aspiration pneumonia Vancomycin Target Ranges: 15-20 mcg/ml Vancomycin Load Y/N: Yes Load Dose Date Time Vancomycin Load Dose: 1000mg Date: 04/26 Time: ~17:00 Vancomycin Dose Date: 04/26/19. Current Vancomycin Dose: [500mg IV q12h @06] Intermittent Dosing?: No Labs Labs Item Value Date Time White Blood Count 19.4 10^3/uL H 04/26/19 1155 Creatinine 0.72 MG/DL 04/26/19 1219 Lactic Acid Level 2.2 MMOL/L *H 04/26/19 1219 Micro Microbiology 04/26/19 Blood Culture, Received Pending 04/26/19 Blood Culture, Received Pending Creatinine Clearance Date:04/26/19. Creatinine Clearance: [~50 ml/min]. Pending Labs Vanco trough scheduled 04/28 @05:00 Assessment and Plan Maintaining Current Dose?: Yes Reason for dose change: No Dose Change Pharmacist Note Pharmacist Note Date: 04/26/19. Pharmacist note: pt has been started on Zosyn and Vancomycin for aspiration pneumonia. Past sputum cultures from this March were notable for P seudomonas and MRSA ([place] = 1). Based on prior consults I have started the patient on a vancomycin 1g load followed by 500mg IV q12h to start ~12 hours later. Blood cultures are pending. I have a trough scheduled for Saturday. We will continue to monitor and make adjustments as necessary. Isidoro Matos Pharm.D. Apr 26, 2019 19:06
[2019-04-26 20:00] VITALS: BP 155/76
[2019-04-26] MEDS: IPRATROPIUM 0.5MG/ALBUTEROL 2.5MG INH SOL UD 3ML (DUONEB)(J7620) NEB SCH (20:00)
[2019-04-26] MEDS: FORMOTEROL FUMARATE 20 MCG/2 ML INHALATION SOLUTION (PERFOROMIST) INH SCH (20:13)
[2019-04-26] MEDS: SYMBICORT 160/4.5MCG INHALER 6GM INH SCH (20:14)
[2019-04-26 21:00] VITALS: O2SAT 97
[2019-04-26] MEDS: GABAPENTIN 400 MG CAP NG SCH (21:35)
[2019-04-26] MEDS: SUCRALFATE 1 GM TAB PEG SCH (21:35)
[2019-04-26] MEDS: PIPERACILLIN/TAZOBACTAM SOD 3.375 GM in D5W MINI-BAG PLUS 50 ML IV SCH (21:36)
[2019-04-26 22:00] VITALS: O2SAT 96
[2019-04-26 23:00] VITALS: O2SAT 93
[2019-04-27] VITALS (29 sets, daily range): BP systolic 132–155; BP diastolic 63–79; O2SAT 89–100
[2019-04-27] MEDS: IPRATROPIUM 0.5MG/ALBUTEROL 2.5MG INH SOL UD 3ML (DUONEB)(J7620) NEB SCH ×4 (00:18→20:00)
[2019-04-27] MEDS: methylPREDNISolone INJ 125 MG/2 ML VIAL (J2930) IV SCH ×3 (02:00→17:18)
[2019-04-27] MEDS: D5W/0.45% SODIUM CHLORIDE 1,000 ML IV SCH ×2 (02:00→12:33)
[2019-04-27] MEDS: PIPERACILLIN/TAZOBACTAM SOD 3.375 GM in D5W MINI-BAG PLUS 50 ML IV SCH ×4 (04:57→20:38)
[2019-04-27 05:39] LABS: HEMATOCRIT 30.6 % (42.0-52.0); HEMOGLOBIN 9.5 g/dl (13.5-17.5); MEAN CORPUSCULAR HEMOGLOBIN 28.9 pg (27.0-33.0); PLATELET COUNT, AUTOMATED 341 10^3/uL (150-450); RED BLOOD COUNT 3.29 10^6/uL (4.30-6.10); WHITE BLOOD COUNT 15.8 10^3/uL (4.0-10.0)
[2019-04-27 06:00] LABS: ALBUMIN 2.1 GM/DL (3.2-5.2); ALT/SGPT 22 U/L (12-78); BILIRUBIN,TOTAL 0.3 MG/DL (0.2-1.0); BLOOD UREA NITROGEN 29 MG/DL (7-18); CALCIUM LEVEL 8.6 MG/DL (8.8-10.2); CARBON DIOXIDE LEVEL 29 MEQ/L (21-32); CHLORIDE LEVEL 95 MEQ/L (98-107); CREATININE FOR GFR 0.78 MG/DL (0.70-1.30); GLOMERULAR FILTRATION RATE > 60.0 (>35); GLUCOSE, FASTING 157 MG/DL (70-100); MAGNESIUM LEVEL 2.2 MG/DL (1.8-2.4); POTASSIUM SERUM 4.5 MEQ/L (3.5-5.1); SODIUM LEVEL 132 MEQ/L (136-145); TOTAL PROTEIN 6.1 GM/DL (6.4-8.2)
[2019-04-27] MEDS: VANCOMYCIN HCL 500 MG in D5W MINI-BAG PLUS 100 ML IV SCH ×2 (06:10→17:18)
[2019-04-27] MEDS: FORMOTEROL FUMARATE 20 MCG/2 ML INHALATION SOLUTION (PERFOROMIST) INH SCH ×2 (07:27→20:43)
[2019-04-27] MEDS: SYMBICORT 160/4.5MCG INHALER 6GM INH SCH ×2 (07:29→20:43)
[2019-04-27] MEDS: GABAPENTIN 400 MG CAP NG SCH ×3 (08:49→19:28)
[2019-04-27] MEDS: ENOXAPARIN 40 MG/0.4 ML SYRINGE (J1650) SC SCH (08:49)
[2019-04-27] MEDS: OMEPRAZOLE 20 MG CAP PO SCH (08:50)
[2019-04-27] MEDS: SUCRALFATE 1 GM TAB PEG SCH ×3 (08:50→19:28)
[2019-04-27] MEDS ORDERED: predniSONE 5MG/5ML SOLN ORAL SYRINGE PEG SCH (09:00)
[2019-04-27] MEDS ORDERED: PREVNAR 13 VACCINE SYRINGE (CPT CODE:90670) IM ONE (09:00)
[2019-04-27] MEDS: HYDROcodone/APAP LIQUID 7.5-325MG 15ML UDC (LORTAB ELIXIR) PO PRN ×3 (09:07→19:37)
--- NOTE | 2019-04-27 12:17 | IPNPDOC ---
Subjective Date Seen The patient was seen on 04/27/19. Subjective Chief Complaint/HPI Patient is comfortable in no apparent distress. Family at the bedside General: Denies: ROS Unobtainable, Chills, Night Sweats, Fatigue, Malaise, Normal Appetite, Other Symptoms Constitutional: Denies: Chills, Fever, Malaise, Night Sweats, Weakness, Fatigue, Weight Loss, Lethargy, Other Eyes: Denies: Pain, Vision change, Conjunctivae inflammation, Eyelid inflammation, Redness, Other ENT: Denies: Head Aches, Ear Pain, Dysphagia, Sinus Congestion, Post Nasal Drip, Sore Throat, Epistaxis, Other Symptoms Skin: Denies: Rash, Lesions, Jaundice, Bruising, Itching, Dry, Breakdown, Nail Changes, Other Pulmonary: Reports: Cough Cardiovascular: Denies: Chest Pain, Palpitations, Orthopnea, Paroxysmal Noc. Dyspnea, Edema, Lt Headedness, Other Symptoms Gastrointestinal: Denies: Nausea, Vomiting, Abdominal Pain, Diarrhea, Constipation, Melena, Hematochezia, Other Symptoms Musculoskeletal: Denies: Neck Pain, Back Pain, Shoulder Pain, Arm Pain, Hand P ain, Leg Pain, Foot Pain, Joint Pain, Muscle Pain, Spasms, Other Symptoms Neurological: Denies: Weakness, Numbness, Incoordination, Change in speech, Confusion, Seizures, Other Symptoms Objective Physical Examination General Exam: Positive: Alert, Cooperative Eye Exam: Positive: PERRLA, Conjunctiva & lids normal ENT Exam: Positive: Atraumatic, Mucous membr. moist/pink Neck Exam: Positive: Supple Chest Exam: Positive: Rhonchi (, left upper lobe. Scattered wheezing. Diminished breath sounds bilaterally) Heart Exam: Positive: Rate Normal, Normal S1, Normal S2 Abdomen Exam: Positive: Normal bowel sounds, Soft Extremity Exam: Positive: Normal pulses Skin Exam: Positive: Nl turgor and temperature Neuro Exam: Positive: Strength at 5/5 X4 ext, Sensation Intact Psych Exam: Positive: Mental status NL, Oriented x 3 Assessment /Plan Problems (1) Aspiration pneumonia Status: Acute Problem Text: 84 years old white male with past medical history of multiple medical problems including advanced COPD and recurrent aspiration pneumonia, came back again with repeated aspiration pneumonia on left upper lobe with hypoxia and we'll called in to admit patient for further treatment. Admit to MedSurg floor Telemetry monitoring and continuous pulse ox Oxygen support DuoNeb every 6 hours and every 2 hours when necessary Zosyn 3.375 mg IV every 6 hours Vanco 1 g IV every 12 hours Hold PEG feeding, on IV fluids D5 half-normal saline 150 mL per hour Dietary consult pending DVT prophylaxis with Lovenox Will need PT, OT eval Continue home meds (2) COPD (chronic obstructive pulmonary disease) Status: Chronic Problem Text: DuoNeb every 6 hours and every 2 hours when necessary Solu-Medrol 60 mg IV every 8 hours Oxygen support Pulmonary rehabilitation (3) Protein calorie malnutrition Status: Chronic Problem Text: Patient with history of dysphagia on Jevity 1.5, 6 cans with continuous feeding Will keep patient nothing by mouth in the meantime Request dietary consult for further recommendations. The patient's PEG tube feeding (4) Dysphagia Status: Chronic Problem Text: As above (5) Lung cancer Status: Chronic Problem Text: Status post right upper lobectomy Continue home meds Plan/VTE VTE Prophylaxis Ordered?: Yes VS, I&O, 24H, Fishbone Vital Signs/I&O Vital Signs Date Time Temp Pulse Resp B/P (MAP) Pulse Ox O2 Delivery O2 Flow Rate FiO2 04/27/19 11:32 98.7 83 18 132/68 (89) 96 04/27/19 09:00 Venturi Mask 50 04/27/19 00:19 15.0 I&O- Last 24 Hours up to 6 AM 04/27/19 06:00 Intake Total 3360 ml Output Total 500 ml Balance 2860 ml Laboratory Data 24H LABS Laboratory Tests 2 04/26/19 12:19: Prothrombin Time 12.7, Prothromb Time International Ratio 0.98, D-Dimer, Quantitative 2344.60H, Anion Gap 5L, Glomerular Filtration Rate > 60.0, Lactic Acid Level 2.2*H, Calcium Level 9.1, Aspartate Amino Transf (AST/SGOT) 22, Al anine Aminotransferase (ALT/SGPT) 28, Alkaline Phosphatase 65, Total Bilirubin 0.3, Direct Bilirubin 0.1, Total Creatine Kinase 36L, Creatine Kinase MB 1.5, Creatine Kinase MB Relative Index 4.17H, Troponin I < 0.02, GI-Gyh-Q-Type Natriuretic Peptide 4882H, Total Protein 6.1L, Albumin 2.5L, Albumin/Globulin Ratio 0.69L, Thyroid Stimulating Hormone (TSH) 1.510, Thyroxine (T4) 7.6 04/26/19 18:04: Lactic Acid Followup at 4 Hours 2.7*H 04/26/19 22:45: Lactic Acid Level 2.6*H 04/27/19 02:58: Lactic Acid Followup at 4 Hours 2.7*H 04/27/19 05:25: Nucleated Red Blood Cells % (auto) 0.0, Anion Gap 8, Glomerular Filtration Rate > 60.0, Blood Urea Nitrogen 29H, Creatinine 0.78, Sodium Level 132L, Potassium Level 4.5, Chloride Level 95L, Carbon Dioxide Level 29, Calcium Level 8.6L, Aspartate Amino Transf (AST/SGOT) 14, Alanine Aminotransferase (ALT/SGPT) 22, Alkaline Phosphatase 61, Total Bilirubin 0.3, Total Protein 6.1L, Albumin 2.1L, Magnesium Level 2.2, Albumin/Globulin Ratio 0.53L CBC/BMP Laboratory Tests 04/26/19 12:19 04/27/19 05:25 Red Blood Count 3.29 L, Mean Corpuscular Volume 93.0, Mean Corpuscular Hemoglobin 28.9, Mean Corpuscular Hemoglobin Concent 31.0 L, Red Cell Distribution Width 16.0 H, Calcium Level 8.6 L, Aspartate Amino Transf (AST/SGOT) 14, Alanine Aminotransferase (ALT/SGPT) 22, Alkaline Phosphatase 61, Total Bilirubin 0.3, Total Protein 6.1 L, Albumin 2.1 L Microbiology Microbiology 04/26/19 Blood Culture, Received Pending 04/26/19 Blood Culture, Received Pending MELCHOR GUADARRAMA MD Apr 27, 2019 12:17
[2019-04-27] MEDS: ACETAMINOPHEN TAB 650MG DOSE (2X325MG) PO PRN ×2 (12:34→21:54)
--- NOTE | 2019-04-27 20:04 | ECGEPIP ---
[facility] - ED Test Date: 2019-04-26 Pat Name: DILIP SARAVIA Department: Room: - Gender: Male [employer] [place]: : 1935 Requested By: DILIP Betancourt Order Number: [id number] Reading MD: Mekhi Bishop Measurements Intervals Worden Rate: 103 P: 71 CT: 130 QRS: 141 QRSD: 125 T: 38 QT: 339 QTc: 444 Interpretive Statements SINUS TACHYCARDIA RIGHT AXIS DEVIATION LEFT ATRIAL ENLARGEMENT RIGHT BUNDLE BRANCH BLOCK AND POSSIBLE RIGHT VENTRICULAR HYPERTROPHY SIMILAR TO 04/23/19 Electronically Signed on 04-27-2019 20:03:54 EDT by Mekhi Bishop
[2019-04-28] VITALS (18 sets, daily range): BP systolic 143–170; BP diastolic 64–80; O2SAT 50–99
[2019-04-28] MEDS: IPRATROPIUM 0.5MG/ALBUTEROL 2.5MG INH SOL UD 3ML (DUONEB)(J7620) NEB SCH ×4 (01:41→20:00)
[2019-04-28] MEDS: HYDROcodone/APAP LIQUID 7.5-325MG 15ML UDC (LORTAB ELIXIR) PO PRN ×4 (01:58→23:00)
[2019-04-28] MEDS: methylPREDNISolone INJ 125 MG/2 ML VIAL (J2930) IV SCH ×3 (01:58→16:21)
[2019-04-28] MEDS: PIPERACILLIN/TAZOBACTAM SOD 3.375 GM in D5W MINI-BAG PLUS 50 ML IV SCH ×4 (04:12→20:56)
[2019-04-28] MEDS: ACETAMINOPHEN TAB 650MG DOSE (2X325MG) PO PRN ×3 (04:32→20:56)
[2019-04-28 05:40] LABS: BASO % 0.1 % (0.0-1.0); HEMATOCRIT 30.3 % (42.0-52.0); HEMOGLOBIN 9.7 g/dl (13.5-17.5); LYMPH # 0.4 10^3/uL (1.5-4.5); LYMPH % 1.7 % (24.0-44.0); MEAN CORPUSCULAR VOLUME 90.4 fl (80.0-96.0); MONO # 0.5 10^3/uL (0.0-0.8); MONO % 2.2 % (0.0-5.0); NEUTROPHILS # 20.2 10^3/uL (1.8-7.7); NEUTROPHILS % 94.2 % (36.0-66.0); PLATELET COUNT, AUTOMATED 358 10^3/uL (150-450); RED BLOOD COUNT 3.35 10^6/uL (4.30-6.10); WHITE BLOOD COUNT 21.4 10^3/uL (4.0-10.0)
[2019-04-28 06:01] LABS: ALBUMIN 2.1 GM/DL (3.2-5.2); ALT/SGPT 33 U/L (12-78); BILIRUBIN,TOTAL 0.3 MG/DL (0.2-1.0); BLOOD UREA NITROGEN 26 MG/DL (7-18); CALCIUM LEVEL 8.3 MG/DL (8.8-10.2); CARBON DIOXIDE LEVEL 34 MEQ/L (21-32); CHLORIDE LEVEL 94 MEQ/L (98-107); CREATININE FOR GFR 0.76 MG/DL (0.70-1.30); GLOMERULAR FILTRATION RATE > 60.0 (>35); GLUCOSE, FASTING 275 MG/DL (70-100); POTASSIUM SERUM 3.5 MEQ/L (3.5-5.1); SODIUM LEVEL 132 MEQ/L (136-145); TOTAL PROTEIN 5.8 GM/DL (6.4-8.2); VANCOMYCIN LEVEL TROUGH 10.8 UG/ML (10.0-20.0)
[2019-04-28] MEDS: VANCOMYCIN HCL 500 MG in D5W MINI-BAG PLUS 100 ML IV SCH ×3 (06:08→22:25)
--- NOTE | 2019-04-28 06:29 | PHACANCOPD ---
PHARMACY VANCOMYCIN DOSING Pt Demographics Demographics Patient Age:84 , Weight:45.300 , Gender: male Adjusted Body Weight Date: 04/26/19, Adjusted Body Weight: [use actual] Kg Events Past 24 Hours Events Past 24 Hours: NO: Dialysis, Diuretic Therapy, Change in CrCl, Fever, Elevation in WBC, Pending Diagnostics, Pending Procedures, Other Vancomycin Vancomycin indication: aspiration pneumonia Vancomycin Target Ranges: 15-20 mcg/ml Vancomycin Load Y/N: Yes Load Dose Date Time Vancomycin Load Dose: 1000mg Date: 04/26 Time: ~17:00 Vancomycin Dose Date: 04/28/19. Current Vancomycin Dose: [500mg IV q8h ] Intermittent Dosing?: No Labs Micro Microbiology 04/26/19 Blood Culture - Preliminary, Resulted No growth after 24 hours . All specim... 04/26/19 Blood Culture - Preliminary, Resulted No growth after 24 hours . All specim... Creatinine Clearance Date:04/28/19. Creatinine Clearance: [~66]. Pending Labs Vanco trough scheduled 04/28 @2100 Assessment and Plan Maintaining Current Dose?: No Reason for dose change: Trough too low Pharmacist Note Pharmacist Note Date: 04/28/19. Pharmacist note:Trough of 10.8 is below target range. Dosing increased to 500mg q8h. Will continue to monitor and make adjustments as needed. [facility] Apr 28, 2019 06:29
[2019-04-28] MEDS: SYMBICORT 160/4.5MCG INHALER 6GM INH SCH ×2 (07:32→21:18)
[2019-04-28] MEDS: FORMOTEROL FUMARATE 20 MCG/2 ML INHALATION SOLUTION (PERFOROMIST) INH SCH ×2 (07:32→21:18)
--- NOTE | 2019-04-28 08:00 | REP ---
Portable chest, 12:03 p.m., single AP view with the patient sitting: Comparison is 04/10/2019. The the patient is rotated, as previously. The previous right lung infiltrate has resolved. There is an infiltrate inferiorly in the left lung, unchanged. Cardiac size is normal. The cervical spine stabilization plate is unchanged. Surgical clips in the mediastinum are unchanged. Left shoulder arthroplasty is unchanged. No new new infiltrate is identified. Electronically Signed by Jaime Haas MD 04/26/2019 12:19 P
--- NOTE | 2019-04-28 08:02 | REP ---
CT of the chest with IV contrast, CT pulmonary angiography protocol: Comparisons are the 10/22/2018 and 03/13/2019. There are no emboli in the pulmonary trunk or central pulmonary arteries. There are no emboli in the pulmonary lobe or segment branches. The infiltrates identified in the lower lobes bilaterally and in the right upper lobe on 03/13/2019 have resolved. However, there is a new interstitial infiltrate in the left upper lobe and lingula as an interval change. There is a left pleural effusion. This is unchanged from both prior studies. The right pleural effusion identified 03/13/2019 has resolved. There are numerous bulla replacing the lung parenchyma bilaterally. This is unchanged. Right hilar fullness is again identified, unchanged. The visualized upper abdominal contents are unremarkable and unchanged. Impression: The there is a new interstitial infiltrate in the left upper lobe and lingula. There is a left pleural effusion, unchanged. The bibasilar infiltrates identified previously have resolved. The right pleural effusion identified previously has resolved. Right hilar fullness is unchanged. 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 Electronically Signed by Jaime Haas MD 04/26/2019 03:06 P
[2019-04-28] MEDS: OMEPRAZOLE 20 MG CAP PO SCH (10:06)
[2019-04-28] MEDS: SPIRONOLACTONE 25 MG TAB PEG SCH (10:06)
[2019-04-28] MEDS: SUCRALFATE 1 GM TAB PEG SCH ×3 (10:07→20:56)
[2019-04-28] MEDS: ENOXAPARIN 40 MG/0.4 ML SYRINGE (J1650) SC SCH (10:07)
[2019-04-28] MEDS: GABAPENTIN 400 MG CAP NG SCH ×3 (10:07→20:56)
--- NOTE | 2019-04-28 10:38 | IPNPDOC ---
Subjective Date Seen The patient was seen on 04/28/19. Subjective Chief Complaint/HPI Patient is comfortable. Feeling slightly better on oxygen support in no apparent distress Constitutional: Denies: Chills, Fever, Malaise, Night Sweats, Weakness, Fatigue, Weight Loss, Lethargy, Other Eyes: Denies: Pain, Vision change, Conjunctivae inflammation, Eyelid inflammation, Redness, Other ENT: Denies: Head Aches, Ear Pain, Dysphagia, Sinus Congestion, Post Nasal Drip, Sore Throat, Epistaxis, Other Symptoms Skin: Denies: Rash, Lesions, Jaundice, Bruising, Itching, Dry, Breakdown, Nail Changes, Other Pulmonary: Reports: Dyspnea Cardiovascular: Denies: Chest Pain, Palpitations, Orthopnea, Paroxysmal Noc. Dyspnea, Edema, Lt Headedness, Other Symptoms Gastrointestinal: Denies: Nausea, Vomiting, Abdominal Pain, Diarrhea, Constipation, Melena, Hematochezia, Other Symptoms Musculoskeletal: Denies: Neck Pain, Back Pain, Shoulder Pain, Arm Pain, Hand Pain, Leg Pain, Foot Pain, Joint Pain, Muscle Pain, Spasms, Other Symptoms Neurological: Denies: Weakness, Numbness, Incoordination, Change in speech, Confusion, Seizures, Other Symptoms Psych: Denies: Mood Normal, Anxiety, Depression, Memory Issues, Thoughts of S elf Harm, Anger, Thoughts of Harming Other, Other Psych Objective Physical Examination General Exam: Positive: Alert, Cooperative Neck Exam: Positive: Supple Chest Exam: Positive: Rhonchi (, left upper lobe. Scattered wheezing. Diminished breath sounds bilaterally) Heart Exam: Positive: Rate Normal, Normal S1, Normal S2 Abdomen Exam: Positive: Normal bowel sounds, Soft Extremity Exam: Positive: Normal pulses Skin Exam: Positive: Nl turgor and temperature Neuro Exam: Positive: Strength at 5/5 X4 ext, Sensation Intact Assessment /Plan Problems (1) Aspiration pneumonia Status: Acute Problem Text: 84 years old white male with past medical history of multiple medical problems including advanced COPD and recurrent aspiration pneumonia, came back again with repeated aspiration pneumonia on left upper lobe with hypoxia and we'll called in to admit patient for further treatment. [facility] Tele[facility] monitoring and continuous pulse ox Oxygen support DuoNeb every 6 hours and every 2 hours when necessary Zosyn 3.375 mg IV every 6 hours Vanco 1 g IV every 12 hours Dietary consult appreciated. Patient's PEG tube feeding has been restarted as per dietary recommendations DVT prophylaxis with Lovenox PT, OT evaluations in process Continue home meds (2) COPD (chronic obstructive pulmonary disease) Status: Chronic Problem Text: DuoNeb every 6 hours and every 2 hours when necessary Solu-Medrol 60 mg IV every 8 hours Oxygen support Pulmonary rehabilitation (3) Protein calorie malnutrition Status: Chronic Problem Text: Patient with history of dysphagia on Jevity 1.5, 6 cans with continuous feeding Will keep patient nothing by mouth in the meantime Request dietary consult for further recommendations. The patient's PEG tube feeding (4) Dysphagia Status: Chronic Problem Text: As above (5) Lung cancer Status: Chronic Problem Text: Status post right upper lobectomy Continue home meds Plan/VTE VTE Prophylaxis Ordered?: Yes VS, I&O, 24H, Fishbone Vital Signs/I&O Vital Signs Date Time Temp Pulse Resp B/P (MAP) Pulse Ox O2 Delivery O2 Flow Rate FiO2 04/28/19 10:23 20 90 40 04/28/19 08:00 97.6 95 160/80 (106) 04/28/19 06:00 Venturi Mask 04/28/19 04:00 15.0 I&O- Last 24 Hours up to 6 AM 04/28/19 06:00 Intake Total 1430 ml Output Total 825 ml Balance 605 ml Laboratory Data 24H LABS Laboratory Tests 2 04/28/19 05:23: Immature Granulocyte % (Auto) 1.8, White Blood Count 21.4H, Red Blood Count 3.35L, Hemoglobin 9.7L, Hematocrit 30.3L, Mean Corpuscular Volume 90.4, Mean Corpuscular Hemoglobin 29.0, Mean Corpuscular Hemoglobin Concent 32.0, Red Cell Distribution Width 15.9H, Platelet Count 358, Neutrophils (%) (Auto) 94.2H, Lymphocytes (%) (Auto) 1.7L, Monocytes (%) (Auto) 2.2, Eosinophils (%) (Auto) 0.0, Basophils (%) (Auto) 0.1, Neutrophils # (Auto) 20.2H, Lymphocytes # (Auto) 0.4L, Monocytes # (Auto) 0.5, Eosinophils # (Auto) 0.0, Basophils # (Auto) 0.0, Nucleated Red Blood Cells % (auto) 0.0, Anion Gap 4L, Glomerular Filtration Rate > 60.0, Blood Urea Nitrogen 26H, Creatinine 0.76, Sodium Level 132L, Potassium Level 3.5#, Chloride Level 94L, Carbon Dioxide Level 34H, Calcium Level 8.3L, Aspartate Amino Transf (AST/SGOT) 21, Alanine Aminotransferase (ALT/SGPT) 33, Al kaline Phosphatase 62, Total Bilirubin 0.3, Total Protein 5.8L, Albumin 2.1L, Albumin/Globulin Ratio 0.57L, Vancomycin Level Trough 10.8 CBC/BMP Laboratory Tests 04/28/19 05:23 Red Blood Count 3.35 L, Mean Corpuscular Volume 90.4, Mean Corpuscular Hemoglobin 29.0, Mean Corpuscular Hemoglobin Concent 32.0, Red Cell Distribution Width 15.9 H, Neutrophils (%) (Auto) 94.2 H, Lymphocytes (%) (Auto) 1.7 L, Monocytes (%) (Auto) 2.2, Eosinophils (%) (Auto) 0.0, Basophils (%) (Auto) 0.1, Neutrophils # (Auto) 20.2 H, Lymphocytes # (Auto) 0.4 L, Monocytes # (Auto) 0.5, Eosinophils # (Auto) 0.0, Basophils # (Auto) 0.0, Calcium Level 8.3 L, Aspartate Amino Transf (AST/SGOT) 21, Alanine Aminotransferase (ALT/SGPT) 33, Alkaline Phosphatase 62, Total Bilirubin 0.3, Total Protein 5.8 L, Albumin 2.1 L Microbiology Microbiology 04/26/19 Blood Culture - Preliminary, Resulted No growth after 24 hours . All specim... 04/26/19 Blood Culture - Preliminary, Resulted No growth after 24 hours . All specim... MELCHOR GUADARRAMA MD Apr 28, 2019 10:38
[2019-04-28] MEDS: LIDOCAINE 5% (LIDODERM) PATCH TOP PRN (13:27)
[2019-04-29] VITALS (16 sets, daily range): BP systolic 152–154; BP diastolic 81–84; O2SAT 88–99
[2019-04-29] MEDS: IPRATROPIUM 0.5MG/ALBUTEROL 2.5MG INH SOL UD 3ML (DUONEB)(J7620) NEB SCH ×4 (02:00→20:00)
[2019-04-29] MEDS: methylPREDNISolone INJ 125 MG/2 ML VIAL (J2930) IV SCH ×3 (02:01→17:04)
[2019-04-29] MEDS: ACETAMINOPHEN TAB 650MG DOSE (2X325MG) PO PRN ×4 (02:07→21:56)
[2019-04-29] MEDS: HYDROcodone/APAP LIQUID 7.5-325MG 15ML UDC (LORTAB ELIXIR) PO PRN ×3 (03:54→18:15)
[2019-04-29] MEDS: PIPERACILLIN/TAZOBACTAM SOD 3.375 GM in D5W MINI-BAG PLUS 50 ML IV SCH ×4 (03:54→21:49)
[2019-04-29] MEDS: VANCOMYCIN HCL 500 MG in D5W MINI-BAG PLUS 100 ML IV SCH (05:31)
[2019-04-29 06:07] LABS: BASO % 0.1 % (0.0-1.0); HEMATOCRIT 30.5 % (42.0-52.0); HEMOGLOBIN 9.9 g/dl (13.5-17.5); LYMPH # 0.5 10^3/uL (1.5-4.5); LYMPH % 2.3 % (24.0-44.0); MEAN CORPUSCULAR HEMOGLOBIN 28.6 pg (27.0-33.0); MEAN CORPUSCULAR HGB CONC 32.5 g/dl (32.0-36.5); MEAN CORPUSCULAR VOLUME 88.2 fl (80.0-96.0); MONO # 0.5 10^3/uL (0.0-0.8); MONO % 2.3 % (0.0-5.0); NEUTROPHILS # 18.5 10^3/uL (1.8-7.7); NEUTROPHILS % 92.7 % (36.0-66.0); PLATELET COUNT, AUTOMATED 442 10^3/uL (150-450); RED BLOOD COUNT 3.46 10^6/uL (4.30-6.10); WHITE BLOOD COUNT 19.9 10^3/uL (4.0-10.0)
[2019-04-29 06:22] LABS: ALBUMIN 2.3 GM/DL (3.2-5.2); ALT/SGPT 38 U/L (12-78); BILIRUBIN,TOTAL 0.3 MG/DL (0.2-1.0); BLOOD UREA NITROGEN 25 MG/DL (7-18); CALCIUM LEVEL 8.6 MG/DL (8.8-10.2); CARBON DIOXIDE LEVEL 35 MEQ/L (21-32); CHLORIDE LEVEL 96 MEQ/L (98-107); GLOMERULAR FILTRATION RATE > 60.0 (>35); GLUCOSE, FASTING 246 MG/DL (70-100); SODIUM LEVEL 138 MEQ/L (136-145); TOTAL PROTEIN 5.9 GM/DL (6.4-8.2)
[2019-04-29] MEDS: FORMOTEROL FUMARATE 20 MCG/2 ML INHALATION SOLUTION (PERFOROMIST) INH SCH ×2 (07:57→20:21)
[2019-04-29] MEDS: SYMBICORT 160/4.5MCG INHALER 6GM INH SCH ×2 (07:57→21:00)
[2019-04-29] MEDS ORDERED: POTASSIUM CHLORIDE 10 MEQ SR TABLET PO ONE ×2 (08:30→12:00)
[2019-04-29] MEDS: ENOXAPARIN 40 MG/0.4 ML SYRINGE (J1650) SC SCH (08:55)
[2019-04-29] MEDS: OMEPRAZOLE 20 MG CAP PO SCH (08:56)
[2019-04-29] MEDS: GABAPENTIN 400 MG CAP NG SCH ×3 (08:56→21:49)
[2019-04-29] MEDS: SUCRALFATE 1 GM TAB PEG SCH ×3 (08:56→21:49)
[2019-04-29] MEDS ORDERED: POTASSIUM CHLORIDE 10% LIQ 20 MEQ/15 ML UDC PEG ONE (09:30)
[2019-04-29] MEDS ORDERED: POTASSIUM CHLORIDE 10% LIQ 20 MEQ/15 ML UDC PO ONE (12:15)
--- NOTE | 2019-04-29 14:40 | PHACANCOPD ---
PHARMACY VANCOMYCIN DOSING Pt Demographics Demographics Patient Age:84 , Weight:43.200 , Gender: male Adjusted Body Weight Date: 04/26/19, Adjusted Body Weight: [use actual] Kg Vancomycin Vancomycin indication: aspiration pneumonia Vancomycin Target Ranges: 15-20 mcg/ml Vancomycin Load Y/N: Yes Load Dose Date Time Vancomycin Load Dose: 1000mg Date: 04/26 Time: ~17:00 Vancomycin Dose Date: 04/28/19. Current Vancomycin Dose: [500mg IV q8h ] Intermittent Dosing?: No Labs Micro Microbiology 04/26/19 Blood Culture - Preliminary, Resulted No Growth after 72 hours. All specime... 04/26/19 Blood Culture - Preliminary, Resulted No Growth after 72 hours. All specime... 04/28/19 Gram Stain - Final, Resulted 04/28/19 Sputum Culture, Resulted Pending Creatinine Clearance Date:04/28/19. Creatinine Clearance: [~66]. Pending Labs Vanco trough scheduled 04/28 @2100 Assessment and Plan Maintaining Current Dose?: No Reason for dose change: Trough too high Pharmacist Note Pharmacist Note DATE 04/29/19: TROUGH AT 1300 RESULTED HIGH AT 21. RENAL FUNCTION DECREASED SOME FROM YESTERDAY. A RESULT I CHANGED DOSE TO 750MG Q12H (VS 500MG Q8H) TO START AT 1900 TO GIVE PATIENT A WASH OUT PERIOD. I ALSO ORDERED A MRSA PCR. TROUGH SCHEDULED FOR TOMORROW AT 0600 TO MAKE SURE PATIENT IS STILL NOT ACCUMULATING. WE WILL CONTINUE TO MONITOR PATIENT AND MAKE ADJUSTMENTS NEEDED. Date: 04/28/19. Pharmacist note:Trough of 10.8 is below target range. Dosing increased to 500mg q8h. Will continue to monitor and make adjustments as needed. [facility] Apr 29, 2019 14:40
--- NOTE | 2019-04-29 16:50 | IPNPDOC ---
Date Seen The patient was seen on 04/29/19. Progress Note SUBJECTIVE: Patient appeared comfortable without any notable complaints. was at bedside as well. Oxygen requirement at 10L NC. Afebrile, no acute events reported overnight. WBC from 21.4 to 19.9 OBJECTIVE PHYSICAL EXAMINATION: VITAL SIGNS: Please see below. General: No acute distress, Alert, severely cachectic. Eyes: Normal sclera, EOMI, TRAVON HENT: Atraumatic, neck supple Cardiovascular: Normal rate Pulmonary: b/l coarse breath sounds GI: Soft, nontender, nondistended Skin: Warm and dry Neuro: CN grossly intact. No focal deficits. generalized weakness Psych: oriented x 3 LABORATORY DATA, IMAGING STUDIES, MICROBIOLOGY: Please see below. DVT prophylaxis ordered?: Lovenox ASSESSMENT AND PLAN: 1. Aspiration Pneumonia - MARJAN infiltrate with hypoxia, appear unlikely location for aspiration Pneumonia however. Does have a PEG. - c/w Zosyn and vancomycin. - Hypoxia, wean O2 as tolerated. 2. COPD - taper steroids. - c/w nebs. o2 support. - at 10L NC, wean to home if possible. 3. Protein calorie malnutrition - c/w Peg tube feeding with dietary assistance. 4. Dysphagia - chronic with PEG tube. 5. Lung cancer - s./p R. upper lobectomy DISPOSITION: . VS, I&O, [facility]H, [facility] Vital Signs/I&O Vital Signs Date Time Temp Pulse Resp B/P (MAP) Pulse Ox O2 Delivery O2 Flow Rate FiO2 04/29/19 12:00 97.7 84 20 91 10.0 04/29/19 11:28 152/84 50 04/29/19 11:00 Nasal Cannula I&O- Last 24 Hours up to 6 AM 04/29/19 06:00 Intake Total 2680 ml Output Total 2275 ml Balance 405 ml Laboratory Data 24H LABS Laboratory Tests 2 04/28/19 21:07: Vancomycin Level Trough 18.0 04/29/19 05:22: Immature Granulocyte % (Auto) 2.6, White Blood Count 19.9H, Red Blood Count 3.46L, Hemoglobin 9.9L, Hematocrit 30.5L, Mean Corpuscular Volume 88.2, Mean Corpuscular Hemoglobin 28.6, Mean Corpuscular Hemoglobin Concent 32.5, Red Cell Distribution Width 16.0H, Platelet Count 442, Neutrophils (%) (Auto) 92.7H, Lymphocytes (%) (Auto) 2.3L, Monocytes (%) (Auto) 2.3, Eosinophils (%) (Auto) 0.0, Basophils (%) (Auto) 0.1, Neutrophils # (Auto) 18.5H, Lymphocytes # (Auto) 0.5L, Monocytes # (Auto) 0.5, Eosinophils # (Auto) 0.0, Basophils # (Auto) 0.0, Nucleated Red Blood Cells % (auto) 0.1H, Anion Gap 7L, Glomerular Filtration Rate > 60.0, Blood Urea Nitrogen 25H, Creatinine 0.80, Sodium Level 138, Pota ssium Level 3.0L, Chloride Level 96L, Carbon Dioxide Level 35H, Calcium Level 8.6L, Aspartate Amino Transf (AST/SGOT) 18, Alanine Aminotransferase (ALT/SGPT) 38, Alkaline Phosphatase 71, Total Bilirubin 0.3, Total Protein 5.9L, Albumin 2.3L, Albumin/Globulin Ratio 0.64L 04/29/19 12:47: Vancomycin Level Trough 21.0H CBC/BMP Laboratory Tests 04/29/19 05:22 Red Blood Count 3.46 L, Mean Corpuscular Volume 88.2, Mean Corpuscular Hemoglobin 28.6, Mean Corpuscular Hemoglobin Concent 32.5, Red Cell Distribution Width 16.0 H, Neutrophils (%) (Auto) 92.7 H, Lymphocytes (%) (Auto) 2.3 L, Monocytes (%) (Auto) 2.3, Eosinophils (%) (Auto) 0.0, Basophils (%) (Auto) 0.1, Neutrophils # (Auto) 18.5 H, Lymphocytes # (Auto) 0.5 L, Monocytes # (Auto) 0.5, Eosinophils # (Auto) 0.0, Basophils # (Auto) 0.0, Calcium Level 8.6 L, Aspartate Amino Transf (AST/SGOT) 18, Alanine Aminotransferase (ALT/SGPT) 38, Alkaline Phosphatase 71, Total Bilirubin 0.3, Total Protein 5.9 L, Albumin 2.3 L Microbiology Microbiology 04/26/19 Blood Culture - Preliminary, Resulted No Growth after 72 hours. All specime... 04/26/19 Blood Culture - Preliminary, Resulted No Growth after 72 hours. All specime... 04/28/19 Gram Stain - Final, Resulted 04/28/19 Sputum Culture, Resulted Pending MICHAEL MA MD Apr 29, 2019 16:50
[2019-04-29] MEDS: VANCOMYCIN HCL 750 MG, VIAL MATE ADAPTER 1 EACH in D5W 250 ML IV SCH (18:15)
[2019-04-30] VITALS (26 sets, daily range): BP systolic 141–181; BP diastolic 80–100; O2SAT 87–97
[2019-04-30] MEDS: methylPREDNISolone INJ 125 MG/2 ML VIAL (J2930) IV SCH (01:38)
[2019-04-30] MEDS: HYDROcodone/APAP LIQUID 7.5-325MG 15ML UDC (LORTAB ELIXIR) PO PRN ×4 (01:39→21:39)
[2019-04-30] MEDS: IPRATROPIUM 0.5MG/ALBUTEROL 2.5MG INH SOL UD 3ML (DUONEB)(J7620) NEB SCH ×4 (01:42→19:49)
[2019-04-30] MEDS: PIPERACILLIN/TAZOBACTAM SOD 3.375 GM in D5W MINI-BAG PLUS 50 ML IV SCH ×3 (04:07→15:30)
[2019-04-30] MEDS: ACETAMINOPHEN 325 MG/10.15 ML UDC PO PRN ×2 (06:13→12:31)
[2019-04-30] MEDS: LIDOCAINE 5% (LIDODERM) PATCH TOP PRN (06:13)
[2019-04-30 06:48] LABS: BASO # 0.1 10^3/uL (0.0-0.2); BASO % 0.3 % (0.0-1.0); EOS % 0.1 % (0.0-3.0); HEMATOCRIT 35.7 % (42.0-52.0); HEMOGLOBIN 11.2 g/dl (13.5-17.5); LYMPH # 0.4 10^3/uL (1.5-4.5); LYMPH % 2.1 % (24.0-44.0); MEAN CORPUSCULAR HEMOGLOBIN 29.2 pg (27.0-33.0); MEAN CORPUSCULAR HGB CONC 31.4 g/dl (32.0-36.5); MONO # 0.4 10^3/uL (0.0-0.8); MONO % 1.9 % (0.0-5.0); NEUTROPHILS # 18.6 10^3/uL (1.8-7.7); NEUTROPHILS % 92.6 % (36.0-66.0); RED BLOOD COUNT 3.84 10^6/uL (4.30-6.10); WHITE BLOOD COUNT 20.1 10^3/uL (4.0-10.0)
[2019-04-30 07:24] LABS: BLOOD UREA NITROGEN 29 MG/DL (7-18); CALCIUM LEVEL 8.6 MG/DL (8.8-10.2); CARBON DIOXIDE LEVEL 32 MEQ/L (21-32); CHLORIDE LEVEL 96 MEQ/L (98-107); CREATININE FOR GFR 0.81 MG/DL (0.70-1.30); GLOMERULAR FILTRATION RATE > 60.0 (>35); GLUCOSE, FASTING 217 MG/DL (70-100); POTASSIUM SERUM 3.6 MEQ/L (3.5-5.1); SODIUM LEVEL 137 MEQ/L (136-145)
[2019-04-30] MEDS: VANCOMYCIN HCL 750 MG, VIAL MATE ADAPTER 1 EACH in D5W 250 ML IV SCH ×2 (07:31→18:32)
[2019-04-30] MEDS: SYMBICORT 160/4.5MCG INHALER 6GM INH SCH (08:08)
[2019-04-30] MEDS: FORMOTEROL FUMARATE 20 MCG/2 ML INHALATION SOLUTION (PERFOROMIST) INH SCH ×2 (08:08→19:48)
[2019-04-30] MEDS: SPIRONOLACTONE 25 MG TAB PEG SCH (08:46)
[2019-04-30] MEDS: SUCRALFATE SUSP 1GM/10ML UD PEG SCH ×3 (08:46→21:39)
[2019-04-30] MEDS: GABAPENTIN 400 MG CAP NG SCH ×3 (08:48→21:40)
[2019-04-30] MEDS: OMEPRAZOLE 20 MG CAP PO SCH (08:48)
[2019-04-30] MEDS: methylPREDNISolone INJ 40 MG/1 ML VIAL (J2920) IV SCH ×2 (08:49→21:39)
[2019-04-30] MEDS ORDERED: ENOXAPARIN 30 MG/0.3 ML SYR (J1650) SC SCH (09:00)
--- NOTE | 2019-04-30 13:53 | IPNPDOC ---
Date Seen The patient was seen on 04/30/19. Progress Note SUBJECTIVE: Patient in no significant distress but reported that he feels weaker and unwell compare to yesterday. No particular complaints including any pain or discomfort, just feels ill. Afebrile overnight. Still requires about 10L O2. OBJECTIVE PHYSICAL EXAMINATION: VITAL SIGNS: Please see below. General: No acute distress, Alert, severely cachectic. Eyes: Normal sclera, EOMI, TRAVON HENT: Atraumatic, neck supple Cardiovascular: Normal rate Pulmonary: b/l coarse breath sounds GI: Soft, nontender, nondistended Skin: Warm and dry Neuro: CN grossly intact. No focal deficits. generalized weakness Psych: oriented x 3 LABORATORY DATA, IMAGING STUDIES, MICROBIOLOGY: Please see below. DVT prophylaxis ordered?: Lovenox ASSESSMENT AND PLAN: 1. Aspiration Pneumonia: MRSA and gram negative PNA - MARJAN infiltrate with hypoxia, appear unlikely location for aspiration Pneumonia however. Does have a PEG. - c/w Zosyn and vancomycin. - Sputum culture + MRSA and Stenotrophomonas. Blood cultures negative. - Has had multiple similar events/diagnosis in the past several months, s/p multiple courses of antibiotics. - ID consulted given complexity of disease. - Hypoxia, wean O2 as tolerated. 2. COPD - taper steroids. - c/w nebs. o2 support. 3. Severe protein calorie malnutrition - BMI 14.7 with significant weakness/deconditioning. - c/w Peg tube feeding with dietary assistance. 4. Dysphagia - chronic with PEG tube. 5. Lung cancer - s./p R. upper lobectomy 6. Acute on chronic respiratory failure - 3L baseline home O2 now requiring about 10L. - Try to wean if possible. Patient is high risk given acute on chronic respiratory failure with extensive underlying comorbidities. DISPOSITION: Home. VS, I&O, 24H, Fishbone Vital Signs/I&O Vital Signs Date Time Temp Pulse Resp B/P (MAP) Pulse Ox O2 Delivery O2 Flow Rate FiO2 04/30/19 12:00 97.7 95 18 173/80 (111) 97 10.0 04/30/19 10:00 Nasal Cannula 04/29/19 11:28 50 I&O- Last 24 Hours up to 6 AM 04/30/19 06:00 Intake Total 1090 ml Output Total 1775 ml Balance -685 ml Laboratory Data 24H LABS Laboratory Tests 2 04/30/19 06:13: Immature Granulocyte % (Auto) 3.0, White Blood Count 20.1H, Red Blood Count 3.84L, Hemoglobin 11.2L, Hematocrit 35.7L, Mean Corpuscular Volume 93.0, Mean Corpuscular Hemoglobin 29.2, Mean Corpuscular Hemoglobin Concent 31.4L, Red Cell Distribution Width 16.1H, Platelet Count , Neutrophils (%) (Auto) 92.6H, Lymphocytes (%) (Auto) 2.1L, Monocytes (%) (Auto) 1.9, Eosinophils (%) (Auto) 0.1, Basophils (%) (Auto) 0.3, Neutrophils # (Auto) 18.6H, Lymphocytes # (Auto) 0.4L, Monocytes # (Auto) 0.4, Eosinophils # (Auto) 0.0, Basophils # (Auto) 0.1, Nucleated Red Blood Cells % (auto) 0.0, Anion Gap 9, Glomerular Filtration Rate > 60.0, Blood Urea Nitrogen 29H, Creatinine 0.81, Sodium Level 137, Potassium Le eduard 3.6, Chloride Level 96L, Carbon Dioxide Level 32, Calcium Level 8.6L, Vancomycin Level Trough 18.9 CBC/BMP Laboratory Tests 04/30/19 06:13 Red Blood Count 3.84 L, Mean Corpuscular Volume 93.0, Mean Corpuscular Hemoglobin 29.2, Mean Corpuscular Hemoglobin Concent 31.4 L, Red Cell Distribution Width 16.1 H, Neutrophils (%) (Auto) 92.6 H, Lymphocytes (%) (Auto) 2.1 L, Monocytes (%) (Auto) 1.9, Eosinophils (%) (Auto) 0.1, Basophils (%) (Auto) 0.3, Neutrophils # (Auto) 18.6 H, Lymphocytes # (Auto) 0.4 L, Monocytes # (Auto) 0.4, Eosinophils # (Auto) 0.0, Basophils # (Auto) 0.1, Calcium Level 8.6 L Microbiology Microbiology 04/26/19 Blood Culture - Preliminary, Resulted No Growth after 72 hours. All specime... 04/26/19 Blood Culture - Preliminary, Resulted No Growth after 72 hours. All specime... 04/28/19 Gram Stain - Final, Complete 8/27/19 Sputum Culture - Final, Complete Stenotrophomonas Maltophilia Staph.aureus Methicillin Resis MICHAEL MA MD Apr 30, 2019 13:53
[2019-04-30] MEDS: MORPHINE 4 MG/ML 1ML VIAL/SYRINGE (J2270) IV PRN (18:32)
[2019-04-30] MEDS: BUDESONIDE 0.5 MG/2 ML INHALATION SUSPENSION INH SCH (19:48)
[2019-04-30] MEDS ORDERED: D5W IV ONE (21:00)
[2019-04-30] MEDS ORDERED: TIGECYCLINE IV ONE (21:00)
[2019-05-01] VITALS (24 sets, daily range): BP systolic 133–186; BP diastolic 78–102; O2SAT 86–99
[2019-05-01] MEDS: MORPHINE 4 MG/ML 1ML VIAL/SYRINGE (J2270) IV PRN ×6 (02:00→23:44)
[2019-05-01] MEDS: IPRATROPIUM 0.5MG/ALBUTEROL 2.5MG INH SOL UD 3ML (DUONEB)(J7620) NEB SCH ×4 (02:17→20:00)
[2019-05-01] MEDS: HYDROcodone/APAP LIQUID 7.5-325MG 15ML UDC (LORTAB ELIXIR) PO PRN ×4 (04:07→21:33)
[2019-05-01 06:09] LABS: BASO # 0.1 10^3/uL (0.0-0.2); BASO % 0.3 % (0.0-1.0); HEMATOCRIT 34.6 % (42.0-52.0); HEMOGLOBIN 11.2 g/dl (13.5-17.5); LYMPH % 3.3 % (24.0-44.0); MEAN CORPUSCULAR HEMOGLOBIN 29.6 pg (27.0-33.0); MEAN CORPUSCULAR HGB CONC 32.4 g/dl (32.0-36.5); MEAN CORPUSCULAR VOLUME 91.3 fl (80.0-96.0); MONO # 0.7 10^3/uL (0.0-0.8); MONO % 2.6 % (0.0-5.0); NEUTROPHILS % 89.3 % (36.0-66.0); PLATELET COUNT, AUTOMATED 439 10^3/uL (150-450); RED BLOOD COUNT 3.79 10^6/uL (4.30-6.10)
[2019-05-01 06:25] LABS: NEUTROPHILS # 25.9 10^3/uL (1.8-7.7)
[2019-05-01 06:31] LABS: BLOOD UREA NITROGEN 36 MG/DL (7-18); CALCIUM LEVEL 8.8 MG/DL (8.8-10.2); CARBON DIOXIDE LEVEL 36 MEQ/L (21-32); CHLORIDE LEVEL 95 MEQ/L (98-107); CREATININE FOR GFR 0.79 MG/DL (0.70-1.30); GLOMERULAR FILTRATION RATE > 60.0 (>35); GLUCOSE, FASTING 156 MG/DL (70-100); POTASSIUM SERUM 3.6 MEQ/L (3.5-5.1); SODIUM LEVEL 140 MEQ/L (136-145); VANCOMYCIN LEVEL TROUGH 23.3 UG/ML (10.0-20.0)
--- NOTE | 2019-05-01 06:44 | PHACANCOPD ---
PHARMACY VANCOMYCIN DOSING Pt Demographics Demographics Patient Age:84 , Weight:40.000 , Gender: male Adjusted Body Weight Date: 04/26/19, Adjusted Body Weight: [use actual] Kg Events Past 24 Hours Events Past 24 Hours: NO: Dialysis, Diuretic Therapy, Change in CrCl, Fever, Elevation in WBC, Pending Diagnostics, Pending Procedures, Other Vancomycin Vancomycin indication: aspiration pneumonia Vancomycin Target Ranges: 15-20 mcg/ml Vancomycin Load Y/N: Yes Load Dose Date Time Vancomycin Load Dose: 1000mg Date: 04/26 Time: ~17:00 Vancomycin Dose Date: 05/01/19. Current Vancomycin Dose: [500mg IV q12h ] Intermittent Dosing?: No Labs Labs Item Value Date Time White Blood Count 29.0 10^3/uL H 05/01/19 0556 Glomerular Filtration Rate > 60.0 05/01/19 0556 Creatinine 0.79 MG/DL 05/01/19 0556 Blood Urea Nitrogen 36 MG/DL H 05/01/19 0556 Vancomycin Level Trough 23.3 UG/ML H 05/01/19 0556 Vital Signs Label Value Date Time Patient Temperature 98.0 degrees F 05/01/19 0400 Temperature Source Temporal 05/01/19 0400 Micro Microbiology 04/26/19 Blood Culture - Preliminary, Resulted No Growth after 72 hours. All specime... 04/26/19 Blood Culture - Preliminary, Resulted No Growth after 72 hours. All specime... 04/28/19 Gram Stain - Final, Complete 04/28/19 Sputum Culture - Final, Complete Stenotrophomonas Maltophilia Staph.aureus Methicillin Resis Creatinine Clearance Date:04/28/19. Creatinine Clearance: [~66]. Pending Labs Vanco trough scheduled 04/28 @2100 Assessment and Plan Maintaining Current Dose?: No Reason for dose change: Trough too high Pharmacist Note Pharmacist Note Date: 05/01/19. Pharmacist note:Trough of 23.3 is above target range. Dosing decreased to 500mg q12h. Will continue to monitor and make adjustments as needed. [facility] May 01, 2019 06:44
[2019-05-01] MEDS: BUDESONIDE 0.5 MG/2 ML INHALATION SUSPENSION INH SCH ×2 (07:44→20:07)
[2019-05-01] MEDS: FORMOTEROL FUMARATE 20 MCG/2 ML INHALATION SOLUTION (PERFOROMIST) INH SCH ×2 (07:44→20:07)
[2019-05-01] MEDS: SUCRALFATE SUSP 1GM/10ML UD PEG SCH ×3 (09:18→21:24)
[2019-05-01] MEDS: methylPREDNISolone INJ 40 MG/1 ML VIAL (J2920) IV SCH ×2 (09:18→21:21)
[2019-05-01] MEDS: D5W IV SCH ×2 (09:19→21:20)
[2019-05-01] MEDS: TIGECYCLINE IV SCH ×2 (09:19→21:20)
[2019-05-01] MEDS: GABAPENTIN 400 MG CAP NG SCH ×3 (09:20→21:25)
[2019-05-01] MEDS ORDERED: VANCOMYCIN HCL 500 MG in D5W MINI-BAG PLUS 100 ML IV SCH (10:00)
--- NOTE | 2019-05-01 10:03 | CR ---
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 HISTORY OF PRESENT ILLNESS: Mr. Phillips is a frail elderly gentleman with advanced chronic obstructive pulmonary disease (COPD), interstitial fibrosis, O2 dependent, recurrent aspiration pneumonia on a G-tube, who has been hospitalized in the past four months 6 times with recurrent pneumonia. The patient mostly had MRSA on sputum cultures documented on 03/16/2019. During that hospitalization, the patient received 2 weeks of IV vancomycin followed by 10 days of by mouth linezolid and he was discharged home. He was readmitted on 04/10/2019 and discharged on 04/13/2019 and had a course of IV vancomycin and Zosyn and was discharged home on levofloxacin. The patient came back to the emergency room on 04/26/2019 with increasing shortness of breath and was readmitted. The patient this time grew MRSA and Stenotrophomonas. The Stenotrophomonas was resistant to levofloxacin and Bactrim. The patient complained of increasing shortness of breath and production of greenish phlegm. He did not have any fever, but felt chilly. He is in chronic pain from especially his left shoulder. PAST MEDICAL HISTORY: Significant for lung cancer, stage I, status post right upper lobectomy by Dr. Bolaños in May 2009, no radiation or chemotherapy. History of aspiration pneumonia status post G tube. Diastolic dysfunction. Advanced COPD, O2 dependent, currently on 2-3 liters and this most recent hospitalization the patient's stated that his O2 sat was down to less than 70, history of shingles, and chronic shoulder pain. PAST SURGICAL HISTORY: Left shoulder replacement, cervical spine surgery, PEG tube in December 2018. The patient has remained nothing by mouth (n.p.o.) since then. Trigger point injection in the left shoulder. SOCIAL HISTORY: Lives with his . His son moved in to help with his care. He has [facility] care and health aides. He also has an extensive family who also help with his care. FAMILY HISTORY: Nonrevealing. PHYSICAL EXAMINATION: Frail, elderly gentleman in moderate discomfort. Alert and oriented times three. Moves all extremities, has excruciating pain when left shoulder is moved. Temperature is 97.5, pulse 97, respirations 16, blood pressure 167/84, O2 sat 92% on 2 liters nasal cannula. Heart: Normal S1 and S2, distant. Lungs: Crackles at the bases. Diminished air entry. Abdomen: Soft, nontender. He has a G tube in place with no surrounding erythema. Back: No costovertebral angle (CVA) tenderness. Left shoulder replacement with dislocation. Extremities: +1 ankle edema bilaterally. Skin: Multiple ecchymoses, especially on upper arms. LABORATORY DATA: White count 20.1, hemoglobin 11.2, hematocrit 35.7, platelets 442, 92% neutrophils, 2% lymphocytes, 2% monocytes. Sodium 137, potassium 3.6, chloride 96, bicarb 32, BUN 29, creatinine 0.81, glucose 217, calcium 8.6, AST 18, ALT 38, alkaline phosphatase 71, albumin 2.3. Vancomycin trough was 18.9. Chest x-ray showed no acute infiltrate, but CT of chest showed new interstitial infiltrates in left upper lobe and lingula, left pleural effusion unchanged, bibasilar infiltrates previously described on CT done 03/13/2019 have resolved. IMPRESSION: This is an 84-year-old gentleman with a history of recurrent MRSA pneumonia who is admitted again with a new left lower lobe and lingular infiltrate who now has evidence of MRSA and Stenotrophomonas in his sputum, both of moderate to heavy growth. The patient has a very poor prognosis and there is nothing we can do to help clear his recurrent infections. The patient is currently on IV vancomycin and Zosyn and Stenotrophomonas is resistant to Zosyn. PLAN: I have discussed the poor prognosis with the family. He probably should be on hospice care. This needs to be discussed at further length. The case has also been discussed with Dr. Ferrer on his previous admission in March by myself who agreed with the poor outcome. At this time, continue with IV vancomycin for MRSA. Could add tigecycline, which possibly could cover for the Stenotrophomonas along with the MRSA. Another sputum will be sent for tigecycline susceptibility for Stenotrophomonas as well as minocycline susceptibility. If it is minocycline sensitive, the patient could be discharged home on minocycline to remain on chronic suppressive therapy as well. Sputum culture done on 04/28/2019 showed heavy MRSA sensitive to daptomycin, gentamicin, linezolid, minocycline and Stenotrophomonas resistant to levofloxacin and Bactrim.
[2019-05-01] MEDS ORDERED: SLF 3 ML SYR IV PRN (10:45)
[2019-05-01] MEDS: LANSOPRAZOLE SUSPENSION 30 MG/10 ML ORAL SYRINGE (FIRST-LANSOPRAZOLE) PEG SCH (11:03)
[2019-05-01] MEDS: SLF 3 ML SYR IV SCH ×2 (13:22→21:25)
[2019-05-01] MEDS: amLODIPine 5 MG TAB PO SCH (13:22)
--- NOTE | 2019-05-01 13:29 | IPNPDOC ---
Date Seen The patient was seen on 05/01/19. Progress Note SUBJECTIVE: Patient reports feeling the same as yesterday with weakness. afebrile overnight but WBC increased to 29 from 20. BP also noted to be elevated, had been trending up since admission. OBJECTIVE PHYSICAL EXAMINATION: VITAL SIGNS: Please see below. General: No acute distress, Alert, severely cachectic. Eyes: Normal sclera, EOMI, TRAVON HENT: Atraumatic, neck supple Cardiovascular: Normal rate Pulmonary: b/l coarse breath sounds GI: Soft, nontender, nondistended Skin: Warm and dry Neuro: CN grossly intact. No focal deficits. generalized weakness Psych: oriented x 3 LABORATORY DATA, IMAGING STUDIES, MICROBIOLOGY: Please see below. DVT prophylaxis ordered?: Lovenox ASSESSMENT AND PLAN: 1. Aspiration Pneumonia: MRSA and gram negative PNA - MARJAN infiltrate with hypoxia, appear unlikely location for aspiration Pneumonia however. Does have a PEG. - c/w vancomycin and Tigecycline. - Sputum culture + MRSA and Stenotrophomonas. Blood cultures negative. - Has had multiple similar events/diagnosis in the past several months, s/p multiple courses of antibiotics. - ID evaluated. Testing for susceptibility to minocycline and consider sending home on it if susceptible. - Hypoxia, wean O2 as tolerated. 2. COPD - taper steroids. - c/w nebs. o2 support. 3. Severe protein calorie malnutrition - BMI 14.7 with significant weakness/deconditioning. - c/w Peg tube feeding with dietary assistance. 4. Dysphagia - chronic with PEG tube. 5. Lung cancer - s./p R. upper lobectomy 6. Acute on chronic respiratory failure - 3L baseline home O2 now requiring about 10L. - Try to wean if possible. Patient is high risk given acute on chronic respiratory failure with extensive underlying comorbidities. DISPOSITION: Home. VS, I&O, 24H, Fishbone Vital Signs/I&O Vital Signs Date Time Temp Pulse Resp B/P (MAP) Pulse Ox O2 Delivery O2 Flow Rate FiO2 05/01/19 13:22 186/102 05/01/19 12:00 98.2 97 18 97 10.0 05/01/19 11:00 Nasal Cannula 04/29/19 11:28 50 I&O- Last 24 Hours up to 6 AM 05/01/19 06:00 Intake Total 1790 ml Output Total 750 ml Balance 1040 ml Laboratory Data 24H LABS Laboratory Tests 2 05/01/19 05:56: Immature Granulocyte % (Auto) 4.5H, White Blood Count 29.0H, Red Blood Count 3.79L, Hemoglobin 11.2L, Hematocrit 34.6L, Mean Corpuscular Volume 91.3, Mean Corpuscular Hemoglobin 29.6, Mean Corpuscular Hemoglobin Concent 32.4, Red Cell Distribution Width 16.2H, Platelet Count 439, Neutrophils (%) (Auto) 89.3H, Lymphocytes (%) (Auto) 3.3L, Monocytes (%) (Auto) 2.6, Eosinophils (%) (Auto) 0.0, Basophils (%) (Auto) 0.3, Neutrophils # (Auto) 25.9H, Lymphocytes # (Auto) 1.0L, Monocytes # (Auto) 0.7, Eosinophils # (Auto) 0.0, Basophils # (Auto) 0.1, Nucleated Red Blood Cells % (auto) 0.1H, Anion Gap 9, Glomerular Filtration Rate > 60.0, Blood Urea Nitrogen 36H, Creatinine 0.79, Sodium Level 140, Potassium Level 3.6, Chloride Level 95L, Carbon Dioxide Level 36H, Calcium Level 8.8, Vancomycin Level Trough 23.3H CBC/BMP Laboratory Tests 05/01/19 05:56 Red Blood Count 3.79 L, Mean Corpuscular Volume 91.3, Mean Corpuscular Hemoglobin 29.6, Mean Corpuscular Hemoglobin Concent 32.4, Red Cell Distribution Width 16.2 H, Neutrophils (%) (Auto) 89.3 H, Lymphocytes (%) (Auto) 3.3 L, Monocytes (%) (Auto) 2.6, Eosinophils (%) (Auto) 0.0, Basophils (%) (Auto) 0.3, Neutrophils # (Auto) 25.9 H, Lymphocytes # (Auto) 1.0 L, Monocytes # (Auto) 0.7, Eosinophils # (Auto) 0.0, Basophils # (Auto) 0.1, Calcium Level 8.8 Microbiology Microbiology 04/26/19 Blood Culture - Final, Complete NO GROWTH AFTER 5 DAYS 04/26/19 Blood Culture - Final, Complete NO GROWTH AFTER 5 DAYS 04/28/19 Gram Stain - Final, Complete 04/28/19 Sputum Culture - Final, Complete Stenotrophomonas Maltophilia Staph.aureus Methicillin Resis MA,CANH T. MD May 01, 2019 13:29
--- NOTE | 2019-05-01 21:32 | PHACANCOPD ---
PHARMACY VANCOMYCIN DOSING Pt Demographics Demographics Patient Age:84 , Weight:40.000 , Gender: male Adjusted Body Weight Date: 04/26/19, Adjusted Body Weight: [use actual] Kg Events Past 24 Hours Events Past 24 Hours: NO: Dialysis, Diuretic Therapy, Change in CrCl, Fever, Elevation in WBC, Pending Diagnostics, Pending Procedures, Other Vancomycin Vancomycin indication: aspiration pneumonia Vancomycin Target Ranges: 15-20 mcg/ml Vancomycin Load Y/N: Yes Load Dose Date Time Vancomycin Load Dose: 1000mg Date: 04/26 Time: ~17:00 Vancomycin Dose Date: 05/01/19. Current Vancomycin Dose: [500mg IV q18h ] Intermittent Dosing?: No Labs Labs Item Value Date Time White Blood Count 29.0 10^3/uL H 05/01/19 0556 Glomerular Filtration Rate > 60.0 05/01/19 0556 Creatinine 0.79 MG/DL 05/01/19 0556 Blood Urea Nitrogen 36 MG/DL H 05/01/19 0556 Vancomycin Level Trough 23.5 UG/ML H 05/01/199 Vital Signs Label Value Date Time Patient Temperature 97.3 degrees F 05/01/19 2000 Micro Microbiology 04/26/19 Blood Culture - Final, Complete NO GROWTH AFTER 5 DAYS 04/26/19 Blood Culture - Final, Complete NO GROWTH AFTER 5 DAYS 04/28/19 Gram Stain - Final, Complete 04/28/19 Sputum Culture - Final, Complete Stenotrophomonas Maltophilia Staph.aureus Methicillin Resis Creatinine Clearance Date:04/28/19. Creatinine Clearance: [~66]. Pending Labs Vanco trough scheduled 05/02 @0500 Assessment and Plan Maintaining Current Dose?: No Reason for dose change: Trough too high Pharmacist Note Pharmacist Note Date: 05/01/19. Pharmacist note:Trough of 23.5 is above target range. Dosing decreased to 500mg q18h. Will continue to monitor and make adjustments as needed. [facility] May 01, 2019 21:31
[2019-05-02] VITALS (14 sets, daily range): BP systolic 146–164; BP diastolic 78–86; O2SAT 81–100
[2019-05-02] MEDS: IPRATROPIUM 0.5MG/ALBUTEROL 2.5MG INH SOL UD 3ML (DUONEB)(J7620) NEB SCH ×4 (01:59→20:00)
[2019-05-02] MEDS: HYDROcodone/APAP LIQUID 7.5-325MG 15ML UDC (LORTAB ELIXIR) PO PRN ×2 (03:41→17:12)
[2019-05-02 05:23] LABS: HEMATOCRIT 34.6 % (42.0-52.0); HEMOGLOBIN 10.9 g/dl (13.5-17.5); MEAN CORPUSCULAR HGB CONC 31.5 g/dl (32.0-36.5); MEAN CORPUSCULAR VOLUME 88.9 fl (80.0-96.0); PLATELET COUNT, AUTOMATED 460 10^3/uL (150-450); RED BLOOD COUNT 3.89 10^6/uL (4.30-6.10)
[2019-05-02 05:43] LABS: BLOOD UREA NITROGEN 59 MG/DL (7-18); CALCIUM LEVEL 8.6 MG/DL (8.8-10.2); CARBON DIOXIDE LEVEL 36 MEQ/L (21-32); CHLORIDE LEVEL 96 MEQ/L (98-107); CREATININE FOR GFR 0.75 MG/DL (0.70-1.30); GLOMERULAR FILTRATION RATE > 60.0 (>35); GLUCOSE, FASTING 195 MG/DL (70-100); POTASSIUM SERUM 3.8 MEQ/L (3.5-5.1); SODIUM LEVEL 140 MEQ/L (136-145)
[2019-05-02 05:46] LABS: WHITE BLOOD COUNT 32.1 10^3/uL (4.0-10.0)
[2019-05-02 05:47] LABS: LYMPHOCYTES 1 % (16-44); MONOCYTES 1 % (0-5); NEUTROPHILS 98 % (28-66); PLATELET ESTIMATE NORMAL (NORMAL)
[2019-05-02 05:48] LABS: ANISOCYTOSIS 1+
--- NOTE | 2019-05-02 05:48 | PHACANCOPD ---
PHARMACY VANCOMYCIN DOSING Pt Demographics Demographics Patient Age:84 , Weight:40.000 , Gender: male Adjusted Body Weight Date: 04/26/19, Adjusted Body Weight: [use actual] Kg Events Past 24 Hours Events Past 24 Hours: NO: Dialysis, Diuretic Therapy, Change in CrCl, Fever, Elevation in WBC, Pending Diagnostics, Pending Procedures, Other Vancomycin Vancomycin indication: aspiration pneumonia Vancomycin Target Ranges: 15-20 mcg/ml Vancomycin Load Y/N: Yes Load Dose Date Time Vancomycin Load Dose: 1000mg Date: 04/26 Time: ~17:00 Vancomycin Dose Date: 05/02/19. Current Vancomycin Dose: [500mg IV q18h ] Intermittent Dosing?: No Labs Labs Item Value Date Time Vancomycin Level Trough 17.6 UG/ML 05/02/19 0506 Glomerular Filtration Rate > 60.0 05/02/19 0506 Creatinine 0.75 MG/DL 05/02/19 0506 Blood Urea Nitrogen 59 MG/DL H # 05/02/19 0506 White Blood Count 29.0 10^3/uL H 05/01/19 0556 Micro Microbiology 04/26/19 Blood Culture - Final, Complete NO GROWTH AFTER 5 DAYS 04/26/19 Blood Culture - Final, Complete NO GROWTH AFTER 5 DAYS 04/28/19 Gram Stain - Final, Complete 04/28/19 Sputum Culture - Final, Complete Stenotrophomonas Maltophilia Staph.aureus Methicillin Resis Creatinine Clearance Date:04/28/19. Creatinine Clearance: [~66]. Pending Labs Trough 08- @2300 Assessment and Plan Maintaining Current Dose?: Yes Reason for dose change: No Dose Change Pharmacist Note Pharmacist Note Date: 05/02/19. Pharmacist note:Trough of 17.6 is within target range. will continue current dosing. Will continue to monitor and make adjustments as needed. [facility] May 02, 2019 05:48
[2019-05-02] MEDS ORDERED: VANCOMYCIN HCL 500 MG in D5W MINI-BAG PLUS 100 ML IV SCH (06:00)
[2019-05-02] MEDS: SLF 3 ML SYR IV SCH ×3 (06:13→20:11)
[2019-05-02] MEDS: MORPHINE 4 MG/ML 1ML VIAL/SYRINGE (J2270) IV PRN ×7 (06:31→22:38)
[2019-05-02] MEDS: FORMOTEROL FUMARATE 20 MCG/2 ML INHALATION SOLUTION (PERFOROMIST) INH SCH ×2 (08:00→20:00)
[2019-05-02] MEDS: BUDESONIDE 0.5 MG/2 ML INHALATION SUSPENSION INH SCH ×2 (08:00→20:00)
[2019-05-02] MEDS ORDERED: D5W MINI IV SCH (09:00)
[2019-05-02] MEDS ORDERED: TIGECYCLINE IV SCH (09:00)
[2019-05-02] MEDS: methylPREDNISolone INJ 40 MG/1 ML VIAL (J2920) IV SCH ×2 (09:40→20:17)
[2019-05-02] MEDS: GABAPENTIN 400 MG CAP NG SCH ×3 (09:41→20:17)
[2019-05-02] MEDS: SUCRALFATE SUSP 1GM/10ML UD PEG SCH ×3 (09:41→20:17)
[2019-05-02] MEDS: LANSOPRAZOLE SUSPENSION 30 MG/10 ML ORAL SYRINGE (FIRST-LANSOPRAZOLE) PEG SCH (09:41)
[2019-05-02] MEDS: SPIRONOLACTONE 25 MG TAB PEG SCH (09:41)
[2019-05-02] MEDS: amLODIPine 5 MG TAB PO SCH (09:42)
[2019-05-02] MEDS ORDERED: methylPREDNISolone 80MG/ML SUSP 1ML VIAL (J1040) IM ONE (12:00)
[2019-05-02] MEDS ORDERED: LIDOCAINE 1% MDV 20ML VIAL IM ONE (12:00)
[2019-05-02] MEDS ORDERED: SCOPOLAMINE 1MG TRANSDERMAL PATCH TOP PRN (13:00)
[2019-05-02] MEDS ORDERED: ONDANSETRON 4MG/2ML VIAL (J2405) IV PRN (13:00)
--- NOTE | 2019-05-02 13:04 | IPNPDOC ---
Date Seen The patient was seen on 05/02/19. Progress Note Procedure Note: Procedure: Left shoulder subacrominal steroid injection Indication: Severe persistent left shoulder pain Performed by: Michael Ma MD Anesthesia- 1% Lidocaine EBL- none Procedure- Patient is cleaned with betadine x3 and chlorhexidine swab with maintenance of sterile field. 2cc lidocaine is used for anesthesia and 80 mg of depomedrol is injected towards AC joint from posterior left shoulder. Needle is aspirated without evidence of blood, solution is injected easily into the joint space/bursa. Patient tolerated procedure well. VS, I&O, 24H, Fishbone Vital Signs/I&O I&O- Last 24 Hours up to 6 AM Laboratory Data 24H LABS MICHAEL MA MD May 02, 2019 13:04
--- NOTE | 2019-05-02 17:15 | IPNPDOC ---
Date Seen The patient was seen on 05/02/19. Progress Note SUBJECTIVE: Patient clinically declining throughout the day. Family and patient made decision to make him comfort care and antibiotics were stopped. WBC continued to trend up despite antibiotics, WBC 32 today. He complained of severe pain, primarily the shoulder. Received steroid shot to L. shoulder today with reported improvement and appeared more comfortable. Continue to provide comfort care and pain control at this time. OBJECTIVE PHYSICAL EXAMINATION: VITAL SIGNS: Please see below. General: Severely cachectic, lethargic Eyes: Normal sclera, EOMI, TRAVON HENT: Atraumatic, neck supple Cardiovascular: Normal rate Pulmonary: b/l coarse breath sounds GI: Soft, nontender, nondistended Skin: Warm and dry Neuro: CN grossly intact. generalized weakness LABORATORY DATA, IMAGING STUDIES, MICROBIOLOGY: Please see below. DVT prophylaxis ordered?: Lovenox ASSESSMENT AND PLAN: 1. Aspiration Pneumonia: MRSA and gram negative PNA - MARJAN infiltrate with hypoxia, appear unlikely location for aspiration Pneumonia however. Does have a PEG. - vancomycin and Tigecycline were stopped. - Sputum culture + MRSA and Stenotrophomonas. Blood cultures negative. 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 Antibiotics discontinued and focus on treating pain only at this time. 2. COPD - c/w nebs. o2 support. 3. Severe protein calorie malnutrition - BMI 14.7 with significant weakness/deconditioning. 4. Dysphagia - chronic with PEG tube. 5. Lung cancer - s./p R. upper lobectomy 6. Acute on chronic respiratory failure - 3L baseline home O2. Provide O2 support for comfort. Patient is high risk given acute on chronic respiratory failure with extensive underlying comorbidities. DISPOSITION: Home. VS, I&O, 24H, Marcus Vital Signs/I&O Vital Signs Date Time Temp Pulse Resp B/P (MAP) Pulse Ox O2 Delivery O2 Flow Rate FiO2 05/02/19 15:42 20 05/02/19 12:08 98.4 97 152/82 (105) 98 5.0 05/02/19 12:00 Nasal Cannula 04/29/19 11:28 50 I&O- Last 24 Hours up to 6 AM 05/02/19 06:00 Intake Total 2000 ml Output Total 600 ml Balance 1400 ml Laboratory Data 24H LABS Laboratory Tests 2 05/01/19 20:49: Vancomycin Level Trough 23.5H 05/02/19 05:06: Vancomycin Level Trough 17.6, White Blood Count 32.1*H, Red Blood Count 3.89L, Hemoglobin 10.9L, Hematocrit 34.6L, Mean Corpuscular Volume 88.9, Mean Corpuscular Hemoglobin 28.0, Mean Corpuscular Hemoglobin Concent 31.5L, Red Cell Distribution Width 17.2H, Platelet Count 460H, Neutrophils # (Auto) , Nucleated Red Blood Cells % (auto) 0.1H, Neutrophils 98H, Lymphocytes (Manual) 1L, Monocytes (Manual) 1, Platelet Estimate NORMAL, Anisocytosis 1+, Anion Gap 8, G lomerular Filtration Rate > 60.0, Blood Urea Nitrogen 59#H, Creatinine 0.75, Sodium Level 140, Potassium Level 3.8, Chloride Level 96L, Carbon Dioxide Level 36H, Calcium Level 8.6L CBC/BMP Laboratory Tests 05/02/19 05:06 Red Blood Count 3.89 L, Mean Corpuscular Volume 88.9, Mean Corpuscular Hemoglobin 28.0, Mean Corpuscular Hemoglobin Concent 31.5 L, Red Cell Distribution Width 17.2 H, Neutrophils # (Auto) , Calcium Level 8.6 L Microbiology Microbiology 04/26/19 Blood Culture - Final, Complete NO GROWTH AFTER 5 DAYS 04/26/19 Blood Culture - Final, Complete NO GROWTH AFTER 5 DAYS 04/28/19 Gram Stain - Final, Resulted 04/28/19 Sputum Culture - Preliminary, Resulted Stenotrophomonas Maltophilia Staph.aureus Methicillin Resis MICHAEL MA MD May 02, 2019 17:14
[2019-05-03] MEDS: HYDROcodone/APAP LIQUID 7.5-325MG 15ML UDC (LORTAB ELIXIR) PO PRN ×5 (00:09→23:16)
[2019-05-03] MEDS: IPRATROPIUM 0.5MG/ALBUTEROL 2.5MG INH SOL UD 3ML (DUONEB)(J7620) NEB SCH ×4 (01:52→20:00)
[2019-05-03] MEDS: SLF 3 ML SYR IV SCH ×3 (04:09→19:53)
[2019-05-03] MEDS: MORPHINE 4 MG/ML 1ML VIAL/SYRINGE (J2270) IV PRN ×8 (04:10→19:52)
[2019-05-03] MEDS: BUDESONIDE 0.5 MG/2 ML INHALATION SUSPENSION INH SCH ×2 (08:00→20:11)
[2019-05-03] MEDS: FORMOTEROL FUMARATE 20 MCG/2 ML INHALATION SOLUTION (PERFOROMIST) INH SCH ×2 (08:00→20:10)
[2019-05-03] MEDS: GABAPENTIN 400 MG CAP NG SCH ×3 (09:04→19:56)
[2019-05-03] MEDS: methylPREDNISolone INJ 40 MG/1 ML VIAL (J2920) IV SCH (09:04)
[2019-05-03] MEDS: SUCRALFATE SUSP 1GM/10ML UD PEG SCH ×3 (09:04→19:56)
[2019-05-03] MEDS: ACETAMINOPHEN 325 MG/10.15 ML UDC PO PRN (11:36)
[2019-05-03] MEDS ORDERED: HYDROcodone/APAP LIQUID 7.5-325MG 15ML UDC (LORTAB ELIXIR) PO PRN (11:45)
--- NOTE | 2019-05-03 15:03 | IPNPDOC ---
Date Seen The patient was seen on 05/03/19. Progress Note SUBJECTIVE: No acute events reported overnight. Patient still very weak and reports not feeling well although shoulder pain is better. OBJECTIVE PHYSICAL EXAMINATION: VITAL SIGNS: Please see below. General: Severely cachectic, lethargic Eyes: Normal sclera, EOMI, TRAVON HENT: Atraumatic, neck supple Cardiovascular: Normal rate Pulmonary: b/l coarse breath sounds GI: Soft, nontender, nondistended Skin: Warm and dry Neuro: CN grossly intact. generalized weakness LABORATORY DATA, IMAGING STUDIES, MICROBIOLOGY: Please see below. DVT prophylaxis ordered?: Lovenox ASSESSMENT AND PLAN: 1. Aspiration Pneumonia: MRSA and gram negative PNA - MARJAN infiltrate with hypoxia, appear unlikely location for aspiration Pneumonia however. Does have a PEG. - vancomycin and Tigecycline were stopped. - Sputum culture + MRSA and Stenotrophomonas. Blood cultures negative. 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 Antibiotics discontinued and focus on treating pain only at this time. 2. COPD - c/w nebs. o2 support. 3. Severe protein calorie malnutrition - BMI 14.7 with significant weakness/deconditioning. 4. Dysphagia - chronic with PEG tube. 5. Lung cancer - s./p R. upper lobectomy 6. Acute on chronic respiratory failure - 3L baseline home O2. Provide O2 support for comfort. Patient is high risk given acute on chronic respiratory failure with extensive underlying comorbidities. DISPOSITION: Likely home hospice if possible. VS, I&O, 24H, Fishbone Vital Signs/I&O Vital Signs Date Time Temp Pulse Resp B/P (MAP) Pulse Ox O2 Delivery O2 Flow Rate FiO2 05/03/19 14:20 18 05/03/19 07:54 98.4 97 152/82 98 5.0 50 05/02/19 12:00 Nasal Cannula I&O- Last 24 Hours up to 6 AM 05/03/19 05:59 Intake Total 1540 ml Output Total 450 ml Balance 1090 ml Laboratory Data Microbiology Microbiology 04/26/19 Blood Culture - Final, Complete NO GROWTH AFTER 5 DAYS 04/26/19 Blood Culture - Final, Complete NO GROWTH AFTER 5 DAYS 04/28/19 Gram Stain - Final, Resulted 04/28/19 Sputum Culture - Preliminary, Resulted Stenotrophomonas Maltophilia Staph.aureus Methicillin Resis MICHAEL MA MD May 03, 2019 15:03
[2019-05-04] MEDS: IPRATROPIUM 0.5MG/ALBUTEROL 2.5MG INH SOL UD 3ML (DUONEB)(J7620) NEB SCH ×4 (01:35→19:33)
[2019-05-04] MEDS: MORPHINE 4 MG/ML 1ML VIAL/SYRINGE (J2270) IV PRN ×6 (01:40→20:24)
[2019-05-04] MEDS: HYDROcodone/APAP LIQUID 7.5-325MG 15ML UDC (LORTAB ELIXIR) PO PRN ×2 (05:48→12:32)
[2019-05-04] MEDS: SLF 3 ML SYR IV SCH ×3 (05:52→22:23)
[2019-05-04] MEDS: FORMOTEROL FUMARATE 20 MCG/2 ML INHALATION SOLUTION (PERFOROMIST) INH SCH ×2 (07:40→19:33)
[2019-05-04] MEDS: BUDESONIDE 0.5 MG/2 ML INHALATION SUSPENSION INH SCH ×2 (07:40→19:33)
[2019-05-04 08:00] VITALS: BP 154/89
[2019-05-04] MEDS: GABAPENTIN 400 MG CAP NG SCH ×3 (09:20→19:41)
[2019-05-04] MEDS: SUCRALFATE SUSP 1GM/10ML UD PEG SCH ×3 (09:20→19:41)
--- NOTE | 2019-05-04 10:22 | IPNPDOC ---
Date Seen The patient was seen on 05/04/19. Progress Note SUBJECTIVE: No acute events reported overnight. Patient fully alert and oriented still this morning, still very weak. L. shoulder pain persistent but stated that it is a lot better than before. OBJECTIVE PHYSICAL EXAMINATION: VITAL SIGNS: Please see below. General: Severely cachectic, lethargic Eyes: Normal sclera, EOMI, TRAVON HENT: Atraumatic, neck supple Cardiovascular: Normal rate Pulmonary: b/l coarse breath sounds GI: Soft, nontender, nondistended Skin: Warm and dry Neuro: CN grossly intact. generalized weakness LABORATORY DATA, IMAGING STUDIES, MICROBIOLOGY: Please see below. DVT prophylaxis ordered?: Lovenox ASSESSMENT AND PLAN: 1. Aspiration Pneumonia: MRSA and gram negative PNA - MARJAN infiltrate with hypoxia, appear unlikely location for aspiration Pneumonia however. Does have a PEG. - vancomycin and Tigecycline were stopped. - Sputum culture + MRSA and Stenotrophomonas. Blood cultures negative. 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 Antibiotics discontinued and focus on treating pain only at this time. 2. COPD - c/w nebs. o2 support. 3. Severe protein calorie malnutrition - BMI 14.7 with significant weakness/deconditioning. 4. Dysphagia - chronic with PEG tube. 5. Lung cancer - s./p R. upper lobectomy 6. Acute on chronic respiratory failure - 3L baseline home O2. Provide O2 support for comfort. Patient is high risk given acute on chronic respiratory failure with extensive underlying comorbidities. DISPOSITION: Likely home hospice if possible. VS, I&O, 24H, Fishbone Vital Signs/I&O Vital Signs Date Time Temp Pulse Resp B/P (MAP) Pulse Ox O2 Delivery O2 Flow Rate FiO2 05/04/19 08:10 20 5.0 05/04/19 08:00 97.8 100 154/89 (110) 92 05/03/19 17:50 50 05/02/19 12:00 Nasal Cannula I&O- Last 24 Hours up to 6 AM 05/04/19 06:00 Intake Total 940 ml Output Total 0 ml Balance 940 ml Laboratory Data Microbiology Microbiology 04/26/19 Blood Culture - Final, Complete NO GROWTH AFTER 5 DAYS 04/26/19 Blood Culture - Final, Complete NO GROWTH AFTER 5 DAYS 04/28/19 Gram Stain - Final, Resulted 04/28/19 Sputum Culture - Preliminary, Resulted Stenotrophomonas Maltophilia Staph.aureus Methicillin Resis MICHAEL MA MD May 04, 2019 10:22
[2019-05-04] MEDS: LORazepam 2 MG/ML VIAL (J2060) IV PRN ×2 (14:58→21:54)
[2019-05-05] MEDS: IPRATROPIUM 0.5MG/ALBUTEROL 2.5MG INH SOL UD 3ML (DUONEB)(J7620) NEB SCH ×4 (01:20→19:38)
[2019-05-05] MEDS: MORPHINE 4 MG/ML 1ML VIAL/SYRINGE (J2270) IV PRN ×3 (02:08→11:30)
[2019-05-05] MEDS: LORazepam 2 MG/ML VIAL (J2060) IV PRN ×2 (04:09→13:06)
[2019-05-05] MEDS: SLF 3 ML SYR IV SCH ×3 (05:11→20:00)
[2019-05-05] MEDS: FORMOTEROL FUMARATE 20 MCG/2 ML INHALATION SOLUTION (PERFOROMIST) INH SCH ×2 (07:07→19:37)
[2019-05-05] MEDS: BUDESONIDE 0.5 MG/2 ML INHALATION SUSPENSION INH SCH ×2 (07:07→19:37)
[2019-05-05] MEDS: SUCRALFATE SUSP 1GM/10ML UD PEG SCH ×3 (08:35→19:59)
[2019-05-05] MEDS: GABAPENTIN 400 MG CAP NG SCH ×3 (08:35→20:00)
[2019-05-05] MEDS: LIDOCAINE 5% (LIDODERM) PATCH TOP PRN (09:18)
[2019-05-05] MEDS: MORPHINE 10MG/0.5ML ORAL CONCENTRATE SOLUTION U/D SL PRN ×3 (15:49→22:13)
--- NOTE | 2019-05-05 17:37 | IPNPDOC ---
Text Note Date of Service The patient was seen on 05/05/19. NOTE Mr. Phillips is admitted with recurrent aspiration pneumonia and respiratory failure. He is now comfort measures only. Objective: General: The patient is comfortable without agitation, anxiety or pain. Family members are at bedside and requests minimal disturbance. Cardiovascular: Regular rate and rhythm with a normal S1 and S2. Respiratory: Currently exhibits good air movement, he is not currently exhibiting active wheezing Assessment/Plan: 1. Recurrent aspiration pneumonia. Patient and family has had his tube feeds stopped as it has not helped with aspiration. He has had at least 2 episodes of recurrent pneumonia since last seen by this typewriter assembly and parts inspector in January. 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 2. Lung cancer. Patient has had right upper lobe lobectomy. 3. COPD He does not appear to be having an acute exacerbation, but he does have chronic hypoxic respiratory failure and is oxygen dependent at 3 LPM. Disposition: Family has met with hospice. Tentative plans are for him to go to hospice facility on . In the interim, we are changing over his morphine and Ativan to oral formulations. VS,Fishbone, I+O VS, Fishbone, I+O Vital Signs Date Time Temp Pulse Resp B/P (MAP) Pulse Ox O2 Delivery O2 Flow Rate FiO2 05/05/19 15:49 14 05/05/19 09:10 5.0 05/04/19 19:35 Nasal Cannula 05/04/19 08:00 97.8 100 154/89 (110) 92 05/03/19 17:50 50 I&O- Last 24 Hours up to 6 AM 05/05/19 05:59 Intake Total 640 ml Output Total 100 ml Balance 540 ml JENNIFER LANDAVERDE MD May 05, 2019 17:37
[2019-05-06] MEDS: MORPHINE 10MG/0.5ML ORAL CONCENTRATE SOLUTION U/D SL PRN ×3 (00:29→06:12)
[2019-05-06] MEDS: IPRATROPIUM 0.5MG/ALBUTEROL 2.5MG INH SOL UD 3ML (DUONEB)(J7620) NEB SCH ×2 (02:00→07:09)
[2019-05-06] MEDS: SLF 3 ML SYR IV SCH (04:05)
[2019-05-06] MEDS: LORazepam 1 MG TAB PO PRN ×2 (06:53→08:46)
[2019-05-06] MEDS: BUDESONIDE 0.5 MG/2 ML INHALATION SUSPENSION INH SCH (07:08)
[2019-05-06] MEDS: FORMOTEROL FUMARATE 20 MCG/2 ML INHALATION SOLUTION (PERFOROMIST) INH SCH (07:08)
[2019-05-06] MEDS: GABAPENTIN 400 MG CAP NG SCH (08:46)
[2019-05-06] MEDS: SUCRALFATE SUSP 1GM/10ML UD PEG SCH (08:46)
--- NOTE | 2019-05-21 22:30 | DS.PDOC ---
Discharge Summary General Date of Admission Apr 26, 2019 at 16:08 Date of Discharge Date of : May 06, 2019 Primary Care Physician: ONI RING MD [facility] Specialist/Consultants Involve: Raven Hall MD Discharge Summary PROCEDURES PERFORMED DURING STAY: [None]. ADMITTING DIAGNOSES: 1. [Recurrent Aspiration Pneumonia]. DISCHARGE DIAGNOSES: 1. [Recurrent Aspiration Pneumonia, dysphagia, interstitial fibrosis, lung carcinoma, chronic hypoxic resp failure due to O2 dependent COPD, protein- calorie malnutrition]. COMPLICATIONS/CHIEF COMPLAINT: Aspiration Pneumonia. HISTORY OF PRESENT ILLNESS/HOSPITAL COURSE: [84 year old male with dysphagia and recurrent aspiration due to chronic lung diseases including O2 dependent COPD, interstitial fibrosis and lung cancer. The patient had been having difficulty with nutrition and was on tube feeds. He unfortunately continued to have episodes of aspiration and again developed aspiration pneumonia. He and his family opted to stop tube feeds, antibiotics and and all other treatment and make him comfort care. Plans were made for hospice placement; Mr. Phillips May 06, 2019 at 9:47 am before he could be transferred. ]. DISCHARGE MEDICATIONS: Please see below. ALLERGIES: Please see below. PHYSICAL EXAMINATION ON DISCHARGE: This advertising copywriter was not present at Mr. Phillips"s . LABORATORY DATA: Please see below. IMAGING: PROGNOSIS: DISPOSITION: 20 . DISCHARGE INSTRUCTIONS: ITEMS TO FOLLOWUP ON ON OUTPATIENT: DISCHARGE CONDITION: []. TIME SPENT ON DISCHARGE: Greater than [30] minutes. Discharge Medications Scheduled Budesonide (Budesonide) 0.5 Mg/2 Ml Ampul.neb, 0.5 MG INH BID, (Reported) Formoterol Fumarate (Perforomist) 20 Mcg/2 Ml Vial.neb, 20 MCG INH BID, (Reported) Gabapentin (Gabapentin) 400 Mg Capsule, 400 MG EN TID, (Reported) Ipratropium/Albuterol Sulfate (Iprat-Albut 0.5-3(2.5) mg/3 ml) 3 Ml Ampul.neb, 1 IGGY INH Q6H, (Reported) Omeprazole (Omeprazole) 40 Mg Capsule.dr, 40 MG EN DAILY, (Reported) Prednisone (Prednisone) 5 Mg/5 Ml Solution, 10 MG EN DAILY, (Reported) Spironolactone (Spironolactone) 25 Mg Tablet, 25 MG EN Q2D, (Reported) Sucralfate (Sucralfate) 1 Gm Tablet, 1 GM EN TID, (Reported) Scheduled PRN Hydrocodone/Acetaminophen (Hydrocodone-Acetamin 10-325 mg) 1 Each Tablet, 1 TAB EN Q6H PRN for PAIN SCALE 6-10, (Reported) Lidocaine (Lidoderm) 5% Adh..patch, 2 PATCH TOP DAILY PRN for PAIN, (Reported) APPLY ONE PATCH TO LEFT SHOULDER AND ONE PATCH TO LEFT UPPER ARM Milk Of Magnesia (Milk of Magnesia) 2,400 Mg/10 Ml Oral.susp, 30 ML EN DAILY PRN for CONSTIPATION, (Reported) Allergies Coded Allergies: No Known Allergies (Unverified , 01/06/19) JENNIFER LANDAVERDE MD May 21, 2019 22:30
== END 2019-05-06 09:46 | disposition expired | DRG 177 ==
LOC: M ED 11:37 → M ED INP 16:08 → M PCU 17:52 → M MSPAV 05-04 14:08
PROVIDERS: ADMIT Internal Medicine; ATTEND Internal Medicine
DX: J15.6 Pneumonia due to other Gram-negative bacteria (principal); J96.21 Acute and chronic respiratory failure with hypoxia; E43 Unspecified severe protein-calorie malnutrition; J96.11 Chronic respiratory failure with hypoxia; J15.212 Pneumonia due to Methicillin resistant Staphylococcus aureus; Z51.5 Encounter for palliative care